=== PATIENT | female | born 1945 | race Caucasian/White ===

== ENCOUNTER 2016-09-29 14:28 | Inpatient (IN) | payer BC, OTHER ==
[~2016-09-29] VITALS: Ht 167.6 cm; Wt 82.9 kg
[~2016-09-29 14:28] MED LIST: ADVIN25/60 INH; ALBUAER19 INH; ASPCH81X PO; FLUT0.15 NAE; FURO-85 PO; GABA-112 PO; LACT10SO17 PO; LEVO75TA PO; MECL1TAB40 PO; METO25TA3 PO; NITR0.4S UT; ONDA4TAB9 PO; OXYC-57 PO; PRLSR20 PO; SENN-65 PO; SIMV10TA2 PO; TRAM-10 PO; TRAZ1TAB52 PO; TURM1CAP4 PO
[2016-09-29] MEDS ORDERED: ALBUT/IPRATROP 3MG/0.5MG NEB 3 ML VIAL INH STA ×3 (14:36→17:38)
--- NOTE | 2016-09-29 15:00 | DIAGNOSTIC IMAGING REPORT ---
CHEST ONE VIEW PORTABLE HISTORY: Short of breath. COMPARISON: Chest 10/16/2015. FINDINGS: No pleural effusions. No pneumothorax. Linear density within the left mid to lower lung zone. The heart is top normal in size. There are poststernotomy changes. The right lung is clear. The patient slightly rotated on this study. Stable blunting left lateral costophrenic sulcus. IMPRESSION: 1. Linear densities within the left mid to lower lung zone favor subsegmental atelectasis or scarring. 2. Stable blunting of the left lateral costophrenic sulcus. Electronically signed by: Abdoul Desir M.D. 09/29/2016 2:58 PM Dictated Date/Time: 09/29/2016 2:57 PM
[2016-09-29] MEDS ORDERED: METHYLPREDNISOLONE 125 MG VIAL IV STA (15:16)
[2016-09-29] MEDS ORDERED: FENTANYL CITRATE INJ 50 MCG/1 ML 2 ML VIAL IV STA (15:18)
[2016-09-29] MEDS ORDERED: ONDANSETRON INJ 2 MG/ML 2 ML VIAL IV STA (15:18)
[2016-09-29 15:29] LABS: CALCIUM 8.8 mg/dl (8.5-10.1); CREATININE 0.94 mg/dl (0.60-1.20); POTASSIUM 4.5 mmol/L (3.5-5.1)
[2016-09-29] MEDS ORDERED: OPTIRAY 320 IV PRN (15:30)
[2016-09-29 15:32] LABS: ALB/GLOB RATIO 1.2 (0.9-2)
[2016-09-29 15:40] LABS: INR 1.1 (0.9-1.1); PARTIAL THROMBOPLASTIN RATIO 0.9; PROTHROMBIN TIME (PATIENT) 12.1 SECONDS (9.0-12.0)
[2016-09-29] MEDS ORDERED: LOSA1TAB PO (16:11)
[2016-09-29] MEDS ORDERED: VNTHFA/IN INH (16:11)
[2016-09-29 16:37] LABS: BASO % 0.2 %; BASO ABS # 0.01 K/uL (0-0.2); COMPLETE YES; EOS % 1.3 %; HEMATOCRIT 28.1 % (37-47); IG% 0.2 %; LYMPH % 36.9 %; LYMPH ABS # 1.76 K/uL (1.2-3.4); MEAN CELL VOLUME 82.2 fL (80-100); MEAN CORPUSCULAR HEMOGLOBIN 26.6 pg (25-34); MEAN CORPUSCULAR HGB CONC 32.4 g/dl (32-36); MEAN PLATELET VOLUME 11.2 fL (7.4-10.4); MONO % 5.5 %; NEUT % 55.9 %; PLATELET COUNT 95 K/uL (130-400); PLT ESTIMATE DECREASED; RED BLOOD COUNT 3.42 M/uL (4.2-5.4); WHITE BLOOD COUNT 4.77 K/uL (4.8-10.8)
--- NOTE | 2016-09-29 17:09 | DIAGNOSTIC IMAGING REPORT ---
CHEST CTA for PULMONARY ARTERIES CT DOSE: 618.10 mGy.cm HISTORY: Chest pain dyspnea TECHNIQUE: Multiaxial CT images of the chest were performed following the intravenous administration of contrast to evaluate the pulmonary arteries. Maximal intensity projection images were also obtained. COMPARISON STUDY: 12/12/2014 FINDINGS: Chronic pleural thickening and atelectasis left base. Negative thoracic aorta. Pulmonary vasculature enhances appropriately. There are no significant filling defects. IMPRESSION: 1. Study is negative for pulmonary embolus. 2. Negative thoracic aorta. 3. Chronic pleural reactive change and atelectasis left base unchanged from the prior study. Electronically signed by: Vikas Escalante M.D. 09/29/2016 5:08 PM Dictated Date/Time: 09/29/2016 5:05 PM
[2016-09-29] MEDS ORDERED: ALBUT/IPRATROP 3MG/0.5MG NEB 3 ML VIAL INH ONE (17:45)
[2016-09-29 17:54] VITALS: PULSE 76; O2SAT 100
[2016-09-29] MEDS ORDERED: LORAZEPAM 2 MG/ML 1 ML VIAL IV STA (17:57)
[2016-09-29] MEDS ORDERED: LORAZEPAM 1 MG TAB PO PRN (19:00)
[2016-09-29] MEDS ORDERED: OXYC1TAB3 PO (19:10)
[2016-09-29] MEDS ORDERED: FOLI1TAB7 PO (19:10)
[2016-09-29] MEDS ORDERED: HydrALAZINE HCL 20 MG/ML VIAL IV. PRN (19:30)
--- NOTE | 2016-09-29 19:42 | History and Physical ---
History & Physical Date & Time of Service: Sep 29, 2016 at 19:22 Chief Complaint: Shortness Of Breath Primary Care Physician: Destiny Walls D.O. History of Present Illness 71 year old female who presents to the ER with shortness of breath. Patient reports her symptoms began about one week ago. She also has had an intermittent cough productive for a small amount of garcia sputum. She reports intermittent low grade fevers and chills which she has been taking Motrin for. She reports constant chest tightness over the past few days. She also reports left upper/ axillary chest pain. She denies specific causative factors. She feels the chest pain is from recent plastic surgery she had done to her mastectomy sites. She reports the tightness and pain resolve when she takes a pain pill. She denies lightheadedness, dizziness, diaphoresis, or syncope. She reports increasing abdominal distention and generalized abdominal pain. She denies nausea and vomiting and reports she has been moving her bowel normally. She denies urinary symptoms. Patient does report she drinks a significant amount of alcohol; last drink was last evening. In the ER, patient work up is unrevealing. CT chest is negative for PE and other acute findings. EKG does not show any acute ST changes. Past Medical/Surgical History Medical Problems: (1) Alcoholic cirrhosis Status: Chronic (2) COPD (chronic obstructive pulmonary disease) Status: Chronic (3) Coronary artery disease Status: Chronic (4) Depression Status: Chronic (5) Diastolic CHF Permanent Comment: echo 04/2016 - EF 63%, grade I diastolic dysfunction Status: Chronic (6) Dyslipidemia Status: Chronic (7) Essential hypertension Status: Chronic (8) History of alcohol abuse Status: Chronic (9) History of breast cancer Status: Chronic (10) Hypothyroidism Status: Chronic Surgical Problems: (1) H/O bilateral mastectomy Status: Chronic (2) H/O shoulder surgery Status: Chronic (3) H/O ventral hernia repair Status: Chronic (4) History of bowel resection Status: Chronic (5) Status post coronary artery bypass grafting [place] Comment[place] [facility] [place]: Chronic (6) Status post hysterectomy Status: Chronic (7) Status post laparotomy Permanent Comment: 2004 bowel obstruction Status: Chronic (8) Status post repair incisional hernia Status: Chronic Social History Problems: (1) Tobacco use Status: Resolved Family History Cancer MOTHER (Stomach, Colon ) Social History Smoking Status: Former Smoker Alcohol Use: 6-8 shots vodka/night Immunizations History of Influenza Vaccine: Yes Influenza Vaccine Date: May 12, 2016 History of Pneumococcal: Yes Pneumococcal Date: Mar 08, 2016 History of Hepatitis B Vaccine: Yes Hepatitis Immunization Date: Oct 29, 2015 Multi-Drug Resistant Organisms History of MDRO: Yes Type of MDRO: MRSA Allergies Coded Allergies: No Known Allergies (Verified , 09/29/16) Home Medications Scheduled Aspirin (Aspirin Chewable), 81 MG PO QAM Fluticasone Prop/Salmeterol (Advair Diskus 250/50 60 Dose), 1 PUFF INH BID Folic Acid (Folvite), 1 MG PO DAILY Furosemide (Lasix), 20 MG PO QAM Lactulose (Chronulac), 30 ML PO BID Levothyroxine Sodium (Synthroid), 75 MCG PO QAM Losartan Potassium (Cozaar), 25 MG PO DAILY Metoprolol Succ (Toprol Xl) (Toprol-Xl), 50 MG PO QAM Omeprazole (Prilosec), 20 MG PO QAM Senna/Docusate Sod (Senokot S), 2 TAB PO QAM Simvastatin (Zocor), 10 MG PO QPM Trazodone Hcl (Desyrel), 150 MG PO HS Scheduled PRN Albuterol Hfa (Ventolin Hfa), 2 PUFFS INH Q6H PRN for SOB/Wheezing Fluticasone Propionate (Nasal) (Flonase Allergy Relief), 2 SPRAY TATE QAM PRN for CONGESTION Nitroglycerin (Nitrostat), 0.4 MG UT UD PRN for Chest Pain Ondansetron (Ondansetron HCl), 4 MG PO Q6 PRN for NAUSEA Oxycodone Immediate Rel Tab (Roxicodone Ir), 5 MG PO Q4H PRN for Severe Pain Tramadol (Ultram), 50 MG PO Q6H PRN for Pain Review of Systems 10 point review of systems was completed with the pertinent positives and negatives noted per the HPI Physical Exam Vital Signs Date Time Temp Pulse Resp B/P Pulse Ox O2 Delivery O2 Flow Rate FiO2 09/29/16 19:04 120 09/29/16 17:54 76 22 100 Nasal Cannula 2.0 09/29/16 16:42 78 28 156/101 100 Nasal Cannula 2.0 2/15/17 15:12 72 09/29/16 14:43 100 Room Air 09/29/16 14:43 100 Room Air 09/29/16 14:43 36.8 74 24 169/100 96 Room Air 09/29/16 14:37 95 Room Air General Appearance: no apparent distress Head: normocephalic Eyes: normal inspection ENT: hearing grossly normal Neck: supple, thyroid normal Respiratory/Chest: lungs clear, normal breath sounds, no respiratory distress Cardiovascular: regular rate, rhythm, no edema, normal peripheral pulses Abdomen/GI: normal bowel sounds, + tenderness (generalized), + distended Extremities/Musculoskelatal: normal inspection, no calf tenderness Neurologic/Psych: no motor/sensory deficits, alert, normal mood/affect, oriented x 3 Skin: normal color, warm/dry Diagnostics Laboratory Results Results Past 24 Hours Test 09/29/16 00:00 09/29/16 14:50 09/29/16 15:51 09/29/16 18:49 Range/Units Influenza Type A Antigen Neg for Influ A NEG Influenza Type B Antigen Neg for Influ B NEG Prothrombin Time 12.1 9.0-12.0 SECONDS Prothromb Time International Ratio 1.1 0.9-1.1 Activated Partial Thromboplast Time 23.4 21.0-31.0 SECONDS Partial Thromboplastin Ratio 0.9 Sodium Level 138 136-145 mmol/L Potassium Level 4.5 3.5-5.1 mmol/L Chloride Level 106 98-107 mmol/L Carbon Dioxide Level 20 21-32 mmol/L Anion Gap 12.0 3-11 mmol/L Blood Urea Nitrogen 8 7-18 mg/dl Creatinine 0.94 0.60-1.20 mg/dl Est Creatinine Clear Calc Drug Dose 32.1 ml/min Estimated GFR () 71.2 Estimated GFR (Non- 61.5 BUN/Creatinine Ratio 8.0 10-20 Random Glucose 93 70-99 mg/dl Calcium Level 8.8 8.5-10.1 mg/dl Total Bilirubin 0.7 0.2-1 mg/dl Aspartate Amino Transf (AST/SGOT) 31 15-37 U/L Alanine Aminotransferase (ALT/SGPT) 24 12-78 U/L Alkaline Phosphatase 72 45-117 U/L Pro-B-Type Natriuretic Peptide 601 0-900 pg/ml Total Protein 6.7 6.4-8.2 gm/dl Albumin 3.7 3.4-5.0 gm/dl Globulin 3.0 2.5-4.0 gm/dl Albumin/Globulin Ratio 1.2 0.9-2 White Blood Count 4.77 4.8-10.8 K/uL Red Blood Count 3.42 4.2-5.4 M/uL Hemoglobin 9.1 12.0-16.0 g/dL Hematocrit 28.1 37-47 % Mean Corpuscular Volume 82.2 80-100 fL Mean Corpuscular Hemoglobin 26.6 25-34 pg Mean Corpuscular Hemoglobin Concent 32.4 32-36 g/dl Platelet Count 95 130-400 K/uL Mean Platelet Volume 11.2 7.4-10.4 fL Neutrophils (%) (Auto) 55.9 % Lymphocytes (%) (Auto) 36.9 % Monocytes (%) (Auto) 5.5 % Eosinophils (%) (Auto) 1.3 % Basophils (%) (Auto) 0.2 % Neutrophils # (Auto) 2.67 1.4-6.5 K/uL Lymphocytes # (Auto) 1.76 1.2-3.4 K/uL Monocytes # (Auto) 0.26 0.11-0.59 K/uL Eosinophils # (Auto) 0.06 0-0.5 K/uL Basophils # (Auto) 0.01 0-0.2 K/uL RDW Standard Deviation 50.5 36.4-46.3 fL RDW Coefficient of Variation 16.5 11.5-14.5 % Immature Granulocyte % (Auto) 0.2 % Immature Granulocyte # (Auto) 0.01 0.00-0.02 K/uL Platelet Estimate DECREASED Test 09/29/16 19:00 Range/Units Diagnostic Radiology CXR IMPRESSION: 1. Linear densities within the left mid to lower lung zone favor subsegmental atelectasis or scarring. 2. Stable blunting of the left lateral costophrenic sulcus. CTA CHEST IMPRESSION: 1. Study is negative for pulmonary embolus. 2. Negative thoracic aorta. 3. Chronic pleural reactive change and atelectasis left base unchanged from the prior study. Impression Assessment and Plan SHORTNESS OF BREATH, MILD COPD EXACERBATION - admit to tele - presenting with increasing shortness of breath and cough x 1 week - saturating well on room air - CXR negative for pneumonia, CTA chest negative for PE - rapid flu negative, will check PCR - s/p solumedrol 125mg IV in ED; will continue with short prednisone taper tomorrow - PRN nebs - empiric doxy - sputum culture - suspect some component of anxiety is contributing to her shortness of breath CHEST TIGHTNESS/PAIN, HX CAD - atypical chest pain - likely due to COPD exacerbation/recent plastic surgery on mastectomy sites - EKG does not show any acute ST changes - serial enzymes - resting echo - continue ASA, beta vanna, and statin ABDOMINAL PAIN/DISTENTION CT abd/pelvis-non obstructive ileus clears for now f/u kub in am ETOH ABUSE - patient reports she drinks 6-8 shots of vodka/night - last drink last evening - would like to quit - mental health consult placed - EOTH withdrawal protocol with gabapentin and PRN Ativan ordered - PO multivitamin, folic acid, and thiamine CHRONIC DIASTOLIC CHF - echo 04/2016 - EF 63%, grade I diastolic function on lasix HTN - BP elevated, ? situational due to anxiety - continue metoprolol and losartan, make adjustments as needed - PRN hydralazine ANEMIA/THROMBOCYTOPENIA - hgb and platelets at baseline - due to underlying liver disease HYPOTHYROIDISM - continue levothyroxine DVT PROPHYLAXIS - SCDs due to anemia, thrombocytopenia DISPO - In my clinical judgment this beneficiary meets acute admission criteria, established by [facility], that includes being hospitalized through two midnights. Agree with above H and P. 71F presents ongoing cough and sob for one week. Says had some fevers at home. Also complains of abdomen pain. No nausea or vomiting. No diarrhea. Also complains of chest tightness.Currently resting comfortably and hemodynamically stable. p/e Ge not in distress Cvs s1 and s2 heard no murmurs Rs cta b/l no wheezing Abd soft bs present mild tender mild distension [employer] non focal Ext no erythema a/p copd ex neb, oxygen, doxycycline and steroids monitor in tele mild non obstructive ileus on ct scan clears f/u kub diastolic chf home meds VTE Prophylaxis VTE Risk Assessment Done? Y/N: Yes Risk Level: Moderate
[2016-09-29 19:45] VITALS: Ht 167.6 cm; Wt 82.9 kg
[2016-09-29 20:00] VITALS: O2SAT 99
[2016-09-29] MEDS ORDERED: FLUTICASONE PROPIONATE NA SPR 16 GM BTL NAE PRN (20:30)
[2016-09-29 20:42] VITALS: BP 140/67; PULSE 104; TEMP 37.1; O2SAT 99
[2016-09-29] MEDS ORDERED: TRAZODONE HCL 50 MG TAB PO SCH (21:00)
--- NOTE | 2016-09-29 21:19 | DIAGNOSTIC IMAGING REPORT ---
ABDOMEN AND PELVIS CT WITHOUT CONTRAST CT DOSE: 544.00 mGy.cm HISTORY: Pain abdominal distention, abdominal pain TECHNIQUE: Multiaxial CT images of the abdomen and pelvis were performed without contrast. COMPARISON STUDY: 10/15/2015 FINDINGS: Chronic pleural reactive change left base. Right base is clear. Postoperative changes are noted in the right anterior chest wall. Prior median sternotomy. Liver spleen and pancreas are unremarkable in configuration. There are several small gallstones within the gallbladder lumen. This is unchanged. Kidneys negative for hydronephrosis. Bowel pattern overall is nonobstructive. No evidence for an anterior ventral hernia repair bladder is midline. There is no significant free fluid within the cul-de-sac.. Components of the appendix are unremarkable. IMPRESSION: 1. Minimal nonobstructive ileus. 2. Otherwise unremarkable bowel pattern with no true obstructive characteristics. 3. Interval anterior wall ventral hernia repair. 4. Postoperative changes lower aspect right breast and/or lower right chest wall. 5. Chronic changes left base. 6. Several small gallstones unchanged from the prior study. Electronically signed by: Vikas Escalante M.D. 09/29/2016 9:18 PM Dictated Date/Time: 09/29/2016 9:13 PM
[2016-09-29] MEDS: MULTIVITAMIN TAB PO SCH (21:43)
[2016-09-29] MEDS: FLUTICASONE/SALMETEROL 250/50 (ADVAIR) 14 PUFF/1 INHALER INH SCH (21:43)
[2016-09-29] MEDS ORDERED: SODIUM CHLORIDE 0.9% 1000ML 1,000 ML IV SCH (21:45)
[2016-09-29] MEDS: DOXYCYCLINE HYCLATE 100 MG CAP PO SCH (21:46)
[2016-09-29] MEDS: THIAMINE HCL 100 MG TAB PO SCH (21:46)
[2016-09-29] MEDS: SIMVASTATIN 10 MG TAB PO SCH (21:47)
[2016-09-29] MEDS: LACTULOSE SYRUP 20 GM/30 ML UDC PO SCH (21:50)
[2016-09-29] MEDS ORDERED: GABAPENTIN 600 MG TAB PO SCH (22:00)
[2016-09-29] MEDS: OXYCODONE HCL IR 5 MG TAB (IMMEDIATE RELEASE) PO PRN (22:39)
[2016-09-29] MEDS ORDERED: LORAZEPAM 2 MG/ML 1 ML VIAL IV PRN (23:00)
[2016-09-29 23:10] VITALS: BP 135/74; PULSE 90; TEMP 36.8; O2SAT 95
[2016-09-30] VITALS (11 sets, daily range): BP systolic 102–161; BP diastolic 50–88; PULSE 56–88; TEMP 36.4–36.9; O2SAT 94–98
--- NOTE | 2016-09-30 00:14 | EMERGENCY ROOM VISIT NOTE ---
History Report prepared by Aleksey: Rosario Le Under the Supervision of: Dr. Cesar Montoya M.D. First contact with patient: 15:10 Chief Complaint: SHORTNESS OF BREATH Stated Complaint: SHORTNESS OF BREATH Nursing Triage Summary: arrived als from dr office s/p right breat drain removal. hx darrel mastectomies in past, recent resection redundant breast tissue and flap advancement, last visit had a fluid wave, drain placed, removed today. left drain out last week. today s/o, "constricted breathing",abd feels rigid to pt, states usually soft, getting tighter over the last week.. orthopnic, pérez. History of Present Illness The patient is a 71 year old female who presents to the Emergency Room with complaints of worsening shortness of breath that started earlier today. The patient came to the ED via ambulance from her PCP's office. The shortness of breath was not relieved with a breathing treatment. She states that she is also experiencing chest tightness, but she denies any chest pain. The tightness started one week ago and has been gradually getting worse. Additionally, she is experiencing fevers, chills, nausea, and worsening abdominal bloating. Her highest recorded fever was 100.8. She states that her abdomen feels more rigid than usual also. The patient is also experiencing worsening lower left leg edema. Pt denies LOC, headache, visual changes, neck pain, tearing pain radiating to the back, personal history of blood clots, vomiting, melena, hematochezia, urinary symptoms, rash, or other complaints. She experienced similar symptoms last July when she was diagnosed with a COPD exacerbation. She was admitted to the hospital in [place]. However, at that time she was experiencing chest pain. The patient had bilateral mastectomies done two years ago. She then had a resection of redundant breast tissue, and flap advancement on August. The patient takes one baby aspirin daily, but otherwise denies being on any blood thinners. The patient reports that she has cirrhosis of her liver and that she is an alcoholic. She states that she drinks pretty heavily. The patient adds that she has history of three hernia surgeries, bowel resection, and heart bypass. Source of History: patient Onset: earlier today Position: chest Quality: other (shortness of breath) Timing: worsening Associated Symptoms: + chills, + fevers, + nausea Note: worsening chest tightness, worsening abdominal bloating, increasing abdominal rigidity, worsening lower left leg edema Review of Systems See HPI for pertinent positives and negatives. A total of ten systems were reviewed and were otherwise negative. Past Medical & Surgical Medical Problems: (1) Alcoholic cirrhosis (2) COPD (chronic obstructive pulmonary disease) (3) Coronary artery disease (4) Depression (5) Diastolic CHF (6) Dyslipidemia (7) Essential hypertension (8) History of alcohol abuse (9) History of breast cancer (10) Hypothyroidism Surgical Problems: (1) H/O bilateral mastectomy (2) H/O shoulder surgery (3) H/O ventral hernia repair (4) History of bowel resection (5) Status post coronary artery bypass grafting (6) Status post hysterectomy (7) Status post laparotomy (8) Status post repair incisional hernia Social History Problems: (1) Tobacco use Family History Cancer MOTHER (Stomach, Colon ) Hypertension Social History Smoking Status: Former Smoker Alcohol Use: none Drug Use: none Marital Status: single Housing Status: lives alone Occupation Status: unemployed Current/Historical Medications Scheduled Aspirin (Aspirin Chewable), 81 MG PO QAM Fluticasone Prop/Salmeterol (Advair Diskus 250/50 60 Dose), 1 PUFF INH BID Folic Acid (Folvite), 1 MG PO DAILY Furosemide (Lasix), 20 MG PO QAM Lactulose (Chronulac), 30 ML PO BID Levothyroxine Sodium (Synthroid), 75 MCG PO QAM Losartan Potassium (Cozaar), 25 MG PO DAILY Metoprolol Succ (Toprol Xl) (Toprol-Xl), 50 MG PO QAM Omeprazole (Prilosec), 20 MG PO QAM Senna/Docusate Sod (Senokot S), 2 TAB PO QAM Simvastatin (Zocor), 10 MG PO QPM Trazodone Hcl (Desyrel), 150 MG PO HS Scheduled PRN Albuterol Hfa (Ventolin Hfa), 2 PUFFS INH Q6H PRN for SOB/Wheezing Fluticasone Propionate (Nasal) (Flonase Allergy Relief), 2 SPRAY TATE QAM PRN for CONGESTION Nitroglycerin (Nitrostat), 0.4 MG UT UD PRN for Chest Pain Ondansetron (Ondansetron HCl), 4 MG PO Q6 PRN for NAUSEA Oxycodone Immediate Rel Tab (Roxicodone Ir), 5 MG PO Q4H PRN for Severe Pain Tramadol (Ultram), 50 MG PO Q6H PRN for Pain Allergies Coded Allergies: No Known Allergies (Verified , 09/29/16) Physical Exam Vital Signs Date Time Temp Pulse Resp B/P Pulse Ox O2 Delivery O2 Flow Rate FiO2 09/29/16 18:30 91 19 100 09/29/16 18:00 76 21 100 09/29/16 17:54 76 22 100 Nasal Cannula 2.0 09/29/16 17:39 176/78 09/29/16 17:38 187/137 09/29/16 16:42 78 28 156/101 100 Nasal Cannula 2.0 09/29/16 16:30 78 17 100 09/29/16 16:01 156/101 09/29/16 16:00 79 26 100 09/29/16 15:30 73 22 09/29/16 15:12 72 09/29/16 14:43 100 Room Air 09/29/16 14:43 100 Room Air 09/29/16 14:43 36.8 74 24 169/100 96 Room Air 09/29/16 14:37 95 Room Air Physical Exam GENERAL: Awake, alert, uncomfortable-appearing, in no distress HENT: Normocephalic, atraumatic. Oropharynx unremarkable. EYES: Normal conjunctiva. Sclera non-icteric. NECK: Supple. No nuchal rigidity. FROM. No JVD. RESPIRATORY: Clear to auscultation. CARDIAC: Regular rate, normal rhythm. Extremities warm and well perfused. Pulses equal. ABDOMEN: Soft, mildly distended. Minimal tenderness to palpation in midabdomen. No rebound or guarding. No masses. RECTAL: Deferred. MUSCULOSKELETAL: Chest examination reveals no tenderness. The back is symmetrical on inspection without obvious abnormality. There is no CVA tenderness to palpation. No joint edema. LOWER EXTREMITIES: Calves are equal size bilaterally and non-tender. Left leg 2 + edema with some calf tenderness. Right leg 1+ edema. No discoloration. NEURO: Normal sensorium. No sensory or motor deficits noted. SKIN: No rash or jaundice noted. Medical Decision & Procedures ER Provider Diagnostic Interpretation: X ray results as stated below per my interpretation and radiologist interpretation. Other radiology results as stated below per my review and radiologist interpretation CHEST ONE VIEW PORTABLE IMPRESSION: 1. Linear densities within the left mid to lower lung zone favor subsegmental atelectasis or scarring. 2. Stable blunting of the left lateral costophrenic sulcus. Electronically signed by: Abdoul Desir M.D. 09/29/2016 2:58 PM Dictated Date/Time: 09/29/2016 2:57 PM CHEST CTA for PULMONARY ARTERIES IMPRESSION: 1. Study is negative for pulmonary embolus. 2. Negative thoracic aorta. 3. Chronic pleural reactive change and atelectasis left base unchanged from the prior study. Electronically signed by: Vikas Escalante M.D. 09/29/2016 5:08 PM Dictated Date/Time: 09/29/2016 5:05 PM Laboratory Results 09/29/16 15:51 Red Blood Count 3.42, Mean Corpuscular Volume 82.2, Mean Corpuscular Hemoglobin 26.6, Mean Corpuscular Hemoglobin Concent 32.4, Mean Platelet Volume 11.2, Neutrophils (%) (Auto) 55.9, Lymphocytes (%) (Auto) 36.9, Monocytes (%) (Auto) 5.5, Eosinophils (%) (Auto) 1.3, Basophils (%) (Auto) 0.2, Neutrophils # (Auto) 2.67, Lymphocytes # (Auto) 1.76, Monocytes # (Auto) 0.26, Eosinophils # (Auto) 0.06, Basophils # (Auto) 0.01 09/29/16 14:50 Test 09/29/16 00:00 09/29/16 14:50 09/29/16 15:51 Influenza Type A Antigen Neg for Influ A (NEG) Influenza Type B Antigen Neg for Influ B (NEG) Prothrombin Time 12.1 SECONDS (9.0-12.0) Prothromb Time International Ratio 1.1 (0.9-1.1) Activated Partial Thromboplast Time 23.4 SECONDS (21.0-31.0) Partial Thromboplastin Ratio 0.9 Anion Gap 12.0 mmol/L (3-11) Est Creatinine Clear Calc Drug Dose 32.1 ml/min Estimated GFR () 71.2 Estimated GFR (Non- 61.5 BUN/Creatinine Ratio 8.0 (10-20) Calcium Level 8.8 mg/dl (8.5-10.1) Total Bilirubin 0.7 mg/dl (0.2-1) Aspartate Amino Transf (AST/SGOT) 31 U/L (15-37) Alanine Aminotransferase (ALT/SGPT) 24 U/L (12-78) Alkaline Phosphatase 72 U/L (45-117) Troponin I < 0.015 ng/ml (0-0.045) Pro-B-Type Natriuretic Peptide 601 pg/ml (0-900) Total Protein 6.7 gm/dl (6.4-8.2) Albumin 3.7 gm/dl (3.4-5.0) Globulin 3.0 gm/dl (2.5-4.0) Albumin/Globulin Ratio 1.2 (0.9-2) White Blood Count 4.77 K/uL (4.8-10.8) Red Blood Count 3.42 M/uL (4.2-5.4) Hemoglobin 9.1 g/dL (12.0-16.0) Hematocrit 28.1 % (37-47) Mean Corpuscular Volume 82.2 fL (80-100) Mean Corpuscular Hemoglobin 26.6 pg (25-34) Mean Corpuscular Hemoglobin Concent 32.4 g/dl (32-36) Platelet Count 95 K/uL (130-400) Mean Platelet Volume 11.2 fL (7.4-10.4) Neutrophils (%) (Auto) 55.9 % Lymphocytes (%) (Auto) 36.9 % Monocytes (%) (Auto) 5.5 % Eosinophils (%) (Auto) 1.3 % Basophils (%) (Auto) 0.2 % Neutrophils # (Auto) 2.67 K/uL (1.4-6.5) Lymphocytes # (Auto) 1.76 K/uL (1.2-3.4) Monocytes # (Auto) 0.26 K/uL (0.11-0.59) Eosinophils # (Auto) 0.06 K/uL (0-0.5) Basophils # (Auto) 0.01 K/uL (0-0.2) RDW Standard Deviation 50.5 fL (36.4-46.3) RDW Coefficient of Variation 16.5 % (11.5-14.5) Immature Granulocyte % (Auto) 0.2 % Immature Granulocyte # (Auto) 0.01 K/uL (0.00-0.02) Platelet Estimate DECREASED Laboratory results reviewed by me Medications Administered Medications (Trade) Dose Ordered Sig/Leisa Route Start Time Stop Time Status Last Admin Dose Admin Albuterol/ Ipratropium (Duoneb) 3 ml NOW STAT INH 09/29/16 14:36 09/29/16 14:38 DC 09/29/16 14:52 3 ML Albuterol/ Ipratropium (Duoneb) 3 ml NOW STAT INH 09/29/16 15:16 09/29/16 15:18 DC 09/29/16 15:36 3 ML Methylprednisolone Sodium Succinate (Solu-Medrol IV) 125 mg NOW STAT IV 09/29/16 15:16 09/29/16 15:18 DC 09/29/16 15:36 125 MG Fentanyl Citrate (Fentanyl Inj) 50 mcg NOW STAT IV 09/29/16 15:18 09/29/16 15:20 DC 09/29/16 15:37 50 MCG Ondansetron HCl (Zofran Inj) 4 mg NOW STAT IV 09/29/16 15:18 09/29/16 15:20 DC 09/29/16 15:36 4 MG Albuterol/ Ipratropium (Duoneb) 12 ml ONE ONCE INH 09/29/16 17:45 09/29/16 17:46 DC 09/29/16 17:54 12 ML Lorazepam (Ativan Inj) 1 mg NOW STAT IV 09/29/16 17:57 09/29/16 17:58 DC 09/29/16 18:06 1 MG ECG Indication: SOB/dyspnea Rate (beats per minute): 74 Rhythm: normal sinus Findings: no acute ischemic change, no ectopy, other (poor R-wave progression) ED Course 1516: The patient was evaluated in room B4. A complete history and physical exam was performed. Ordered Solu-Medrol 125 mg IV, DuoNeb 3 ml INH 1518: Ordered Zofran Inj 4 mg IV, Fentanyl Citrate 50 mcg IV 1745: Ordered DuoNeb 3 ml INH 1752: Upon reexamination, the patient was resting comfortably but anxious. I discussed the test results and treatment plan with her. The patient will be evaluated for further management. 1757: Ordered Ativan Inj 1 mg IV 1809: Discussed the patient's case with Aide Michaels. The patient will be evaluated for further treatment and disposition. Medical Decision Triage Nursing notes reviewed. The patient's presentation and history were concerning for shortness of breath. Etiologies such as pneumonia, COPD, reactive airway disease, CHF, cardiac ischemia, pulmonary embolism, pneumothorax, musculoskeletal, infections, gastrointestinal, as well as others were entertained. The patient was evaluated. She was short of breath. She was given 2 DuoNeb treatments. She is also given Solu-Medrol. Chest x-ray did not reveal any acute findings. The patient had pancytopenia noted on CBC. Moderate anemia but not significant to cause her shortness of breath. Coags are unremarkable. Chemistry panel and BNP were unremarkable. Cardiac troponin was negative. The patient underwent CT imaging which did not reveal any evidence of PE. On reassessment the patient was doing so better but then had more shortness of breath. She was started on an hour-long breathing treatment. The patient was also noting some anxiety. She does consume a moderate amount of alcohol. She is not significantly tachycardic. The patient was given a dose of 1 milligram of Ativan. Consultation was made with internal medicine. Patient was evaluated in the Emergency Room by the hospitalist for further management. The chart was completed utilizing [employer] Speech voice recognition software. Grammatical errors, random word insertions, pronoun errors, and incomplete sentences are an occasional consequence of this system due to software limitations, ambient noise, and hardware issues. Any formal questions or concerns about the content, text, or information contained within the body of this dictation should be directly addressed to the physician for clarification. Consults Time Called: 180 Consulting Physician: Aide Michaels Returned Call: [phone] Discussed the patient's case with Aide Michaels. The patient will be evaluated for further treatment and disposition. Impression Primary Impression: Shortness of breath Additional Impression: COPD exacerbation Scribe Attestation The scribe's documentation has been prepared under my direction and personally reviewed by me in its entirety. I confirm that the note above accurately reflects all work, treatment, procedures, and medical decision making performed by me. Departure Information Dispostion Being Evaluated By Hospitalist Referrals Destiny Walls D.O. (PCP) Patient Instructions My [facility] Problem Qualifiers
[2016-09-30 00:17] LABS: INFLUENZA A PCR Neg for Influ A (NEG); INFLUENZA B PCR Neg for Influ B (NEG)
[2016-09-30] MEDS: ALBUT/IPRATROP 3MG/0.5MG NEB 3 ML VIAL INH PRN ×2 (00:18→20:54)
[2016-09-30] MEDS: ONDANSETRON INJ 2 MG/ML 2 ML VIAL IV PRN ×2 (00:26→06:59)
[2016-09-30] MEDS: SODIUM CHLORIDE 0.9% 1000ML 1,000 ML IV SCH ×2 (00:28→09:45)
[2016-09-30] MEDS: TRAMADOL HCL 50 MG TAB PO PRN ×2 (00:33→10:35)
[2016-09-30] MEDS ORDERED: SODIUM CHLORIDE 0.9% 1000ML 1,000 ML IV ONE (02:00)
[2016-09-30] MEDS: OXYCODONE HCL IR 5 MG TAB (IMMEDIATE RELEASE) PO PRN ×2 (03:43→17:10)
[2016-09-30] MEDS: GABAPENTIN 600MG Q6H DOSE PO SCH ×2 (03:43→10:32)
[2016-09-30 04:33] LABS: HEMATOCRIT 24.9 % (37-47); MEAN CELL VOLUME 81.4 fL (80-100); MEAN CORPUSCULAR HEMOGLOBIN 26.5 pg (25-34); MEAN CORPUSCULAR HGB CONC 32.5 g/dl (32-36); RED BLOOD COUNT 3.06 M/uL (4.2-5.4); WHITE BLOOD COUNT 2.66 K/uL (4.8-10.8)
[2016-09-30 04:35] LABS: MEAN PLATELET VOLUME 10.8 fL (7.4-10.4); PLATELET COUNT 85 K/uL (130-400)
[2016-09-30 04:52] LABS: BUN/CREATININE RATIO 9.8 (10-20); CALCIUM 8.2 mg/dl (8.5-10.1); CREATININE 0.9 mg/dl (0.60-1.20); MAGNESIUM 1.9 mg/dl (1.8-2.4); POTASSIUM 4.4 mmol/L (3.5-5.1)
[2016-09-30 04:54] LABS: COMPLETE YES; IG% 0.4 %; LYMPH % 7.9 %; LYMPH ABS # 0.21 K/uL (1.2-3.4); MONO % 0.4 %; NEUT % 91.3 %
[2016-09-30 04:55] LABS: ALB/GLOB RATIO 1.2 (0.9-2)
[2016-09-30] MEDS: LEVOTHYROXINE 75 MCG TAB PO SCH (05:46)
[2016-09-30] MEDS: FLUTICASONE/SALMETEROL 250/50 (ADVAIR) 14 PUFF/1 INHALER INH SCH ×2 (07:57→22:17)
[2016-09-30] MEDS: LACTULOSE SYRUP 20 GM/30 ML UDC PO SCH ×3 (07:58→22:03)
[2016-09-30] MEDS: METOPROLOL SUCC 50MG EXT REL TAB PO SCH (08:09)
[2016-09-30] MEDS: ASPIRIN 81 MG ECTAB PO SCH (08:09)
[2016-09-30] MEDS: MULTIVITAMIN TAB PO SCH (08:09)
[2016-09-30] MEDS: THIAMINE HCL 100 MG TAB PO SCH (08:09)
[2016-09-30] MEDS: LOSARTAN POTASSIUM 25 MG TAB PO SCH (08:09)
[2016-09-30] MEDS: DOXYCYCLINE HYCLATE 100 MG CAP PO SCH ×2 (08:09→22:03)
[2016-09-30] MEDS: DOCUSATE SODIUM/SENNA 50/8.6MG TAB PO SCH (08:10)
[2016-09-30] MEDS: PANTOprazole SOD 40 MG TAB PO SCH (08:10)
[2016-09-30] MEDS ORDERED: MAGNESIUM SULFATE 1GM / D5W 1 GM in PREMIXED IN D5W 100 ML IV ONE (08:30)
[2016-09-30] MEDS ORDERED: FUROSEMIDE 20 MG TAB PO SCH (09:00)
--- NOTE | 2016-09-30 10:17 | DIAGNOSTIC IMAGING REPORT ---
KUB CLINICAL HISTORY: Ileus. FINDINGS: 2 AP supine abdominal radiographs are compared to study dated 10/16/2015 and correlated with abdominal CT dated 09/29/2016. There is a nonobstructed abdominal bowel gas pattern noting moderate colonic fecal retention. No evidence of intraperitoneal free air is seen. The bladder is filled with excreted contrast. No abnormal abdominal calcifications are identified. Midline sternotomy wires are noted and the heart appears enlarged. The skeletal structures are osteopenic. There is moderate lumbosacral spondylosis and scoliosis. IMPRESSION: Nonobstructed abdominal bowel gas pattern. Electronically signed by: Ishmael Burt M.D. 09/30/2016 10:15 AM Dictated Date/Time: 09/30/2016 10:14 AM
[2016-09-30 11:52] LABS: HEMATOCRIT 25.3 % (37-47); MEAN CELL VOLUME 81.9 fL (80-100); MEAN CORPUSCULAR HEMOGLOBIN 26.9 pg (25-34); MEAN CORPUSCULAR HGB CONC 32.8 g/dl (32-36); RED BLOOD COUNT 3.09 M/uL (4.2-5.4); WHITE BLOOD COUNT 6.19 K/uL (4.8-10.8)
[2016-09-30] MEDS: LORAZEPAM 0.5 MG TAB PO PRN (11:58)
--- NOTE | 2016-09-30 12:01 | Progress Note ---
Subjective Date of Service: Sep 30, 2016. Subjective Pt evaluation today including: conversation w/ patient, physical exam, lab review, review of studies, review of inpatient medication list Saw/examined the patient in room 231 She is doing better today States she has been drinking a lot of alcohol for the past year - admits to 3-4 drinks per night No significant withdrawal symptoms currently +weakness, +ambulatory dysfunction had some shortness of breath as well Problem List Medical Problems: (1) COPD exacerbation Status: Acute (2) Shortness of breath Status: Acute Review of Systems Constitutional: + weakness, No chills, No fever Respiratory: + shortness of breath, No cough, No dyspnea at rest, No dyspnea on exertion, No hemoptysis, No sputum, No wheezing Cardiac: + chest pain (improving), No edema, No palpitations Abdomen: No diarrhea, No nausea, No pain, No vomiting Neurologic: + balance problems, + vertigo, + weakness, No memory loss, No numbness/tingling, No paralysis Psychiatric: + see HPI, + substance abuse, No anxiety, No depression symptoms Heme: No abnormal bleeding/bruising Medications Current Inpatient Medications Medications (Trade) Dose Ordered Sig/Leisa Route Start Time Stop Time Status Last Admin Dose Admin Ioversol (Optiray 320) 125 ml UD PRN IV 09/29/16 15:30 10/03/16 15:29 Acetaminophen (Tylenol Tab) 650 mg Q4H PRN PO 09/29/16 19:00 10/29/16 18:59 Ondansetron HCl (Zofran Inj) 4 mg Q6H PRN IV 09/29/16 19:00 10/29/16 18:59 09/30/16 06:59 4 MG Multivitamins (Multivitamin Tab) 1 tab QAM PO 09/29/16 19:00 10/29/16 18:59 09/30/16 08:09 1 TAB Thiamine HCl (Vitamin B-1 Tab) 100 mg QAM PO 09/29/16 21:00 10/29/16 20:59 09/30/16 08:09 100 MG Folic Acid (Folvite Tab) 1 mg QAM PO 09/29/16 21:00 10/29/16 20:59 09/30/16 08:30 1 MG Albuterol/ Ipratropium (Duoneb) 3 ml Q4R PRN INH 09/29/16 19:15 10/29/16 19:14 09/30/16 00:18 3 ML Aspirin (Ecotrin Tab) 81 mg QAM PO 09/30/16 09:00 10/30/16 08:59 09/30/16 08:09 81 MG Salmeterol Xinafoate/ Fluticasone (Advair Diskus 250/50 Inh) 1 puff BID INH 09/29/16 21:00 10/29/16 20:59 09/30/16 07:57 1 PUFF Lactulose (Chronulac Syrup) 20 gm BID PO 09/29/16 21:00 10/29/16 20:59 09/30/16 07:58 20 GM Levothyroxine Sodium (Synthroid Tab) 75 mcg DAILYBB PO 09/30/16 06:00 10/30/16 06:59 09/30/16 05:46 75 MCG Losartan Potassium (coZAAR TAB) 25 mg DAILY PO 09/30/16 09:00 10/30/16 08:59 09/30/16 08:09 25 MG Metoprolol Succinate (Toprol Xl Tab) 50 mg QAM PO 09/30/16 09:00 10/30/16 08:59 09/30/16 08:09 50 MG Senna/Docusate Sodium (Senokot S Tab) 2 tab QAM PO 09/30/16 09:00 10/30/16 08:59 09/30/16 08:10 2 TAB Simvastatin (Zocor Tab) 10 mg QPM PO 09/29/16 21:00 10/29/16 20:59 09/29/16 21:47 10 MG Tramadol HCl (Ultram Tab) 50 mg Q6H PRN PO 09/29/16 19:15 10/29/16 19:14 09/30/16 10:35 50 MG Pantoprazole Sodium (Protonix Tab) 40 mg QAM PO 09/30/16 09:00 10/30/16 08:59 09/30/16 08:10 40 MG Prednisone (PredniSONE TAB) 40 mg Taper DAILY PO 09/30/16 09:00 10/07/16 08:59 09/30/16 08:30 40 MG Hydralazine HCl (HydrALAZINE INJ) 10 mg Q6H PRN IV. 09/29/16 19:30 10/29/16 19:29 Doxycycline Hyclate (Vibramycin Cap) 100 mg BID PO 09/29/16 21:00 10/06/16 20:59 09/30/16 08:09 100 MG Fluticasone Propionate (Flonase Nasal Maypearl) 1 sprays QAM PRN TATE 09/29/16 20:30 10/29/16 20:29 Oxycodone HCl (Roxicodone Immediate Rel Tab) 5 mg Q4H PRN PO 09/29/16 20:30 10/13/16 20:29 09/30/16 03:43 5 MG Gabapentin (Neurontin Tab) 600 mg Q8H PO 09/30/16 18:00 10/01/16 10:01 Gabapentin (Neurontin Tab) 600 mg Q12H PO 10/01/16 22:00 10/02/16 10:01 Gabapentin 600 mg 600 mg Q24H PO 10/02/16 10:00 10/02/16 10:01 Sodium Chloride (Nss 1000ml) 1,000 ml @ 100 mls/hr Q10H IV 09/29/16 23:45 09/30/16 11:44 09/30/16 00:28 100 MLS/HR Lorazepam (Ativan Tab) 0.5 mg Q4 PRN PO 09/30/16 11:30 10/30/16 11:29 UNV Objective Vital Signs Date Time Temp Pulse Resp B/P Pulse Ox O2 Delivery O2 Flow Rate FiO2 09/30/16 08:00 Room Air 09/30/16 08:00 36.8 83 18 158/84 96 Room Air 09/30/16 04:00 Room Air 09/30/16 03:35 36.9 88 18 131/68 95 Room Air 09/30/16 00:18 87 20 98 Room Air 09/30/16 00:00 Room Air 09/29/16 23:10 36.8 90 18 135/74 95 Room Air 09/29/16 20:42 37.1 104 24 140/67 99 Room Air 09/29/16 20:11 36.8 110 18 160/102 96 09/29/16 20:09 110 18 160/102 96 Room Air 09/29/16 20:00 99 Room Air 09/29/16 19:45 Nasal Cannula 2.0 09/29/16 19:30 124 24 98 09/29/16 19:04 120 09/29/16 19:00 117 24 100 09/29/16 18:30 91 19 100 09/29/16 18:00 76 21 100 09/29/16 17:54 76 22 100 Nasal Cannula 2.0 09/29/16 17:39 176/78 09/29/16 17:38 187/137 09/29/16 16:42 78 28 156/101 100 Nasal Cannula 2.0 09/29/16 16:30 78 17 100 09/29/16 16:01 156/101 09/29/16 16:00 79 26 100 09/29/16 15:30 73 22 09/29/16 15:12 72 09/29/16 14:43 100 Room Air 09/29/16 14:43 100 Room Air 09/29/16 14:43 36.8 74 24 169/100 96 Room Air 09/29/16 14:37 95 Room Air Physical Exam General Appearance: no apparent distress Respiratory/Chest: lungs clear, normal breath sounds, no respiratory distress, no accessory muscle use Cardiovascular: regular rate, rhythm, no edema, no murmur Abdomen: normal bowel sounds, non tender, soft Extremities: normal inspection, no pedal edema Neurologic/Psychiatric: no motor/sensory deficits, alert, + depressed affect Laboratory Results Last 24 Hours Test 09/29/16 14:50 09/29/16 15:51 09/29/16 19:38 09/29/16 22:20 Prothrombin Time 12.1 SECONDS Prothromb Time International Ratio 1.1 Activated Partial Thromboplast Time 23.4 SECONDS Partial Thromboplastin Ratio 0.9 Sodium Level 138 mmol/L Potassium Level 4.5 mmol/L Chloride Level 106 mmol/L Carbon Dioxide Level 20 mmol/L Anion Gap 12.0 mmol/L Blood Urea Nitrogen 8 mg/dl Creatinine 0.94 mg/dl Est Creatinine Clear Calc Drug Dose 32.1 ml/min Estimated GFR () 71.2 Estimated GFR (Non- 61.5 BUN/Creatinine Ratio 8.0 Random Glucose 93 mg/dl Calcium Level 8.8 mg/dl Total Bilirubin 0.7 mg/dl Aspartate Amino Transf (AST/SGOT) 31 U/L Alanine Aminotransferase (ALT/SGPT) 24 U/L Alkaline Phosphatase 72 U/L Troponin I < 0.015 ng/ml Pro-B-Type Natriuretic Peptide 601 pg/ml Total Protein 6.7 gm/dl Albumin 3.7 gm/dl Globulin 3.0 gm/dl Albumin/Globulin Ratio 1.2 White Blood Count 4.77 K/uL Red Blood Count 3.42 M/uL Hemoglobin 9.1 g/dL Hematocrit 28.1 % Mean Corpuscular Volume 82.2 fL Mean Corpuscular Hemoglobin 26.6 pg Mean Corpuscular Hemoglobin Concent 32.4 g/dl Platelet Count 95 K/uL Mean Platelet Volume 11.2 fL Neutrophils (%) (Auto) 55.9 % Lymphocytes (%) (Auto) 36.9 % Monocytes (%) (Auto) 5.5 % Eosinophils (%) (Auto) 1.3 % Basophils (%) (Auto) 0.2 % Neutrophils # (Auto) 2.67 K/uL Lymphocytes # (Auto) 1.76 K/uL Monocytes # (Auto) 0.26 K/uL Eosinophils # (Auto) 0.06 K/uL Basophils # (Auto) 0.01 K/uL RDW Standard Deviation 50.5 fL RDW Coefficient of Variation 16.5 % Immature Granulocyte % (Auto) 0.2 % Immature Granulocyte # (Auto) 0.01 K/uL Platelet Estimate DECREASED Lactic Acid Level 5.0 mmol/L Ethyl Alcohol mg/dL < 3.0 mg/dl Influenza Type A (RT-PCR) Neg for Influ A Influenza Type B (RT-PCR) Neg for Influ B Test 09/30/16 00:44 09/30/16 04:20 Lactic Acid Level 5.2 mmol/L 3.3 mmol/L White Blood Count 2.66 K/uL Red Blood Count 3.06 M/uL Hemoglobin 8.1 g/dL Hematocrit 24.9 % Mean Corpuscular Volume 81.4 fL Mean Corpuscular Hemoglobin 26.5 pg Mean Corpuscular Hemoglobin Concent 32.5 g/dl Platelet Count 85 K/uL Mean Platelet Volume 10.8 fL Neutrophils (%) (Auto) 91.3 % Lymphocytes (%) (Auto) 7.9 % Monocytes (%) (Auto) 0.4 % Eosinophils (%) (Auto) 0.0 % Basophils (%) (Auto) 0.0 % Neutrophils # (Auto) 2.43 K/uL Lymphocytes # (Auto) 0.21 K/uL Monocytes # (Auto) 0.01 K/uL Eosinophils # (Auto) 0.00 K/uL Basophils # (Auto) 0.00 K/uL RDW Standard Deviation 49.6 fL RDW Coefficient of Variation 16.7 % Immature Granulocyte % (Auto) 0.4 % Immature Granulocyte # (Auto) 0.01 K/uL Red Blood Cell Morphology Unremarkable Sodium Level 141 mmol/L Potassium Level 4.4 mmol/L Chloride Level 112 mmol/L Carbon Dioxide Level 18 mmol/L Anion Gap 11.0 mmol/L Blood Urea Nitrogen 9 mg/dl Creatinine 0.90 mg/dl Est Creatinine Clear Calc Drug Dose 63.9 ml/min Estimated GFR () 75.1 Estimated GFR (Non- 64.8 BUN/Creatinine Ratio 9.8 Random Glucose 156 mg/dl Calcium Level 8.2 mg/dl Magnesium Level 1.9 mg/dl Total Bilirubin 0.7 mg/dl Aspartate Amino Transf (AST/SGOT) 24 U/L Alanine Aminotransferase (ALT/SGPT) 21 U/L Alkaline Phosphatase 64 U/L Total Protein 6.2 gm/dl Albumin 3.4 gm/dl Globulin 2.8 gm/dl Albumin/Globulin Ratio 1.2 Assessment and Plan This is a 71 year old female with PMH of alcoholic liver cirrhosis and ongoing alcohol abuse, CAD s/p CABG, hx. of tobacco use and COPD, hx. of breast CA s/p bilateral mastectomy and recent plastic revision, HTN, HLD, hypothyroidism, diastolic CHF presents with shortness of breath, chest tightness Shortness of Breath Likely COPD exacerbation mild COPD exacerbation not requiring oxygen, but patient continues to have some shortness of breath was given IV solu-medrol in the ER; switch to prednisone taper continue nebs as needed Oxygen as needed doxycycline started Chest Tightness, r/o ACS in the setting of CAD with previous CABG x4 chest tightness is more likely related to the COPD exacerbation/breathing problems cardiac enzymes negative x 3 no significant EKG changes continue current cardiac medications Ongoing EtOH abuse alcohol abuse, last drink; night prior to arrival added folic acid, thiamine, multivitamin to prevent withdrawal symptoms Gabapentin protocol PO Ativan PRN for anxiety/agitation replaced Mg to keep > 2 psych liaison and social work consults placed for resources on alcohol cessation Lactic Acidemia Lactic acid elevated on admission and remains >3 continue fluid resuscitation repeat Lactic acid around 12PM on 09/30 likely due to ethanol intoxication and dehydration No source of infection found on KUB, abdomen/pelvis CT, CXR Anemia likely related to alcoholic liver disease Hgb on admission 9.1; now down to 8.1 combination of dilution and decreased production will recheck H/H around 12PM on 09/30 Thrombocytopenia again, likely related to alcoholic liver disease monitor platelets, transfuse PRN Abdominal Pain/Distention, improving mild, nonobstructive ileus on abdominal CT was on clears, repeat imaging done; KUB - no acute findings will advance diet Chronic Diastolic CHF Grade I diastolic dysfunction uses Lasix at home monitor for fluid overload with IVFs HTN BP elevated on admission related to anxiety/agitation, possible withdrawal BP improved this AM, continue home BP meds Hypothyroidism continue synthroid DVT ppx SCDs FULL CODE PT/OT evaluations ordered
[2016-09-30 12:10] LABS: CALCIUM 8.6 mg/dl (8.5-10.1); CREATININE 0.79 mg/dl (0.60-1.20); MAGNESIUM 2.4 mg/dl (1.8-2.4); POTASSIUM 4.6 mmol/L (3.5-5.1)
[2016-09-30 12:20] LABS: MEAN PLATELET VOLUME 10.2 fL (7.4-10.4); PLATELET COUNT 91 K/uL (130-400)
[2016-09-30] MEDS ORDERED: NURSING VERBAL MED ORDER ONE (13:45)
[2016-09-30] MEDS ORDERED: SODIUM CHLORIDE 0.9% 1000ML 1,000 ML IV SCH (14:00)
[2016-09-30] MEDS ORDERED: PERFLUTREN LIPID MICROSPHERE (DEFINITY) IV ONE (14:16)
[2016-09-30] MEDS: GABAPENTIN 600MG Q8H DOSE PO SCH (18:59)
[2016-09-30] MEDS: SIMVASTATIN 10 MG TAB PO SCH (22:02)
[2016-10-01] MEDS: GABAPENTIN 600MG Q8H DOSE PO SCH ×2 (01:46→10:57)
[2016-10-01] MEDS: LEVOTHYROXINE 75 MCG TAB PO SCH (05:54)
[2016-10-01] MEDS: TRAMADOL HCL 50 MG TAB PO PRN ×2 (07:42→15:05)
[2016-10-01] MEDS: ASPIRIN 81 MG ECTAB PO SCH (07:46)
[2016-10-01] MEDS: DOCUSATE SODIUM/SENNA 50/8.6MG TAB PO SCH (07:46)
[2016-10-01] MEDS: PANTOprazole SOD 40 MG TAB PO SCH (07:46)
[2016-10-01] MEDS: MULTIVITAMIN TAB PO SCH (07:47)
[2016-10-01] MEDS: METOPROLOL SUCC 50MG EXT REL TAB PO SCH (07:47)
[2016-10-01] MEDS: THIAMINE HCL 100 MG TAB PO SCH (07:47)
[2016-10-01] MEDS: DOXYCYCLINE HYCLATE 100 MG CAP PO SCH ×2 (07:47→21:20)
[2016-10-01] MEDS: FLUTICASONE/SALMETEROL 250/50 (ADVAIR) 14 PUFF/1 INHALER INH SCH ×2 (07:48→21:18)
[2016-10-01] MEDS: LOSARTAN POTASSIUM 25 MG TAB PO SCH (07:48)
[2016-10-01] MEDS: LACTULOSE SYRUP 20 GM/30 ML UDC PO SCH ×2 (07:49→21:00)
[2016-10-01] MEDS: ALBUT/IPRATROP 3MG/0.5MG NEB 3 ML VIAL INH PRN (08:06)
[2016-10-01 08:07] VITALS: PULSE 85; O2SAT 95
[2016-10-01 08:15] VITALS: BP 151/85; PULSE 75; TEMP 36.8; O2SAT 90
--- NOTE | 2016-10-01 12:45 | ECHOCARDIOGRAM REPORT ---
*NOTICE TO RECEIVING [employer] This information is strictly Confidential and protected under [place] law. [place] law prohibits you from making any further disclosure of this information unless further disclosure is expressly permitted by the written consent of the person to whom it pertains or is authorized by law. A general authorization for the release of medical or other information is not sufficient for this purpose. Hospital accepts no responsibility if the information is made available to any other person, INCLUDING THE PATIENT. Interpretation Summary * Name: SHWETA REBOLLEDO Study Date: 09/30/2016 01:36 PM BP: 161/81 mmHg * Patient Location: C.2T\S\S231\S\1 HR: 76 * : 1945 (M/d/yyyy) Gender: Female Height: 66 in * Age: 71 yrs Ethnicity: CA Weight: 187 lb * Ordering Physician: Aide Ugalde * Performed By: Zaira Martinez * * Reason For Study: CHEST PAIN, SOB * BSA: 1.9 m2 * The study was technically limited. * Grossly normal valvular structure and function. * -- Conclusions -- * The study was technically limited. * The left ventricle is grossly normal size. * Left ventricular systolic function is normal. * Grossly normal valvular structure and function. * Right heart not well visualized. Procedure Details * A complete two-dimensional transthoracic echocardiogram was performed (2D, M-mode, Doppler and color flow Doppler). * The study was technically difficult. * There were technical limitations due to patient'spoor positioning * A contrast injection of Definity was performed to improve assessment of LV function. * Contrast was injected into an intravenous site in the right arm. * One vial of Definity ultrasound contrast was diluted in normal saline to a total volume of 10 ml. A total of '3' ml of solution was administered during imaging. * Lot # [id number] of Definity utilized for procedure. * Expiration date 10/02. * The attending nurse who injected the contrast agent was ROSA MARIA EISENBERG RN. Left Ventricle * The left ventricle is grossly normal size. * Ejection Fraction = >70 %. * Left ventricular systolic function is normal. Right Ventricle * The right ventricle is not well visualized. Atria * The left atrium is not well visualized. * Right atrium not well visualized. * There is no evidence of atrial septal defect, but resolution does not allow assessment for a patent foramen ovale. Mitral Valve * There is severe mitral annular calcification. * The mitral valve is not well visualized. * Significant mitral regurgitation is absent. Tricuspid Valve * The tricuspid valve is not well visualized. * Significant tricuspid regurgitation is absent. Aortic Valve * The aortic valve is not well visualized. * Moderate valvular aortic stenosis. * Aortic valve area was calculated at 1.1 cm\S\2 using the continuity equation. Pulmonic Valve * The pulmonic valve is not well visualized. * There is no significant pulmonary regurgitation. MMode 2D Measurements and Calculations IVSd 1.2 cm IVSs 1.6 cm LVIDd 4.6 cm LVIDs 2.6 cm LVPWd 1.2 cm LVPWs 1.8 cm IVS/LVPW 1.0 FS 43.2 % EDV(Teich) 97.9 ml ESV(Teich) 25.0 ml EF(Teich) 74.5 % EDV(cubed) 98.1 ml ESV(cubed) 17.9 ml EF(cubed) 81.7 % % IVS thick 35.5 % % LVPW thick 49.5 % LV mass(C)d 205.0 grams LV mass(C)dI 105.5 grams/m\S\2 LV mass(C)s 167.8 grams LV mass(C)sI 86.3 grams/m\S\2 CO(Teich) 6.5 l/min CI(Teich) 3.3 l/min/m\S\2 SV(Teich) 72.9 ml SI(Teich) 37.5 ml/m\S\2 CO(cubed) 7.1 l/min CI(cubed) 3.7 l/min/m\S\2 SV(cubed) 80.1 ml SI(cubed) 41.2 ml/m\S\2 ACS 0.53 cm asc Aorta Diam 3.6 cm LVOT diam 1.5 cm LVOT area 1.9 cm\S\2 LVAd ap4 31.0 cm\S\2 LVLd ap4 8.1 cm EDV(MOD-sp4) 99.0 ml LVAs ap4 13.1 cm\S\2 LVLs ap4 6.0 cm ESV(MOD-sp4) 25.0 ml EF(MOD-sp4) 74.7 % LVAd ap2 23.7 cm\S\2 LVLd ap2 7.2 cm EDV(MOD-sp2) 64.0 ml LVAs ap2 10.2 cm\S\2 LVLs ap2 6.1 cm ESV(MOD-sp2) 15.0 ml EF(MOD-sp2) 76.6 % CO(MOD-sp4) 6.6 l/min CI(MOD-sp4) 3.4 l/min/m\S\2 SV(MOD-sp4) 74.0 ml SI(MOD-sp4) 38.1 ml/m\S\2 CO(MOD-sp2) 4.4 l/min CI(MOD-sp2) 2.2 l/min/m\S\2 SV(MOD-sp2) 49.0 ml SI(MOD-sp2) 25.2 ml/m\S\2 Doppler Measurements and Calculations MV E max meaghan 139.2 cm/sec MV A max meaghan 109.6 cm/sec MV E/A 1.3 MV dec time 0.24 sec Ao V2 max 219.4 cm/sec Ao max PG 19.2 mmHg Ao max PG (full) 12.7 mmHg Ao V2 mean 147.1 cm/sec Ao mean PG 9.9 mmHg Ao mean PG (full) 6.3 mmHg Ao V2 VTI 46.1 cm JODY(I,A) 1.2 cm\S\2 JODY(I,D) 1.2 cm\S\2 JODY(V,A) 1.1 cm\S\2 JODY(V,D) 1.1 cm\S\2 LV V1 max PG 6.6 mmHg LV V1 mean PG 3.5 mmHg LV V1 max 128.3 cm/sec LV V1 mean 87.9 cm/sec LV V1 VTI 30.0 cm MR max meaghan 472.4 cm/sec MR max PG 90.1 mmHg SV(LVOT) 56.1 ml SI(LVOT) 28.8 ml/m\S\2 PA V2 max 73.1 cm/sec PA max PG 2.1 mmHg TR max meaghan 313.6 cm/sec
[2016-10-01] MEDS: LORAZEPAM 0.5 MG TAB PO PRN ×2 (13:18→21:51)
[2016-10-01 15:16] VITALS: BP 129/80; PULSE 77; TEMP 37; O2SAT 96
--- NOTE | 2016-10-01 18:19 | Progress Note ---
Internal Med Progress Note Date of Service: Oct 01, 2016. Provider Documentation: SUBJECTIVE: complains of worsening of SOB since last night no productive cough feels like can not take breath deeply , having chest tightness OBJECTIVE: Vital Signs-as noted below Exam: General-chronically ill appearing Neck-non thyromegaly Lungs-diminished breath sound , poor air entry , no rales or wheeze Heart-regular Abdomen-prior surgical scar present in mid abdomen , mild distention , no tender , bowel sound diminished Extremities-no deformity or rash Neuro-no focal deficit Lab data as noted below. ASSESSMENT & PLAN: COPD exacerbation continues to complain of SOB requiring 2 L oxygen not on home 02 started on PO prednisone taper -symptom of SOB worsened since will switch to IV Solu -Medrol Duo neb q 4 hrs scheduled , q 2hrs PRN on empiric abx with Doxycycline Chest Tightness, r/o ACS in the setting of CAD with previous CABG x4 due to COPD exacerbation/breathing problems cardiac enzymes negative x 3 no significant EKG changes ECHO -no wall motion abnormality stable to monitor in medical floor ETOH abuse /intoxication alcohol abuse, last drink; night prior to arrival on Gabapentin protocol/ETOH withdrawal protocol on Folic /thiamine PO Ativan PRN for anxiety/agitation Prolong QTc : Hold trazodone replaced Mg to keep > 2 daily EKG Lactic Acidemia due to ETOH abuse no evidence of sepsis lactic acid level normalized with Iv hydration Anemia likely related to alcoholic liver disease follow H&H cont Folic acid supplement Thrombocytopenia again, likely related to alcoholic liver disease monitor platelets no evidence of bleeding avoid antiplatelets Abdominal Pain/Distention, mild, nonobstructive ileus on abdominal CT KUB - no acute findings cont bowel regimen -having multiple bowel movements tolerating diet Hypothyroidism continue synthroid DVT ppx SCDs avoid pharmacological anticoagulation due to thrombocytopenia FULL CODE PT/OT evaluations ordered DISPOSITION Discharge home when medically stable Medicine follow up with Dr Destiny Schrader Vital Signs: Date Time Temp Pulse Resp B/P Pulse Ox O2 Delivery O2 Flow Rate FiO2 10/01/16 15:38 Room Air 10/01/16 15:16 37.0 77 16 129/80 96 Room Air 10/01/16 08:15 36.8 75 20 151/85 90 10/01/16 08:07 85 18 95 Room Air 10/01/16 08:00 Room Air 09/30/16 23:37 97 Room Air 09/30/16 23:01 36.8 79 20 137/80 95 Room Air 09/30/16 18:45 82 18 97 Room Air
[2016-10-01 21:10] VITALS: PULSE 80; O2SAT 98
[2016-10-01] MEDS: ALBUT/IPRATROP 3MG/0.5MG NEB 3 ML VIAL INH SCH (21:10)
[2016-10-01] MEDS: METHYLPREDNISOLONE IV 30 MG in SYRINGE 0 ML IV SCH (21:18)
[2016-10-01] MEDS: GABAPENTIN 600MG Q12H DOSE PO SCH (21:19)
[2016-10-01] MEDS: SIMVASTATIN 10 MG TAB PO SCH (21:23)
[2016-10-01] MEDS: OXYCODONE HCL IR 5 MG TAB (IMMEDIATE RELEASE) PO PRN (21:51)
[2016-10-01 23:28] VITALS: BP 141/82; PULSE 66; TEMP 36.7; O2SAT 93
[2016-10-02] VITALS (9 sets, daily range): BP systolic 123–165; BP diastolic 74–98; PULSE 68–88; TEMP 36.5–37.3; O2SAT 96–98
[2016-10-02] MEDS: ALBUT/IPRATROP 3MG/0.5MG NEB 3 ML VIAL INH SCH ×4 (00:38→11:42)
[2016-10-02] MEDS: TRAMADOL HCL 50 MG TAB PO PRN (00:47)
[2016-10-02] MEDS: LEVOTHYROXINE 75 MCG TAB PO SCH (06:30)
[2016-10-02 08:00] LABS: BUN/CREATININE RATIO 17.7 (10-20); CALCIUM 8.5 mg/dl (8.5-10.1); CREATININE 0.86 mg/dl (0.60-1.20); MAGNESIUM 2.2 mg/dl (1.8-2.4); POTASSIUM 4.2 mmol/L (3.5-5.1)
[2016-10-02] MEDS: FLUTICASONE/SALMETEROL 250/50 (ADVAIR) 14 PUFF/1 INHALER INH SCH ×2 (09:14→21:00)
[2016-10-02] MEDS: METHYLPREDNISOLONE IV 30 MG in SYRINGE 0 ML IV SCH ×2 (09:15→21:12)
[2016-10-02] MEDS: LACTULOSE SYRUP 20 GM/30 ML UDC PO SCH ×2 (09:15→21:01)
[2016-10-02] MEDS: ASPIRIN 81 MG ECTAB PO SCH (09:16)
[2016-10-02] MEDS: DOCUSATE SODIUM/SENNA 50/8.6MG TAB PO SCH (09:16)
[2016-10-02] MEDS: THIAMINE HCL 100 MG TAB PO SCH (09:16)
[2016-10-02] MEDS: GABAPENTIN 600MG Q12H DOSE PO SCH (09:16)
[2016-10-02] MEDS: METOPROLOL SUCC 50MG EXT REL TAB PO SCH (09:16)
[2016-10-02] MEDS: DOXYCYCLINE HYCLATE 100 MG CAP PO SCH ×2 (09:17→21:01)
[2016-10-02] MEDS: MULTIVITAMIN TAB PO SCH (09:17)
[2016-10-02] MEDS: LOSARTAN POTASSIUM 25 MG TAB PO SCH (09:17)
[2016-10-02] MEDS: PANTOprazole SOD 40 MG TAB PO SCH (09:17)
[2016-10-02] MEDS: OXYCODONE HCL IR 5 MG TAB (IMMEDIATE RELEASE) PO PRN ×3 (09:49→20:58)
[2016-10-02] MEDS: LORAZEPAM 0.5 MG TAB PO PRN ×3 (09:51→20:57)
[2016-10-02] MEDS ORDERED: GABAPENTIN 600MG X1 DOSE PO SCH (10:00)
[2016-10-02] MEDS: IPRATROPIUM BROMIDE/ALBUTEROL respimat INH INH SCH ×2 (17:25→21:00)
[2016-10-02] MEDS: ACETAMINOPHEN 325 MG TAB PO PRN (20:58)
[2016-10-02] MEDS: SIMVASTATIN 10 MG TAB PO SCH (21:01)
--- NOTE | 2016-10-02 22:29 | Progress Note ---
Internal Med Progress Note Date of Service: Oct 02, 2016. Provider Documentation: SUBJECTIVE: complains of abdominal distension having bowel movement no complain of SOB cough has improved OBJECTIVE: Vital Signs-as noted below Exam: General-chronically ill appearing Neck-non thyromegaly Lungs-diminished breath sound , poor air entry , no rales or wheeze Heart-regular Abdomen-prior surgical scar present in mid abdomen , mild distention , no tender , bowel sound diminished Extremities-no deformity or rash Neuro-no focal deficit Lab data as noted below. ASSESSMENT & PLAN: COPD exacerbation improved minimum cough will start to taper down steroid Duo neb q 4 hrs scheduled , q 2hrs PRN on empiric abx with Doxycycline Chest Tightness, r/o ACS in the setting of CAD with previous CABG x4 no further complain due to COPD exacerbation/breathing problems cardiac enzymes negative x 3 no significant EKG changes ECHO -no wall motion abnormality stable to monitor in medical floor ETOH abuse /intoxication alcohol abuse, last drink; night prior to arrival on Gabapentin protocol/ETOH withdrawal protocol on Folic /thiamine PO Ativan PRN for anxiety/agitation Prolong QTc : Hold trazodone replaced Mg to keep > 2 daily EKG Lactic Acidemia resolved due to ETOH abuse no evidence of sepsis lactic acid level normalized with Iv hydration Abdominal pain /bloating : no complain of nausea tolerating diet having bowel movement , ordered for KUB Anemia likely related to alcoholic liver disease follow H&H cont Folic acid supplement Thrombocytopenia again, likely related to alcoholic liver disease monitor platelets no evidence of bleeding avoid antiplatelets Abdominal Pain/Distention, mild, nonobstructive ileus on abdominal CT KUB - no acute findings cont bowel regimen -having multiple bowel movements tolerating diet Hypothyroidism continue synthroid DVT ppx SCDs avoid pharmacological anticoagulation due to thrombocytopenia FULL CODE PT/OT evaluations ordered DISPOSITION Discharge home when medically stable Medicine follow up with Dr Destiny Schrader Vital Signs: Date Time Temp Pulse Resp B/P Pulse Ox O2 Delivery O2 Flow Rate FiO2 10/03/16 17:01 78 16 98 Room Air 10/03/16 16:18 37.2 75 20 126/73 98 Nasal Cannula 3.0 10/03/16 16:00 95 Nasal Cannula 3.0 10/03/16 08:00 97 Nasal Cannula 3.0 10/03/16 07:23 37.1 66 18 159/82 97 3.0 10/03/16 04:30 37.0 76 18 142/84 96 Nasal Cannula 3.0 10/03/16 01:25 Nasal Cannula 3.0 10/03/16 00:10 37.1 101 20 159/81 96 3.0 10/02/16 22:00 Nasal Cannula 3.0 10/02/16 21:30 80 165/79 97 Nasal Cannula Lab Results:
[2016-10-03] VITALS (7 sets, daily range): BP systolic 126–159; BP diastolic 73–84; PULSE 66–101; TEMP 37–37.2; O2SAT 95–98
[2016-10-03] MEDS: IPRATROPIUM BROMIDE/ALBUTEROL respimat INH INH SCH ×6 (00:11→21:16)
[2016-10-03] MEDS: LORAZEPAM 0.5 MG TAB PO PRN ×4 (01:49→18:13)
[2016-10-03] MEDS: OXYCODONE HCL IR 5 MG TAB (IMMEDIATE RELEASE) PO PRN ×3 (01:50→20:55)
[2016-10-03] MEDS: TRAMADOL HCL 50 MG TAB PO PRN (04:13)
[2016-10-03] MEDS: ACETAMINOPHEN 325 MG TAB PO PRN ×2 (04:18→18:17)
[2016-10-03] MEDS: LEVOTHYROXINE 75 MCG TAB PO SCH (06:26)
[2016-10-03] MEDS: LACTULOSE SYRUP 20 GM/30 ML UDC PO SCH ×2 (09:22→21:16)
[2016-10-03] MEDS: THIAMINE HCL 100 MG TAB PO SCH (09:23)
[2016-10-03] MEDS: DOXYCYCLINE HYCLATE 100 MG CAP PO SCH ×2 (09:23→21:16)
[2016-10-03] MEDS: FLUTICASONE/SALMETEROL 250/50 (ADVAIR) 14 PUFF/1 INHALER INH SCH ×2 (09:23→21:16)
[2016-10-03] MEDS: MULTIVITAMIN TAB PO SCH (09:24)
[2016-10-03] MEDS: ASPIRIN 81 MG ECTAB PO SCH (09:24)
[2016-10-03] MEDS: METOPROLOL SUCC 50MG EXT REL TAB PO SCH (09:24)
[2016-10-03] MEDS: LOSARTAN POTASSIUM 25 MG TAB PO SCH (09:25)
[2016-10-03] MEDS: DOCUSATE SODIUM/SENNA 50/8.6MG TAB PO SCH (09:25)
[2016-10-03] MEDS: PANTOprazole SOD 40 MG TAB PO SCH (09:25)
[2016-10-03] MEDS: METHYLPREDNISOLONE IV 30 MG in SYRINGE 0 ML IV SCH ×2 (09:27→21:16)
--- NOTE | 2016-10-03 09:47 | DIAGNOSTIC IMAGING REPORT ---
KUB CLINICAL HISTORY: abdominal distention pain COMPARISON STUDY: 09/30/2016 FINDINGS: The soft tissues, psoas shadows, renal outlines and intestinal gas pattern appear normal. There is no evidence for bowel obstruction. No abnormal abdominal calcifications are seen. Moderate fecal material within the colon IMPRESSION: No evidence for obstruction. Electronically signed by: Vikas Escalante M.D. 10/03/2016 9:45 AM Dictated Date/Time: 10/03/2016 9:45 AM
[2016-10-03] MEDS ORDERED: GABAPENTIN 600MG X1 DOSE PO SCH (10:00)
[2016-10-03] MEDS: ALBUT/IPRATROP 3MG/0.5MG NEB 3 ML VIAL INH PRN (17:01)
--- NOTE | 2016-10-03 20:27 | Progress Note ---
Internal Med Progress Note Date of Service: Oct 03, 2016. Provider Documentation: SUBJECTIVE: feels much better today off 02 in room air no complain of SOB , no cough abdominal pain has resolved tolerating diet OBJECTIVE: Vital Signs-as noted below Exam: General-chronically ill appearing Neck-non thyromegaly Lungs-diminished breath sound , Heart-regular Abdomen-prior surgical scar present in mid abdomen , mild distention , no tender , bowel sound active Extremities-no deformity or rash Neuro-no focal deficit Lab data as noted below. ASSESSMENT & PLAN: COPD exacerbation improved respiratory status at baseline , off 02 on taper dose of steroid change Duo neb q 4 hrs PRN on empiric abx with Doxycycline complete 5 days course Chest Tightness, r/o ACS in the setting of CAD with previous CABG x4 no further complain due to COPD exacerbation/breathing problems cardiac enzymes negative x 3 no significant EKG changes ECHO -no wall motion abnormality stable to monitor in medical floor ETOH abuse /intoxication alcohol abuse, last drink; night prior to arrival on Gabapentin protocol/ETOH withdrawal protocol on Folic /thiamine PO Ativan PRN for anxiety/agitation Prolong QTc : Hold trazodone replaced Mg to keep > 2 daily EKG Lactic Acidemia resolved due to ETOH abuse no evidence of sepsis lactic acid level normalized with Iv hydration Abdominal pain /bloating : no complain of nausea tolerating diet having bowel movement , KUB -no obstruction Anemia likely related to alcoholic liver disease follow H&H cont Folic acid supplement Thrombocytopenia again, likely related to alcoholic liver disease monitor platelets no evidence of bleeding avoid antiplatelets Abdominal Pain/Distention, mild, nonobstructive ileus on abdominal CT KUB - no acute findings cont bowel regimen -having multiple bowel movements tolerating diet Hypothyroidism continue synthroid DVT ppx SCDs avoid pharmacological anticoagulation due to thrombocytopenia FULL CODE PT/OT evaluations ordered DISPOSITION Discharge home tomorrow Medicine follow up with Dr Destiny Schrader Vital Signs: Date Time Temp Pulse Resp B/P Pulse Ox O2 Delivery O2 Flow Rate FiO2 10/03/16 17:01 78 16 98 Room Air 10/03/16 16:18 37.2 75 20 126/73 98 Nasal Cannula 3.0 10/03/16 16:00 95 Nasal Cannula 3.0 10/03/16 08:00 97 Nasal Cannula 3.0 10/03/16 07:23 37.1 66 18 159/82 97 3.0 10/03/16 04:30 37.0 76 18 142/84 96 Nasal Cannula 3.0 10/03/16 01:25 Nasal Cannula 3.0 10/03/16 00:10 37.1 101 20 159/81 96 3.0 10/02/16 22:00 Nasal Cannula 3.0 10/02/16 21:30 80 165/79 97 Nasal Cannula
[2016-10-03] MEDS: SIMVASTATIN 10 MG TAB PO SCH (21:16)
[2016-10-04] VITALS (9 sets, daily range): BP systolic 121–169; BP diastolic 67–92; PULSE 73–92; TEMP 36.9–37.1; O2SAT 92–98
[2016-10-04] MEDS: IPRATROPIUM BROMIDE/ALBUTEROL respimat INH INH SCH ×6 (00:30→21:25)
[2016-10-04] MEDS: LORAZEPAM 0.5 MG TAB PO PRN ×3 (01:08→11:21)
[2016-10-04] MEDS: OXYCODONE HCL IR 5 MG TAB (IMMEDIATE RELEASE) PO PRN ×4 (01:09→19:35)
[2016-10-04] MEDS: LEVOTHYROXINE 75 MCG TAB PO SCH (06:39)
[2016-10-04] MEDS: FLUTICASONE/SALMETEROL 250/50 (ADVAIR) 14 PUFF/1 INHALER INH SCH ×2 (07:52→21:25)
[2016-10-04] MEDS: LACTULOSE SYRUP 20 GM/30 ML UDC PO SCH ×2 (07:54→21:00)
[2016-10-04] MEDS: METHYLPREDNISOLONE IV 30 MG in SYRINGE 0 ML IV SCH (07:54)
[2016-10-04] MEDS: METOPROLOL SUCC 50MG EXT REL TAB PO SCH (07:55)
[2016-10-04] MEDS: MULTIVITAMIN TAB PO SCH (07:55)
[2016-10-04] MEDS: DOCUSATE SODIUM/SENNA 50/8.6MG TAB PO SCH (07:55)
[2016-10-04] MEDS: LOSARTAN POTASSIUM 25 MG TAB PO SCH (07:55)
[2016-10-04] MEDS: DOXYCYCLINE HYCLATE 100 MG CAP PO SCH ×2 (07:56→23:07)
[2016-10-04] MEDS: PANTOprazole SOD 40 MG TAB PO SCH (07:56)
[2016-10-04] MEDS: ASPIRIN 81 MG ECTAB PO SCH (07:56)
[2016-10-04] MEDS: THIAMINE HCL 100 MG TAB PO SCH (07:56)
[2016-10-04] MEDS: ALBUT/IPRATROP 3MG/0.5MG NEB 3 ML VIAL INH PRN (12:52)
[2016-10-04] MEDS ORDERED: LORAZEPAM 2 MG/ML 1 ML VIAL **EMERGENCY USE ONE (12:59)
[2016-10-04] MEDS: LORAZEPAM INJ 1 MG in SYRINGE 0.5 ML IV PRN ×2 (13:27→16:10)
--- NOTE | 2016-10-04 13:48 | Progress Note ---
Internal Med Progress Note Date of Service: Oct 04, 2016. Provider Documentation: SUBJECTIVE: developed acute Shortness of breath due to severe anxiety , panic attack CODE PURPLE was called pt was not hypoxic sinus tach 100 vitals stable no wheeze or rales on auscultation pt is diaphoretic , hyperventilating -complains of not able to breath crying extremely anxious PO Ativan 0.5 mg received approx 10 mg back given 1 mg Iv Ativan pt is provided re assurance her symptoms gradually subsided , started to feel more calm mentions she has been getting the anxiety spells on and off at home it leads her to drink alcohol excessively had almost similar episode yesterday , able to keep her clam today -her morning was uneventful had nausea , did not eat much at lunch developed anxiety afterwards and started to feel her throat is closing in OBJECTIVE: Vital Signs-as noted below Exam: General-very anxious Neck-non thyromegaly Lungs-normal air entry, no wheeze or rales Heart-regular , tachycardic Abdomen-prior surgical scar present rt upper chest wall , reconstruction of skin flap , lower abdomen prior surgical scar , mild distention , no tender , bowel sound active Extremities-no deformity or rash Neuro-no focal deficit , anxious, hyperventilating Lab data as noted below. ASSESSMENT & PLAN: ANXIETY DISORDER /PANIC ATTACK : mentions of having anxiety at home was started on Celexa by her Family Physician few months back felt it was not working, stopped taking Celexa after few days hx of ETOH abuse for long time admitted to drinking 3-4 shots /vodka everyday admitted with COPD exacerbation /ETOH withdrawal ( last drink was on 09/28/16 - day before admission ) pt also been receiving IV steroids for COPD exacerbation leading to over panic attack for the combination factors above has underlying anxiety disorder /possible depression -not treated -pt does not follow with any psychiatrist increased Ativan 1 mg PO Q 4 hrs PRN dose 1 mg IV Q 6 hrs for panic attack Celexa 20 mg daily started Psych eval requested for further assistance pt will need out pt Psych and Psychotherapy follow up COPD exacerbation respiratory status improved to baseline on taper dose of steroid change Duo neb q 4 hrs PRN on empiric abx with Doxycycline complete 5 days course will D/c IV Solu Medrol -severe anxiety /panic attack Chest Tightness, r/o ACS in the setting of CAD with previous CABG x4 no further complain due to COPD exacerbation/breathing problems cardiac enzymes negative x 3 no significant EKG changes ECHO -no wall motion abnormality stable to monitor in medical floor ETOH abuse /intoxication alcohol abuse, last drink; night prior to arrival on Gabapentin protocol/ETOH withdrawal protocol on Folic /thiamine PO Ativan PRN for anxiety/agitation Prolong QTc : resolved Qtc 439 today resume Trazodone -pt reports of severe insomnia with out her meds Lactic Acidemia presented with lactic acid > 3 resolved due to ETOH abuse no evidence of sepsis lactic acid level normalized with Iv hydration Abdominal pain /bloating : no complain of nausea tolerating diet having bowel movement , KUB -no obstruction HX OF BREAST CA : DX on 09/20/12 -US guided core biopsy of left breast , infiltrative ductal CA Grade 3 s/p bilateral Mastectomy , left sentinel LN biopsy on 10/02/12 refused to have chemo tx following with Plastic surgery with [facility] S/P "resection of redundant tissue bilateral chest and closure with local flap advancement and excision mass right lateral chest. Date of surgery: 09/07/2016 recent follow up with Plastic Surgery at [facility] for wound follow up on incision wounds appear to be healing well pt was having progressive SOB , PEREZ was directed to ED at [facility] for further eval -pt was admitted since for COPD exacerbation Anemia likely related to alcoholic liver disease follow H&H cont Folic acid supplement Thrombocytopenia again, likely related to alcoholic liver disease monitor platelets no evidence of bleeding avoid antiplatelets Abdominal Pain/Distention, mild, nonobstructive ileus on abdominal CT KUB - no acute findings cont bowel regimen -having multiple bowel movements tolerating diet Hypothyroidism continue synthroid DVT ppx SCDs avoid pharmacological anticoagulation due to thrombocytopenia FULL CODE PT/OT evaluations ordered DISPOSITION hold discharge home today -due to panic attack /anxiety disorder Medicine follow up with Dr Destiny Schrader Called Daughter Dee called , left messaged in voice mail Vital Signs: Date Time Temp Pulse Resp B/P Pulse Ox O2 Delivery O2 Flow Rate FiO2 10/04/16 12:53 91 16 98 Room Air 10/04/16 08:00 97 Room Air 10/04/16 07:50 36.9 92 19 169/91 97 Room Air 10/04/16 03:30 36.9 74 18 148/76 10/04/16 01:00 Room Air 10/04/16 00:00 37.0 75 20 165/78 92 Room Air 10/03/16 22:00 Room Air 10/03/16 17:01 78 16 98 Room Air 10/03/16 16:18 37.2 75 20 126/73 98 Nasal Cannula 3.0 10/03/16 16:00 95 Nasal Cannula 3.0
[2016-10-04] MEDS ORDERED: CITALOPRAM 20 MG TAB PO ONE (14:50)
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
[2016-10-04] MEDS ORDERED: LORAZEPAM 1 MG TAB PO PRN (16:00)
[2016-10-04] MEDS ORDERED: LORAZEPAM 2 MG/ML 1 ML VIAL ONE (16:06)
[2016-10-04] MEDS ORDERED: NURSING VERBAL MED ORDER ONE (16:15)
[2016-10-04] MEDS: ACETAMINOPHEN 325 MG TAB PO PRN (21:24)
[2016-10-04] MEDS: GABAPENTIN 100 MG CAP PO SCH (21:27)
[2016-10-04] MEDS: SIMVASTATIN 10 MG TAB PO SCH (22:15)
[2016-10-04] MEDS: TRAZODONE HCL 50 MG TAB PO SCH (22:16)
[2016-10-04] MEDS: LORAZEPAM 1 MG TAB PO PRN (22:16)
[2016-10-05] VITALS (7 sets, daily range): BP systolic 128–161; BP diastolic 68–91; PULSE 68–85; TEMP 36.7–37.1; O2SAT 91–98
[2016-10-05] MEDS: IPRATROPIUM BROMIDE/ALBUTEROL respimat INH INH SCH ×6 (04:13→19:43)
[2016-10-05] MEDS: LEVOTHYROXINE 75 MCG TAB PO SCH (07:20)
[2016-10-05] MEDS: CITALOPRAM 20 MG TAB PO SCH (08:24)
[2016-10-05] MEDS: FLUTICASONE/SALMETEROL 250/50 (ADVAIR) 14 PUFF/1 INHALER INH SCH ×2 (08:24→19:49)
[2016-10-05] MEDS: LACTULOSE SYRUP 20 GM/30 ML UDC PO SCH ×2 (08:24→19:47)
[2016-10-05] MEDS: MULTIVITAMIN TAB PO SCH (08:24)
[2016-10-05] MEDS: DOXYCYCLINE HYCLATE 100 MG CAP PO SCH ×2 (08:25→19:48)
[2016-10-05] MEDS: PANTOprazole SOD 40 MG TAB PO SCH (08:25)
[2016-10-05] MEDS: GABAPENTIN 100 MG CAP PO SCH ×3 (08:25→19:53)
[2016-10-05] MEDS: LOSARTAN POTASSIUM 25 MG TAB PO SCH (08:26)
[2016-10-05] MEDS: DOCUSATE SODIUM/SENNA 50/8.6MG TAB PO SCH (08:27)
[2016-10-05] MEDS: METOPROLOL SUCC 50MG EXT REL TAB PO SCH (08:27)
[2016-10-05] MEDS: ASPIRIN 81 MG ECTAB PO SCH (08:28)
[2016-10-05] MEDS: THIAMINE HCL 100 MG TAB PO SCH (08:28)
[2016-10-05] MEDS: LORAZEPAM 1 MG TAB PO PRN ×2 (08:35→19:47)
[2016-10-05] MEDS: ONDANSETRON INJ 2 MG/ML 2 ML VIAL IV PRN (10:19)
--- NOTE | 2016-10-05 17:10 | Progress Note ---
Subjective Date of Service: Oct 05, 2016. Subjective Pt evaluation today including: conversation w/ patient, physical exam, lab review, review of studies, review of inpatient medication list Saw/examined the patient in room 283 Doing well today, no shortness of breath States she feels better mentally as well She states she will stop drinking and will attend AA meetings Problem List Medical Problems: (1) COPD exacerbation Status: Acute (2) Shortness of breath Status: Acute Review of Systems Constitutional: No chills, No fever Respiratory: No cough, No dyspnea on exertion, No shortness of breath (resolved ), No sputum, No wheezing Cardiac: No chest pain, No edema, No palpitations Abdomen: + pain (improving), No GI bleeding, No constipation, No diarrhea, No nausea, No vomiting Psychiatric: + anxiety, + depression symptoms, + insomnia (improved with medications), + substance abuse (EtOH) Heme: No abnormal bleeding/bruising Medications Current Inpatient Medications Medications (Trade) Dose Ordered Sig/Leisa Route Start Time Stop Time Status Last Admin Dose Admin Acetaminophen (Tylenol Tab) 650 mg Q4H PRN PO 09/29/16 19:00 10/29/16 18:59 10/04/16 21:24 650 MG Ondansetron HCl (Zofran Inj) 4 mg Q6H PRN IV 09/29/16 19:00 10/29/16 18:59 10/05/16 10:19 4 MG Multivitamins (Multivitamin Tab) 1 tab QAM PO 09/29/16 19:00 10/29/16 18:59 10/05/16 08:24 1 TAB Thiamine HCl (Vitamin B-1 Tab) 100 mg QAM PO 09/29/16 21:00 10/29/16 20:59 10/05/16 08:28 100 MG Folic Acid (Folvite Tab) 1 mg QAM PO 09/29/16 21:00 10/29/16 20:59 10/05/16 08:25 1 MG Aspirin (Ecotrin Tab) 81 mg QAM PO 09/30/16 09:00 10/30/16 08:59 10/05/16 08:28 81 MG Salmeterol Xinafoate/ Fluticasone (Advair Diskus 250/50 Inh) 1 puff BID INH 09/29/16 21:00 10/29/16 20:59 10/05/16 08:24 1 PUFF Lactulose (Chronulac Syrup) 20 gm BID PO 09/29/16 21:00 10/29/16 20:59 10/05/16 08:24 20 GM Levothyroxine Sodium (Synthroid Tab) 75 mcg DAILYBB PO 09/30/16 06:00 10/30/16 06:59 10/05/16 07:20 75 MCG Losartan Potassium (coZAAR TAB) 25 mg DAILY PO 09/30/16 09:00 10/30/16 08:59 10/05/16 08:26 25 MG Metoprolol Succinate (Toprol Xl Tab) 50 mg QAM PO 09/30/16 09:00 10/30/16 08:59 10/05/16 08:27 50 MG Senna/Docusate Sodium (Senokot S Tab) 2 tab QAM PO 09/30/16 09:00 10/30/16 08:59 10/05/16 08:27 2 TAB Simvastatin (Zocor Tab) 10 mg QPM PO 09/29/16 21:00 10/29/16 20:59 10/04/16 22:15 10 MG Tramadol HCl (Ultram Tab) 50 mg Q6H PRN PO 09/29/16 19:15 10/29/16 19:14 10/03/16 04:13 50 MG Pantoprazole Sodium (Protonix Tab) 40 mg QAM PO 09/30/16 09:00 10/30/16 08:59 10/05/16 08:25 40 MG Hydralazine HCl (HydrALAZINE INJ) 10 mg Q6H PRN IV. 09/29/16 19:30 10/29/16 19:29 Doxycycline Hyclate (Vibramycin Cap) 100 mg BID PO 09/29/16 21:00 10/06/16 20:59 10/05/16 08:25 100 MG Fluticasone Propionate (Flonase Nasal [place]) 1 sprays QAM PRN TATE 09/29/16 20:30 10/29/16 20:29 Oxycodone HCl (Roxicodone Immediate Rel Tab) 5 mg Q4H PRN PO 09/29/16 20:30 10/13/16 20:29 10/04/16 19:35 5 MG Albuterol/ Ipratropium (Combivent Respimat Inh) 1 puffs Q4 INH 10/02/16 16:00 11/01/16 15:59 10/05/16 16:36 1 PUFFS Albuterol/ Ipratropium 3 ml 3 ml Q4R PRN INH 10/02/16 12:45 10/31/16 19:59 10/04/16 12:52 3 ML Lorazepam/Syringe (Ativan Inj/ Syringe) 1 ml @ 0.5 mls/min Q6 PRN IV 10/04/16 13:15 11/03/16 13:14 10/04/16 16:10 0.5 MLS/MIN Trazodone HCl (Desyrel Tab) 150 mg HS PO 10/04/16 21:00 11/03/16 20:59 10/04/16 22:16 150 MG Lorazepam (Ativan Tab) 1 mg Q8 PRN PO 10/04/16 22:00 11/03/16 21:59 10/05/16 08:35 1 MG Citalopram Hydrobromide (celeXA TAB) 20 mg QAM PO 10/05/16 09:00 11/04/16 08:59 10/05/16 08:24 20 MG Gabapentin (Neurontin Cap) 100 mg TID PO 10/04/16 21:00 11/03/16 20:59 10/05/16 13:44 100 MG Objective Vital Signs Date Time Temp Pulse Resp B/P Pulse Ox O2 Delivery O2 Flow Rate FiO2 10/05/16 16:00 Room Air 10/05/16 15:03 36.7 85 18 128/68 95 Room Air 10/05/16 12:00 Room Air 10/05/16 11:40 37.0 75 18 132/72 98 Room Air 10/05/16 08:00 Room Air 10/05/16 07:21 37.1 78 18 134/73 97 Room Air 10/05/16 04:00 Room Air Nasal Cannula 10/05/16 04:00 37.0 76 16 161/91 94 Room Air 10/05/16 00:00 Room Air Nasal Cannula 10/04/16 23:09 37.0 73 18 121/67 93 Room Air 10/04/16 20:00 Room Air Nasal Cannula 10/04/16 19:11 37.1 80 18 144/88 96 Room Air Physical Exam General Appearance: no apparent distress Respiratory/Chest: lungs clear, normal breath sounds, no respiratory distress, no accessory muscle use Cardiovascular: regular rate, rhythm, no edema, no murmur Abdomen: normal bowel sounds, non tender, soft Extremities: normal inspection, no pedal edema Neurologic/Psychiatric: no motor/sensory deficits, alert, normal mood/affect Skin: normal color Lymphatic: no adenopathy Assessment and Plan This is a 71 year old female with PMH of alcoholic liver cirrhosis and ongoing alcohol abuse, CAD s/p CABG, hx. of tobacco use and COPD, hx. of breast CA s/p bilateral mastectomy and recent plastic revision, HTN, HLD, hypothyroidism, diastolic CHF presents with shortness of breath, chest tightness Shortness of Breath Likely COPD exacerbation 10/05 COPD has resolved agree with keeping her off steroids and antibiotics, no significant shortness of breath noted 09/29 mild COPD exacerbation not requiring oxygen, but patient continues to have some shortness of breath was given IV solu-medrol in the ER; switch to prednisone taper continue nebs as needed Oxygen as needed doxycycline started Depression/Anxiety appreciate psych evaluation restarted Celexa and Gabapentin no benzos on discharge Chest Tightness, r/o ACS in the setting of CAD with previous CABG x4 chest tightness is more likely related to the COPD exacerbation/breathing problems cardiac enzymes negative x 3 no significant EKG changes continue current cardiac medications Ongoing EtOH abuse 10/05 not needing ativan for withdrawal symptoms can d/c in AM likely to home AA meetings as outpatient 09/30 alcohol abuse, last drink; night prior to arrival added folic acid, thiamine, multivitamin to prevent withdrawal symptoms Gabapentin protocol PO Ativan PRN for anxiety/agitation replaced Mg to keep > 2 psych liaison and social work consults placed for resources on alcohol cessation Lactic Acidemia, resolved 10/05 secondary to dehydration resolved 09/30 Lactic acid elevated on admission and remains >3 continue fluid resuscitation repeat Lactic acid around 12PM on 09/30 likely due to ethanol intoxication and dehydration No source of infection found on KUB, abdomen/pelvis CT, CXR Anemia likely related to alcoholic liver disease Hgb on admission 9.1; now down to 8.1 combination of dilution and decreased production will recheck H/H around 12PM on 09/30 Thrombocytopenia again, likely related to alcoholic liver disease monitor platelets, transfuse PRN Abdominal Pain/Distention, improving mild, nonobstructive ileus on abdominal CT was on clears, repeat imaging done; KUB - no acute findings will advance diet Chronic Diastolic CHF Grade I diastolic dysfunction uses Lasix at home monitor for fluid overload with IVFs HTN BP elevated on admission related to anxiety/agitation, possible withdrawal BP improved this AM, continue home BP meds Hypothyroidism continue synthroid DVT ppx SCDs FULL CODE PT/OT evaluations ordered
[2016-10-05] MEDS: TRAZODONE HCL 50 MG TAB PO SCH (19:48)
[2016-10-05] MEDS: SIMVASTATIN 10 MG TAB PO SCH (19:49)
[2016-10-06 03:53] VITALS: BP 133/81; PULSE 70; TEMP 36.8; O2SAT 91
[2016-10-06] MEDS: IPRATROPIUM BROMIDE/ALBUTEROL respimat INH INH SCH ×4 (04:37→11:17)
[2016-10-06] MEDS: LEVOTHYROXINE 75 MCG TAB PO SCH (06:11)
[2016-10-06 07:33] LABS: HEMATOCRIT 29.1 % (37-47); MEAN CELL VOLUME 81.3 fL (80-100); MEAN CORPUSCULAR HEMOGLOBIN 26.3 pg (25-34); MEAN CORPUSCULAR HGB CONC 32.3 g/dl (32-36); MEAN PLATELET VOLUME 10.5 fL (7.4-10.4); PLATELET COUNT 106 K/uL (130-400); RED BLOOD COUNT 3.58 M/uL (4.2-5.4); WHITE BLOOD COUNT 4.01 K/uL (4.8-10.8)
[2016-10-06 07:59] VITALS: BP 119/72; PULSE 74; TEMP 36.8; O2SAT 98
[2016-10-06 08:00] VITALS: O2SAT 98
[2016-10-06 08:06] LABS: BUN/CREATININE RATIO 16.1 (10-20); CALCIUM 8.6 mg/dl (8.5-10.1); CREATININE 0.9 mg/dl (0.60-1.20); POTASSIUM 3.8 mmol/L (3.5-5.1)
[2016-10-06] MEDS: THIAMINE HCL 100 MG TAB PO SCH (08:15)
[2016-10-06] MEDS: FLUTICASONE/SALMETEROL 250/50 (ADVAIR) 14 PUFF/1 INHALER INH SCH (08:17)
[2016-10-06 09:00] VITALS: BP 181/80; PULSE 76
[2016-10-06] MEDS: DOCUSATE SODIUM/SENNA 50/8.6MG TAB PO SCH (09:03)
[2016-10-06] MEDS: METOPROLOL SUCC 50MG EXT REL TAB PO SCH (09:03)
[2016-10-06] MEDS: CITALOPRAM 20 MG TAB PO SCH (09:04)
[2016-10-06] MEDS: LOSARTAN POTASSIUM 25 MG TAB PO SCH (09:04)
[2016-10-06] MEDS: ASPIRIN 81 MG ECTAB PO SCH (09:04)
[2016-10-06] MEDS: LACTULOSE SYRUP 20 GM/30 ML UDC PO SCH (09:04)
[2016-10-06] MEDS: DOXYCYCLINE HYCLATE 100 MG CAP PO SCH (09:05)
[2016-10-06] MEDS: MULTIVITAMIN TAB PO SCH (09:05)
[2016-10-06] MEDS: GABAPENTIN 100 MG CAP PO SCH ×2 (09:05→14:00)
[2016-10-06] MEDS: PANTOprazole SOD 40 MG TAB PO SCH (09:05)
[2016-10-06] MEDS ORDERED: NRN100 PO (10:15)
[2016-10-06] MEDS ORDERED: CLX20 PO (10:15)
--- NOTE | 2016-10-06 10:18 | Discharge Instructions ---
Discharge Instructions Admission Reason for Admission: Shortness Of Breath Discharge Discharge Diagnosis / Problem: Mild COPD exacerbation, EtOH use and withdrawal symptoms Discharge Goals Goal(s): Decrease discomfort, Improve function Activity Recommendations Activity Limitations: resume your previous activity . Instructions / Follow-Up Instructions / Follow-Up Please follow-up with Dr. Destiny Walls on October 11 @ 12:10PM * You will be discharged with Celexa for depression * You will be discharged with Gabapentin which can help with alcohol withdrawal symptoms as well as anxiety * You must follow with AA meetings as an outpatient Current Hospital Diet Patient's current hospital diet: AHA Diet (Heart Healthy) Discharge Diet Recommended Diet: AHA Diet (Heart Healthy) Pending Studies Studies pending at discharge: no Medical Emergencies . Who to Call and When: Medical Emergencies: If at any time you feel your situation is an emergency, please call 911 immediately. . Non-Emergent Contact Non-Emergency issues call your: Primary Care Provider . . "Provider Documentation" section prepared by Bhavana Farah. VTE Core Measure Inpt VTE Proph given/why not?: SCD's
--- NOTE | 2016-10-06 10:26 | Progress Note ---
Subjective Date of Service: Oct 06, 2016. Subjective Pt evaluation today including: conversation w/ patient, physical exam, lab review, review of studies, review of inpatient medication list Saw/examined the patient in room 283 She feels better today, anxiety comes and goes, but feels better this morning Good PO intake No shortness of breath or chest pain Problem List Medical Problems: (1) COPD exacerbation Status: Acute (2) Shortness of breath Status: Acute Review of Systems Constitutional: No chills, No fever Respiratory: No cough, No dyspnea at rest, No dyspnea on exertion, No hemoptysis, No shortness of breath, No sputum, No wheezing Cardiac: No chest pain Psychiatric: + anxiety, + depression symptoms, + insomnia (controlled with medications), + substance abuse (alcohol) Medications Current Inpatient Medications Medications (Trade) Dose Ordered Sig/Leisa Route Start Time Stop Time Status Last Admin Dose Admin Acetaminophen (Tylenol Tab) 650 mg Q4H PRN PO 09/29/16 19:00 10/29/16 18:59 10/04/16 21:24 650 MG Ondansetron HCl (Zofran Inj) 4 mg Q6H PRN IV 09/29/16 19:00 10/29/16 18:59 10/05/16 10:19 4 MG Multivitamins (Multivitamin Tab) 1 tab QAM PO 09/29/16 19:00 10/29/16 18:59 10/06/16 09:05 1 TAB Thiamine HCl (Vitamin B-1 Tab) 100 mg QAM PO 09/29/16 21:00 10/29/16 20:59 10/06/16 08:15 100 MG Folic Acid (Folvite Tab) 1 mg QAM PO 09/29/16 21:00 10/29/16 20:59 10/06/16 08:14 1 MG Aspirin (Ecotrin Tab) 81 mg QAM PO 09/30/16 09:00 10/30/16 08:59 10/06/16 09:04 81 MG Salmeterol Xinafoate/ Fluticasone (Advair Diskus 250/50 Inh) 1 puff BID INH 09/29/16 21:00 10/29/16 20:59 10/06/16 08:17 1 PUFF Lactulose (Chronulac Syrup) 20 gm BID PO 09/29/16 21:00 10/29/16 20:59 10/06/16 09:04 20 GM Levothyroxine Sodium (Synthroid Tab) 75 mcg DAILYBB PO 09/30/16 06:00 10/30/16 06:59 10/06/16 06:11 75 MCG Losartan Potassium (coZAAR TAB) 25 mg DAILY PO 09/30/16 09:00 10/30/16 08:59 10/06/16 09:04 25 MG Metoprolol Succinate (Toprol Xl Tab) 50 mg QAM PO 09/30/16 09:00 10/30/16 08:59 10/06/16 09:03 50 MG Senna/Docusate Sodium (Senokot S Tab) 2 tab QAM PO 09/30/16 09:00 10/30/16 08:59 10/06/16 09:03 2 TAB Simvastatin (Zocor Tab) 10 mg QPM PO 09/29/16 21:00 10/29/16 20:59 10/05/16 19:49 10 MG Tramadol HCl (Ultram Tab) 50 mg Q6H PRN PO 09/29/16 19:15 10/29/16 19:14 10/03/16 04:13 50 MG Pantoprazole Sodium (Protonix Tab) 40 mg QAM PO 09/30/16 09:00 10/30/16 08:59 10/06/16 09:05 40 MG Hydralazine HCl (HydrALAZINE INJ) 10 mg Q6H PRN IV. 09/29/16 19:30 10/29/16 19:29 Doxycycline Hyclate (Vibramycin Cap) 100 mg BID PO 09/29/16 21:00 10/06/16 20:59 10/06/16 09:05 100 MG Fluticasone Propionate (Flonase Nasal [place]) 1 sprays QAM PRN TATE 09/29/16 20:30 10/29/16 20:29 Oxycodone HCl (Roxicodone Immediate Rel Tab) 5 mg Q4H PRN PO 09/29/16 20:30 10/13/16 20:29 10/04/16 19:35 5 MG Albuterol/ Ipratropium (Combivent Respimat Inh) 1 puffs Q4 INH 10/02/16 16:00 11/01/16 15:59 10/06/16 08:14 1 PUFFS Albuterol/ Ipratropium 3 ml 3 ml Q4R PRN INH 10/02/16 12:45 10/31/16 19:59 10/04/16 12:52 3 ML Lorazepam/Syringe (Ativan Inj/ Syringe) 1 ml @ 0.5 mls/min Q6 PRN IV 10/04/16 13:15 11/03/16 13:14 10/04/16 16:10 0.5 MLS/MIN Trazodone HCl (Desyrel Tab) 150 mg HS PO 10/04/16 21:00 11/03/16 20:59 10/05/16 19:48 150 MG Lorazepam (Ativan Tab) 1 mg Q8 PRN PO 10/04/16 22:00 11/03/16 21:59 10/05/16 19:47 1 MG Citalopram Hydrobromide (celeXA TAB) 20 mg QAM PO 10/05/16 09:00 11/04/16 08:59 10/06/16 09:04 20 MG Gabapentin (Neurontin Cap) 100 mg TID PO 10/04/16 21:00 11/03/16 20:59 10/06/16 09:05 100 MG Objective Vital Signs Date Time Temp Pulse Resp B/P Pulse Ox O2 Delivery O2 Flow Rate FiO2 10/06/16 09:00 76 181/80 10/06/16 07:59 36.8 74 20 119/72 98 Room Air 10/06/16 04:00 Room Air 10/06/16 03:53 36.8 70 16 133/81 91 Room Air 10/06/16 00:00 Room Air 10/05/16 23:13 36.8 68 20 149/89 91 Room Air 10/05/16 20:00 96 Room Air 10/05/16 19:40 36.9 78 18 129/75 96 Room Air 10/05/16 16:00 Room Air 10/05/16 15:03 36.7 85 18 128/68 95 Room Air 10/05/16 12:00 Room Air 10/05/16 11:40 37.0 75 18 132/72 98 Room Air Physical Exam General Appearance: no apparent distress Respiratory/Chest: lungs clear, normal breath sounds, no respiratory distress, no accessory muscle use Cardiovascular: regular rate, rhythm, no edema, no murmur Abdomen: normal bowel sounds, non tender, soft Extremities: normal inspection, no pedal edema Neurologic/Psychiatric: no motor/sensory deficits, alert, normal mood/affect Skin: normal color Lymphatic: no adenopathy Laboratory Results Last 24 Hours Test 10/06/16 06:47 White Blood Count 4.01 K/uL Red Blood Count 3.58 M/uL Hemoglobin 9.4 g/dL Hematocrit 29.1 % Mean Corpuscular Volume 81.3 fL Mean Corpuscular Hemoglobin 26.3 pg Mean Corpuscular Hemoglobin Concent 32.3 g/dl RDW Standard Deviation 49.7 fL RDW Coefficient of Variation 16.5 % Platelet Count 106 K/uL Mean Platelet Volume 10.5 fL Sodium Level 144 mmol/L Potassium Level 3.8 mmol/L Chloride Level 109 mmol/L Carbon Dioxide Level 24 mmol/L Anion Gap 11.0 mmol/L Blood Urea Nitrogen 15 mg/dl Creatinine 0.90 mg/dl Est Creatinine Clear Calc Drug Dose 63.1 ml/min Estimated GFR () 75.1 Estimated GFR (Non- 64.8 BUN/Creatinine Ratio 16.1 Random Glucose 85 mg/dl Calcium Level 8.6 mg/dl Magnesium Level 2.0 mg/dl Assessment and Plan This is a 71 year old female with PMH of alcoholic liver cirrhosis and ongoing alcohol abuse, CAD s/p CABG, hx. of tobacco use and COPD, hx. of breast CA s/p bilateral mastectomy and recent plastic revision, HTN, HLD, hypothyroidism, diastolic CHF presents with shortness of breath, chest tightness Shortness of Breath Likely COPD exacerbation 10/06 back to baseline, no other interventions needed on discharge She can continue Advair use on discharge, albuterol as needed, Flonase 10/05 COPD has resolved agree with keeping her off steroids and antibiotics, no significant shortness of breath noted 09/29 mild COPD exacerbation not requiring oxygen, but patient continues to have some shortness of breath was given IV solu-medrol in the ER; switch to prednisone taper continue nebs as needed Oxygen as needed doxycycline started Depression/Anxiety appreciate psych evaluation restarted Celexa and Gabapentin no benzos on discharge Chest Tightness, r/o ACS in the setting of CAD with previous CABG x4 chest tightness is more likely related to the COPD exacerbation/breathing problems cardiac enzymes negative x 3 no significant EKG changes continue current cardiac medications Ongoing EtOH abuse 10/05 not needing ativan for withdrawal symptoms can d/c in AM likely to home AA meetings as outpatient 09/30 alcohol abuse, last drink; night prior to arrival added folic acid, thiamine, multivitamin to prevent withdrawal symptoms Gabapentin protocol PO Ativan PRN for anxiety/agitation replaced Mg to keep > 2 psych liaison and social work consults placed for resources on alcohol cessation Lactic Acidemia, resolved 10/05 secondary to dehydration resolved 09/30 Lactic acid elevated on admission and remains >3 continue fluid resuscitation repeat Lactic acid around 12PM on 09/30 likely due to ethanol intoxication and dehydration No source of infection found on KUB, abdomen/pelvis CT, CXR Anemia likely related to alcoholic liver disease Hgb on admission 9.1; now down to 8.1 combination of dilution and decreased production will recheck H/H around 12PM on 09/30 Thrombocytopenia again, likely related to alcoholic liver disease monitor platelets, transfuse PRN Abdominal Pain/Distention, improving mild, nonobstructive ileus on abdominal CT was on clears, repeat imaging done; KUB - no acute findings will advance diet Chronic Diastolic CHF Grade I diastolic dysfunction uses Lasix at home monitor for fluid overload with IVFs HTN BP elevated on admission related to anxiety/agitation, possible withdrawal BP improved this AM, continue home BP meds Hypothyroidism continue synthroid DVT ppx SCDs FULL CODE PT/OT evaluations ordered
--- NOTE | 2016-10-06 10:31 | Discharge Summary ---
Discharge Summary Date of Service Oct 06, 2016. Discharge Summary Admission Date: Sep 29, 2016 at 18:51 Discharge Date: Oct 06, 2016 Discharge Disposition: Home Principal Diagnosis: COPD exacerbation EtOH use and withdrawal Depression/Anxiety Medication Reconciliation New Medications: Citalopram (Citalopram Hydrobromide) 20 Mg Tab 20 MG PO QAM for 30 Days, #30 TAB Gabapentin (Gabapentin) 100 Mg Cap 100 MG PO TID for 30 Days, #90 CAP Continued Medications: Albuterol Hfa (Ventolin Hfa) 200 Puffs/20858 Mcg Aers 2 PUFFS INH Q6H PRN for SOB/Wheezing, #1 INHALER Aspirin (Aspirin Chewable) 81 Mg Chew 81 MG PO QAM Fluticasone Prop/Salmeterol (Advair Diskus 250/50 60 Dose) 1 Ea Aerp 1 PUFF INH BID Fluticasone Propionate (Nasal) (Flonase Allergy Relief) 50 Mcg/Act Spr 2 SPRAY TATE QAM PRN for CONGESTION Folic Acid (Folvite) 1 Mg Tab 1 MG PO DAILY, TAB Furosemide (Lasix) 20 Mg Tab 20 MG PO QAM Lactulose (Chronulac) 10 Gm/15 Ml Syrp 30 ML PO BID Levothyroxine Sodium (Synthroid) 75 Mcg Tab 75 MCG PO QAM Losartan Potassium (Cozaar) 25 Mg Tab 25 MG PO DAILY, TAB Metoprolol Succ (Toprol Xl) (Toprol-Xl) 25 Mg Tabcr 50 MG PO QAM, TAB Nitroglycerin (Nitrostat) 0.4 Mg Sub 0.4 MG UT UD PRN for Chest Pain Omeprazole (Prilosec) 20 Mg Capcr 20 MG PO QAM, 0 Refills Ondansetron (Ondansetron HCl) 4 Mg Tab 4 MG PO Q6 PRN for NAUSEA Oxycodone Immediate Rel Tab (Roxicodone Ir) 5 Mg Tab 5 MG PO Q4H PRN for Severe Pain, TAB Senna/Docusate Sod (Senokot S) 1 Tab Tab 2 TAB PO QAM Simvastatin (Zocor) 10 Mg Tab 10 MG PO QPM, 0 Refills Tramadol (Ultram) 50 Mg Tab 50 MG PO Q6H PRN for Pain Trazodone Hcl (Desyrel) 150 Mg Tab 150 MG PO HS Admission Information HPI (per Admitting provider): 71 year old female who presents to the ER with shortness of breath. Patient reports her symptoms began about one week ago. She also has had an intermittent cough productive for a small amount of garcia sputum. She reports intermittent low grade fevers and chills which she has been taking Motrin for. She reports constant chest tightness over the past few days. She also reports left upper/ axillary chest pain. She denies specific causative factors. She feels the chest pain is from recent plastic surgery she had done to her mastectomy sites. She reports the tightness and pain resolve when she takes a pain pill. She denies lightheadedness, dizziness, diaphoresis, or syncope. She reports increasing abdominal distention and generalized abdominal pain. She denies nausea and vomiting and reports she has been moving her bowel normally. She denies urinary symptoms. Patient does report she drinks a significant amount of alcohol; last drink was last evening. In the ER, patient work up is unrevealing. CT chest is negative for PE and other acute findings. EKG does not show any acute ST changes. Physical Exam (per Admitting): General Appearance: no apparent distress Head: normocephalic Eyes: normal inspection ENT: hearing grossly normal Neck: supple, thyroid normal Respiratory/Chest: lungs clear, normal breath sounds, no respiratory distress Cardiovascular: regular rate, rhythm, no edema, normal peripheral pulses Abdomen/GI: normal bowel sounds, + tenderness (generalized), + distended Extremities/Musculoskelatal: normal inspection, no calf tenderness Neurologic/Psych: no motor/sensory deficits, alert, normal mood/affect, oriented x 3 Skin: normal color, warm/dry Hospital Course This is a 71 year old female with PMH of alcoholic liver cirrhosis and ongoing alcohol abuse, CAD s/p CABG, hx. of tobacco use and COPD, hx. of breast CA s/p bilateral mastectomy and recent plastic revision, HTN, HLD, hypothyroidism, diastolic CHF presents with shortness of breath, chest tightness Shortness of Breath Likely COPD exacerbation 10/06 back to baseline, no other interventions needed on discharge She can continue Advair use on discharge, albuterol as needed, Flonase 10/05 COPD has resolved agree with keeping her off steroids and antibiotics, no significant shortness of breath noted 09/29 mild COPD exacerbation not requiring oxygen, but patient continues to have some shortness of breath was given IV solu-medrol in the ER; switch to prednisone taper continue nebs as needed Oxygen as needed doxycycline started Depression/Anxiety appreciate psych evaluation restarted Celexa and Gabapentin no benzos on discharge Chest Tightness, r/o ACS in the setting of CAD with previous CABG x4 chest tightness is more likely related to the COPD exacerbation/breathing problems cardiac enzymes negative x 3 no significant EKG changes continue current cardiac medications Ongoing EtOH abuse 10/05 not needing ativan for withdrawal symptoms can d/c in AM likely to home AA meetings as outpatient 09/30 alcohol abuse, last drink; night prior to arrival added folic acid, thiamine, multivitamin to prevent withdrawal symptoms Gabapentin protocol PO Ativan PRN for anxiety/agitation replaced Mg to keep > 2 psych liaison and social work consults placed for resources on alcohol cessation Lactic Acidemia, resolved 10/05 secondary to dehydration resolved 09/30 Lactic acid elevated on admission and remains >3 continue fluid resuscitation repeat Lactic acid around 12PM on 09/30 likely due to ethanol intoxication and dehydration No source of infection found on KUB, abdomen/pelvis CT, CXR Anemia likely related to alcoholic liver disease Hgb on admission 9.1; now down to 8.1 combination of dilution and decreased production will recheck H/H around 12PM on 09/30 Thrombocytopenia again, likely related to alcoholic liver disease monitor platelets, transfuse PRN Abdominal Pain/Distention, improving mild, nonobstructive ileus on abdominal CT was on clears, repeat imaging done; KUB - no acute findings will advance diet Chronic Diastolic CHF Grade I diastolic dysfunction uses Lasix at home monitor for fluid overload with IVFs HTN BP elevated on admission related to anxiety/agitation, possible withdrawal BP improved this AM, continue home BP meds Hypothyroidism continue synthroid DVT ppx SCDs FULL CODE PT/OT evaluations ordered Total time spent on discharge = 40 minutes This includes examination of the patient, discharge planning, medication reconciliation, and communication with other providers. Discharge Instructions Please follow-up with Dr. Destiny Walsl on October 11 @ 12:10PM * You will be discharged with Celexa for depression * You will be discharged with Gabapentin which can help with alcohol withdrawal symptoms as well as anxiety * You must follow with AA meetings as an outpatient Additional Copies To Destiny Walls D.O.
[2016-10-06] MEDS: LORAZEPAM INJ 1 MG in SYRINGE 0.5 ML IV PRN (11:17)
[2016-10-06 12:20] VITALS: BP 138/76; PULSE 85; TEMP 36.8; O2SAT 98
[2016-12-06] MEDS ORDERED: IPRA1AER2 INH (12:55)
[2016-12-06] MEDS ORDERED: METO50TA7 PO (12:55)
[2016-12-06] MEDS ORDERED: CITA40TA4 PO (12:55)
[2016-12-06] MEDS ORDERED: ONDA8TAB12 PO (12:55)
== END 2016-10-06 13:50 | disposition home or self-care (01) | DRG 191 ==
LOC: ENRESERVTM → ENRESERVDT → EDBD 14:28 → C.EDB 14:30 → C.2T 18:51 → C.MS2W 09-30 15:45 → C.MED 10-04 13:55
PROVIDERS: ADMIT Internal Medicine; ATTEND Family Medicine
DX: J44.1 Chronic obstructive pulmonary disease with (acute) exacerbation (principal); F10.239 Alcohol dependence with withdrawal, unspecified; I50.32 Chronic diastolic (congestive) heart failure; K56.7 Ileus, unspecified; E87.2 Acidosis; F32.9 Major depressive disorder, single episode, unspecified; F41.9 Anxiety disorder, unspecified; I25.10 Atherosclerotic heart disease of native coronary artery without angina pectoris; I11.0 Hypertensive heart disease with heart failure; E03.9 Hypothyroidism, unspecified; D64.9 Anemia, unspecified; E86.0 Dehydration; D69.6 Thrombocytopenia, unspecified; E78.5 Hyperlipidemia, unspecified; Z95.1 Presence of aortocoronary bypass graft; Z85.3 Personal history of malignant neoplasm of breast; Z87.891 Personal history of nicotine dependence; Z80.0 Family history of malignant neoplasm of digestive organs; Z79.82 Long term (current) use of aspirin; K70.30 Alcoholic cirrhosis of liver without ascites

== ENCOUNTER → 2016-11-11 | Outpatient (CLI) | payer OTHER ==
[~2016-11-11] MED LIST changes: -ALBUAER19 INH; +CITA40TA4 PO; +CLX20 PO; +FOLI1TAB7 PO; -GABA-112 PO; +IPRA1AER2 INH; +LOSA1TAB PO; -MECL1TAB40 PO; +METO50TA7 PO; +NRN100 PO; +ONDA8TAB12 PO; -OXYC-57 PO; +OXYC1TAB3 PO; -TURM1CAP4 PO; +VNTHFA/IN INH
--- NOTE | 2016-11-11 14:29 | DIAGNOSTIC IMAGING REPORT ---
ULTRASOUND LEFT LOWER EXTREMITY VENOUS CLINICAL HISTORY: Left calf pain. COMPARISON STUDY: No priors. TECHNIQUE: Real-time, grayscale, and color Doppler sonography of the deep veins of the left lower extremity was performed from the inguinal crease to the calf. Compression and augmentation were utilized. FINDINGS: There is no sonographic evidence of deep venous thrombosis identified in the left lower extremity. The common femoral, superficial femoral, and popliteal veins are patent and normally compressible. The greater saphenous vein and the profunda femoris vein at the junction with the common femoral vein are clear. The visualized calf veins are patent. IMPRESSION: There is no sonographic evidence of deep venous thrombosis identified in the left lower extremity. Electronically signed by: Ishmael Burt M.D. 11/11/2016 2:28 PM Dictated Date/Time: 11/11/2016 2:27 PM
== END | disposition home or self-care (01) ==
LOC: C.ULTR 14:01
PROVIDERS: ATTEND Internal Medicine Hematology & Oncology
DX: M79.662 Pain in left lower leg (principal)

== ENCOUNTER → 2016-12-01 | Outpatient (CLI) | payer OTHER ==
--- NOTE | 2016-12-01 09:25 | DIAGNOSTIC IMAGING REPORT ---
SMALL BOWEL STUDY CLINICAL HISTORY: Generalized abdominal pain. COMPARISON STUDY: Abdomen and pelvis CT 09/29/2016. FLUOROSCOPY TIME: 1 minute. 12 images submitted. FINDINGS: The distal ileum is identified and appears be normally distensible. The small bowel is normal in course and caliber. No evidence for small bowel obstruction. Postoperative changes within the distal small bowel consistent with prior anastomosis. Contrast reached the cecum at 20 minutes. IMPRESSION: Contrast reached the cecum at 20 minutes. The small bowel is normal in caliber. No evidence for bowel obstruction. Electronically signed by: Abdoul Desir M.D. 12/01/2016 9:23 AM Dictated Date/Time: 12/01/2016 9:20 AM
== END | disposition home or self-care (01) ==
LOC: C.RAD 08:02
PROVIDERS: ATTEND Nurse Practitioner Family
DX: R10.84 Generalized abdominal pain (principal)

== ENCOUNTER → 2016-12-07 | Day surgery (SDC) | payer OTHER ==
[~2016-12-07] VITALS: Ht 165.1 cm; Wt 81.8 kg
[~2016-12-07] MED LIST changes: -CLX20 PO; +LIDOCAINE HCL 2% 2 ML VIAL (20MG/ML) ONE; -METO25TA3 PO; -ONDA4TAB9 PO; +PROPOFOL IV EMULSION 10 MG/ML 20 ML VIAL IV ONE; +SODIUM CHLORIDE 0.9% 500ML 500 ML IV ONE; -VNTHFA/IN INH
[2016-12-07 12:05] VITALS: Ht 165.1 cm; Wt 81.8 kg
--- NOTE | 2016-12-07 12:42 | Endo History and Physical ---
History & Physical Date of Service: Dec 07, 2016. Chief Complaint: ABDOMINAL PAIN NAUSEA Referring Physician: DR CHOW History of Present Illness abdominal pain and hx of cirrhosis. Past Medical History Angioplasty/Stent, Arthritis, Gastrointestinal Disorder, Anxiety, Reflux, Blood Dyscrasias, Cancer, High Cholesterol, CABG, Heart Disease, Hypertension, COPD, Thyroid Disease, CVA/TIA, Liver Disease, Depression, [place] Past Surgical History Hx Cardiac Surgery: Yes (HEART CATH, CABG-4 VESSELS) Hx Internal Defibrillator: No Hx Pacemaker: No Hx Abdominal Surgery: Yes (3-4 BOWEL RESECTION/BLOCKAGE SURGERIES, , BIMAL BSO, ABD HERNIA) Hx of Implantable Prosthesis: No Hx Post-Op Nausea and Vomiting: No Hx Cancer Surgery: Yes (BILAT. MASTECTOMY) Hx Thoracic Surgery: No Hx Orthopedic: Yes (LEFT SHOULDER SX) Hx Urinary Tract Surgery: No Family History None Social History Smoking Status: Former Smoker Hx Substance Use: No Hx Alcohol Use: Yes (1-2 GLASSES OF WINE DAILY) Allergies Coded Allergies: No Known Allergies (Verified , 12/07/16) Current Medications Reported Home Medications Medications Dose Route/Sig Max Daily Dose Days Date Category Zofran (Ondansetron Hcl) 8 Mg Tab 8 Mg PO PRN PRN 12/06/16 Reported Toprol-Xl (Metoprolol Succinate) 50 Mg Tabcr 50 Mg PO QAM 12/06/16 Reported Citalopram Hydrobromide (Citalopram) 40 Mg Tab 1 Tab PO QAM 90 12/06/16 Reported Combivent Respimat (Ipratropium-Albuterol) 1 Aer Aer 1 Puffs INH QID PRN 12/06/16 Reported Gabapentin 100 Mg Cap 100 Mg PO TID 30 10/06/16 Rx Folvite (Folic Acid) 1 Mg Tab 1 Mg PO QAM 09/29/16 Reported Roxicodone Ir (Oxycodone HCl) 5 Mg Tab 5 Mg PO Q4H PRN 09/29/16 Reported Cozaar (Losartan Potassium) 25 Mg Tab 25 Mg PO QAM 09/29/16 Reported Flonase Allergy Relief (Fluticasone Propionate (Nasal)) 50 Mcg/Act Spr 2 [place] TATE QAM PRN 11/27/15 Reported Chronulac (Lactulose) 10 Gm/15 Ml Syrp 30 Ml PO BID 11/27/15 Reported Lasix (Furosemide) 20 Mg Tab 20 Mg PO QAM 10/02/15 Reported Ultram (Tramadol HCl) 50 Mg Tab 50 Mg PO Q6H PRN 10/02/15 Reported Senokot S (Senna/Docusate Sodium) 1 Tab Tab 2 Tab PO QAM 10/02/15 Reported Nitrostat (Nitroglycerin) 0.4 Mg Sub 0.4 Mg UT UD PRN 04/16/15 Reported Desyrel (Trazodone Hcl) 150 Mg Tab 150 Mg PO HS 04/16/15 Reported Aspirin Chewable (Aspirin) 81 Mg Chew 81 Mg PO QAM 04/19/13 Reported Advair Diskus 250/50 60 Dose (Fluticasone Prop/Salmeterol) 1 Ea Aerp 1 Puff INH BID 04/19/13 Reported Synthroid (Levothyroxine Sodium) 75 Mcg Tab 75 Mcg PO QAM 01/06/13 Reported Zocor (Simvastatin) 10 Mg Tab 10 Mg PO QPM 06/05/11 Reported Prilosec (Omeprazole) 20 Mg Capcr 20 Mg PO QAM 04/15/11 Reported Vital Signs Weight (Kilograms): 81.82 Height (Feet): 5 Height (Inches): 5 Date Time Temp Pulse Resp B/P Pulse Ox O2 Delivery O2 Flow Rate FiO2 12/07/16 12:19 37 69 18 196/89 97 Room Air Physical Exam General Appearance: no apparent distress Respiratory/Chest: Auscultation: breath sounds normal Cardiovascular: Heart Auscultation: RRR Abdomen: Inspection & Palpation: soft Liver: non-tender Assessment and Plan stable for EGD
--- NOTE | 2016-12-07 13:09 | GI REPORT ---
Procedure Date: 12/07/2016 12:15 PM Procedure: Upper GI endoscopy Indications: Epigastric abdominal pain, Cirrhosis with suspected esophageal varices Medicines: See the Anesthesia note for documentation of the administered medications Complications: No immediate complications. Estimated Blood Loss: Estimated blood loss: none. Procedure: Pre-Anesthesia Assessment: - Prior to the procedure, a History and Physical was performed, and patient medications, allergies and sensitivities were reviewed. The patient's tolerance of previous anesthesia was reviewed. - The risks and benefits of the procedure and the sedation options and risks were discussed with the patient. All questions were answered and informed consent was obtained. - Patient identification and proposed procedure were verified prior to the procedure by the physician and the nurse. The procedure was verified in the pre-procedure area. - After reviewing the risks and benefits, the patient was deemed in satisfactory condition to undergo the procedure. After obtaining informed consent, the endoscope was passed under direct vision. Throughout the procedure, the patient's blood pressure, pulse, and oxygen saturations were monitored continuously. The On-site loaner was introduced through the mouth, and advanced to the third part of duodenum. The upper GI endoscopy was accomplished without difficulty. The patient tolerated the procedure well. Findings: Grade I varices were found in the lower third of the esophagus. The stomach was normal. The examined duodenum was normal. The cardia and gastric fundus were normal on retroflexion. Impression: - Grade I esophageal varices. - Normal stomach. - Normal examined duodenum. - No specimens collected. Recommendation: - Discharge patient to home. Bobo Poe M.D. Bobo Poe MD 12/07/2016 1:07:33 PM This report has been signed electronically. Note Initiated On: 12/07/2016 12:15 PM I attest to the content of the Intraoperative Record and orders documented therein, exceptions below
--- NOTE | 2016-12-07 13:10 | Anesthesiology Progress Note ---
Anesthesia Post Op Note Date & Time Dec 07, 2016 at 13:09 Vital Signs Pain Intensity: 4 Vital Signs Past 12 Hours Date Time Temp Pulse Resp B/P Pulse Ox O2 Delivery O2 Flow Rate FiO2 12/07/16 13:02 37 67 18 150/68 98 Room Air 12/07/16 12:19 37 69 18 196/89 97 Room Air Notes Mental Status: alert / awake / arousable, participated in evaluation Pt Amnestic to Procedure: Yes Nausea / Vomiting: adequately controlled Pain: adequately controlled Airway Patency, RR, SpO2: stable & adequate BP & HR: stable & adequate Hydration State: stable & adequate Anesthetic Complications: no major complications apparent Pt doing well.
--- NOTE | 2016-12-07 13:11 | Discharge Instructions ---
Endoscopy Patient Instructions Date / Procedure(s) Performed Dec 07, 2016. EGD Allergy Information Coded Allergies: No Known Allergies (Verified , 12/07/16) Discharge Date / Findings Dec 07, 2016. small grade I varices otherwise normal. Provider Instructions Activity Restrictions - No exercising or heavy lifting for 24 hours. - Do not drink alcohol the day of the procedure. - Do not drive a car or operate machinery until the day after the procedure. - Do not make any important decisions or sign important papers in 24 hours after the procedure. Following Day: - Return to full activity which may include returning to work/school. Diet Start your diet with liquids and light foods (jello, soup, juice, toast). Then eat your usual diet if not nauseated. Treatment For Common After Affects For mild abdominal pain, bloating, or excessive gas: - Rest - Eat lightly - Lie on right side Follow-Up Information Follow-up with DR CHOW as scheduled Anesthesia Information What You Should Know You have had a procedure that required some medicine to reduce anxiety and discomfort. This treatment is called moderate sedation. After receiving the treatment, you may be sleepy, but you will be able to breathe on your own. The effects of the treatment may last for several hours. Follow these instructions along with Activity/Diet recommendations noted above: * Do NOT do anything where dizziness or clumsiness would be dangerous. * Rest quietly at home today, then you can be up and about tomorrow. * Have a responsible person stay with you the rest of today. * You may have had an I.V. today. If so, you may take the dressing off later today. Recommendations Call your doctor if: * Trouble breathing * Continuous vomiting for more than 24 hours * Temperature above 101 degrees * Severe abdominal pain or bloating * Pain not relieved by pain medicine ordered * There is increased drainage or redness from any incision * A large amount of rectal bleeding greater than 2-3 tablespoons. (If you had a polyp/s removed or have hemorrhoids, a small amount of blood - from the rectum is to be expected.) * You have any unanswered questions or concerns. IN THE EVENT OF A SERIOUS EMERGENCY, GO TO THE NEAREST EMERGENCY ROOM Your discharge instructions were prepared by provider Bobo Poe. Patient Instructions Signature Page Alma Grace Patient (or Guardian) Signature/Date: I have read and understand the instructions given to me by my caregivers. Caregiver/RN/Doctor Signature/Date: The above-named patient and/or guardian has received patient instructions on this date. + Original Patient Signature Page (only) stays with chart. Please make copy for patient.
[2016-12-07 13:32] VITALS: BP 179/73; PULSE 70; O2SAT 95
== END | disposition home or self-care (01) ==
LOC: C.GI 11:59
PROVIDERS: ATTEND Internal Medicine Gastroenterology
DX: R10.13 Epigastric pain (principal); R11.0 Nausea; I85.00 Esophageal varices without bleeding; I25.10 Atherosclerotic heart disease of native coronary artery without angina pectoris; I10 Essential (primary) hypertension; F32.9 Major depressive disorder, single episode, unspecified; F41.9 Anxiety disorder, unspecified; E78.00 Pure hypercholesterolemia, unspecified; E66.9 Obesity, unspecified; M19.90 Unspecified osteoarthritis, unspecified site; I25.2 Old myocardial infarction; Z68.30 Body mass index [BMI] 30.0-30.9, adult; Z95.1 Presence of aortocoronary bypass graft; Z86.73 Personal history of transient ischemic attack (TIA), and cerebral infarction without residual deficits; Z87.891 Personal history of nicotine dependence; Z98.890 Other specified postprocedural states; Z90.13 Acquired absence of bilateral breasts and nipples; Z80.9 Family history of malignant neoplasm, unspecified

== ENCOUNTER 2017-08-20 10:17 | Emergency (ER) | payer OTHER ==
[~2017-08-20] VITALS: Ht 162.6 cm; Wt 92.6 kg
[~2017-08-20 10:17] MED LIST changes: -FOLI1TAB7 PO; +FOLI1TAB8 PO; -LIDOCAINE HCL 2% 2 ML VIAL (20MG/ML) ONE; -PROPOFOL IV EMULSION 10 MG/ML 20 ML VIAL IV ONE; -SODIUM CHLORIDE 0.9% 500ML 500 ML IV ONE
[2017-08-20 10:24] VITALS: TEMP 36.9; Ht 162.6 cm; Wt 92.6 kg
[2017-08-20] MEDS ORDERED: FLUO20CA37 PO (11:13)
--- NOTE | 2017-08-20 11:32 | DIAGNOSTIC IMAGING REPORT ---
CT HEAD WITHOUT CONTRAST (CT) CLINICAL HISTORY: Head pain status post trauma COMPARISON STUDY: 10/11/2013 TECHNIQUE: Axial CT of the brain is performed from the vertex to the skull base. IV contrast was not administered for this examination. A dose lowering technique was utilized adhering to the principles of ALARA. CT DOSE: 935.83 mGy.cm FINDINGS: No intra or extra-axial mass lesions are visualized. There is no CT evidence of acute cortical infarction. There is no evidence of midline shift. There is no acute hemorrhage. No calvarial fractures are visualized. There are patchy white matter hypodensities likely on a small vessel basis. There is no evidence of pathologic ventricular dilatation. There is no evidence of acute sinusitis IMPRESSION: No acute intracranial findings Electronically signed by: Xavier Lombardo M.D. 08/20/2017 11:31 AM Dictated Date/Time: 08/20/2017 11:30 AM
--- NOTE | 2017-08-20 11:35 | DIAGNOSTIC IMAGING REPORT ---
CT OF THE CERVICAL SPINE CLINICAL HISTORY: Neck pain status post trauma COMPARISON STUDY: April 19, 2013 CT DOSE: TECHNIQUE: CT scan of the cervical spine was performed from the skull base to the thoracic inlet. Images are reviewed in the axial, sagittal, and coronal planes. IV contrast was not administered for this examination. A dose lowering technique was utilized adhering to the principles of ALARA. FINDINGS: The visualized portions of the lung apices reveal no evidence of pneumothorax. The prevertebral soft tissues are normal. No fractures or subluxations are visualized. There are moderate multilevel degenerative changes. There is slight straightening of the normal cervical lordosis. IMPRESSION: No evidence of acute fracture or traumatic subluxation. Electronically signed by: Xavier Lombardo M.D. 08/20/2017 11:33 AM Dictated Date/Time: 08/20/2017 11:32 AM
--- NOTE | 2017-08-20 11:59 | DIAGNOSTIC IMAGING REPORT ---
L SHOULDER MIN 2 VIEWS ROUTINE CLINICAL HISTORY: Left shoulder pain status post trauma COMPARISON: None DISCUSSION: No acute fractures or dislocations are visualized. There are mild osteoarthritic changes present. There is equivocal narrowing of the humeral acromial distance 1 internally rotated view. Chronic rotator cuff degeneration cannot be excluded. IMPRESSION: No acute fractures or dislocations identified. Electronically signed by: Xavier Lombardo M.D. 08/20/2017 11:58 AM Dictated Date/Time: 08/20/2017 11:57 AM
--- NOTE | 2017-08-20 12:00 | DIAGNOSTIC IMAGING REPORT ---
L HAND MIN 3 VIEWS ROUTINE CLINICAL HISTORY: Left hand pain status post trauma COMPARISON: None. DISCUSSION: No acute fractures or dislocations are visualized. There are erosive osteoarthritic changes present. Moderate arthritic changes are also present within the wrist at the level the first carpal metacarpal joint, as well as the level of the trapezium navicular articulation. IMPRESSION: Moderate arthritic change. No acute fractures or dislocations identified. Electronically signed by: Xavier Lombardo M.D. 08/20/2017 11:59 AM Dictated Date/Time: 08/20/2017 11:58 AM
[2017-08-20 12:04] VITALS: BP 185/102; PULSE 68; O2SAT 94
--- NOTE | 2017-08-20 14:04 | EMERGENCY ROOM VISIT NOTE ---
History Report prepared by Aleksey: Chente Boyd Under the Supervision of: Dr. Den Frazier D.O. First contact with patient: 10:35 Chief Complaint: FALL Stated Complaint: FALL - HIT HEAD, PAIN IN LEFT SHOULDER History of Present Illness The patient is a 72 year old female who presents to the Emergency Room with complaints of constant left shoulder and left hand discomfort beginning last night. The patient states she was walking outside her apartment complex when she slipped on ice. She reports she fell onto her face and left shoulder. The patient notes her face is still sore, and her neck has become sore. She denies a headache. The patient states she has a history of spinal stenosis, and she takes an aspirin 81 daily. Patient has no other complaints at this time. She is able to ambulate without difficulty. Source of History: patient Onset: last night Position: shoulder (right), hand (right) Timing: constant Associated Symptoms: No headache Note: Associated symptoms: face and neck soreness Review of Systems See HPI for pertinent positives & negatives. A total of 10 systems reviewed and were otherwise negative. Past Medical & Surgical Medical Problems: (1) Alcohol withdrawal (2) Alcoholic cirrhosis (3) Anxiety (4) COPD (chronic obstructive pulmonary disease) (5) Coronary artery disease (6) Depression (7) Diastolic CHF (8) Dyslipidemia (9) Essential hypertension (10) History of alcohol abuse (11) History of breast cancer (12) Hypothyroidism Surgical Problems: (1) H/O bilateral mastectomy (2) H/O shoulder surgery (3) H/O ventral hernia repair (4) History of bowel resection (5) Status post coronary artery bypass grafting (6) Status post hysterectomy (7) Status post laparotomy (8) Status post repair incisional hernia Social History Problems: (1) Alcohol abuse (2) Tobacco use Family History Cancer MOTHER (Stomach, Colon ) Social History Smoking Status: Never Smoker Alcohol Use: none Drug Use: none Marital Status: single Housing Status: lives alone Occupation Status: unemployed Current/Historical Medications Scheduled Aspirin (Aspirin Chewable), 81 MG PO QAM Fluoxetine Hcl (Prozac), 20 MG PO DAILY Fluticasone Prop/Salmeterol (Advair Diskus 250/50 60 Dose), 1 PUFF INH BID Folic Acid (Folvite), 1 MG PO QAM Gabapentin (Gabapentin), 100 MG PO TID Lactulose (Chronulac), 30 ML PO DAILY Levothyroxine Sodium (Synthroid), 75 MCG PO QAM Losartan Potassium (Cozaar), 25 MG PO QAM Metoprolol Succ (Toprol Xl) (Toprol-Xl), 50 MG PO QAM Omeprazole (Prilosec), 20 MG PO QAM Senna/Docusate Sod (Senokot S), 2 TAB PO QAM Simvastatin (Zocor), 10 MG PO QPM Trazodone Hcl (Desyrel), 150 MG PO HS Scheduled PRN Fluticasone Propionate (Nasal) (Flonase Allergy Relief), 2 SPRAY TATE QAM PRN for CONGESTION Furosemide (Lasix), 20 MG PO QAM PRN for EDEMA Ipratropium-Albuterol (Combivent Respimat), 1 PUFFS INH QID PRN for Shortness of Breath Nitroglycerin (Nitrostat), 0.4 MG UT UD PRN for Chest Pain Ondansetron Hcl (Zofran), 8 MG PO PRN PRN for Nausea or Vomiting Oxycodone Immediate Rel Tab (Roxicodone Ir), 5 MG PO Q4H PRN for Severe Pain Tramadol (Ultram), 50 MG PO Q6H PRN for Pain Allergies Coded Allergies: No Known Allergies (Verified , 08/20/17) Physical Exam Vital Signs Date Time Temp Pulse Resp B/P (MAP) Pulse Ox O2 Delivery O2 Flow Rate FiO2 08/20/17 12:04 68 20 185/102 94 Room Air 08/20/17 10:24 36.9 72 18 163/74 94 Room Air Physical Exam GENERAL: alert, well appearing, well nourished, no distress, non-toxic HEAD: normal cephalic, Abrasion to the nose. Two abrasions above the right eye. EYE EXAM: normal conjunctiva, PERRL and EOM's grossly intact OROPHARYNX: no exudate, no erythema, lips, buccal mucosa, and tongue normal and mucous membranes are moist EARS: TMs clear b/l NECK: supple, no nuchal rigidity, no adenopathy, non-tender CHEST: stable to compression anteriorly and posteriorly LUNGS: clear to auscultation. Normal chest wall mechanics HEART: no murmurs, S1 normal and S2 normal ABDOMEN: abdomen soft, non-tender, normo-active bowel sounds, no masses, no rebound or guarding. PELVIS: stable to compression anteriorly and posteriorly BACK: Back is symmetrical on inspection and there is no deformity, no midline tenderness, no CVA tenderness. UPPER EXTREMITIES: full active and passive range of motion of all joints. Small abrasion to the right elbow. Bruising over the dorsal aspect of the left hand over the 3-5th digits. Small abrasion over the left elbow. Tenderness to palpation over the left humeral head. LOWER EXTREMITIES: full active and passive range of motion of all joints without tenderness to palpation. no scaphoid tenderness NEURO EXAM: Normal sensorium, cranial nerves II-XII grossly intact, normal speech, no gross weakness of arms, no gross weakness of legs. GCS: 15. Medical Decision & Procedures ER Provider Diagnostic Interpretation: Radiology results as stated below per my review and the radiologist's interpretation: CT HEAD WITHOUT CONTRAST (CT) CLINICAL HISTORY: Head pain status post trauma COMPARISON STUDY: 10/11/2013 TECHNIQUE: Axial CT of the brain is performed from the vertex to the skull base. IV contrast was not administered for this examination. A dose lowering technique was utilized adhering to the principles of ALARA. CT DOSE: 935.83 mGy.cm FINDINGS: No intra or extra-axial mass lesions are visualized. There is no CT evidence of acute cortical infarction. There is no evidence of midline shift. There is no acute hemorrhage. No calvarial fractures are visualized. There are patchy white matter hypodensities likely on a small vessel basis. There is no evidence of pathologic ventricular dilatation. There is no evidence of acute sinusitis IMPRESSION: No acute intracranial findings Electronically signed by: Xavier Lombardo M.D. 08/20/2017 11:31 AM Dictated Date/Time: 08/20/2017 11:[address] OF THE CERVICAL SPINE CLINICAL HISTORY: Neck pain status post trauma COMPARISON STUDY: April 19, 2013 CT DOSE: TECHNIQUE: CT scan of the cervical spine was performed from the skull base to the thoracic inlet. Images are reviewed in the axial, sagittal, and coronal planes. IV contrast was not administered for this examination. A dose lowering technique was utilized adhering to the principles of ALARA. FINDINGS: The visualized portions of the lung apices reveal no evidence of pneumothorax. The prevertebral soft tissues are normal. No fractures or subluxations are visualized. There are moderate multilevel degenerative changes. There is slight straightening of the normal cervical lordosis. IMPRESSION: No evidence of acute fracture or traumatic subluxation. Electronically signed by: Xavier Lombardo M.D. 08/20/2017 11:33 AM Dictated Date/Time: 08/20/2017 11:32 AM L SHOULDER MIN 2 VIEWS ROUTINE CLINICAL HISTORY: Left shoulder pain status post trauma COMPARISON: None DISCUSSION: No acute fractures or dislocations are visualized. There are mild osteoarthritic changes present. There is equivocal narrowing of the humeral acromial distance 1 internally rotated view. Chronic rotator cuff degeneration cannot be excluded. IMPRESSION: No acute fractures or dislocations identified. Electronically signed by: Xavier Lombardo M.D. 08/20/2017 11:58 AM L HAND MIN 3 VIEWS ROUTINE CLINICAL HISTORY: Left hand pain status post trauma COMPARISON: None. DISCUSSION: No acute fractures or dislocations are visualized. There are erosive osteoarthritic changes present. Moderate arthritic changes are also present within the wrist at the level the first carpal metacarpal joint, as well as the level of the trapezium navicular articulation. IMPRESSION: Moderate arthritic change. No acute fractures or dislocations identified. Electronically signed by: Xavier Lombardo M.D. 08/20/2017 11:59 AM Dictated Date/Time: 08/20/2017 11:58 AM ED Course ED COURSE: Vital signs were reviewed and showed situational hypertension. The patients medical record was reviewed The above diagnostic studies were performed and reviewed. ED treatments and interventions as stated above. 1045: The patient was evaluated in room B02. A complete history and physical examination was performed. 1211: Upon reevaluation, the patient is resting comfortably. I discussed my findings with the patient and she understands and agrees with the treatment plan. Based on the patients age, coexisting illnesses, exam and lab findings the decision to treat as an outpatient was made. The patient remained stable while under my care. The patient appeared well at the time of discharge. Medical Decision Differential diagnoses include major intracranial, cervical, spinal, thoracic, abdominal, pelvic and neurologic injury. Fracture, contusion, sprain, strain, laceration, abrasions included as well. Patient is a 72-year-old female who presents to ER following a mechanical fall last night. Sclerae of left shoulder pain and mild neck pain. She also has pain on the dorsal aspect of her left hand. X-rays of her hand and shoulder were negative. CT head and cervical spine were negative. Patient's completely neurologically intact. She had no tenderness over her left scaphoid. Patient was updated bedside. She was discharged follow-up with PCP as an outpatient. Discussed with Pt concerning signs and symptoms to watch out for. Pt was instructed to follow up with their PCP and discussed with the patient their option to return to the ED at anytime for persistent or worsening symptoms. The appropriate anticipatory guidance and out-patient management, including indications for return to the emergency department, were explained at length to the patient and understood. Head Trauma GCS Score: 15 Medication Reconcilliation Current Medication List: was personally reviewed by me Blood Pressure Screening Patient's blood pressure: Elevated blood pressure Blood pressure disposition: Elevated BP felt to be situational Impression Primary Impression: Fall Additional Impression: Contusion of multiple sites Scribe Attestation The scribe's documentation has been prepared under my direction and personally reviewed by me in its entirety. I confirm that the note above accurately reflects all work, treatment, procedures, and medical decision making performed by me. Departure Information Dispostion Home / Self-Care Referrals Destiny Walls D.O. (PCP) Forms HOME CARE DOCUMENTATION FORM, IMPORTANT VISIT INFORMATION Patient Instructions ED Contusion Shoulder, [facility] Additional Instructions Please follow up with your primary care doctor with in the next 24 hours. Any worsening of your symptoms, please return to the ED immediately. This includes any fevers greater than 100.4, worsening pain, chest pain, shortness breath, persistent nausea, vomiting, unable to eat or drink, or any other concerning signs or symptoms from your standpoint. Please take Tylenol or Motrin as needed for pain. Problem Qualifiers Primary Impression: Fall Encounter type: initial encounter Qualified Codes: W19.XXXA - Unspecified fall, initial encounter
== END 2017-08-20 12:12 | disposition home or self-care (01) ==
LOC: C.EDB 10:18
DX: T14.8XXA Other injury of unspecified body region, initial encounter (principal); W00.0XXA Fall on same level due to ice and snow, initial encounter; Y92.89 Other specified places as the place of occurrence of the external cause; J44.9 Chronic obstructive pulmonary disease, unspecified; I25.10 Atherosclerotic heart disease of native coronary artery without angina pectoris; F32.9 Major depressive disorder, single episode, unspecified; F41.9 Anxiety disorder, unspecified; E78.5 Hyperlipidemia, unspecified; I10 Essential (primary) hypertension; K70.30 Alcoholic cirrhosis of liver without ascites; Z85.3 Personal history of malignant neoplasm of breast; E03.9 Hypothyroidism, unspecified; Z79.82 Long term (current) use of aspirin; Z79.899 Other long term (current) drug therapy

== ENCOUNTER → 2017-12-28 | Day surgery (SDC) | payer OTHER ==
[2017-12-21 13:50] VITALS: Ht 165.1 cm; Wt 90.9 kg
[~2017-12-28] VITALS: Ht 165.1 cm; Wt 90.9 kg
[~2017-12-28] MED LIST changes: -CITA40TA4 PO; +CTF50 PO; +FLUO40CA8 PO; +GABA-113 PO; +LEVO5TAB2 PO; +LIDOCAINE HCL 2% 2 ML VIAL (20MG/ML) ONE; -METO50TA7 PO; +METO50TA8 PO; +MONT1TAB3 PO; -NRN100 PO; -OXYC1TAB3 PO; +PROPOFOL IV EMULSION 10 MG/ML 20 ML VIAL ONE; +SALI0.6510 NAE; +SODIUM CHLORIDE 0.9% 500ML 500 ML IV ONE; +TRMCR130WC
--- NOTE | 2017-12-28 12:37 | Endo History and Physical ---
History & Physical Date of Service: December 28, 2017. Chief Complaint: Swallowing problems Referring Physician: Dr Walls History of Present Illness Dysphagia Past Medical History Angioplasty/Stent, Arthritis, Gastrointestinal Disorder, Anxiety, Reflux, Blood Dyscrasias, Cancer, High Cholesterol, CABG, Heart Disease, Hypertension, COPD, Thyroid Disease, CVA/TIA, Liver Disease, Depression, [place] Past Surgical History Hx Cardiac Surgery: Yes (HEART CATH, CABG-4 VESSELS) Hx Internal Defibrillator: No Hx Pacemaker: No Hx Abdominal Surgery: Yes (3-4 BOWEL RESECTION/BLOCKAGE SURGERIES, , BIMAL BSO, ABD HERNIA) Hx of Implantable Prosthesis: No Hx Post-Op Nausea and Vomiting: No Hx Cancer Surgery: Yes (BILAT. MASTECTOMY) Hx Thoracic Surgery: No Hx Orthopedic: Yes (LEFT SHOULDER SX) Hx Urinary Tract Surgery: No Family History Colon CA Social History Smoking Status: Former Smoker Hx Substance Use: No Hx Alcohol Use: Yes (1-2 GLASSES OF WINE DAILY) Allergies Coded Allergies: No Known Allergies (Verified , 12/28/17) Current Medications Reported Home Medications Medications Dose Route/Sig Max Daily Dose Days Date Category Singulair (Montelukast Sodium) 10 Mg Tab 1 Tab PO HS 90 12/21/17 Reported Xyzal (Levocetirizine Dihydrochloride) 5 Mg Tab 1 Tab PO HS 30 12/21/17 Reported Aristocort 0.1% (Triamcinolone Acet) 90 Appln/30 Gm Cr DIRECTED 12/21/17 Reported [place] Nasal [place] (Saline) 0.65 % Spr 2 Sprays TATE DAILY PRN 12/21/17 Reported Neurontin (Gabapentin) 300 Mg Cap 300 Mg PO TID 12/21/17 Reported Prozac (Fluoxetine Hcl) 40 Mg Cap 1 Cap PO DAILY 30 12/21/17 Reported Zofran (Ondansetron Hcl) 8 Mg Tab 8 Mg PO PRN PRN 12/06/16 Reported Toprol-Xl (Metoprolol Succinate) 50 Mg Tabcr 50 Mg PO QAM 12/06/16 Reported Combivent Respimat (Ipratropium-Albuterol) 1 Aer Aer 1 Puffs INH QID PRN 12/06/16 Reported Folvite (Folic Acid) 1 Mg Tab 1 Mg PO QAM 09/29/16 Reported Cozaar (Losartan Potassium) 25 Mg Tab 25 Mg PO QAM 2/15/17 Reported Flonase Allergy Relief (Fluticasone Propionate (Nasal)) 50 Mcg/Act Spr 2 [place] TATE QAM PRN 11/27/15 Reported Chronulac (Lactulose) 10 Gm/15 Ml Syrp 30 Ml PO DAILY 11/27/15 Reported Lasix (Furosemide) 20 Mg Tab 20 Mg PO QAM PRN 10/02/15 Reported Ultram (Tramadol HCl) 50 Mg Tab 50 Mg PO Q6H PRN 10/02/15 Reported Senokot S (Senna/Docusate Sodium) 1 Tab Tab 2 Tab PO QAM 10/02/15 Reported Nitrostat (Nitroglycerin) 0.4 Mg Sub 0.4 Mg UT UD PRN 04/16/15 Reported Desyrel (Trazodone Hcl) 150 Mg Tab 150 Mg PO HS 04/16/15 Reported Aspirin Chewable (Aspirin) 81 Mg Chew 81 Mg PO QAM 04/19/13 Reported Advair Diskus 250/50 60 Dose (Fluticasone Prop/Salmeterol) 1 Ea Aerp 1 Puff INH BID 04/19/13 Reported Synthroid (Levothyroxine Sodium) 75 Mcg Tab 75 Mcg PO QAM 01/06/13 Reported Zocor (Simvastatin) 10 Mg Tab 10 Mg PO QPM 06/05/11 Reported Prilosec (Omeprazole) 20 Mg Capcr 20 Mg PO QAM 04/15/11 Reported Vital Signs Weight (Kilograms): 90.91 Height (Feet): 5 Height (Inches): 5 Date Time Temp Pulse Resp B/P (MAP) Pulse Ox O2 Delivery O2 Flow Rate FiO2 12/28/17 11:37 37.6 71 20 174/99 (124) 96 Room Air Physical Exam General Appearance: no apparent distress Respiratory/Chest: Auscultation: breath sounds normal Cardiovascular: Heart Auscultation: RRR Abdomen: Inspection & Palpation: soft Assessment and Plan Stable for EGD
--- NOTE | 2017-12-28 13:03 | GI REPORT ---
Patient Name: Alma Grace Procedure Date: 12/28/2017 12:15 PM Date of : 1945 Admit Type: Outpatient Age: 72 Gender: Female Attending MD: Simon Iniguez MD Procedure: Upper GI endoscopy Providers: Simon Iniguez MD Referring MD: Destiny Walls Indications: Dysphagia Medicines: Monitored Anesthesia Care Complications: No immediate complications. Estimated Blood Loss: Estimated blood loss: none. Procedure: Pre-Anesthesia Assessment: - Prior to the procedure, a History and Physical was performed, and patient medications and allergies were reviewed. The patient is competent. The risks and benefits of the procedure and the sedation options and risks were discussed with the patient. All questions were answered and informed consent was obtained. Patient identification and proposed procedure were verified by the physician and the nurse in the procedure room. Mental Status Examination: alert and oriented. Airway Examination: normal oropharyngeal airway and neck mobility. Respiratory Examination: clear to auscultation. CV Examination: normal. ASA Grade Assessment: III - A patient with severe systemic disease. After reviewing the risks and benefits, the patient was deemed in satisfactory condition to undergo the procedure. The anesthesia plan was to use monitored anesthesia care (MAC). Immediately prior to administration of medications, the patient was re-assessed for adequacy to receive sedatives. The heart rate, respiratory rate, oxygen saturations, blood pressure, adequacy of pulmonary ventilation, and response to care were monitored throughout the procedure. The physical status of the patient was re-assessed after the procedure. After obtaining informed consent, the endoscope was passed under direct vision. Throughout the procedure, the patient's blood pressure, pulse, and oxygen saturations were monitored continuously. The On-site loaner was introduced through the mouth, and advanced to the second part of duodenum. The upper GI endoscopy was accomplished without difficulty. The patient tolerated the procedure well. Findings: Grade I, small varices were found in the lower third of the esophagus. No endoscopic abnormality was evident in the esophagus to explain the patient's complaint of dysphagia. Type 1 isolated gastric varices (IGV1, varices located in the fundus) with no bleeding were found in the gastric fundus. These were not in continuity with the esophageal varices. They were large in largest diameter. Localized moderately erythematous mucosa was found in the gastric antrum. The duodenal bulb and second portion of the duodenum were normal. Impression: - Grade I esophageal varices. - No endoscopic esophageal abnormality to explain patient's dysphagia. Dilation not attempted due to varices. - Type 1 isolated gastric varices (IGV1, varices located in the fundus), without bleeding. - Erythematous mucosa in the antrum. - Normal duodenal bulb and second portion of the duodenum. - No specimens collected. Recommendation: - Discharge patient to home. - Return to referring physician. Simon Iniguez MD 12/28/2017 1:03:19 PM This report has been signed electronically. Note Initiated On: 12/28/2017 12:15 PM Number of Addenda: 0 I attest to the content of the Intraoperative Record and orders documented therein, exceptions below {[id number]}
--- NOTE | 2017-12-28 13:04 | Discharge Instructions ---
Endoscopy Patient Instructions Date / Procedure(s) Performed December 28, 2017. EGD Allergy Information Coded Allergies: No Known Allergies (Verified , 12/28/17) Discharge Date / Findings December 28, 2017. Esophageal varices, Gastric varices. Medication Instructions Stopped Medication(s): ASA 81 mg LD 12/27/17 0900 Provider Instructions Activity Restrictions - No exercising or heavy lifting for 24 hours. - Do not drink alcohol the day of the procedure. - Do not drive a car or operate machinery until the day after the procedure. - Do not make any important decisions or sign important papers in 24 hours after the procedure. Following Day: - Return to full activity which may include returning to work/school. Diet Start your diet with liquids and light foods (jello, soup, juice, toast). Then eat your usual diet if not nauseated. Treatment For Common After Affects For mild abdominal pain, bloating, or excessive gas: - Rest - Eat lightly - Lie on right side Follow-Up Information Follow-up with Dr Walls as scheduled Anesthesia Information What You Should Know You have had a procedure that required some medicine to reduce anxiety and discomfort. This treatment is called moderate sedation. After receiving the treatment, you may be sleepy, but you will be able to breathe on your own. The effects of the treatment may last for several hours. Follow these instructions along with Activity/Diet recommendations noted above: * Do NOT do anything where dizziness or clumsiness would be dangerous. * Rest quietly at home today, then you can be up and about tomorrow. * Have a responsible person stay with you the rest of today. * You may have had an I.V. today. If so, you may take the dressing off later today. Recommendations Call your doctor if: * Trouble breathing * Continuous vomiting for more than 24 hours * Temperature above 101 degrees * Severe abdominal pain or bloating * Pain not relieved by pain medicine ordered * There is increased drainage or redness from any incision * A large amount of rectal bleeding greater than 2-3 tablespoons. (If you had a polyp/s removed or have hemorrhoids, a small amount of blood - from the rectum is to be expected.) * You have any unanswered questions or concerns. IN THE EVENT OF A SERIOUS EMERGENCY, GO TO THE NEAREST EMERGENCY ROOM Your discharge instructions were prepared by provider Simon Iniguez. Patient Instructions Signature Page Alma Grace Patient (or Guardian) Signature/Date: I have read and understand the instructions given to me by my caregivers. Caregiver/RN/Doctor Signature/Date: The above-named patient and/or guardian has received patient instructions on this date. + Original Patient Signature Page (only) stays with chart. Please make copy for patient.
[2017-12-28 13:32] VITALS: BP 144/92; PULSE 70; O2SAT 95
--- NOTE | 2017-12-28 13:32 | Anesthesiology Progress Note ---
Anesthesia Post Op Note Date & Time December 28, 2017 at 13:32 Vital Signs Pain Intensity: 0 Vital Signs Past 12 Hours Date Time Temp Pulse Resp B/P (MAP) Pulse Ox O2 Delivery O2 Flow Rate FiO2 12/28/17 13:17 69 18 116/65 (82) 95 Room Air 12/28/17 13:02 76 18 113/37 (62) 93 Room Air 12/28/17 11:37 37.6 71 20 174/99 (124) 96 Room Air Notes Mental Status: alert / awake / arousable, participated in evaluation Pt Amnestic to Procedure: Yes Nausea / Vomiting: adequately controlled Pain: adequately controlled Airway Patency, RR, SpO2: stable & adequate BP & HR: stable & adequate Hydration State: stable & adequate Anesthetic Complications: no major complications apparent
== END | disposition home or self-care (01) ==
LOC: C.GI 10:30
PROVIDERS: ATTEND Student in an Organized Health Care Education/Training Program
DX: R13.10 Dysphagia, unspecified (principal); I85.00 Esophageal varices without bleeding; I86.4 Gastric varices; M19.90 Unspecified osteoarthritis, unspecified site; F41.9 Anxiety disorder, unspecified; K21.9 Gastro-esophageal reflux disease without esophagitis; E78.00 Pure hypercholesterolemia, unspecified; E78.5 Hyperlipidemia, unspecified; I25.10 Atherosclerotic heart disease of native coronary artery without angina pectoris; I10 Essential (primary) hypertension; J44.9 Chronic obstructive pulmonary disease, unspecified; K74.60 Unspecified cirrhosis of liver; I25.2 Old myocardial infarction; F32.9 Major depressive disorder, single episode, unspecified; Z86.73 Personal history of transient ischemic attack (TIA), and cerebral infarction without residual deficits; Z95.5 Presence of coronary angioplasty implant and graft; Z90.13 Acquired absence of bilateral breasts and nipples; Z80.0 Family history of malignant neoplasm of digestive organs; Z87.891 Personal history of nicotine dependence; Z79.82 Long term (current) use of aspirin; Z86.14 Personal history of Methicillin resistant Staphylococcus aureus infection; Z85.3 Personal history of malignant neoplasm of breast

== ENCOUNTER 2018-03-15 15:28 | Inpatient (IN) | payer OTHER ==
[~2018-03-15] VITALS: Ht 165.1 cm; Wt 85.3 kg
[~2018-03-15 15:28] MED LIST changes: -CTF50 PO; -LACT10SO17 PO; +LACT10SO3 PO; +LEVO-14 PO; -LEVO5TAB2 PO; -LIDOCAINE HCL 2% 2 ML VIAL (20MG/ML) ONE; -PROPOFOL IV EMULSION 10 MG/ML 20 ML VIAL ONE; -SIMV10TA2 PO; -SODIUM CHLORIDE 0.9% 500ML 500 ML IV ONE
[2018-03-15] MEDS ORDERED: ONDANSETRON INJ 2 MG/ML 2 ML VIAL IV STA (15:52)
[2018-03-15] MEDS ORDERED: SODIUM CHLORIDE 0.9% 1000ML 1,000 ML IV STA (15:52)
[2018-03-15 16:08] LABS: BASO % 0.2 %; BASO ABS # 0.01 K/uL (0-0.2); EOS % 1.4 %; EOS ABS # 0.08 K/uL (0-0.5); HEMATOCRIT 37.7 % (37-47); HEMOGLOBIN 13.3 g/dL (12.0-16.0); IG# 0.01 K/uL (0.00-0.02); LYMPH % 26.4 %; LYMPH ABS # 1.46 K/uL (1.2-3.4); MEAN CELL VOLUME 91.1 fL (80-100); MEAN CORPUSCULAR HEMOGLOBIN 32.1 pg (25-34); MEAN CORPUSCULAR HGB CONC 35.3 g/dl (32-36); MEAN PLATELET VOLUME 11.6 fL (7.4-10.4); MONO % 8.3 %; MONO ABS # 0.46 K/uL (0.11-0.59); NEUT % 63.5 %; PLATELET COUNT 111 K/uL (130-400); RED CELL DISTRIBUTION WIDTH CV 15.4 % (11.5-14.5); WHITE BLOOD COUNT 5.52 K/uL (4.8-10.8)
--- NOTE | 2018-03-15 16:13 | EMERGENCY ROOM VISIT NOTE ---
History Report prepared by Aleksey: Mariah Luna Under the Supervision of: Dr. Ishmael Rodriguez M.D. First contact with patient: 15:44 Chief Complaint: FALL Stated Complaint: FALL, CUT HEAD, DIZZYT, WEAK AND SHAKY History of Present Illness The patient is a 73 year old female who presents to the Emergency Room with complaints of a fall happening 4 mornings ago. The patient states that her left leg and hip intermittently give out and states that this caused her to fall. She states that she hit her head on the toilet seat during the fall and states that she passed out afterwards. She also reports hitting her back, buttocks, and ribs. The patient reports that no one was there during her fall as she lives alone. The patient reports that she does not know how long she was passed out for but reports that she was eventually able to get herself into bed to sleep. The patient reports that since the fall she has been dizzy, has had altered mental status, and has "not been herself." She also reports having shortness of breath, a productive cough, and nausea since her fall. The patient states that she has been unable to eat or drink secondary to her nausea. She denies having any new urinary symptoms. The patient reports that she has severe spinal stenosis, cirrhosis secondary to alcohol, and low platelets. The patient states that her last tetanus shot was 6 years ago. Source of History: patient Onset: 4 mornings ago Position: other (generalized) Quality: other Associated Symptoms: + LOC, + cough (productive ), + SOB, + nausea, + weakness (dizziness, altered mental status), No urinary symptoms Review of Systems See HPI for pertinent positives & negatives. A total of 10 systems reviewed and were otherwise negative. Past Medical & Surgical Medical Problems: (1) Alcohol withdrawal (2) Alcoholic cirrhosis (3) Anxiety (4) COPD (chronic obstructive pulmonary disease) (5) Coronary artery disease (6) Depression (7) Diastolic CHF (8) Dyslipidemia (9) Essential hypertension (10) History of alcohol abuse (11) History of breast cancer (12) Hypothyroidism (13) Spinal stenosis Surgical Problems: (1) H/O bilateral mastectomy (2) H/O shoulder surgery (3) H/O ventral hernia repair (4) History of bowel resection (5) Status post coronary artery bypass grafting (6) Status post hysterectomy (7) Status post laparotomy (8) Status post repair incisional hernia Social History Problems: (1) Alcohol abuse (2) Tobacco use Family History Cancer MOTHER (Stomach, Colon ) Social History Smoking Status: Never Smoker Drug Use: none Marital Status: single Housing Status: lives alone Occupation Status: unemployed Current/Historical Medications Scheduled Aspirin (Aspirin Chewable), 81 MG PO ON HOLD Fluoxetine Hcl (Prozac), 1 CAP PO DAILY Fluticasone Prop/Salmeterol (Advair Diskus 250/50 60 Dose), 1 PUFF INH BID Folic Acid (Folvite), 1 MG PO QAM Gabapentin (Neurontin), 300 MG PO TID Ipratropium-Albuterol (Combivent Respimat), 1 PUFFS INH QID Lactulose (Chronulac), 30 ML PO DAILY Levocetirizine Dihydrochloride (Levocetirizine Dihydrochl), 1 TAB PO DAILY Levothyroxine Sodium (Synthroid), 75 MCG PO QAM Losartan Potassium (Cozaar), 25 MG PO QAM Metoprolol Succ (Toprol Xl) (Toprol-Xl), 50 MG PO QAM Omeprazole (Prilosec), 20 MG PO QAM Trazodone Hcl (Desyrel), 150 MG PO HS Triamcinolone Acet (Aristocort 0.1%), DIRECTED Scheduled PRN Fluticasone Propionate (Nasal) (Flonase Allergy Relief), 2 SPRAY TATE QAM PRN for CONGESTION Furosemide (Lasix), 20 MG PO QAM PRN for EDEMA Montelukast Sodium (Singulair), 1 TAB PO HS PRN for Seasonal Allergies Nitroglycerin (Nitrostat), 0.4 MG UT UD PRN for Chest Pain Ondansetron Hcl (Zofran), 8 MG PO PRN PRN for Nausea or Vomiting Saline (Cass Nasal Colon), 2 SPRAYS TATE DAILY PRN for Nasal Congestion Senna/Docusate Sod (Senokot S), 2 TAB PO QAM PRN for Constipation Tramadol (Ultram), 50 MG PO Q6H PRN for Pain Allergies Coded Allergies: No Known Allergies (Verified , 03/03/18) Physical Exam Vital Signs Date Time Temp Pulse Resp B/P (MAP) Pulse Ox O2 Delivery O2 Flow Rate FiO2 03/15/18 17:44 74 16 198/91 98 Room Air 03/15/18 17:15 67 20 195/118 97 Room Air 03/15/18 17:06 75 03/15/18 16:50 97 Room Air 03/15/18 15:33 36.8 74 19 177/67 96 Room Air Physical Exam GENERAL: Patient is in no acute distress. HEENT: Healing small laceration to the right posterior scalp. No signs of erythema or drainage. Dry mucous membranes. No facial contusion seen. NECK: No stridor, no adenopathy, no meningismus, trachea is midline. No posterior C spine tenderness. LUNGS: Clear to auscultation bilaterally, no wheeze, no rhonchi, breath sounds equal. HEART: Without murmurs gallops or rubs, regular rate and rhythm. ABDOMEN: Soft, nontender, bowel sounds positive, no hernias, no peritonitis. BACK: Nontender thoracic or lumbar spine. No contusions seen. EXTREMITIES: No cyanosis or edema, full range of motion of all the joints without pain or difficulty, no signs for acute trauma. NEUROLOGIC: Oriented x 3, no acute motor or sensory deficits, no focal weakness. SKIN: No rash, no jaundice, no diaphoresis. Medical Decision & Procedures ER Provider Diagnostic Interpretation: Radiology results as stated below per my review and radiologist interpretation: THORACIC SPINE WITHOUT HISTORY: 73 years-old Female fall, pain acute mid back pain status post fall COMPARISON: CTA of the chest 01/05/2018 TECHNIQUE: Multiple axial CT images of the thoracic spine were obtained without the use of IV contrast. Coronal and sagittal reformatted images were obtained from the axial data set and were submitted for review. A dose lowering technique was used consistent with the principals of ALARA. FINDINGS: Bones appear mildly demineralized. Moderate intervertebral disc space narrowing at C6-C7. There is a least moderate multilevel facet arthrosis with multilevel intervertebral disc space narrowing and spondylitic spurring. No acute thoracic spine fracture or subluxation identified. Convex right curvature of the thoracic spine with convex left curvature of the lumbar spine, partially imaged. The imaged ribs appear to be intact. No definite high-grade central canal stenosis. There is severe left-sided foraminal narrowing at T10-T11. No prevertebral soft tissue swelling. Cardiomegaly with dense mitral annular and coronary arterial calcifications noted. Chronic pleural thickening at the level left lung base with linear consolidative subsegmental left basilar opacities suggesting atelectasis/scarring. No acute process of the imaged abdomen or paraspinal tissues. IMPRESSION: No acute fracture or subluxation of the thoracic spine. The above report was generated using voice recognition software. It may contain grammatical, syntax or spelling errors. Electronically signed by: Gerardo Woods M.D. 03/15/2018 4:59 PM Dictated Date/Time: 03/15/2018 4:[address] LUMBAR SPINE WITHOUT CT DOSE: CLINICAL HISTORY: Lower back pain status post trauma TECHNIQUE: Helical images were acquired in transverse plane. Reformatted sagittal and coronal images were reviewed. A dose lowering technique was utilized adhering to the principles of ALARA. CONTRAST: No contrast was administered COMPARISON STUDY: None. FINDINGS: There is stable left basilar hyperdense pleural thickening. There are left lower lobe atelectatic changes. There is suspected splenomegaly. There is left adrenal enlargement. L1-2 level: There is a mild circumferential disc bulge. There is no significant spinal or foraminal stenosis. L2-3 level: There is a circumferential disc bulge with mild to moderate spinal stenosis. There is no significant foraminal narrowing L3-4 level: There is a circumferential disc bulge with moderate spinal stenosis. There is mild bilateral foraminal narrowing L4-5 level: There is a disc osteophyte complex with moderate spinal stenosis. There is mild bilateral foraminal narrowing. L5-S1 level: There is a disc osteophyte complex. There is facet joint arthropathy. There is no significant spinal stenosis. There is moderate bilateral foraminal narrowing. No acute fractures or traumatic subluxations are visualized. There is a levoscoliosis. IMPRESSION: 1. No acute fractures or traumatic subluxations identified 2. Moderately advanced multilevel degenerative changes with multilevel spinal stenosis Electronically signed by: Xavier Lombardo M.D. 03/15/2018 4:57 PM Dictated Date/Time: 03/15/2018 4:52 PM HEAD WITHOUT CONTRAST (CT) CLINICAL HISTORY: 73 years-old Female with EVALUATE ALTERED MENTAL STATUS/WEAKNESS. Acute weakness with altered mental status TECHNIQUE: Multiple axial CT images of the head were obtained without contrast. A dose lowering technique was utilized adhering to the principles of ALARA. COMPARISON: CT cervical spine of same day, CT head 08/20/2017. FINDINGS: No acute intracranial hemorrhage, midline shift, intracranial mass, hydrocephalus, territorial ischemia or abnormal extra-axial collection. Age-related involutional changes. Ill-defined low-attenuation about the periventricular white matter suggests chronic microvascular ischemic changes. The calvarium is intact. The paranasal sinuses, mastoid air cells, and middle ear cavities are clear. IMPRESSION: No acute intracranial abnormality. The above report was generated using voice recognition software. It may contain grammatical, syntax or spelling errors. Electronically signed by: Gerardo Woods M.D. 03/15/2018 4:53 PM Dictated Date/Time: 03/15/2018 4:47 PM CHEST ONE VIEW PORTABLE HISTORY: 73 years-old Female EVALUATE ALTERED MENTAL STATUS/WEAKNESS acute altered mental status with weakness COMPARISON: CTA of the chest 01/05/2018, chest radiograph 01/03/2018 TECHNIQUE: Portable AP view of the chest FINDINGS: Cardiac silhouette is mildly enlarged. Prior median sternotomy. Surgical clips project over the left heart border compatible with prior CABG. No pneumothorax, pleural effusion or overt pulmonary edema. Linear subsegmental left midlung and left basilar opacities suggest atelectasis/scarring. Surgical clips project over the right and left chest wall. Degenerative changes of the shoulders and spine. IMPRESSION: 1. No acute process. 2. Subsegmental atelectasis/scarring of the left midlung and left lung base. 3. Cardiomegaly with prior median sternotomy and CABG. The above report was generated using voice recognition software. It may contain grammatical, syntax or spelling errors. Electronically signed by: Gerardo Woods M.D. 03/15/2018 4:25 PM Dictated Date/Time: 03/15/2018 4:[address] OF THE CERVICAL SPINE CLINICAL HISTORY: Neck pain status post trauma COMPARISON STUDY: August 2017 CT DOSE: 2640.16 mGy.cm TECHNIQUE: CT scan of the cervical spine was performed from the skull base to the thoracic inlet. Images are reviewed in the axial, sagittal, and coronal planes. IV contrast was not administered for this examination. A dose lowering technique was utilized adhering to the principles of ALARA. FINDINGS: The visualized portions of the lung apices reveal no evidence of pneumothorax. The prevertebral soft tissues are normal. No fractures or subluxations are visualized. There are multilevel degenerative changes IMPRESSION: No evidence of acute fracture or traumatic subluxation. Electronically signed by: Xavier Lombardo M.D. 03/15/2018 4:51 PM Dictated Date/Time: 03/15/2018 4:48 PM Laboratory Results 03/15/18 15:45 Red Blood Count 4.14, Mean Corpuscular Volume 91.1, Mean Corpuscular Hemoglobin 32.1, Mean Corpuscular Hemoglobin Concent 35.3, Mean Platelet Volume 11.6, Neutrophils (%) (Auto) 63.5, Lymphocytes (%) (Auto) 26.4, Monocytes (%) (Auto) 8.3, Eosinophils (%) (Auto) 1.4, Basophils (%) (Auto) 0.2, Neutrophils # (Auto) 3.50, Lymphocytes # (Auto) 1.46, Monocytes # (Auto) 0.46, Eosinophils # (Auto) 0.08, Basophils # (Auto) 0.01 03/15/18 15:45 Test 03/15/18 15:45 03/15/18 16:11 03/15/18 16:15 White Blood Count 5.52 K/uL (4.8-10.8) Red Blood Count 4.14 M/uL (4.2-5.4) Hemoglobin 13.3 g/dL (12.0-16.0) Hematocrit 37.7 % (37-47) Mean Corpuscular Volume 91.1 fL (80-100) Mean Corpuscular Hemoglobin 32.1 pg (25-34) Mean Corpuscular Hemoglobin Concent 35.3 g/dl (32-36) Platelet Count 111 K/uL (130-400) Mean Platelet Volume 11.6 fL (7.4-10.4) Neutrophils (%) (Auto) 63.5 % Lymphocytes (%) (Auto) 26.4 % Monocytes (%) (Auto) 8.3 % Eosinophils (%) (Auto) 1.4 % Basophils (%) (Auto) 0.2 % Neutrophils # (Auto) 3.50 K/uL (1.4-6.5) Lymphocytes # (Auto) 1.46 K/uL (1.2-3.4) Monocytes # (Auto) 0.46 K/uL (0.11-0.59) Eosinophils # (Auto) 0.08 K/uL (0-0.5) Basophils # (Auto) 0.01 K/uL (0-0.2) RDW Standard Deviation 51.0 fL (36.4-46.3) RDW Coefficient of Variation 15.4 % (11.5-14.5) Immature Granulocyte % (Auto) 0.2 % Immature Granulocyte # (Auto) 0.01 K/uL (0.00-0.02) Prothrombin Time 12.0 SECONDS (9.0-12.0) Prothromb Time International Ratio 1.1 (0.9-1.1) Activated Partial Thromboplast Time 24.0 SECONDS (21.0-31.0) Partial Thromboplastin Ratio 0.9 Anion Gap 12.0 mmol/L (3-11) Est Creatinine Clear Calc Drug Dose 55.9 ml/min Estimated GFR () 66.8 Estimated GFR (Non- 57.6 BUN/Creatinine Ratio 10.7 (10-20) Calcium Level 9.3 mg/dl (8.5-10.1) Magnesium Level 2.0 mg/dl (1.8-2.4) Total Bilirubin 1.5 mg/dl (0.2-1) Aspartate Amino Transf (AST/SGOT) 63 U/L (15-37) Alanine Aminotransferase (ALT/SGPT) 53 U/L (12-78) Alkaline Phosphatase 79 U/L (45-117) Total Creatine Kinase 56 U/L (26-192) Troponin I < 0.015 ng/ml (0-0.045) Total Protein 7.3 gm/dl (6.4-8.2) Albumin 4.0 gm/dl (3.4-5.0) Globulin 3.3 gm/dl (2.5-4.0) Albumin/Globulin Ratio 1.2 (0.9-2) Lipase 247 U/L (73-393) Thyroid Stimulating Hormone (TSH) 1.090 uIu/ml (0.300-4.500) Free Thyroxine 1.49 ng/dl (0.80-1.60) Ammonia 22.8 umol/L (11-32) Ethyl Alcohol mg/dL < 3.0 mg/dl (0-3) Urine Color DK YELLOW Urine Appearance CLEAR (CLEAR) Urine pH 8.5 (4.5-7.5) Urine Specific [place] 1.015 (1.000-1.030) Urine Protein NEG (NEG) Urine Glucose (UA) NEG (NEG) Urine Ketones 1+ (NEG) Urine Occult Blood NEG (NEG) Urine Nitrite NEG (NEG) Urine Bilirubin NEG (NEG) Urine Urobilinogen POS (NEG) Urine Leukocyte Esterase TRACE (NEG) Urine WBC (Auto) 1-5 /hpf (0-5) Urine RBC (Auto) 0-4 /hpf (0-4) Urine Hyaline Casts (Auto) 1-5 /lpf (0-5) Urine Epithelial Cells (Auto) 5-10 /lpf (0-5) Urine Bacteria (Auto) NEG (NEG) Urine Opiates Screen NEG (NEG) Urine Methadone, Qualitative NEG (NEG) Urine Barbiturates NEG (NEG) Urine Phencyclidine (PCP) Level NEG (NEG) Ur Amphetamine/Methamphetamine NEG (NEG) MDMA (Ecstasy) Screen NEG (NEG) Urine Benzodiazepines Screen NEG (NEG) Urine Cocaine Metabolite NEG (NEG) Urine Marijuana (THC) NEG (NEG) Laboratory results reviewed by me. Medications Administered Medications (Trade) Dose Ordered Sig/Leisa Route Start Time Stop Time Status Last Admin Dose Admin Ondansetron HCl (Zofran Inj) 4 mg NOW STAT IV 03/15/18 15:52 03/15/18 15:56 DC 03/15/18 16:19 4 MG Sodium Chloride 1,000 ml @ 999 mls/hr Q1H1M STAT IV 03/15/18 15:52 03/15/18 16:52 DC 03/15/18 16:19 999 MLS/HR Hydralazine HCl (HydrALAZINE INJ) 10 mg NOW STAT IV 03/15/18 17:27 03/15/18 17:29 DC 03/15/18 17:43 10 MG Morphine Sulfate (MoRPHine SULFATE INJ) 4 mg NOW PRN IV 03/15/18 17:30 03/29/18 17:29 03/15/18 17:44 4 MG ECG Per My Interpretation Indication: syncope Rate (beats per minute): 66 Rhythm: normal sinus Findings: nonspecific-ST abn, other (no ST elevation, no PVCs) ED Course 1546: The patient was evaluated in room B4B. A complete history and physical exam was performed. 1552: Ordered Sodium Chloride 1000 ml @ 999 mls/hr IV, Zofran Inj 4 mg IV. 1725: Upon reexamination the patient is resting. I discussed results and treatment plan with the patient. She verbalizes agreement and understanding. I spoke with Haydee Muñoz PA-C of the [facility]. We discussed the patient's results and findings. The patient will be evaluated by Haydee Muñoz PA-C for further management. 1727: Ordered Hydralazine HCl 10 mg IV. 1730: Ordered Morphine Sulfate 4 mg IV. Medical Decision The patient is a 73 year old female who presents to the ED with complaints of a fall. Differential diagnoses considered include intracranial bleeding, skull fracture, spine fracture, rib fracture, pneumonia, electrolyte imbalance, dehydration, anemia, UTI, stroke, and worsening liver failure. There is no leukocytosis or worrisome anemia. Renal panel testing suggests some dehydration and a mildly low sodium. There were a few subtle liver enzyme elevations, likely consistent with her liver disease. Ammonia level was not elevated. The patient appeared to be in a euthyroid state. EKG showed a normal sinus rhythm with some nonspecific change, no acute ischemia. Cardiac enzyme testing 1 is not consistent with acute cardiac injury. Urinalysis does not show evidence for infection. Urine tox was negative, alcohol level was undetectable. There was no coagulopathy. Cervical, thoracic and lumbar spine CTs do not show evidence for fracture. Brain CT shows no acute bleed or mass- effect. Chest film did not show pneumonia or obvious rib fracture. On exam, there was a healing laceration to the right posterior scalp. Patient seemed awake and alert, no focal neurologic deficits. She was hypertensive. Patient received IV saline, she did receive IV hydralazine for blood pressure control, she was given IV morphine and IV Zofran. The patient is in no condition to be discharged. She is weak, she has had confusion. She lives alone. She no longer is able to stand. I did speak with case management, I talked with the patient. The on-call hospitalist was consulted. I spoke with the patient's daughter, Dee, the patient asked that I discuss my findings with her daughter who is a nurse. The daughter was updated and is aware of the need for her mother's hospitalization. In short, the cause for her weakness and confusion is unclear, possibly she has an infection from her fall. Further workup is required. Head Trauma GCS Score: 15 Medication Reconcilliation Current Medication List: was personally reviewed by me Blood Pressure Screening Patient's blood pressure: Elevated blood pressure Blood pressure disposition: Referred to PCP monitored by hospitalist Consults Time Called: 1718 Consulting Physician: Haydee Michaels Returned Call: [phone] Discussed the patient's case. The patient will be evaluated for further management. Impression Primary Impression: Change in mental status Additional Impressions: Head trauma Weakness Dehydration HTN (hypertension) Scribe Attestation The scribe's documentation has been prepared under my direction and personally reviewed by me in its entirety. I confirm that the note above accurately reflects all work, treatment, procedures, and medical decision making performed by me. Departure Information Dispostion Being Evaluated By Hospitalist Referrals Destiny Walls D.O. (PCP) Forms HOME CARE DOCUMENTATION FORM, IMPORTANT VISIT INFORMATION Patient Instructions [facility] Health Problem Qualifiers
[2018-03-15 16:17] LABS: INR 1.1 (0.9-1.1)
--- NOTE | 2018-03-15 16:26 | DIAGNOSTIC IMAGING REPORT ---
CHEST ONE VIEW PORTABLE HISTORY: 73 years-old Female EVALUATE ALTERED MENTAL STATUS/WEAKNESS acute altered mental status with weakness COMPARISON: CTA of the chest 01/05/2018, chest radiograph 01/03/2018 TECHNIQUE: Portable AP view of the chest FINDINGS: Cardiac silhouette is mildly enlarged. Prior median sternotomy. Surgical clips project over the left heart border compatible with prior CABG. No pneumothorax, pleural effusion or overt pulmonary edema. Linear subsegmental left midlung and left basilar opacities suggest atelectasis/scarring. Surgical clips project over the right and left chest wall. Degenerative changes of the shoulders and spine. IMPRESSION: 1. No acute process. 2. Subsegmental atelectasis/scarring of the left midlung and left lung base. 3. Cardiomegaly with prior median sternotomy and CABG. The above report was generated using voice recognition software. It may contain grammatical, syntax or spelling errors. Electronically signed by: Gerardo Woods M.D. 03/15/2018 4:25 PM Dictated Date/Time: 03/15/2018 4:23 PM
[2018-03-15 16:39] LABS: ALKALINE PHOSPHATASE 79 U/L (45-117); ALT/SGPT 53 U/L (12-78); BLOOD UREA NITROGEN 11 mg/dl (7-18); CALCIUM 9.3 mg/dl (8.5-10.1); CARBON DIOXIDE 19 mmol/L (21-32); CREATININE 0.98 mg/dl (0.60-1.20); GLUCOSE 95 mg/dl (70-99); LIPASE 247 U/L (73-393); TOTAL PROTEIN 7.3 gm/dl (6.4-8.2)
[2018-03-15 16:52] LABS: AST/SGOT 63 U/L (15-37); POTASSIUM 3.7 mmol/L (3.5-5.1); SODIUM 130 mmol/L (136-145)
--- NOTE | 2018-03-15 16:53 | DIAGNOSTIC IMAGING REPORT ---
CT OF THE CERVICAL SPINE CLINICAL HISTORY: Neck pain status post trauma COMPARISON STUDY: August 2017 CT DOSE: 2640.16 mGy.cm TECHNIQUE: CT scan of the cervical spine was performed from the skull base to the thoracic inlet. Images are reviewed in the axial, sagittal, and coronal planes. IV contrast was not administered for this examination. A dose lowering technique was utilized adhering to the principles of ALARA. FINDINGS: The visualized portions of the lung apices reveal no evidence of pneumothorax. The prevertebral soft tissues are normal. No fractures or subluxations are visualized. There are multilevel degenerative changes IMPRESSION: No evidence of acute fracture or traumatic subluxation. Electronically signed by: Xavier Lombardo M.D. 03/15/2018 4:51 PM Dictated Date/Time: 03/15/2018 4:48 PM
--- NOTE | 2018-03-15 16:54 | DIAGNOSTIC IMAGING REPORT ---
HEAD WITHOUT CONTRAST (CT) CLINICAL HISTORY: 73 years-old Female with EVALUATE ALTERED MENTAL STATUS/WEAKNESS. Acute weakness with altered mental status TECHNIQUE: Multiple axial CT images of the head were obtained without contrast. A dose lowering technique was utilized adhering to the principles of ALARA. COMPARISON: CT cervical spine of same day, CT head 08/20/2017. FINDINGS: No acute intracranial hemorrhage, midline shift, intracranial mass, hydrocephalus, territorial ischemia or abnormal extra-axial collection. Age-related involutional changes. Ill-defined low-attenuation about the periventricular white matter suggests chronic microvascular ischemic changes. The calvarium is intact. The paranasal sinuses, mastoid air cells, and middle ear cavities are clear. IMPRESSION: No acute intracranial abnormality. The above report was generated using voice recognition software. It may contain grammatical, syntax or spelling errors. Electronically signed by: Gerardo Woods M.D. 03/15/2018 4:53 PM Dictated Date/Time: 03/15/2018 4:47 PM
--- NOTE | 2018-03-15 16:59 | DIAGNOSTIC IMAGING REPORT ---
CT LUMBAR SPINE WITHOUT CT DOSE: CLINICAL HISTORY: Lower back pain status post trauma TECHNIQUE: Helical images were acquired in transverse plane. Reformatted sagittal and coronal images were reviewed. A dose lowering technique was utilized adhering to the principles of ALARA. CONTRAST: No contrast was administered COMPARISON STUDY: None. FINDINGS: There is stable left basilar hyperdense pleural thickening. There are left lower lobe atelectatic changes. There is suspected splenomegaly. There is left adrenal enlargement. L1-2 level: There is a mild circumferential disc bulge. There is no significant spinal or foraminal stenosis. L2-3 level: There is a circumferential disc bulge with mild to moderate spinal stenosis. There is no significant foraminal narrowing L3-4 level: There is a circumferential disc bulge with moderate spinal stenosis. There is mild bilateral foraminal narrowing L4-5 level: There is a disc osteophyte complex with moderate spinal stenosis. There is mild bilateral foraminal narrowing. L5-S1 level: There is a disc osteophyte complex. There is facet joint arthropathy. There is no significant spinal stenosis. There is moderate bilateral foraminal narrowing. No acute fractures or traumatic subluxations are visualized. There is a levoscoliosis. IMPRESSION: 1. No acute fractures or traumatic subluxations identified 2. Moderately advanced multilevel degenerative changes with multilevel spinal stenosis Electronically signed by: Xavier Lombardo M.D. 03/15/2018 4:57 PM Dictated Date/Time: 03/15/2018 4:52 PM
--- NOTE | 2018-03-15 17:01 | DIAGNOSTIC IMAGING REPORT ---
THORACIC SPINE WITHOUT HISTORY: 73 years-old Female fall, pain acute mid back pain status post fall COMPARISON: CTA of the chest 01/05/2018 TECHNIQUE: Multiple axial CT images of the thoracic spine were obtained without the use of IV contrast. Coronal and sagittal reformatted images were obtained from the axial data set and were submitted for review. A dose lowering technique was used consistent with the principals of ALARA. FINDINGS: Bones appear mildly demineralized. Moderate intervertebral disc space narrowing at C6-C7. There is a least moderate multilevel facet arthrosis with multilevel intervertebral disc space narrowing and spondylitic spurring. No acute thoracic spine fracture or subluxation identified. Convex right curvature of the thoracic spine with convex left curvature of the lumbar spine, partially imaged. The imaged ribs appear to be intact. No definite high-grade central canal stenosis. There is severe left-sided foraminal narrowing at T10-T11. No prevertebral soft tissue swelling. Cardiomegaly with dense mitral annular and coronary arterial calcifications noted. Chronic pleural thickening at the level left lung base with linear consolidative subsegmental left basilar opacities suggesting atelectasis/scarring. No acute process of the imaged abdomen or paraspinal tissues. IMPRESSION: No acute fracture or subluxation of the thoracic spine. The above report was generated using voice recognition software. It may contain grammatical, syntax or spelling errors. Electronically signed by: Gerardo Woods M.D. 03/15/2018 4:59 PM Dictated Date/Time: 03/15/2018 4:53 PM
[2018-03-15] MEDS ORDERED: HydrALAZINE HCL 20 MG/ML VIAL IV STA (17:27)
[2018-03-15] MEDS ORDERED: MoRPHine SULFATE 4 MG/ML 1 ML CARP\\VIAL IV PRN (17:30)
[2018-03-15] MEDS ORDERED: NSS + 20MEQ KCL 1000ML 1,000 ML IV SCH (18:05)
[2018-03-15] MEDS ORDERED: NITROGLYCERIN 0.4 MG SL PER TAB CHARGE UT PRN (18:15)
[2018-03-15] MEDS ORDERED: FLUTICASONE PROPIONATE NA SPR 16 GM BTL NAE PRN (18:15)
[2018-03-15] MEDS ORDERED: MONTELUKAST SOD 10 MG TAB PO PRN (18:15)
[2018-03-15] MEDS ORDERED: ALBUTEROL HFA 8 GM INHALER INH PRN (18:15)
[2018-03-15] MEDS ORDERED: SODIUM CHLORIDE 0.65% NA SOLN 45 ML (OCEAN) NAE PRN (18:15)
[2018-03-15] MEDS ORDERED: CLONIDINE HCL 0.1 MG TAB PO PRN (18:45)
--- NOTE | 2018-03-15 18:45 | History and Physical ---
History & Physical Date & Time of Service: Mar 15, 2018 at 18:14 Chief Complaint: Fall, Cut Head, Dizzyt, Weak And Shaky Primary Care Physician: Destiny Walls D.O. History of Present Illness Source: patient She is a 73-year-old white female with the significant past medical history of major depressive disorder, mild COPD, cirrhosis of liver due to alcohol abuse with continued alcohol use, CAD status post CABG and hypothyroidism apparently has had a fall Tuesday morning at home. She went to the bathroom and while coming up from the bathroom her legs gave way and she fell in the bathroom hitting the head at the right posterior parietal area. She noticed bleeding from that side and according to her she lost consciousness for about few minutes but laid down on the floor for 2 hours. She managed to get off from the floor and since then she has been having some problem with ambulation. She was noticed to have some confusion at times and she mentioned that the she is not sure what she had been doing for the last few days since the fall. Condition got worse today that she was brought into the emergency room. She denies to have any fever or any chills, any chest pain, palpitation, any dizziness, any numbness or tingling in the extremities more than usual before the fall. Following the fall she has been feeling dizzy, problem with ambulation as mentioned earlier and also confusion. She was hemodynamically stable in the emergency room and apparent investigation including CT scan of the head neck lumbar and thoracic spine were unremarkable. Her EKG and lab works are unremarkable to. Her daughter mentioned that she has been drinking more than usual and it could be associated with her recent drinking habit. Her alcohol level was normal at 0 and she did not have any signs of withdrawal. She was admitted to telemetry unit for observation and also for possible concussion following the head injury. Past Medical/Surgical History Medical Problems: (1) Alcohol withdrawal (2) Alcoholic cirrhosis (3) Alcoholic cirrhosis of liver without ascites (4) Anxiety (5) Contusion of multiple sites (6) Contusion of multiple sites (7) COPD (chronic obstructive pulmonary disease) (8) COPD exacerbation (9) Coronary artery disease (10) Depression (11) Diastolic CHF (12) Dyslipidemia (13) Essential hypertension (14) Fall (15) Fall (16) History of alcohol abuse (17) History of breast cancer (18) Hypothyroidism (19) Rash (20) Shortness of breath (21) Spinal stenosis (22) Syncope and collapse Surgical Problems: (1) H/O bilateral mastectomy (2) H/O shoulder surgery (3) H/O ventral hernia repair (4) History of bowel resection (5) Status post coronary artery bypass grafting (6) Status post hysterectomy (7) Status post laparotomy (8) Status post repair incisional hernia Family History Cancer MOTHER (Stomach, Colon ) Social History Smoking Status: Former Smoker (qUIT 15 YEARS AGO) Smokeless Tobacco Use: No Alcohol Use: occasionally ( PER DAUGHTER MORE THAN THAT) Drug Use: none Marital Status: single Housing status: lives alone Occupational Status: unemployed Immunizations History of Influenza Vaccine: Yes Influenza Vaccine Date: May 12, 2016 History of Pneumococcal: Yes Pneumococcal Date: Mar 08, 2016 History of Hepatitis B Vaccine: Yes Hepatitis Immunization Date: Oct 29, 2015 Allergies Coded Allergies: No Known Allergies (Verified , 03/03/18) Home Medications Scheduled Aspirin (Aspirin Chewable), 81 MG PO ON HOLD Fluoxetine Hcl (Prozac), 1 CAP PO DAILY Fluticasone Prop/Salmeterol (Advair Diskus 250/50 60 Dose), 1 PUFF INH BID Folic Acid (Folvite), 1 MG PO QAM Gabapentin (Neurontin), 300 MG PO TID Ipratropium-Albuterol (Combivent Respimat), 1 PUFFS INH QID Lactulose (Chronulac), 30 ML PO DAILY Levocetirizine Dihydrochloride (Levocetirizine Dihydrochl), 1 TAB PO DAILY Levothyroxine Sodium (Synthroid), 75 MCG PO QAM Losartan Potassium (Cozaar), 25 MG PO QAM Metoprolol Succ (Toprol Xl) (Toprol-Xl), 50 MG PO QAM Omeprazole (Prilosec), 20 MG PO QAM Trazodone Hcl (Desyrel), 150 MG PO HS Triamcinolone Acet (Aristocort 0.1%), DIRECTED Scheduled PRN Fluticasone Propionate (Nasal) (Flonase Allergy Relief), 2 SPRAY TATE QAM PRN for CONGESTION Furosemide (Lasix), 20 MG PO QAM PRN for EDEMA Montelukast Sodium (Singulair), 1 TAB PO HS PRN for Seasonal Allergies Nitroglycerin (Nitrostat), 0.4 MG UT UD PRN for Chest Pain Ondansetron Hcl (Zofran), 8 MG PO PRN PRN for Nausea or Vomiting Saline (Wright Nasal [place]), 2 SPRAYS TATE DAILY PRN for Nasal Congestion Senna/Docusate Sod (Senokot S), 2 TAB PO QAM PRN for Constipation Tramadol (Ultram), 50 MG PO Q6H PRN for Pain Review of Systems Constitutional: + chills, + weakness Respiratory: + cough, + shortness of breath Abdomen: + problem reported (dISCOMFORT ruq) Musculoskeletal: + muscle pain Neurologic: + memory loss (cONFUSION), + weakness, + balance problems Physical Exam Vital Signs Date Time Temp Pulse Resp B/P (MAP) Pulse Ox O2 Delivery O2 Flow Rate FiO2 03/15/18 17:44 74 16 198/91 98 Room Air 03/15/18 17:15 67 20 195/118 97 Room Air 03/15/18 17:06 75 03/15/18 16:50 97 Room Air 03/15/18 15:33 36.8 74 19 177/67 96 Room Air General Appearance: + mild distress (Anxious with mild SOB) Head: + evidence of trama (Upper mid parietal area.Tendeerness,no bleeding) Eyes: normal inspection ENT: normal ENT inspection Neck: supple Respiratory/Chest: chest non-tender, normal breath sounds, + respiratory distress (Occasional Ronchi left base) Cardiovascular: regular rate, rhythm, + systolic murmur (Aortic area , radiation to neck) Abdomen/GI: normal bowel sounds, no organomegaly, + tenderness (Mildly RUQ) Back: normal inspection Extremities/Musculoskelatal: + pedal edema (Trace,chronic skin changes) Neurologic/Psych: no motor/sensory deficits, alert, normal mood/affect Skin: normal color Lymphatic: no adenopathy Diagnostics Laboratory Results Results Past 24 Hours Test 03/15/18 15:45 03/15/18 16:11 03/15/18 16:15 Range/Units White Blood Count 5.52 4.8-10.8 K/uL Red Blood Count 4.14 4.2-5.4 M/uL Hemoglobin 13.3 12.0-16.0 g/dL Hematocrit 37.7 37-47 % Mean Corpuscular Volume 91.1 80-100 fL Mean Corpuscular Hemoglobin 32.1 25-34 pg Mean Corpuscular Hemoglobin Concent 35.3 32-36 g/dl Platelet Count 111 130-400 K/uL Mean Platelet Volume 11.6 7.4-10.4 fL Neutrophils (%) (Auto) 63.5 % Lymphocytes (%) (Auto) 26.4 % Monocytes (%) (Auto) 8.3 % Eosinophils (%) (Auto) 1.4 % Basophils (%) (Auto) 0.2 % Neutrophils # (Auto) 3.50 1.4-6.5 K/uL Lymphocytes # (Auto) 1.46 1.2-3.4 K/uL Monocytes # (Auto) 0.46 0.11-0.59 K/uL Eosinophils # (Auto) 0.08 0-0.5 K/uL Basophils # (Auto) 0.01 0-0.2 K/uL RDW Standard Deviation 51.0 36.4-46.3 fL RDW Coefficient of Variation 15.4 11.5-14.5 % Immature Granulocyte % (Auto) 0.2 % Immature Granulocyte # (Auto) 0.01 0.00-0.02 K/uL Prothrombin Time 12.0 9.0-12.0 SECONDS Prothromb Time International Ratio 1.1 0.9-1.1 Activated Partial Thromboplast Time 24.0 21.0-31.0 SECONDS Partial Thromboplastin Ratio 0.9 Sodium Level 130 136-145 mmol/L Potassium Level 3.7 3.5-5.1 mmol/L Chloride Level 98 98-107 mmol/L Carbon Dioxide Level 19 21-32 mmol/L Anion Gap 12.0 3-11 mmol/L Blood Urea Nitrogen 11 7-18 mg/dl Creatinine 0.98 0.60-1.20 mg/dl Est Creatinine Clear Calc Drug Dose 55.9 ml/min Estimated GFR () 66.8 Estimated GFR (Non- 57.6 BUN/Creatinine Ratio 10.7 10-20 Random Glucose 95 70-99 mg/dl Calcium Level 9.3 8.5-10.1 mg/dl Magnesium Level 2.0 1.8-2.4 mg/dl Total Bilirubin 1.5 0.2-1 mg/dl Aspartate Amino Transf (AST/SGOT) 63 15-37 U/L Alanine Aminotransferase (ALT/SGPT) 53 12-78 U/L Alkaline Phosphatase 79 45-117 U/L Total Creatine Kinase 56 26-192 U/L Troponin I < 0.015 0-0.045 ng/ml Total Protein 7.3 6.4-8.2 gm/dl Albumin 4.0 3.4-5.0 gm/dl Globulin 3.3 2.5-4.0 gm/dl Albumin/Globulin Ratio 1.2 0.9-2 Lipase 247 73-393 U/L Thyroid Stimulating Hormone (TSH) 1.090 0.300-4.500 uIu/ml Free Thyroxine 1.49 0.80-1.60 ng/dl Ammonia 22.8 11-32 umol/L Ethyl Alcohol mg/dL < 3.0 0-3 mg/dl Urine Color DK YELLOW Urine Appearance CLEAR CLEAR Urine pH 8.5 4.5-7.5 Urine Specific [place] 1.015 1.000-1.030 Urine Protein NEG NEG Urine Glucose (UA) NEG NEG Urine Ketones 1+ NEG Urine Occult Blood NEG NEG Urine Nitrite NEG NEG Urine Bilirubin NEG NEG Urine Urobilinogen POS NEG Urine Leukocyte Esterase TRACE NEG Urine WBC (Auto) 1-5 0-5 /hpf Urine RBC (Auto) 0-4 0-4 /hpf Urine Hyaline Casts (Auto) 1-5 0-5 /lpf Urine Epithelial Cells (Auto) 5-10 0-5 /lpf Urine Bacteria (Auto) NEG NEG Urine Opiates Screen NEG NEG Urine Methadone, Qualitative NEG NEG Urine Barbiturates NEG NEG Urine Phencyclidine (PCP) Level NEG NEG Ur Amphetamine/Methamphetamine NEG NEG MDMA (Ecstasy) Screen NEG NEG Urine Benzodiazepines Screen NEG NEG Urine Cocaine Metabolite NEG NEG Urine Marijuana (THC) NEG NEG Diagnostic Radiology CXR-Subsegmental Atelectasis left mid and lower lung. CT of the Head-no acute finding CT of the neck ,Thoracic and Lumbar spine-Degenerative changes,no fracture Normal EKG Impression Assessment and Plan Syncope with the Head injury::May have Concussion The causes could be ongoing ambulatory dysfunction/use of alcohol/mechanical She will be admitted to telemetry unit for observation especially for withdrawal symptoms from alcohol She will be given Ativan small doses as needed Continue with her gabapentin She may have concussion We will ask for neurology evaluation her in the hospital PT/OT evaluation Alcoholic cirrhosis without ascites She does not have any hepatic encephalopathy at this time She has been using her lactulose and other stool softener but missed for 2 or 3 doses Was seen by GI in the clinic recently and ultrasound of the abdomen did show gallstone but no other abnormality Continue her lactulose and that is still soft for now Mild COPD She has had a bronchoscopy done by Dr. Vyas about 10 days ago She did not get any results of that bronchoscopy but she was told that she has soft trachea She has minimal shortness of breath and atelectasis the right mid and lower lung Continue with the bronchodilators and incentive spirometry She will have a follow-up appointment with Dr. Vyas following discharge CAD status post CABG Has Aortic Sclerosis No acute symptoms Negative DSE in September of this year Hypertension Blood pressure noted very high in the emergency room systolic more than 190 Received hydralazine 10 mg in the ER We will continue her usual blood pressure medications We will give clonidine for as needed blood pressure control Chronic Diastolic heart failure No acute heart failure identified We will hold her Lasix for now Major depressive disorder Continue current antidepressant No acute issue Hypothyroidism Continue replacement DVT prophylaxis Subcu heparin CODE STATUS: Discussed with the patient she wishes to be full code In my clinical assessment the beneficially meets criteria as per CMS for 2 minutes in the hospital Resuscitation Status VTE Prophylaxis Will order VTE Prophylaxis: Yes
[2018-03-15] MEDS ORDERED: LORAZEPAM INJ 0.25 MG in SYRINGE 0.125 ML IV PRN (19:15)
[2018-03-15 19:44] VITALS: BP 180/81; PULSE 65; TEMP 37; O2SAT 98; Ht 165.1 cm; Wt 85.3 kg
[2018-03-15 20:00] VITALS: O2SAT 98
[2018-03-15] MEDS ORDERED: IPRATROPIUM BROMIDE/ALBUTEROL respimat INH INH SCH (21:00)
[2018-03-15] MEDS: FLUTICASONE/SALMETEROL 250/50 (ADVAIR) 14 PUFF/1 INHALER INH SCH (21:11)
[2018-03-15] MEDS: TRAZODONE HCL 50 MG TAB PO SCH (21:12)
[2018-03-15] MEDS: GABAPENTIN 300 MG CAP PO SCH (21:12)
[2018-03-15] MEDS: HEPARIN SOD 5000 UNIT/0.5 ML CARP SQ SCH (21:14)
[2018-03-15 23:55] VITALS: BP 141/86; PULSE 75; TEMP 36.9; O2SAT 95
[2018-03-16] VITALS (9 sets, daily range): BP systolic 119–151; BP diastolic 68–83; PULSE 61–73; TEMP 36.4–37; O2SAT 94–97
--- NOTE | 2018-03-16 06:30 | DIAGNOSTIC IMAGING REPORT ---
CAROTID DOPPLER NECK ART HISTORY: Mental status change syncope,R/O stenosis COMPARISON: 12/12/2014 TECHNIQUE: Real-time, grayscale, and color Doppler sonography of the carotid arteries was performed. Imaging reviewed in the transverse and longitudinal planes. All measurements were calculated based on NASCET criteria. FINDINGS: Antegrade flow is seen in the bilateral vertebral arteries. The brachial pressures are hemodynamically similar. Significant plaque formation bilaterally The peak systolic velocity within the right ICA is 75. The right systolic ratio is 1.0. The peak systolic velocity within the left ICA is 147. The left systolic ratio is 2.1. IMPRESSION: 50% narrowing left internal carotid artery. Plaque formation bilaterally. No high-grade stenosis. The above report was generated using voice recognition software. It may contain grammatical, syntax or spelling errors. Electronically signed by: Vikas Escalante M.D. 03/16/2018 6:29 AM Dictated Date/Time: 03/16/2018 6:28 AM
[2018-03-16 07:27] LABS: CALCIUM 8.5 mg/dl (8.5-10.1); CREATININE 0.85 mg/dl (0.60-1.20); POTASSIUM 3.8 mmol/L (3.5-5.1)
[2018-03-16 07:47] LABS: MEAN PLATELET VOLUME 12.2 fL (7.4-10.4); PLATELET COUNT 88 K/uL (130-400)
[2018-03-16 07:48] LABS: BASO % 0.8 %; BASO ABS # 0.03 K/uL (0-0.2); EOS % 3.3 %; EOS ABS # 0.12 K/uL (0-0.5); HEMATOCRIT 33.9 % (37-47); HEMOGLOBIN 11.6 g/dL (12.0-16.0); IG# 0.01 K/uL (0.00-0.02); LYMPH % 38.4 %; LYMPH ABS # 1.39 K/uL (1.2-3.4); MEAN CELL VOLUME 93.1 fL (80-100); MEAN CORPUSCULAR HEMOGLOBIN 31.9 pg (25-34); MEAN CORPUSCULAR HGB CONC 34.2 g/dl (32-36); MONO % 9.1 %; MONO ABS # 0.33 K/uL (0.11-0.59); NEUT % 48.1 %; NEUT ABS # 1.74 K/uL (1.4-6.5); RED CELL DISTRIBUTION WIDTH SD 54.5 fL (36.4-46.3); WHITE BLOOD COUNT 3.62 K/uL (4.8-10.8)
[2018-03-16] MEDS: ASPIRIN 81 MG ECTAB PO SCH (08:58)
[2018-03-16] MEDS: LACTULOSE SYRUP 20 GM/30 ML UDC PO SCH (08:59)
[2018-03-16] MEDS: GABAPENTIN 300 MG CAP PO SCH ×3 (09:00→21:46)
[2018-03-16] MEDS: TRIAMCINOLONE ACET 0.1% CR 15 GM TUBE EXT SCH (09:00)
[2018-03-16] MEDS: FLUTICASONE/SALMETEROL 250/50 (ADVAIR) 14 PUFF/1 INHALER INH SCH ×2 (09:00→21:46)
[2018-03-16] MEDS: FLUOXETINE HCL 20 MG CAP PO SCH (09:00)
[2018-03-16] MEDS: PANTOprazole SOD 40 MG TAB PO SCH (09:01)
[2018-03-16] MEDS: LOSARTAN POTASSIUM 25 MG TAB PO SCH (09:02)
[2018-03-16] MEDS: METOPROLOL SUCC 50MG EXT REL TAB PO SCH (09:02)
[2018-03-16] MEDS: LEVOTHYROXINE 75 MCG TAB PO SCH (09:02)
[2018-03-16] MEDS: HEPARIN SOD 5000 UNIT/0.5 ML CARP SQ SCH ×2 (09:07→21:47)
[2018-03-16] MEDS: TRAMADOL HCL 50 MG TAB PO PRN (13:42)
--- NOTE | 2018-03-16 14:34 | Neurology Consultation ---
Neurology Consultation Date of Consultation: Mar 16, 2018. Attending Physician: Cesar Rodriguez M.D. Primary Care Physician: Destiny Walls D.O. Reason for Consultation: concussion History of Present Illness Source: patient Alma is a 73 year old white female PMH of major depressive disorder, mild COPD, DL, cirrhosis of liver due to alcohol abuse with continued alcohol use, CAD status post CABG x4 and hypothyroidism.,spinal stenosis, splenomegaly with thrombocytopenia, her 2 positive bilateral mastectomies. She went to the bathroom on Tuesday and hit the back of her head right posterior. She states there was a lot of blood when she woke and thinks she was out for about 2 hours. She had some confusion but didn't seek medical help. 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 Everything got worse and she called EMS and was brought into the ED. She states she falls alot and has had back issues for a long time which have gotten worse. She sees Dr Uribe in [place] who saw her for spinal stenosis but stated because of her platlet count she was high risk for surgery. She admits to a drinking problem and states she is trying to quit but it is hard. Her EtOH level on admission was 0. denies CP, SOB, abdominal pain, bowel or bladder issues, vision changes, N, V, current confusion, +headache relieved with tylenol. Past Medical/Surgical History Medical Problems: (1) Change in mental status Status: Acute (2) Contusion of multiple sites Status: Acute (3) COPD exacerbation Status: Acute (4) Dehydration Status: Acute (5) Fall Status: Acute (6) Head trauma Status: Acute (7) HTN (hypertension) Status: Acute (8) Rash Status: Acute (9) Shortness of breath Status: Acute (10) Weakness Status: Acute Social History Smoking Status: Former smoker Smokeless Tobacco Use: No Alcohol Use: occasionally ( PER DAUGHTER MORE THAN THAT) Drug Use: none Marital Status: single Housing Status: lives alone Occupation Status: unemployed Allergies Coded Allergies: No Known Allergies (Verified , 03/03/18) Current Inpatient Medications Current Inpatient Medications Medications (Trade) Dose Ordered Sig/Leisa Route Start Time Stop Time Status Last Admin Dose Admin Morphine Sulfate (MoRPHine SULFATE INJ) 4 mg NOW PRN IV 03/15/18 17:30 03/29/18 17:29 03/15/18 17:44 4 MG Heparin Sodium (Porcine) (Heparin Sq 5000 Unit/0.5ml) 5,000 unit Q12 SQ 03/15/18 21:00 04/14/18 20:59 03/16/18 09:07 5,000 UNIT Aspirin (Ecotrin Tab) 81 mg QAM PO 03/16/18 09:00 04/15/18 08:59 03/16/18 08:58 81 MG Fluoxetine HCl (Prozac Cap) 40 mg DAILY PO 03/16/18 09:00 04/15/18 08:59 03/16/18 09:00 40 MG Salmeterol Xinafoate/ Fluticasone (Advair Diskus 250/50 Inh) 1 puff BID INH 03/15/18 21:00 04/14/18 20:59 03/16/18 09:00 1 PUFF Fluticasone Propionate (Flonase Nasal [place]) 2 sprays QAM PRN TATE 03/15/18 18:15 04/14/18 18:14 Folic Acid (Folvite Tab) 1 mg QAM PO 03/16/18 09:00 04/15/18 08:59 03/16/18 09:01 1 MG Gabapentin (Neurontin Cap) 300 mg TID PO 03/15/18 21:00 04/14/18 20:59 03/16/18 13:37 300 MG Lactulose (Chronulac Syrup) 20 gm DAILY PO 03/16/18 09:00 04/15/18 08:59 03/16/18 08:59 20 GM Levothyroxine Sodium (Synthroid Tab) 75 mcg DAILYBB PO 03/16/18 06:00 04/15/18 06:59 03/16/18 09:02 75 MCG Losartan Potassium (coZAAR TAB) 25 mg QAM PO 03/16/18 09:00 04/15/18 08:59 03/16/18 09:02 25 MG Metoprolol Succinate (Toprol Xl Tab) 50 mg QAM PO 03/16/18 09:00 04/15/18 08:59 03/16/18 09:02 50 MG Montelukast Sodium (Singulair Tab) 10 mg HS PRN PO 03/15/18 18:15 04/14/18 18:14 Nitroglycerin (Nitrostat Tab) 0.4 mg UD PRN [place] 03/15/18 18:15 04/14/18 18:14 Sodium Chloride ([place] Nasal [place]) 2 sprays DAILY PRN TATE 03/15/18 18:15 04/14/18 18:14 Tramadol HCl (Ultram Tab) 50 mg Q6H PRN PO 03/15/18 18:15 04/14/18 18:14 03/16/18 13:42 50 MG Trazodone HCl (Desyrel Tab) 150 mg HS PO 03/15/18 21:00 04/14/18 20:59 03/15/18 21:12 150 MG Triamcinolone Acetonide (Kenalog 0.1% Cream) 1 appln DAILY EXT 03/16/18 09:00 04/15/18 08:59 Pantoprazole Sodium (Protonix Tab) 40 mg QAM PO 03/16/18 09:00 04/15/18 08:59 03/16/18 09:01 40 MG Albuterol (Ventolin Hfa Inhaler) 4 puffs Q6H PRN INH 03/15/18 18:15 04/14/18 18:14 03/16/18 13:38 4 PUFFS Clonidine HCl (Catapres Tab) 0.1 mg Q6H PRN PO 03/15/18 18:45 04/14/18 18:44 Lorazepam (Ativan Inj) 0.25 mg Q4H PRN IV 03/15/18 19:00 04/14/18 18:59 Lorazepam 0.25 mg/ Syringe 0.25 ml @ 1 mls/min Q4H PRN IV 03/15/18 19:15 04/14/18 19:14 Physical Exam Vital Signs (Past 24 Hrs): Date Time Temp Pulse Resp B/P (MAP) Pulse Ox O2 Delivery O2 Flow Rate FiO2 03/16/18 12:14 Room Air 03/16/18 11:56 Room Air 03/16/18 11:46 71 97 03/16/18 11:11 36.8 69 20 128/82 (97) 97 Room Air 03/16/18 08:08 37.0 71 20 119/70 (86) 94 Room Air 03/16/18 03:35 36.8 61 18 121/70 (87) 94 Room Air 03/15/18 23:55 36.9 75 19 141/86 (104) 95 03/15/18 20:00 98 Room Air 03/15/18 19:44 37.0 65 18 180/81 98 Room Air 03/15/18 19:10 63 13 151/87 96 03/15/18 17:44 74 16 198/91 98 Room Air 03/15/18 17:15 67 20 195/118 97 Room Air 03/15/18 17:06 75 03/15/18 16:50 97 Room Air 03/15/18 15:33 36.8 74 19 177/67 96 Room Air Physical Exam: Constitutional: appearance nourished, healthy and normal Ears, Nose, Mouth and Throat: mucous membranes moist, no injection and skin normal, eyes normal Cardiovascular: normal S-1 and S-2 and regular rate and rhythm Respiratory: course BS Musculoskeletal: no peripheral edema and good distal pulses Skin: no stigmata of neurocutaneous disease noted and normal and intact Eyes: extraocular muscles intact (EOMI) and pupils equal, round and reactive to light (PERRL) NEUROLOGIC EXAMINATION: Mental status: Alert and interactive Oriented summer, Pres. [facility] Oriented to person Speech fluent with no evidence of aphasia Cranial Nerves smile eye brow raise symmetric Reflexes: Deep tendon reflexes were symmetrical and graded 2/5. Plantar responses were flexor. Sensory: vibration intact, cool decreased to mid calf, GT proprioception absent Coordination: Romberg absent, finger to nose without bipass, mild reaching tremor Gait/Stance: Posture sitting bed side stands without assistance Motor: Negative for pronator drift of out stretched arms with eyes closed. 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 hip flex 5/5 bilaterally Laboratory Results Past 24 Hours: 03/16/18 06:29 Red Blood Count 3.64, Mean Corpuscular Volume 93.1, Mean Corpuscular Hemoglobin 31.9, Mean Corpuscular Hemoglobin Concent 34.2, Mean Platelet Volume 12.2, Neutrophils (%) (Auto) 48.1, Lymphocytes (%) (Auto) 38.4, Monocytes (%) (Auto) 9.1, Eosinophils (%) (Auto) 3.3, Basophils (%) (Auto) 0.8, Neutrophils # (Auto) 1.74, Lymphocytes # (Auto) 1.39, Monocytes # (Auto) 0.33, Eosinophils # (Auto) 0.12, Basophils # (Auto) 0.03 03/16/18 06:29 Test 03/15/18 15:45 03/15/18 16:11 03/15/18 16:15 03/16/18 06:29 Prothrombin Time 12.0 SECONDS (9.0-12.0) Prothromb Time International Ratio 1.1 (0.9-1.1) Activated Partial Thromboplast Time 24.0 SECONDS (21.0-31.0) Partial Thromboplastin Ratio 0.9 Total Bilirubin 1.5 mg/dl (0.2-1) Aspartate Amino Transf (AST/SGOT) 63 U/L (15-37) Alanine Aminotransferase (ALT/SGPT) 53 U/L (12-78) Alkaline Phosphatase 79 U/L (45-117) Total Creatine Kinase 56 U/L (26-192) Troponin I < 0.015 ng/ml (0-0.045) Total Protein 7.3 gm/dl (6.4-8.2) Albumin 4.0 gm/dl (3.4-5.0) Globulin 3.3 gm/dl (2.5-4.0) Albumin/Globulin Ratio 1.2 (0.9-2) Lipase 247 U/L (73-393) Thyroid Stimulating Hormone (TSH) 1.090 uIu/ml (0.300-4.500) Free Thyroxine 1.49 ng/dl (0.80-1.60) Ammonia 22.8 umol/L (11-32) Ethyl Alcohol mg/dL < 3.0 mg/dl (0-3) Urine Color DK YELLOW Urine Appearance CLEAR (CLEAR) Urine pH 8.5 (4.5-7.5) Urine Specific [place] 1.015 (1.000-1.030) Urine Protein NEG (NEG) Urine Glucose (UA) NEG (NEG) Urine Ketones 1+ (NEG) Urine Occult Blood NEG (NEG) Urine Nitrite NEG (NEG) Urine Bilirubin NEG (NEG) Urine Urobilinogen POS (NEG) Urine Leukocyte Esterase TRACE (NEG) Urine WBC (Auto) 1-5 /hpf (0-5) Urine RBC (Auto) 0-4 /hpf (0-4) Urine Hyaline Casts (Auto) 1-5 /lpf (0-5) Urine Epithelial Cells (Auto) 5-10 /lpf (0-5) Urine Bacteria (Auto) NEG (NEG) Urine Opiates Screen NEG (NEG) Urine Methadone, Qualitative NEG (NEG) Urine Barbiturates NEG (NEG) Urine Phencyclidine (PCP) Level NEG (NEG) Ur Amphetamine/Methamphetamine NEG (NEG) MDMA (Ecstasy) Screen NEG (NEG) Urine Benzodiazepines Screen NEG (NEG) Urine Cocaine Metabolite NEG (NEG) Urine Marijuana (THC) NEG (NEG) White Blood Count 3.62 K/uL (4.8-10.8) Red Blood Count 3.64 M/uL (4.2-5.4) Hemoglobin 11.6 g/dL (12.0-16.0) Hematocrit 33.9 % (37-47) Mean Corpuscular Volume 93.1 fL (80-100) Mean Corpuscular Hemoglobin 31.9 pg (25-34) Mean Corpuscular Hemoglobin Concent 34.2 g/dl (32-36) Platelet Count 88 K/uL (130-400) Mean Platelet Volume 12.2 fL (7.4-10.4) Neutrophils (%) (Auto) 48.1 % Lymphocytes (%) (Auto) 38.4 % Monocytes (%) (Auto) 9.1 % Eosinophils (%) (Auto) 3.3 % Basophils (%) (Auto) 0.8 % Neutrophils # (Auto) 1.74 K/uL (1.4-6.5) Lymphocytes # (Auto) 1.39 K/uL (1.2-3.4) Monocytes # (Auto) 0.33 K/uL (0.11-0.59) Eosinophils # (Auto) 0.12 K/uL (0-0.5) Basophils # (Auto) 0.03 K/uL (0-0.2) RDW Standard Deviation 54.5 fL (36.4-46.3) RDW Coefficient of Variation 16.0 % (11.5-14.5) Immature Granulocyte % (Auto) 0.3 % Immature Granulocyte # (Auto) 0.01 K/uL (0.00-0.02) Platelet Estimate DECREASED Anion Gap 7.0 mmol/L (3-11) Est Creatinine Clear Calc Drug Dose 64.7 ml/min Estimated GFR () 79.3 Estimated GFR (Non- 68.5 BUN/Creatinine Ratio 10.7 (10-20) Calcium Level 8.5 mg/dl (8.5-10.1) Phosphorus Level 4.0 mg/dl (2.5-4.9) Magnesium Level 2.1 mg/dl (1.8-2.4) Imaging CT T spine- Bones appear mildly demineralized. Moderate intervertebral disc space narrowing at C6-C7. There is a least moderate multilevel facet arthrosis with multilevel intervertebral disc space narrowing and spondylitic spurring. No acute thoracic spine fracture or subluxation identified. Convex right curvature of the thoracic spine with convex left curvature of the lumbar spine, partially imaged. The imaged ribs appear to be intact. No definite high-grade central canal stenosis. There is severe left-sided foraminal narrowing at T10-T11. No prevertebral soft tissue swelling. Cardiomegaly with dense mitral annular and coronary arterial calcifications noted. Chronic pleural thickening at the level left lung base with linear consolidative subsegmental left basilar opacities suggesting atelectasis/scarring. No acute process of the imaged abdomen or paraspinal tissues. CT L spine- There is stable left basilar hyperdense pleural thickening. There are left lower lobe atelectatic changes. There is suspected splenomegaly. There is left adrenal enlargement. L1-2 level: There is a mild circumferential disc bulge. There is no significant spinal or foraminal stenosis. L2-3 level: There is a circumferential disc bulge with mild to moderate spinal stenosis. There is no significant foraminal narrowing L3-4 level : There is a circumferential disc bulge with moderate spinal stenosis. There is mild bilateral foraminal narrowing L4-5 level: There is a disc osteophyte complex with moderate spinal stenosis. There is mild bilateral foraminal narrowing. L5-S1 level: There is a disc osteophyte complex. There is facet joint arthropathy. There is no significant spinal stenosis. There is moderate bilateral foraminal narrowing. No acute fractures or traumatic subluxations are visualized. There is a levoscoliosis. CT head- No acute intracranial abnormality. CXR-No acute process. Subsegmental atelectasis/scarring of the left midlung and left lung base. Cardiomegaly with prior median sternotomy and CABG. C spine- The visualized portions of the lung apices reveal no evidence of pneumothorax. The prevertebral soft tissues are normal. No fractures or subluxations are visualized. There are multilevel degenerative changes Carotid doppler- 50% narrowing left internal carotid artery. Plaque formation bilaterally. No high-grade stenosis. Impression 73 year old female extensive PMH including EtOH abuse-acute fall with LOC Plan 1. EEG order pending read 2. CT C/T/L spine -known spinal stenosis 3. carotid doppler- no significant stenosis 4. DT protocol in place 5. PT/OT for discharge needs 6. EtOH counseling needed 7. MRI with and without brain- focus on posterior fossa 8. balance issues complaint of dizziness with standing- orthostatic BPs 9. thiamine, RPR, b12, folate -ordered 10. EMG as outpatient for evaluation of neuropathy I have seen and discussed above patient with Dr Ladan Rubin, neurology Pt with gait dysfunction, falls. Pt dx with neuropathy in 2012. Major risk is ETOH use. Exam notable for decreased LE reflexes, no clonus, toes down with vib at ankles and lower 1/2 level of calf to temp. No overt dystaxia on FNF or HS. Gait wide-based, pos Romberg.Imps gait dysfunction related to neuropathy, likely related to ETOH use but will check for other etiologies. MRI brain to see if evidence of cerebellar degeneration which could contribute to gait dysfunction. No evidence of myelopathy. RADHA Rubin MD
--- NOTE | 2018-03-16 16:44 | Progress Note ---
Medicine Progress Note Date & Time of Visit: Mar 16, 2018 at 16:44 . Subjective CC: Follow-up visit for multiple problems. HPI: Admitted yesterday. Had fallen a few days prior and struck her head with apparent loss of consciousness. Ongoing weakness and dizziness since the fall. She drinks alcohol on a regular basis. Last drink was about 7 days ago. She feels a little shaky, but does not feel that she is having active withdrawal symptoms at this time. No nausea, vomiting, diaphoresis, hallucinations. Worsening headache today. ROS: General- no fever, no chills Resp- no cough; no shortness of breath Cardiac- no chest pain, no edema GI- as noted above in HPI - no dysuria, no difficulty voiding . Objective Last 8 Hrs Date Time Temp Pulse Resp B/P (MAP) Pulse Ox O2 Delivery O2 Flow Rate FiO2 03/16/18 16:19 Room Air 03/16/18 16:06 36.8 69 18 135/76 (95) 94 Room Air 03/16/18 12:14 Room Air 03/16/18 11:56 Room Air 03/16/18 11:46 71 97 03/16/18 11:11 36.8 69 20 128/82 (97) 97 Room Air Physical Exam: General- no distress Head- contusion right parietal scalp; abrasion occipital scalp Eyes- anicteric Lungs- clear to auscultation; no respiratory distress Cardiovascular- RRR; no murmur or gallop appreciated; no JVD; no pretibial edema Abdomen- + bowel sounds, soft, nontender Extremities- no cyanosis; no calf tenderness Neuro- alert, oriented, mild resting tremor Skin- warm & dry . Laboratory Results: Last 24 Hours Test 03/16/18 06:29 White Blood Count 3.62 K/uL Red Blood Count 3.64 M/uL Hemoglobin 11.6 g/dL Hematocrit 33.9 % Mean Corpuscular Volume 93.1 fL Mean Corpuscular Hemoglobin 31.9 pg Mean Corpuscular Hemoglobin Concent 34.2 g/dl Platelet Count 88 K/uL Mean Platelet Volume 12.2 fL Neutrophils (%) (Auto) 48.1 % Lymphocytes (%) (Auto) 38.4 % Monocytes (%) (Auto) 9.1 % Eosinophils (%) (Auto) 3.3 % Basophils (%) (Auto) 0.8 % Neutrophils # (Auto) 1.74 K/uL Lymphocytes # (Auto) 1.39 K/uL Monocytes # (Auto) 0.33 K/uL Eosinophils # (Auto) 0.12 K/uL Basophils # (Auto) 0.03 K/uL RDW Standard Deviation 54.5 fL RDW Coefficient of Variation 16.0 % Immature Granulocyte % (Auto) 0.3 % Immature Granulocyte # (Auto) 0.01 K/uL Platelet Estimate DECREASED Sodium Level 136 mmol/L Potassium Level 3.8 mmol/L Chloride Level 105 mmol/L Carbon Dioxide Level 25 mmol/L Anion Gap 7.0 mmol/L Blood Urea Nitrogen 9 mg/dl Creatinine 0.85 mg/dl Est Creatinine Clear Calc Drug Dose 64.7 ml/min Estimated GFR () 79.3 Estimated GFR (Non- 68.5 BUN/Creatinine Ratio 10.7 Random Glucose 87 mg/dl Calcium Level 8.5 mg/dl Phosphorus Level 4.0 mg/dl Magnesium Level 2.1 mg/dl Assessment & Plan FALL / CLOSED HEAD INJURY Exact mechanism not clear. Worsening headache today. Check follow-up CT to rule out delayed subdural hematoma. PT / OT. ALCOHOL ABUSE Last drink about 7 days ago. Received gabapentin, thiamine, multivitamin. Will need counseling. CORONARY ARTERY DISEASE No anginal symptoms. Continue aspirin, metoprolol. CHF History of chronic left ventricular diastolic heart failure. Compensated. COPD Stable. Continue Combivent. HYPOTHYROIDISM Continue levothyroxine. VTE PROPHYLAXIS SQ heparin. Ambulate. DISPOSITION To be determined. Family Medicine follow-up with Dr. Dsetiny Walls. . Current Inpatient Medications: Current Inpatient Medications Medications (Trade) Dose Ordered Sig/Leisa Route Start Time Stop Time Status Last Admin Dose Admin Morphine Sulfate (MoRPHine SULFATE INJ) 4 mg NOW PRN IV 03/15/18 17:30 03/29/18 17:29 03/15/18 17:44 4 MG Heparin Sodium (Porcine) (Heparin Sq 5000 Unit/0.5ml) 5,000 unit Q12 SQ 03/15/18 21:00 04/14/18 20:59 03/16/18 09:07 5,000 UNIT Aspirin (Ecotrin Tab) 81 mg QAM PO 03/16/18 09:00 04/15/18 08:59 03/16/18 08:58 81 MG Fluoxetine HCl (Prozac Cap) 40 mg DAILY PO 03/16/18 09:00 04/15/18 08:59 03/16/18 09:00 40 MG Salmeterol Xinafoate/ Fluticasone (Advair Diskus 250/50 Inh) 1 puff BID INH 03/15/18 21:00 04/14/18 20:59 03/16/18 09:00 1 PUFF Fluticasone Propionate (Flonase Nasal [place]) 2 sprays QAM PRN TATE 03/15/18 18:15 04/14/18 18:14 Folic Acid (Folvite Tab) 1 mg QAM PO 03/16/18 09:00 04/15/18 08:59 03/16/18 09:01 1 MG Gabapentin (Neurontin Cap) 300 mg TID PO 03/15/18 21:00 04/14/18 20:59 03/16/18 13:37 300 MG Lactulose (Chronulac Syrup) 20 gm DAILY PO 03/16/18 09:00 04/15/18 08:59 03/16/18 08:59 20 GM Levothyroxine Sodium (Synthroid Tab) 75 mcg DAILYBB PO 03/16/18 06:00 04/15/18 06:59 03/16/18 09:02 75 MCG Losartan Potassium (coZAAR TAB) 25 mg QAM PO 03/16/18 09:00 04/15/18 08:59 03/16/18 09:02 25 MG Metoprolol Succinate (Toprol Xl Tab) 50 mg QAM PO 03/16/18 09:00 04/15/18 08:59 03/16/18 09:02 50 MG Montelukast Sodium (Singulair Tab) 10 mg HS PRN PO 03/15/18 18:15 04/14/18 18:14 Nitroglycerin (Nitrostat Tab) 0.4 mg UD PRN [place] 03/15/18 18:15 04/14/18 18:14 Sodium Chloride ([place] Nasal [place]) 2 sprays DAILY PRN TATE 03/15/18 18:15 04/14/18 18:14 Tramadol HCl (Ultram Tab) 50 mg Q6H PRN PO 03/15/18 18:15 04/14/18 18:14 03/16/18 13:42 50 MG Trazodone HCl (Desyrel Tab) 150 mg HS PO 03/15/18 21:00 04/14/18 20:59 03/15/18 21:12 150 MG Triamcinolone Acetonide (Kenalog 0.1% Cream) 1 appln DAILY EXT 03/16/18 09:00 04/15/18 08:59 Pantoprazole Sodium (Protonix Tab) 40 mg QAM PO 03/16/18 09:00 04/15/18 08:59 03/16/18 09:01 40 MG Albuterol (Ventolin Hfa Inhaler) 4 puffs Q6H PRN INH 03/15/18 18:15 04/14/18 18:14 03/16/18 13:38 4 PUFFS Clonidine HCl (Catapres Tab) 0.1 mg Q6H PRN PO 03/15/18 18:45 04/14/18 18:44 Lorazepam (Ativan Inj) 0.25 mg Q4H PRN IV 03/15/18 19:00 04/14/18 18:59 Lorazepam 0.25 mg/ Syringe 0.25 ml @ 1 mls/min Q4H PRN IV 03/15/18 19:15 04/14/18 19:14
[2018-03-16] MEDS: LORAZEPAM 2 MG/ML 1 ML VIAL IV PRN (17:04)
--- NOTE | 2018-03-16 17:44 | DIAGNOSTIC IMAGING REPORT ---
CT HEAD WITHOUT CONTRAST (CT) CLINICAL HISTORY: Head trauma. Worsening headache. COMPARISON STUDY: 03/15/2018 TECHNIQUE: Axial CT of the brain is performed from the vertex to the skull base. IV contrast was not administered for this examination. A dose lowering technique was utilized adhering to the principles of ALARA. CT DOSE: 614.27 mGy.cm FINDINGS: No intra or extra-axial mass lesions are visualized. There is no CT evidence of acute cortical infarction. There is no evidence of midline shift. There is no acute hemorrhage. No calvarial fractures are visualized. There are patchy white matter hypodensities likely on a small vessel basis. There is no evidence of pathologic ventricular dilatation. There is no evidence of acute sinusitis IMPRESSION: No acute intracranial findings Electronically signed by: Xavier Lombardo M.D. 03/16/2018 5:43 PM Dictated Date/Time: 03/16/2018 5:42 PM
[2018-03-16] MEDS ORDERED: ACETAMINOPHEN 500 MG TAB PO PRN (18:45)
[2018-03-16] MEDS: TRAZODONE HCL 50 MG TAB PO SCH (21:46)
[2018-03-17 03:46] VITALS: BP 136/85; PULSE 72; TEMP 36.6; O2SAT 94
[2018-03-17] MEDS: LEVOTHYROXINE 75 MCG TAB PO SCH (05:20)
[2018-03-17 07:09] LABS: HEMATOCRIT 33.3 % (37-47); HEMOGLOBIN 11.5 g/dL (12.0-16.0); MEAN CELL VOLUME 93.5 fL (80-100); MEAN CORPUSCULAR HEMOGLOBIN 32.3 pg (25-34); MEAN CORPUSCULAR HGB CONC 34.5 g/dl (32-36); WHITE BLOOD COUNT 2.59 K/uL (4.8-10.8)
[2018-03-17 07:10] VITALS: BP 136/78; PULSE 68; TEMP 36.8; O2SAT 93
[2018-03-17 07:11] LABS: MEAN PLATELET VOLUME 11.5 fL (7.4-10.4); PLATELET COUNT 72 K/uL (130-400)
[2018-03-17] MEDS: METOPROLOL SUCC 50MG EXT REL TAB PO SCH (07:37)
[2018-03-17] MEDS: LOSARTAN POTASSIUM 25 MG TAB PO SCH (07:37)
[2018-03-17] MEDS: ASPIRIN 81 MG ECTAB PO SCH (07:37)
[2018-03-17] MEDS: PANTOprazole SOD 40 MG TAB PO SCH (07:37)
[2018-03-17] MEDS: GABAPENTIN 300 MG CAP PO SCH ×3 (07:37→20:44)
[2018-03-17] MEDS: FLUTICASONE/SALMETEROL 250/50 (ADVAIR) 14 PUFF/1 INHALER INH SCH ×2 (07:38→20:44)
[2018-03-17] MEDS: LACTULOSE SYRUP 20 GM/30 ML UDC PO SCH (07:39)
[2018-03-17] MEDS: TRIAMCINOLONE ACET 0.1% CR 15 GM TUBE EXT SCH (07:39)
[2018-03-17] MEDS: FLUOXETINE HCL 20 MG CAP PO SCH (07:40)
[2018-03-17] MEDS: HEPARIN SOD 5000 UNIT/0.5 ML CARP SQ SCH ×2 (07:41→20:49)
[2018-03-17 07:45] LABS: ALBUMIN 3.2 gm/dl (3.4-5.0); CALCIUM 8.4 mg/dl (8.5-10.1); CREATININE 0.85 mg/dl (0.60-1.20); POTASSIUM 3.9 mmol/L (3.5-5.1); TOTAL PROTEIN 6.2 gm/dl (6.4-8.2)
[2018-03-17] MEDS: LORAZEPAM 2 MG/ML 1 ML VIAL IV PRN ×2 (10:53→21:39)
[2018-03-17] MEDS: TRAMADOL HCL 50 MG TAB PO PRN ×2 (10:55→20:52)
--- NOTE | 2018-03-17 11:41 | EEG Procedure Note ---
EEG Procedure Note Date of Service Mar 17, 2018. Start / End Times Start Time: 10:50 a.m. End Time: 11:[address] Rubin History History of alcohol abuse, fall, concussion, loss of consciousness. Evaluate for seizure activity. Home Medication List Scheduled Aspirin (Aspirin Chewable), 81 MG PO ON HOLD Fluoxetine Hcl (Prozac), 1 CAP PO DAILY Fluticasone Prop/Salmeterol (Advair Diskus 250/50 60 Dose), 1 PUFF INH BID Folic Acid (Folvite), 1 MG PO QAM Gabapentin (Neurontin), 300 MG PO TID Ipratropium-Albuterol (Combivent Respimat), 1 PUFFS INH QID Lactulose (Chronulac), 30 ML PO DAILY Levocetirizine Dihydrochloride (Levocetirizine Dihydrochl), 1 TAB PO DAILY Levothyroxine Sodium (Synthroid), 75 MCG PO QAM Losartan Potassium (Cozaar), 25 MG PO QAM Metoprolol Succ (Toprol Xl) (Toprol-Xl), 50 MG PO QAM Omeprazole (Prilosec), 20 MG PO QAM Trazodone Hcl (Desyrel), 150 MG PO HS Triamcinolone Acet (Aristocort 0.1%), DIRECTED Scheduled PRN Fluticasone Propionate (Nasal) (Flonase Allergy Relief), 2 SPRAY TATE QAM PRN for CONGESTION Furosemide (Lasix), 20 MG PO QAM PRN for EDEMA Montelukast Sodium (Singulair), 1 TAB PO HS PRN for Seasonal Allergies Nitroglycerin (Nitrostat), 0.4 MG UT UD PRN for Chest Pain Ondansetron Hcl (Zofran), 8 MG PO PRN PRN for Nausea or Vomiting Saline ([place] Nasal [place]), 2 SPRAYS TATE DAILY PRN for Nasal Congestion Senna/Docusate Sod (Senokot S), 2 TAB PO QAM PRN for Constipation Tramadol (Ultram), 50 MG PO Q6H PRN for Pain Inpatient Medication List Current Inpatient Medications Medications (Trade) Dose Ordered Sig/Leisa Route Start Time Stop Time Status Last Admin Dose Admin Heparin Sodium (Porcine) (Heparin Sq 5000 Unit/0.5ml) 5,000 unit Q12 SQ 03/15/18 21:00 04/14/18 20:59 03/17/18 07:41 5,000 UNIT Aspirin (Ecotrin Tab) 81 mg QAM PO 03/16/18 09:00 04/15/18 08:59 03/17/18 07:37 81 MG Fluoxetine HCl (Prozac Cap) 40 mg DAILY PO 03/16/18 09:00 04/15/18 08:59 03/17/18 07:40 40 MG Salmeterol Xinafoate/ Fluticasone (Advair Diskus 250/50 Inh) 1 puff BID INH 03/15/18 21:00 04/14/18 20:59 03/17/18 07:38 1 PUFF Fluticasone Propionate (Flonase Nasal [place]) 2 sprays QAM PRN TATE 03/15/18 18:15 04/14/18 18:14 Folic Acid (Folvite Tab) 1 mg QAM PO 03/16/18 09:00 04/15/18 08:59 03/17/18 07:38 1 MG Gabapentin (Neurontin Cap) 300 mg TID PO 03/15/18 21:00 04/14/18 20:59 03/17/18 07:37 300 MG Lactulose (Chronulac Syrup) 20 gm DAILY PO 03/16/18 09:00 04/15/18 08:59 03/17/18 07:39 20 GM Levothyroxine Sodium (Synthroid Tab) 75 mcg DAILYBB PO 03/16/18 06:00 04/15/18 06:59 03/17/18 05:20 75 MCG Losartan Potassium (coZAAR TAB) 25 mg QAM PO 03/16/18 09:00 04/15/18 08:59 03/17/18 07:37 25 MG Metoprolol Succinate (Toprol Xl Tab) 50 mg QAM PO 03/16/18 09:00 04/15/18 08:59 03/17/18 07:37 50 MG Montelukast Sodium (Singulair Tab) 10 mg HS PRN PO 03/15/18 18:15 04/14/18 18:14 Nitroglycerin (Nitrostat Tab) 0.4 mg UD PRN UT 03/15/18 18:15 04/14/18 18:14 Sodium Chloride ([place] Nasal [place]) 2 sprays DAILY PRN TATE 03/15/18 18:15 04/14/18 18:14 Tramadol HCl (Ultram Tab) 50 mg Q6H PRN PO 03/15/18 18:15 04/14/18 18:14 03/17/18 10:55 50 MG Trazodone HCl (Desyrel Tab) 150 mg HS PO 03/15/18 21:00 04/14/18 20:59 03/16/18 21:46 150 MG Triamcinolone Acetonide (Kenalog 0.1% Cream) 1 appln DAILY EXT 03/16/18 09:00 04/15/18 08:59 Pantoprazole Sodium (Protonix Tab) 40 mg QAM PO 03/16/18 09:00 04/15/18 08:59 03/17/18 07:37 40 MG Albuterol (Ventolin Hfa Inhaler) 4 puffs Q6H PRN INH 03/15/18 18:15 04/14/18 18:14 03/16/18 13:38 4 PUFFS Clonidine HCl (Catapres Tab) 0.1 mg Q6H PRN PO 03/15/18 18:45 04/14/18 18:44 Lorazepam (Ativan Inj) 0.25 mg Q4H PRN IV 03/15/18 19:00 04/14/18 18:59 03/17/18 10:53 0.25 MG Lorazepam 0.25 mg/ Syringe 0.25 ml @ 1 mls/min Q4H PRN IV 03/15/18 19:15 04/14/18 19:14 Acetaminophen (Tylenol Tab) 1,000 mg Q12H PRN PO 03/16/18 18:45 04/15/18 18:44 Description This is a 21 electrode EEG with a single channel dedicated to limited EKG. The electrodes were placed in accordance with the International 10-20 system. There is a posterior dominant rhythm of 10 hertz which is symmetrically distributed and attenuates with eye opening. There is a normal anterior to posterior organization. Photic stimulation is unremarkable. There is a fairly continuous prominent, frontal beta rhythm throughout the study. EKG artifact is appreciated throughout the study. There is no focal slowing. No epileptiform abnormalities appreciated. Interpretation Normal background alpha rhythm with superimposed prominent frontal beta activity potentially consistent with a benzodiazepine effect. Clinical Correlation This is a normal appearing EEG. No evidence for obvious focal or epileptiform abnormalities. Further clinical correlation may be needed.
[2018-03-17 11:43] VITALS: BP 119/82; PULSE 69; TEMP 36.7; O2SAT 94
--- NOTE | 2018-03-17 14:13 | Neurology Progress Notes ---
Neurology Progress Note Date of Service Mar 17, 2018. Adonay Marquez is a 73 year old white female PMH of major depressive disorder, mild COPD, DL, cirrhosis of liver due to alcohol abuse with continued alcohol use, CAD status post CABG x4 and hypothyroidism.,spinal stenosis, splenomegaly with thrombocytopenia, her 2 positive bilateral mastectomies. She went to the bathroom on Tuesday and hit the back of her head right posterior. She states there was a lot of blood when she woke and thinks she was out for about 2 hours. She had some confusion but didn't seek medical help. 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 Everything got worse and she called EMS and was brought into the ED. She states she falls alot and has had back issues for a long time which have gotten worse. She sees Dr Uribe in [place] who saw her for spinal stenosis but stated because of her platlet count she was high risk for surgery. She admits to a drinking problem and states she is trying to quit but it is hard. Her EtOH level on admission was 0. denies She states no new issues. MRI is still pending and she was given ativan to go down to scanner. CP, SOB, abdominal pain, bowel or bladder issues, vision changes, N, V, current confusion, +headache relieved with tylenol. Objective Date Time Temp Pulse Resp B/P (MAP) Pulse Ox O2 Delivery O2 Flow Rate FiO2 03/17/18 11:43 36.7 69 20 119/82 (94) 94 Room Air 03/17/18 08:00 Room Air 03/17/18 07:10 36.8 68 18 136/78 (97) 93 Room Air 03/17/18 03:46 36.6 72 18 136/85 (102) 94 Room Air 03/16/18 23:55 36.4 70 18 151/70 (97) 96 Room Air 03/16/18 20:03 69 18 138/82 (100) 96 Room Air 69 145/76 (99) 71 126/83 (97) 03/16/18 20:00 97 Room Air 03/16/18 19:16 36.8 73 18 145/74 (97) 97 Room Air 03/16/18 16:19 Room Air 03/16/18 16:06 36.8 69 18 135/76 (95) 94 Room Air Last 24 Hours Test 03/17/18 06:43 White Blood Count 2.59 K/uL Red Blood Count 3.56 M/uL Hemoglobin 11.5 g/dL Hematocrit 33.3 % Mean Corpuscular Volume 93.5 fL Mean Corpuscular Hemoglobin 32.3 pg Mean Corpuscular Hemoglobin Concent 34.5 g/dl RDW Standard Deviation 55.0 fL RDW Coefficient of Variation 16.0 % Platelet Count 72 K/uL Mean Platelet Volume 11.5 fL Sodium Level 138 mmol/L Potassium Level 3.9 mmol/L Chloride Level 107 mmol/L Carbon Dioxide Level 25 mmol/L Anion Gap 6.0 mmol/L Blood Urea Nitrogen 8 mg/dl Creatinine 0.85 mg/dl Est Creatinine Clear Calc Drug Dose 64.8 ml/min Estimated GFR () 79.3 Estimated GFR (Non- 68.5 BUN/Creatinine Ratio 9.2 Random Glucose 88 mg/dl Calcium Level 8.4 mg/dl Total Bilirubin 0.8 mg/dl Aspartate Amino Transf (AST/SGOT) 44 U/L Alanine Aminotransferase (ALT/SGPT) 44 U/L Alkaline Phosphatase 66 U/L Total Protein 6.2 gm/dl Albumin 3.2 gm/dl Globulin 3.0 gm/dl Albumin/Globulin Ratio 1.1 Vitamin B12 Level 1111 pg/mL Folate > 24.00 ng/mL Imaging: CT head- No acute intracranial findings 03/16/2018 EEG Normal background alpha rhythm with superimposed prominent frontal beta activity potentially consistent with a benzodiazepine effect. Exam: Gen: alert NAD lungs CTA CV RRR strength biceps triceps hand bi specialist 5/5 bilaterally, hip flex plantar flex ext 5/ 5 bilaterally slight essential tremor bilaterally UE Current Inpatient Medications Medications (Trade) Dose Ordered Sig/Leisa Route Start Time Stop Time Status Last Admin Dose Admin Heparin Sodium (Porcine) (Heparin Sq 5000 Unit/0.5ml) 5,000 unit Q12 SQ 03/15/18 21:00 04/14/18 20:59 03/17/18 07:41 5,000 UNIT Aspirin (Ecotrin Tab) 81 mg QAM PO 03/16/18 09:00 04/15/18 08:59 03/17/18 07:37 81 MG Fluoxetine HCl (Prozac Cap) 40 mg DAILY PO 03/16/18 09:00 04/15/18 08:59 03/17/18 07:40 40 MG Salmeterol Xinafoate/ Fluticasone (Advair Diskus 250/50 Inh) 1 puff BID INH 03/15/18 21:00 04/14/18 20:59 03/17/18 07:38 1 PUFF Fluticasone Propionate (Flonase Nasal [place]) 2 sprays QAM PRN TATE 03/15/18 18:15 04/14/18 18:14 Folic Acid (Folvite Tab) 1 mg QAM PO 03/16/18 09:00 04/15/18 08:59 03/17/18 07:38 1 MG Gabapentin (Neurontin Cap) 300 mg TID PO 03/15/18 21:00 04/14/18 20:59 03/17/18 07:37 300 MG Lactulose (Chronulac Syrup) 20 gm DAILY PO 03/16/18 09:00 04/15/18 08:59 03/17/18 07:39 20 GM Levothyroxine Sodium (Synthroid Tab) 75 mcg DAILYBB PO 03/16/18 06:00 04/15/18 06:59 03/17/18 05:20 75 MCG Losartan Potassium (coZAAR TAB) 25 mg QAM PO 03/16/18 09:00 04/15/18 08:59 03/17/18 07:37 25 MG Metoprolol Succinate (Toprol Xl Tab) 50 mg QAM PO 03/16/18 09:00 04/15/18 08:59 03/17/18 07:37 50 MG Montelukast Sodium (Singulair Tab) 10 mg HS PRN PO 03/15/18 18:15 04/14/18 18:14 Nitroglycerin (Nitrostat Tab) 0.4 mg UD PRN UT 03/15/18 18:15 04/14/18 18:14 Sodium Chloride ([place] Nasal [place]) 2 sprays DAILY PRN TATE 03/15/18 18:15 04/14/18 18:14 Tramadol HCl (Ultram Tab) 50 mg Q6H PRN PO 03/15/18 18:15 04/14/18 18:14 03/17/18 10:55 50 MG Trazodone HCl (Desyrel Tab) 150 mg HS PO 03/15/18 21:00 04/14/18 20:59 03/16/18 21:46 150 MG Triamcinolone Acetonide (Kenalog 0.1% Cream) 1 appln DAILY EXT 03/16/18 09:00 04/15/18 08:59 Pantoprazole Sodium (Protonix Tab) 40 mg QAM PO 03/16/18 09:00 04/15/18 08:59 03/17/18 07:37 40 MG Albuterol (Ventolin Hfa Inhaler) 4 puffs Q6H PRN INH 03/15/18 18:15 04/14/18 18:14 03/16/18 13:38 4 PUFFS Clonidine HCl (Catapres Tab) 0.1 mg Q6H PRN PO 03/15/18 18:45 04/14/18 18:44 Lorazepam (Ativan Inj) 0.25 mg Q4H PRN IV 03/15/18 19:00 04/14/18 18:59 03/17/18 10:53 0.25 MG Lorazepam 0.25 mg/ Syringe 0.25 ml @ 1 mls/min Q4H PRN IV 03/15/18 19:15 04/14/18 19:14 Acetaminophen (Tylenol Tab) 1,000 mg Q12H PRN PO 03/16/18 18:45 04/15/18 18:44 Impression 73 year old female extensive PMH including EtOH abuse-acute fall with LOC Plan 1. EEG no seizure focus 2. CT C/T/L spine -known spinal stenosis 3. carotid doppler- no significant stenosis 4. DT protocol in place 5. PT/OT for discharge needs 6. EtOH counseling needed 7. MRI with and without brain- focus on posterior fossa pending 8. balance issues complaint of dizziness with standing- orthostatic BPs 9. thiamine, RPR, b12, folate -RPR/thiamine still pending others normal 10. EMG as outpatient for evaluation of neuropathy I discussed above patient with Dr Ladan Rubin, neurology. Await MRI brain , will see pt in am RADHA Rubin MD
[2018-03-17 15:37] VITALS: BP_SYST 143; BP_SYST 163; BP_DIAS 75; BP_DIAS 89; PULSE 70; PULSE 93; TEMP 36.7; O2SAT 92; O2SAT 97
--- NOTE | 2018-03-17 15:46 | DIAGNOSTIC IMAGING REPORT ---
MRI OF THE BRAIN COMBO CLINICAL HISTORY: Falls. Cirrhosis. COMPARISON STUDY: CT of the brain dated 03/16/2018. MRI of the brain dated 12/12/2014. TECHNIQUE: MRI of the brain was performed utilizing various T1 and T2-weighted sequences in the axial, sagittal, and coronal planes. Contrast-enhanced sequences were acquired following the administration of 8.5 cc of Gadavist. FINDINGS: Brain parenchyma: There are age-related involutional changes noting moderate to advanced confluent subcortical and periventricular microangiopathic disease. There is no hemorrhage or mass effect. There is no restricted diffusion to suggest acute ischemia. No enhancing mass lesion is identified on the postcontrast images. Villalba-white matter differentiation is preserved. No extra-axial fluid collection is seen. The cerebellar tonsils are normal in configuration. Ventricles, sulci, and cisterns: Prominent secondary to involutional change. Pituitary and sella: Unremarkable. Intracranial vasculature: Normal flow voids are maintained at the skull base. Orbits: The bony orbits are grossly intact. Orbital contents are normal in appearance. Sinuses and mastoids: There is a trace left mastoid effusion. The right mastoid air cells and the paranasal sinuses are clear . Calvarium: Unremarkable. Cervical cord: Partially visualized cervical spinal cord is normal in morphology and signal intensity. IMPRESSION: 1. No acute intracranial abnormality. 2. Senescent changes as above. Electronically signed by: Ishmael Burt M.D. 03/17/2018 3:45 PM Dictated Date/Time: 03/17/2018 3:41 PM
[2018-03-17] MEDS ORDERED: IPRA1AER2 INH (16:19)
[2018-03-17] MEDS: IPRATROPIUM BROMIDE/ALBUTEROL respimat INH INH SCH ×2 (18:32→20:44)
[2018-03-17 19:19] VITALS: BP 113/72; PULSE 64; TEMP 36.8; O2SAT 95
[2018-03-17] MEDS: TRAZODONE HCL 50 MG TAB PO SCH (20:45)
--- NOTE | 2018-03-17 21:41 | Progress Note ---
Medicine Progress Note Date & Time of Visit: Mar 17, 2018 at 16:10 . Subjective CC: Follow-up visit for multiple problems. HPI: Feels better. Last drink was about 8 days ago. Mild tremor. No nausea, vomiting, diaphoresis, hallucinations. Headache improved. ROS: General- no fever, no chills Resp- no cough; no shortness of breath Cardiac- no chest pain, no edema GI- as noted above in HPI - no dysuria, no difficulty voiding . Objective Last 8 Hrs Date Time Temp Pulse Resp B/P (MAP) Pulse Ox O2 Delivery O2 Flow Rate FiO2 03/17/18 19:19 36.8 64 18 113/72 (86) 95 Room Air 03/17/18 15:37 36.7 70 19 163/89 (113) 97 Room Air Physical Exam: General- no distress Eyes- anicteric Lungs- clear to auscultation; no respiratory distress Cardiovascular- RRR; no murmur or gallop appreciated; no JVD; no pretibial edema Abdomen- + bowel sounds, soft, nontender Extremities- no cyanosis; no calf tenderness Neuro- alert, oriented, mild resting tremor Skin- warm & dry . Laboratory Results: Last 24 Hours Test 03/17/18 06:43 White Blood Count 2.59 K/uL Red Blood Count 3.56 M/uL Hemoglobin 11.5 g/dL Hematocrit 33.3 % Mean Corpuscular Volume 93.5 fL Mean Corpuscular Hemoglobin 32.3 pg Mean Corpuscular Hemoglobin Concent 34.5 g/dl RDW Standard Deviation 55.0 fL RDW Coefficient of Variation 16.0 % Platelet Count 72 K/uL Mean Platelet Volume 11.5 fL Sodium Level 138 mmol/L Potassium Level 3.9 mmol/L Chloride Level 107 mmol/L Carbon Dioxide Level 25 mmol/L Anion Gap 6.0 mmol/L Blood Urea Nitrogen 8 mg/dl Creatinine 0.85 mg/dl Est Creatinine Clear Calc Drug Dose 64.8 ml/min Estimated GFR () 79.3 Estimated GFR (Non- 68.5 BUN/Creatinine Ratio 9.2 Random Glucose 88 mg/dl Calcium Level 8.4 mg/dl Total Bilirubin 0.8 mg/dl Aspartate Amino Transf (AST/SGOT) 44 U/L Alanine Aminotransferase (ALT/SGPT) 44 U/L Alkaline Phosphatase 66 U/L Total Protein 6.2 gm/dl Albumin 3.2 gm/dl Globulin 3.0 gm/dl Albumin/Globulin Ratio 1.1 Vitamin B12 Level 1111 pg/mL Folate > 24.00 ng/mL Assessment & Plan FALL / CLOSED HEAD INJURY Exact mechanism not clear. Worsening headache today. CT 03/16 negative for delayed subdural hematoma. PT / OT. ALCOHOL ABUSE Last drink about 8 days ago. Received gabapentin, thiamine, multivitamin. Will need counseling. CORONARY ARTERY DISEASE No anginal symptoms. Continue aspirin, metoprolol. CHF History of chronic left ventricular diastolic heart failure. Compensated. COPD Stable. Continue Combivent. HYPOTHYROIDISM Continue levothyroxine. VTE PROPHYLAXIS SQ heparin. Ambulate. DISPOSITION To be determined. Family Medicine follow-up with Dr. Destiny Walls. . Current Inpatient Medications: Current Inpatient Medications Medications (Trade) Dose Ordered Sig/Leisa Route Start Time Stop Time Status Last Admin Dose Admin Heparin Sodium (Porcine) (Heparin Sq 5000 Unit/0.5ml) 5,000 unit Q12 SQ 03/15/18 21:00 04/14/18 20:59 03/17/18 20:49 5,000 UNIT Aspirin (Ecotrin Tab) 81 mg QAM PO 03/16/18 09:00 04/15/18 08:59 03/17/18 07:37 81 MG Fluoxetine HCl (Prozac Cap) 40 mg DAILY PO 03/16/18 09:00 04/15/18 08:59 03/17/18 07:40 40 MG Salmeterol Xinafoate/ Fluticasone (Advair Diskus 250/50 Inh) 1 puff BID INH 03/15/18 21:00 04/14/18 20:59 03/17/18 20:44 1 PUFF Fluticasone Propionate (Flonase Nasal [place]) 2 sprays QAM PRN TATE 03/15/18 18:15 04/14/18 18:14 Folic Acid (Folvite Tab) 1 mg QAM PO 03/16/18 09:00 04/15/18 08:59 03/17/18 07:38 1 MG Gabapentin (Neurontin Cap) 300 mg TID PO 03/15/18 21:00 04/14/18 20:59 03/17/18 20:44 300 MG Lactulose (Chronulac Syrup) 20 gm DAILY PO 03/16/18 09:00 04/15/18 08:59 03/17/18 07:39 20 GM Levothyroxine Sodium (Synthroid Tab) 75 mcg DAILYBB PO 03/16/18 06:00 04/15/18 06:59 03/17/18 05:20 75 MCG Losartan Potassium (coZAAR TAB) 25 mg QAM PO 03/16/18 09:00 04/15/18 08:59 03/17/18 07:37 25 MG Metoprolol Succinate (Toprol Xl Tab) 50 mg QAM PO 03/16/18 09:00 04/15/18 08:59 03/17/18 07:37 50 MG Montelukast Sodium (Singulair Tab) 10 mg HS PRN PO 03/15/18 18:15 04/14/18 18:14 Nitroglycerin (Nitrostat Tab) 0.4 mg UD PRN UT 03/15/18 18:15 04/14/18 18:14 Sodium Chloride ([place] Nasal [place]) 2 sprays DAILY PRN TATE 03/15/18 18:15 04/14/18 18:14 Tramadol HCl (Ultram Tab) 50 mg Q6H PRN PO 03/15/18 18:15 04/14/18 18:14 03/17/18 20:52 50 MG Trazodone HCl (Desyrel Tab) 150 mg HS PO 03/15/18 21:00 04/14/18 20:59 03/17/18 20:45 150 MG Triamcinolone Acetonide (Kenalog 0.1% Cream) 1 appln DAILY EXT 03/16/18 09:00 04/15/18 08:59 Pantoprazole Sodium (Protonix Tab) 40 mg QAM PO 03/16/18 09:00 04/15/18 08:59 03/17/18 07:37 40 MG Albuterol (Ventolin Hfa Inhaler) 4 puffs Q6H PRN INH 03/15/18 18:15 04/14/18 18:14 03/16/18 13:38 4 PUFFS Clonidine HCl (Catapres Tab) 0.1 mg Q6H PRN PO 03/15/18 18:45 04/14/18 18:44 Lorazepam (Ativan Inj) 0.25 mg Q4H PRN IV 03/15/18 19:00 04/14/18 18:59 03/17/18 21:39 0.25 MG Lorazepam 0.25 mg/ Syringe 0.25 ml @ 1 mls/min Q4H PRN IV 03/15/18 19:15 04/14/18 19:14 Acetaminophen (Tylenol Tab) 1,000 mg Q12H PRN PO 03/16/18 18:45 04/15/18 18:44 Albuterol/ Ipratropium (Combivent Respimat Inh) 1 puffs QID INH 03/17/18 17:00 04/16/18 16:59 03/17/18 20:44 1 PUFFS
[2018-03-17 23:38] VITALS: BP 129/75; PULSE 67; TEMP 36.7; O2SAT 97
[2018-03-18 04:00] VITALS: BP 129/80; PULSE 69; TEMP 36.7; O2SAT 94
[2018-03-18] MEDS: LEVOTHYROXINE 75 MCG TAB PO SCH (05:48)
[2018-03-18] MEDS: PANTOprazole SOD 40 MG TAB PO SCH (07:19)
[2018-03-18] MEDS: FLUTICASONE/SALMETEROL 250/50 (ADVAIR) 14 PUFF/1 INHALER INH SCH ×2 (07:19→20:23)
[2018-03-18] MEDS: METOPROLOL SUCC 50MG EXT REL TAB PO SCH (07:19)
[2018-03-18] MEDS: GABAPENTIN 300 MG CAP PO SCH ×3 (07:20→20:21)
[2018-03-18] MEDS: LOSARTAN POTASSIUM 25 MG TAB PO SCH (07:20)
[2018-03-18] MEDS: FLUOXETINE HCL 20 MG CAP PO SCH (07:20)
[2018-03-18 07:21] LABS: HEMOGLOBIN 11.5 g/dL (12.0-16.0); MEAN CELL VOLUME 93.8 fL (80-100); MEAN CORPUSCULAR HEMOGLOBIN 32.7 pg (25-34); MEAN CORPUSCULAR HGB CONC 34.8 g/dl (32-36); RED CELL DISTRIBUTION WIDTH CV 16.2 % (11.5-14.5); WHITE BLOOD COUNT 2.41 K/uL (4.8-10.8)
[2018-03-18] MEDS: ASPIRIN 81 MG ECTAB PO SCH (07:21)
[2018-03-18] MEDS: IPRATROPIUM BROMIDE/ALBUTEROL respimat INH INH SCH ×4 (07:21→20:20)
[2018-03-18] MEDS: TRIAMCINOLONE ACET 0.1% CR 15 GM TUBE EXT SCH (07:21)
[2018-03-18] MEDS: LACTULOSE SYRUP 20 GM/30 ML UDC PO SCH ×3 (07:22→20:21)
[2018-03-18] MEDS: HEPARIN SOD 5000 UNIT/0.5 ML CARP SQ SCH (07:23)
[2018-03-18 07:30] VITALS: O2SAT 94
[2018-03-18] MEDS: TRAMADOL HCL 50 MG TAB PO PRN ×2 (07:35→18:37)
[2018-03-18 07:37] VITALS: BP 155/80; PULSE 71; TEMP 36.5; O2SAT 94
[2018-03-18 07:48] LABS: PLATELET COUNT 64 K/uL (130-400)
[2018-03-18 07:56] LABS: CALCIUM 8.7 mg/dl (8.5-10.1); CREATININE 0.81 mg/dl (0.60-1.20)
[2018-03-18] MEDS: LORAZEPAM 2 MG/ML 1 ML VIAL IV PRN (11:47)
[2018-03-18 11:48] VITALS: BP 143/83; PULSE 69; TEMP 36.6; O2SAT 97
--- NOTE | 2018-03-18 11:54 | PROGRESS NOTE ---
DATE: 03/18/2018 SUBJECTIVE: I am seeing Mrs. Whittaker in followup of gait dysfunction. Her MRI of the brain shows mild atrophy, no selected cerebellar atrophy, modest chronic ischemic changes. Her labs to date including normal B12, folate, thiamine level are pending. TSH is 1.09. RPR is nonreactive. Patient has not had any new complaints. Continued to discuss about a longstanding wide based gait. OBJECTIVE: VITAL SIGNS: 36.5, 71, 18, 155/80, 94%. GENERAL: Awake, alert, normal speech and language. No facial asymmetry. There is symmetric and full strength. 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 PLAN: 1. Await thiamine level. 2. Recommend repeat nerve conduction EMG. 3. Alcohol cessation remains appropriate. 4. There is probably a contribution to gait dysfunction related to small vessel cerebrovascular disease. Risk factor modification remains appropriate. Continued antiplatelet therapy with aspirin as appropriate as well. If the patient is discharged, she should be referred to our office for a nerve conduction EMG. TREY
[2018-03-18 15:00] VITALS: BP 139/75; PULSE 77; TEMP 37.3; O2SAT 95
[2018-03-18] MEDS: TRAZODONE HCL 50 MG TAB PO SCH (20:51)
--- NOTE | 2018-03-18 21:29 | Progress Note ---
Medicine Progress Note Date & Time of Visit: Mar 18, 2018 at 11:30 . Subjective CC: Follow-up visit for multiple problems. HPI: Feels better. Last drink was about 9 days ago. Mild tremor. No nausea, vomiting, diaphoresis, hallucinations. Headache improved. Anxious. ROS: General- no fever, no chills Resp- no cough; no shortness of breath Cardiac- no chest pain, no edema GI- as noted above in HPI - no dysuria, no difficulty voiding . Objective Last 8 Hrs Date Time Temp Pulse Resp B/P (MAP) Pulse Ox O2 Delivery O2 Flow Rate FiO2 03/18/18 16:00 Room Air 03/18/18 15:00 37.3 77 20 139/75 (96) 95 Room Air Physical Exam: General- sitting in chair; no acute distress Eyes- anicteric Lungs- clear to auscultation; no respiratory distress Cardiovascular- RRR; no murmur or gallop appreciated; no JVD; no pretibial edema Abdomen- + bowel sounds, soft, nontender Extremities- no cyanosis; no calf tenderness Neuro- alert, oriented, mild resting tremor Skin- warm & dry . Laboratory Results: Last 24 Hours Test 03/18/18 07:09 White Blood Count 2.41 K/uL Red Blood Count 3.52 M/uL Hemoglobin 11.5 g/dL Hematocrit 33.0 % Mean Corpuscular Volume 93.8 fL Mean Corpuscular Hemoglobin 32.7 pg Mean Corpuscular Hemoglobin Concent 34.8 g/dl RDW Standard Deviation 55.0 fL RDW Coefficient of Variation 16.2 % Platelet Count 64 K/uL Mean Platelet Volume 11.0 fL Platelet Estimate DECREASED Sodium Level 139 mmol/L Potassium Level 4.0 mmol/L Chloride Level 106 mmol/L Carbon Dioxide Level 25 mmol/L Anion Gap 8.0 mmol/L Blood Urea Nitrogen 8 mg/dl Creatinine 0.81 mg/dl Est Creatinine Clear Calc Drug Dose 67.7 ml/min Estimated GFR () 84.1 Estimated GFR (Non- 72.6 BUN/Creatinine Ratio 10.2 Random Glucose 101 mg/dl Calcium Level 8.7 mg/dl Assessment & Plan FALL / GAIT DYSFUNCTION / CLOSED HEAD INJURY Exact mechanism not clear. Worsening headache today. CT 03/16 negative for delayed subdural hematoma. MRI 03/17 demonstrated small vessel ischemic changes. Gait still unsteady. 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 Continue PT / OT. ALCOHOL ABUSE Last drink about 9 days ago. Receiving gabapentin, thiamine, multivitamin. Will need counseling - ? inpatient vs outpatient. CORONARY ARTERY DISEASE No anginal symptoms. Continue aspirin, metoprolol. CHF History of chronic left ventricular diastolic heart failure. Compensated. COPD Stable. Continue Combivent. HYPOTHYROIDISM Continue levothyroxine. THROMBOCYTOPENIA Plts 111,000 --> 64,000. Thrombocytopenia probably may be related to alcohol. Consider HIT. Check HIT screen. DC heparin. Follow. VTE PROPHYLAXIS Initially received SQ heparin. Heparin stopped due to thrombocytopenia. SCD's. Ambulate. DISPOSITION To be determined. Inpatient rehab for alcohol abuse vs rehab or skilled care for gait dysfunction. Family Medicine follow-up with Dr. Destiny Walls. . Current Inpatient Medications: Current Inpatient Medications Medications (Trade) Dose Ordered Sig/Leisa Route Start Time Stop Time Status Last Admin Dose Admin Aspirin (Ecotrin Tab) 81 mg QAM PO 03/16/18 09:00 04/15/18 08:59 03/18/18 07:21 81 MG Fluoxetine HCl (Prozac Cap) 40 mg DAILY PO 03/16/18 09:00 04/15/18 08:59 03/18/18 07:20 40 MG Salmeterol Xinafoate/ Fluticasone (Advair Diskus 250/50 Inh) 1 puff BID INH 03/15/18 21:00 04/14/18 20:59 03/18/18 20:23 1 PUFF Fluticasone Propionate (Flonase Nasal [place]) 2 sprays QAM PRN TATE 03/15/18 18:15 04/14/18 18:14 Folic Acid (Folvite Tab) 1 mg QAM PO 03/16/18 09:00 04/15/18 08:59 03/18/18 07:20 1 MG Gabapentin (Neurontin Cap) 300 mg TID PO 03/15/18 21:00 04/14/18 20:59 03/18/18 20:21 300 MG Levothyroxine Sodium (Synthroid Tab) 75 mcg DAILYBB PO 03/16/18 06:00 04/15/18 06:59 03/18/18 05:48 75 MCG Losartan Potassium (coZAAR TAB) 25 mg QAM PO 03/16/18 09:00 04/15/18 08:59 03/18/18 07:20 25 MG Metoprolol Succinate (Toprol Xl Tab) 50 mg QAM PO 03/16/18 09:00 04/15/18 08:59 03/18/18 07:19 50 MG Montelukast Sodium (Singulair Tab) 10 mg HS PRN PO 03/15/18 18:15 04/14/18 18:14 Nitroglycerin (Nitrostat Tab) 0.4 mg UD PRN UT 03/15/18 18:15 04/14/18 18:14 Sodium Chloride ([place] Nasal [place]) 2 sprays DAILY PRN TATE 03/15/18 18:15 04/14/18 18:14 Tramadol HCl (Ultram Tab) 50 mg Q6H PRN PO 03/15/18 18:15 04/14/18 18:14 03/18/18 18:37 50 MG Trazodone HCl (Desyrel Tab) 150 mg HS PO 03/15/18 21:00 04/14/18 20:59 03/18/18 20:51 150 MG Triamcinolone Acetonide (Kenalog 0.1% Cream) 1 appln DAILY EXT 03/16/18 09:00 04/15/18 08:59 03/18/18 07:21 1 APPLN Pantoprazole Sodium (Protonix Tab) 40 mg QAM PO 03/16/18 09:00 04/15/18 08:59 03/18/18 07:19 40 MG Albuterol (Ventolin Hfa Inhaler) 4 puffs Q6H PRN INH 03/15/18 18:15 04/14/18 18:14 03/16/18 13:38 4 PUFFS Clonidine HCl (Catapres Tab) 0.1 mg Q6H PRN PO 03/15/18 18:45 04/14/18 18:44 Acetaminophen (Tylenol Tab) 1,000 mg Q12H PRN PO 03/16/18 18:45 04/15/18 18:44 Albuterol/ Ipratropium (Combivent Respimat Inh) 1 puffs QID INH 03/17/18 17:00 04/16/18 16:59 03/18/18 20:20 1 PUFFS Lactulose ([place]ac Syrup) 20 gm TID PO 03/18/18 14:00 04/15/18 08:59 03/18/18 20:21 20 GM
[2018-03-18 23:03] VITALS: BP 180/70; PULSE 68; TEMP 37.2; O2SAT 94
[2018-03-19] VITALS: O2SAT 94
[2018-03-19 04:05] VITALS: BP 155/81
[2018-03-19] MEDS: LEVOTHYROXINE 75 MCG TAB PO SCH (06:08)
[2018-03-19] MEDS: TRAMADOL HCL 50 MG TAB PO PRN ×2 (06:10→13:32)
[2018-03-19 06:14] LABS: HEMATOCRIT 34.7 % (37-47); HEMOGLOBIN 11.5 g/dL (12.0-16.0); MEAN CELL VOLUME 94.8 fL (80-100); MEAN CORPUSCULAR HEMOGLOBIN 31.4 pg (25-34); MEAN CORPUSCULAR HGB CONC 33.1 g/dl (32-36); RED CELL DISTRIBUTION WIDTH CV 16.3 % (11.5-14.5); RED CELL DISTRIBUTION WIDTH SD 56.3 fL (36.4-46.3); WHITE BLOOD COUNT 2.95 K/uL (4.8-10.8)
[2018-03-19 06:56] LABS: ALBUMIN 3.4 gm/dl (3.4-5.0); CALCIUM 8.8 mg/dl (8.5-10.1); CREATININE 0.84 mg/dl (0.60-1.20); POTASSIUM 4.2 mmol/L (3.5-5.1); TOTAL PROTEIN 6.5 gm/dl (6.4-8.2)
[2018-03-19 07:06] VITALS: BP 147/82; PULSE 68; TEMP 37; O2SAT 95
[2018-03-19 07:12] LABS: MEAN PLATELET VOLUME 11.8 fL (7.4-10.4); PLATELET COUNT 72 K/uL (130-400)
[2018-03-19] MEDS: GABAPENTIN 300 MG CAP PO SCH ×3 (08:51→20:41)
[2018-03-19] MEDS: FLUTICASONE/SALMETEROL 250/50 (ADVAIR) 14 PUFF/1 INHALER INH SCH ×2 (08:55→20:40)
[2018-03-19] MEDS: LOSARTAN POTASSIUM 25 MG TAB PO SCH (08:55)
[2018-03-19] MEDS: LACTULOSE SYRUP 20 GM/30 ML UDC PO SCH ×3 (08:55→20:40)
[2018-03-19] MEDS: ASPIRIN 81 MG ECTAB PO SCH (08:55)
[2018-03-19] MEDS: PANTOprazole SOD 40 MG TAB PO SCH (08:55)
[2018-03-19] MEDS: IPRATROPIUM BROMIDE/ALBUTEROL respimat INH INH SCH ×4 (08:55→20:40)
[2018-03-19] MEDS: MULTIVITAMIN TAB PO SCH (08:55)
[2018-03-19] MEDS: METOPROLOL SUCC 50MG EXT REL TAB PO SCH (08:55)
[2018-03-19] MEDS: FLUOXETINE HCL 20 MG CAP PO SCH (08:55)
[2018-03-19] MEDS: THIAMINE HCL 100 MG TAB PO SCH (08:55)
[2018-03-19] MEDS: LORAZEPAM 0.5 MG TAB PO PRN (08:55)
[2018-03-19] MEDS: TRIAMCINOLONE ACET 0.1% CR 15 GM TUBE EXT SCH (08:56)
[2018-03-19 15:43] VITALS: BP 144/77; PULSE 63; TEMP 37.4; O2SAT 96
--- NOTE | 2018-03-19 18:31 | DIAGNOSTIC IMAGING REPORT ---
R SHOULDER MIN 2 VIEWS ROUTINE CLINICAL HISTORY: shoulder pain after fall trauma. Pain. COMPARISON: None. DISCUSSION: Mild degenerative change. No evidence for fracture or dislocation. Inferior osteophyte projecting from the distal clavicle. No evidence for a lytic or blastic process. There is no evidence for soft tissue swelling. IMPRESSION: Mild degenerative change. No acute process. The above report was generated using voice recognition software. It may contain grammatical, syntax or spelling errors. Electronically signed by: Vikas Escalante M.D. 03/19/2018 6:30 PM Dictated Date/Time: 03/19/2018 6:29 PM
[2018-03-19] MEDS ORDERED: PROCHLORPERAZINE MALEATE 5 MG TAB PO PRN (19:45)
[2018-03-19] MEDS: TRAZODONE HCL 50 MG TAB PO SCH (20:41)
--- NOTE | 2018-03-19 21:11 | Progress Note ---
Medicine Progress Note Date & Time of Visit: Mar 19, 2018 at 11:40 . Subjective CC: Follow-up visit for multiple problems. HPI: Feels better. Last drink was about 10 days ago. Persistent tremor. No nausea, vomiting, diaphoresis, hallucinations. Headache improved. ROS: General- no fever, no chills Resp- no cough; no shortness of breath Cardiac- no chest pain, no edema GI- as noted above in HPI - no dysuria . Objective Last 8 Hrs Date Time Temp Pulse Resp B/P (MAP) Pulse Ox O2 Delivery O2 Flow Rate FiO2 03/19/18 16:00 Room Air 03/19/18 15:43 37.4 63 18 144/77 (99) 96 Room Air Physical Exam: General- lying in bed; no acute distress Eyes- anicteric Lungs- clear to auscultation; no respiratory distress Cardiovascular- RRR; no murmur or gallop appreciated; no JVD; no pretibial edema Abdomen- + bowel sounds, soft, nontender Extremities- no cyanosis; no calf tenderness Neuro- alert, oriented, mild resting tremor Skin- warm & dry . Laboratory Results: Last 24 Hours Test 03/19/18 05:59 White Blood Count 2.95 K/uL Red Blood Count 3.66 M/uL Hemoglobin 11.5 g/dL Hematocrit 34.7 % Mean Corpuscular Volume 94.8 fL Mean Corpuscular Hemoglobin 31.4 pg Mean Corpuscular Hemoglobin Concent 33.1 g/dl RDW Standard Deviation 56.3 fL RDW Coefficient of Variation 16.3 % Platelet Count 72 K/uL Mean Platelet Volume 11.8 fL Sodium Level 137 mmol/L Potassium Level 4.2 mmol/L Chloride Level 105 mmol/L Carbon Dioxide Level 26 mmol/L Anion Gap 6.0 mmol/L Blood Urea Nitrogen 5 mg/dl Creatinine 0.84 mg/dl Est Creatinine Clear Calc Drug Dose 65.3 ml/min Estimated GFR () 80.5 Estimated GFR (Non- 69.4 BUN/Creatinine Ratio 6.4 Random Glucose 94 mg/dl Calcium Level 8.8 mg/dl Total Bilirubin 1.1 mg/dl Aspartate Amino Transf (AST/SGOT) 45 U/L Alanine Aminotransferase (ALT/SGPT) 50 U/L Alkaline Phosphatase 71 U/L Total Protein 6.5 gm/dl Albumin 3.4 gm/dl Globulin 3.1 gm/dl Albumin/Globulin Ratio 1.1 Heparin-PF4 Antibody Screen POS Assessment & Plan FALL / GAIT DYSFUNCTION / CLOSED HEAD INJURY Exact mechanism not clear. Worsening headache today. CT 03/16 negative for delayed subdural hematoma. MRI 03/17 demonstrated small vessel ischemic changes. Gait still unsteady. 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 Continue PT / OT. ALCOHOL ABUSE Last drink about 9 days ago. Receiving gabapentin, thiamine, multivitamin. Will need counseling - ? inpatient vs outpatient. CORONARY ARTERY DISEASE No anginal symptoms. Continue aspirin, metoprolol. CHF History of chronic left ventricular diastolic heart failure. Compensated. COPD Stable. Continue Combivent. HYPOTHYROIDISM Continue levothyroxine. THROMBOCYTOPENIA Plts 111,000 --> 64,000 --> 72,000. Thrombocytopenia probably may be related to alcohol. Consider HIT. HIT screen positive; confirmatory studies pending. Stopped heparin. Follow. VTE PROPHYLAXIS Initially received SQ heparin. Heparin stopped due to thrombocytopenia. SCD's. Ambulate. DISPOSITION To be determined. Inpatient rehab for alcohol abuse vs rehab or skilled care for gait dysfunction. Family Medicine follow-up with Dr. Destiny Walls. . Current Inpatient Medications: Current Inpatient Medications Medications (Trade) Dose Ordered Sig/Leisa Route Start Time Stop Time Status Last Admin Dose Admin Aspirin (Ecotrin Tab) 81 mg QAM PO 03/16/18 09:00 04/15/18 08:59 03/19/18 08:55 81 MG Fluoxetine HCl (Prozac Cap) 40 mg DAILY PO 03/16/18 09:00 04/15/18 08:59 03/19/18 08:55 40 MG Salmeterol Xinafoate/ Fluticasone (Advair Diskus 250/50 Inh) 1 puff BID INH 03/15/18 21:00 04/14/18 20:59 03/19/18 20:40 1 PUFF Fluticasone Propionate (Flonase Nasal [place]) 2 sprays QAM PRN TATE 03/15/18 18:15 04/14/18 18:14 Folic Acid (Folvite Tab) 1 mg QAM PO 03/16/18 09:00 04/15/18 08:59 03/19/18 08:55 1 MG Gabapentin (Neurontin Cap) 300 mg TID PO 03/15/18 21:00 8/31/18 20:59 03/19/18 20:41 300 MG Levothyroxine Sodium (Synthroid Tab) 75 mcg DAILYBB PO 03/16/18 06:00 04/15/18 06:59 03/19/18 06:08 75 MCG Losartan Potassium (coZAAR TAB) 25 mg QAM PO 03/16/18 09:00 04/15/18 08:59 03/19/18 08:55 25 MG Metoprolol Succinate (Toprol Xl Tab) 50 mg QAM PO 03/16/18 09:00 04/15/18 08:59 03/19/18 08:55 50 MG Montelukast Sodium (Singulair Tab) 10 mg HS PRN PO 03/15/18 18:15 04/14/18 18:14 Nitroglycerin (Nitrostat Tab) 0.4 mg UD PRN UT 03/15/18 18:15 04/14/18 18:14 Sodium Chloride ([place] Nasal [place]) 2 sprays DAILY PRN TATE 03/15/18 18:15 04/14/18 18:14 Tramadol HCl (Ultram Tab) 50 mg Q6H PRN PO 03/15/18 18:15 04/14/18 18:14 03/19/18 13:32 50 MG Trazodone HCl (Desyrel Tab) 150 mg HS PO 03/15/18 21:00 04/14/18 20:59 03/19/18 20:41 150 MG Triamcinolone Acetonide (Kenalog 0.1% Cream) 1 appln DAILY EXT 03/16/18 09:00 04/15/18 08:59 03/19/18 08:56 1 APPLN Pantoprazole Sodium (Protonix Tab) 40 mg QAM PO 03/16/18 09:00 04/15/18 08:59 03/19/18 08:55 40 MG Albuterol (Ventolin Hfa Inhaler) 4 puffs Q6H PRN INH 03/15/18 18:15 04/14/18 18:14 03/16/18 13:38 4 PUFFS Clonidine HCl (Catapres Tab) 0.1 mg Q6H PRN PO 03/15/18 18:45 04/14/18 18:44 03/18/18 23:39 0.1 MG Acetaminophen (Tylenol Tab) 1,000 mg Q12H PRN PO 03/16/18 18:45 04/15/18 18:44 03/19/18 16:18 1,000 MG Albuterol/ Ipratropium (Combivent Respimat Inh) 1 puffs QID INH 03/17/18 17:00 04/16/18 16:59 03/19/18 20:40 1 PUFFS Lactulose (Chronulac Syrup) 20 gm TID PO 03/18/18 14:00 04/15/18 08:59 03/19/18 20:40 20 GM Lorazepam (Ativan Tab) 0.5 mg Q8H PRN PO 03/18/18 21:30 04/17/18 21:29 03/19/18 08:55 0.5 MG Thiamine HCl (Vitamin B-1 Tab) 100 mg QAM PO 03/19/18 09:00 04/18/18 08:59 03/19/18 08:55 100 MG Multivitamins (Multivitamin Tab) 1 tab QAM PO 03/19/18 09:00 04/18/18 08:59 03/19/18 08:55 1 TAB Prochlorperazine Maleate (Compazine Tab) 5 mg Q6H PRN PO 03/19/18 19:45 04/18/18 19:44 03/19/18 20:30 5 MG
[2018-03-19 23:07] VITALS: BP 147/84; PULSE 64; TEMP 37.1; O2SAT 93
[2018-03-20 01:05] VITALS: O2SAT 94
[2018-03-20] MEDS: LEVOTHYROXINE 75 MCG TAB PO SCH (06:10)
[2018-03-20 07:15] LABS: HEMATOCRIT 34.3 % (37-47); HEMOGLOBIN 11.8 g/dL (12.0-16.0); MEAN CELL VOLUME 93.7 fL (80-100); MEAN CORPUSCULAR HEMOGLOBIN 32.2 pg (25-34); MEAN CORPUSCULAR HGB CONC 34.4 g/dl (32-36); RED CELL DISTRIBUTION WIDTH CV 16.1 % (11.5-14.5); RED CELL DISTRIBUTION WIDTH SD 55.5 fL (36.4-46.3); WHITE BLOOD COUNT 2.91 K/uL (4.8-10.8)
[2018-03-20 07:17] LABS: MEAN PLATELET VOLUME 11.9 fL (7.4-10.4); PLATELET COUNT 68 K/uL (130-400)
[2018-03-20 07:19] VITALS: BP_SYST 100; BP_SYST 109; BP_SYST 143; BP_DIAS 67; BP_DIAS 70; BP_DIAS 80; PULSE 65; PULSE 69; PULSE 83; TEMP 37.2; O2SAT 96
[2018-03-20] MEDS: IPRATROPIUM BROMIDE/ALBUTEROL respimat INH INH SCH ×4 (08:02→20:32)
[2018-03-20] MEDS: FLUTICASONE/SALMETEROL 250/50 (ADVAIR) 14 PUFF/1 INHALER INH SCH ×2 (08:02→20:32)
[2018-03-20] MEDS: TRAMADOL HCL 50 MG TAB PO PRN ×2 (08:03→14:26)
[2018-03-20] MEDS: GABAPENTIN 300 MG CAP PO SCH ×4 (08:03→20:33)
[2018-03-20] MEDS: METOPROLOL SUCC 50MG EXT REL TAB PO SCH (08:04)
[2018-03-20] MEDS: PANTOprazole SOD 40 MG TAB PO SCH (08:04)
[2018-03-20] MEDS: MULTIVITAMIN TAB PO SCH (08:04)
[2018-03-20] MEDS: THIAMINE HCL 100 MG TAB PO SCH (08:04)
[2018-03-20] MEDS: FLUOXETINE HCL 20 MG CAP PO SCH (08:05)
[2018-03-20] MEDS: LOSARTAN POTASSIUM 25 MG TAB PO SCH (08:05)
[2018-03-20] MEDS: ASPIRIN 81 MG ECTAB PO SCH (08:06)
[2018-03-20] MEDS: TRIAMCINOLONE ACET 0.1% CR 15 GM TUBE EXT SCH (08:07)
[2018-03-20] MEDS: LACTULOSE SYRUP 20 GM/30 ML UDC PO SCH ×3 (08:08→20:32)
--- NOTE | 2018-03-20 14:25 | Progress Note ---
Medicine Progress Note Date & Time of Visit: Mar 20, 2018 at 14:17. Subjective seen resting in bedside chair just had PT, ambulated in the hallways states she was somewhat unsteady reports chronic back pain radiating to left leg- increased today no numbness/weakness feels somewhat nervous today but no hallucinations, headache, sweats, abdominal pain no other symptoms Objective Last 8 Hrs Date Time Temp Pulse Resp B/P (MAP) Pulse Ox O2 Delivery O2 Flow Rate FiO2 03/20/18 08:00 Room Air 03/20/18 07:19 37.2 65 18 143/80 (101) 96 Room Air 69 109/70 (83) 83 100/67 (78) Physical Exam: General- oriented x 3, not in distress, speaks in sentences with no effort Head- atraumatic Eyes- anicteric ENT- oropharynx clear Neck- supple, no JVD Lungs- clear breath sounds bilaterally Heart- regular rhythm; no murmur, normal rate Abdomen- normal bowel sounds, soft, nontender Extremities- no pretibial edema, no calf tenderness; peripheral pulses intact mild tremors- b/l hand Neuro- alert, oriented x 3; no gross focal deficits Skin- warm & dry Laboratory Results: Last 24 Hours Test 03/20/18 06:54 03/20/18 14:02 03/20/18 14:15 White Blood Count 2.91 K/uL Red Blood Count 3.66 M/uL Hemoglobin 11.8 g/dL Hematocrit 34.3 % Mean Corpuscular Volume 93.7 fL Mean Corpuscular Hemoglobin 32.2 pg Mean Corpuscular Hemoglobin Concent 34.4 g/dl RDW Standard Deviation 55.5 fL RDW Coefficient of Variation 16.1 % Platelet Count 68 K/uL Mean Platelet Volume 11.9 fL Peripheral Blood Smear Path Consult Assessment & Plan FALL / GAIT DYSFUNCTION / CLOSED HEAD INJURY Exact mechanism not clear. CT 03/16 negative for delayed subdural hematoma. MRI 03/17 demonstrated small vessel ischemic changes. Gait still unsteady. 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 Continue PT / OT. - patient agreeable to transition to rehab ALCOHOL ABUSE Last drink about 9 days ago. Receiving gabapentin, thiamine, multivitamin. - patient requesting referral to Alcohol Rehab THROMBOCYTOPENIA HIT ab positive, JEANNA pending discussed with Dr. Villalba, splenic US and serologies ordered Plt in the 60-70s past 4 days CHRONIC BACK PAIN WITH SCIATICA add Prednisone taper, Lidoderm patch, warm compress continue Tramadol PRN CORONARY ARTERY DISEASE No anginal symptoms. Continue aspirin, metoprolol. CHF History of chronic left ventricular diastolic heart failure. Compensated. COPD Stable. Continue Combivent. HYPOTHYROIDISM Continue levothyroxine. VTE PROPHYLAXIS Initially received SQ heparin. Heparin stopped due to thrombocytopenia. SCD's. Ambulate. DISPOSITION Inpatient rehab for alcohol abuse vs rehab or skilled care for gait dysfunction. Family Medicine follow-up with Dr. Destiny Walls. Current Inpatient Medications: Current Inpatient Medications Medications (Trade) Dose Ordered Sig/Leisa Route Start Time Stop Time Status Last Admin Dose Admin Aspirin (Ecotrin Tab) 81 mg QAM PO 03/16/18 09:00 04/15/18 08:59 03/20/18 08:06 81 MG Fluoxetine HCl (Prozac Cap) 40 mg DAILY PO 03/16/18 09:00 04/15/18 08:59 03/20/18 08:05 40 MG Salmeterol Xinafoate/ Fluticasone (Advair Diskus 250/50 Inh) 1 puff BID INH 03/15/18 21:00 04/14/18 20:59 03/20/18 08:02 1 PUFF Fluticasone Propionate (Flonase Nasal [place]) 2 sprays QAM PRN TATE 03/15/18 18:15 04/14/18 18:14 Folic Acid (Folvite Tab) 1 mg QAM PO 03/16/18 09:00 04/15/18 08:59 03/20/18 08:06 1 MG Gabapentin (Neurontin Cap) 300 mg TID PO 03/15/18 21:00 04/14/18 20:59 03/20/18 08:03 300 MG Levothyroxine Sodium (Synthroid Tab) 75 mcg DAILYBB PO 03/16/18 06:00 04/15/18 06:59 03/20/18 06:10 75 MCG Losartan Potassium (coZAAR TAB) 25 mg QAM PO 03/16/18 09:00 04/15/18 08:59 03/20/18 08:05 25 MG Metoprolol Succinate (Toprol Xl Tab) 50 mg QAM PO 03/16/18 09:00 04/15/18 08:59 03/20/18 08:04 50 MG Montelukast Sodium (Singulair Tab) 10 mg HS PRN PO 03/15/18 18:15 04/14/18 18:14 Nitroglycerin (Nitrostat Tab) 0.4 mg UD PRN UT 03/15/18 18:15 04/14/18 18:14 Sodium Chloride ([place] Nasal [place]) 2 sprays DAILY PRN TATE 03/15/18 18:15 04/14/18 18:14 Tramadol HCl (Ultram Tab) 50 mg Q6H PRN PO 03/15/18 18:15 04/14/18 18:14 03/20/18 08:03 50 MG Trazodone HCl (Desyrel Tab) 150 mg HS PO 03/15/18 21:00 04/14/18 20:59 03/19/18 20:41 150 MG Triamcinolone Acetonide (Kenalog 0.1% Cream) 1 appln DAILY EXT 03/16/18 09:00 04/15/18 08:59 03/20/18 08:07 1 APPLN Pantoprazole Sodium (Protonix Tab) 40 mg QAM PO 03/16/18 09:00 04/15/18 08:59 03/20/18 08:04 40 MG Albuterol (Ventolin Hfa Inhaler) 4 puffs Q6H PRN INH 03/15/18 18:15 04/14/18 18:14 03/16/18 13:38 4 PUFFS Clonidine HCl (Catapres Tab) 0.1 mg Q6H PRN PO 03/15/18 18:45 04/14/18 18:44 03/18/18 23:39 0.1 MG Acetaminophen (Tylenol Tab) 1,000 mg Q12H PRN PO 03/16/18 18:45 04/15/18 18:44 03/19/18 16:18 1,000 MG Albuterol/ Ipratropium (Combivent Respimat Inh) 1 puffs QID INH 03/17/18 17:00 04/16/18 16:59 03/20/18 13:36 1 PUFFS Lactulose (Chronulac Syrup) 20 gm TID PO 03/18/18 14:00 04/15/18 08:59 03/20/18 13:37 20 GM Lorazepam (Ativan Tab) 0.5 mg Q8H PRN PO 03/18/18 21:30 04/17/18 21:29 03/19/18 08:55 0.5 MG Thiamine HCl (Vitamin B-1 Tab) 100 mg QAM PO 03/19/18 09:00 04/18/18 08:59 03/20/18 08:04 100 MG Multivitamins (Multivitamin Tab) 1 tab QAM PO 03/19/18 09:00 04/18/18 08:59 03/20/18 08:04 1 TAB Prochlorperazine Maleate (Compazine Tab) 5 mg Q6H PRN PO 03/19/18 19:45 04/18/18 19:44 03/19/18 20:30 5 MG
[2018-03-20] MEDS: LORAZEPAM 0.5 MG TAB PO PRN (14:26)
[2018-03-20] MEDS ORDERED: LIDODERM (LIDOCAINE) PATCH 5% TD ONE (14:45)
[2018-03-20 15:34] VITALS: BP_SYST 125; BP_SYST 136; BP_SYST 145; BP_DIAS 75; BP_DIAS 77; BP_DIAS 83; PULSE 68; PULSE 70; TEMP 37.1; O2SAT 95
[2018-03-20] MEDS: TRAZODONE HCL 50 MG TAB PO SCH (20:33)
[2018-03-20 23:22] VITALS: BP_SYST 129; BP_SYST 144; BP_SYST 164; BP_DIAS 77; BP_DIAS 79; BP_DIAS 92; PULSE 71; PULSE 72; TEMP 37.2; O2SAT 93
[2018-03-20 23:50] VITALS: O2SAT 93
[2018-03-21] MEDS: LEVOTHYROXINE 75 MCG TAB PO SCH (06:06)
--- NOTE | 2018-03-21 06:43 | DIAGNOSTIC IMAGING REPORT ---
(SPLEEN) ABD LTD CLINICAL HISTORY: thrombocytopenia pain TECHNIQUE: Ultrasound COMPARISON STUDY: 12/15/2014 FINDINGS: Splenomegaly Maximum linear dimension 16 cm. Internal echogenicity is uniform. IMPRESSION: Splenic enlargement at 16 cm. The above report was generated using voice recognition software. It may contain grammatical, syntax or spelling errors. Electronically signed by: Vikas Escalante M.D. 03/21/2018 6:41 AM Dictated Date/Time: 03/21/2018 6:40 AM
[2018-03-21 07:58] VITALS: BP 128/82; PULSE 80; TEMP 37.6; O2SAT 95
[2018-03-21] MEDS: PANTOprazole SOD 40 MG TAB PO SCH (07:59)
[2018-03-21] MEDS: THIAMINE HCL 100 MG TAB PO SCH (07:59)
[2018-03-21] MEDS: LACTULOSE SYRUP 20 GM/30 ML UDC PO SCH ×3 (08:00→21:06)
[2018-03-21] MEDS: METOPROLOL SUCC 50MG EXT REL TAB PO SCH (08:00)
[2018-03-21] MEDS: LOSARTAN POTASSIUM 25 MG TAB PO SCH (08:00)
[2018-03-21] MEDS: GABAPENTIN 300 MG CAP PO SCH ×3 (08:00→21:06)
[2018-03-21] MEDS: TRIAMCINOLONE ACET 0.1% CR 15 GM TUBE EXT SCH (08:01)
[2018-03-21] MEDS: ASPIRIN 81 MG ECTAB PO SCH (08:01)
[2018-03-21] MEDS: FLUTICASONE/SALMETEROL 250/50 (ADVAIR) 14 PUFF/1 INHALER INH SCH ×2 (08:01→21:06)
[2018-03-21] MEDS: IPRATROPIUM BROMIDE/ALBUTEROL respimat INH INH SCH ×4 (08:01→21:06)
[2018-03-21] MEDS: MULTIVITAMIN TAB PO SCH (08:02)
[2018-03-21] MEDS: FLUOXETINE HCL 20 MG CAP PO SCH (08:02)
[2018-03-21] MEDS: LIDODERM (LIDOCAINE) PATCH 5% TD SCH (08:03)
[2018-03-21 08:37] LABS: HEMATOCRIT 36.9 % (37-47); HEMOGLOBIN 12.5 g/dL (12.0-16.0); MEAN CELL VOLUME 93.7 fL (80-100); MEAN CORPUSCULAR HEMOGLOBIN 31.7 pg (25-34); MEAN CORPUSCULAR HGB CONC 33.9 g/dl (32-36); MEAN PLATELET VOLUME 12.4 fL (7.4-10.4); PLATELET COUNT 99 K/uL (130-400); RED CELL DISTRIBUTION WIDTH CV 16.1 % (11.5-14.5); RED CELL DISTRIBUTION WIDTH SD 55.5 fL (36.4-46.3); WHITE BLOOD COUNT 5.55 K/uL (4.8-10.8)
[2018-03-21 09:00] LABS: BASO % 0.2 %; BASO ABS # 0.01 K/uL (0-0.2); EOS % 0.4 %; EOS ABS # 0.02 K/uL (0-0.5); LYMPH % 17.8 %; LYMPH ABS # 0.99 K/uL (1.2-3.4); MONO % 8.8 %; MONO ABS # 0.49 K/uL (0.11-0.59); NEUT % 72.8 %; NEUT ABS # 4.04 K/uL (1.4-6.5)
[2018-03-21 15:25] VITALS: BP_SYST 110; BP_SYST 119; BP_SYST 131; BP_DIAS 69; BP_DIAS 73; BP_DIAS 84; PULSE 66; PULSE 69; PULSE 72; TEMP 37; O2SAT 93
[2018-03-21 17:00] VITALS: O2SAT 93
[2018-03-21] MEDS: TRAMADOL HCL 50 MG TAB PO PRN (17:56)
[2018-03-21] MEDS: LORAZEPAM 0.5 MG TAB PO PRN (17:56)
--- NOTE | 2018-03-21 21:07 | Progress Note ---
Medicine Progress Note Date & Time of Visit: Mar 21, 2018 at 21:03. Subjective Seen sitting up in bed, comfortable Denies tremors, hallucinations, nausea, abdominal pain No headache, dizziness, chest pain, shortness of breath No bleeding Denies other symptoms States she feels fine overall Objective Last 8 Hrs Date Time Temp Pulse Resp B/P (MAP) Pulse Ox O2 Delivery O2 Flow Rate FiO2 03/21/18 17:00 93 Room Air 03/21/18 15:25 37.0 66 18 131/84 (100) 93 Room Air 69 119/69 (86) 72 110/73 (85) Physical Exam: General- oriented x 3, not in distress, speaks in sentences with no effort Eyes- anicteric Neck- supple, no JVD Lungs- clear breath sounds bilaterally, no rales or wheezes Heart- regular rhythm; no murmur, normal rate Abdomen- normal bowel sounds, soft, nontender Extremities- no pretibial edema, no calf tenderness; peripheral pulses intact Very mild tremors- b/l hand Neuro- alert, oriented x 3; no gross focal deficits Skin- warm & dry Laboratory Results: Last 24 Hours Test 03/21/18 08:13 White Blood Count 5.55 K/uL Red Blood Count 3.94 M/uL Hemoglobin 12.5 g/dL Hematocrit 36.9 % Mean Corpuscular Volume 93.7 fL Mean Corpuscular Hemoglobin 31.7 pg Mean Corpuscular Hemoglobin Concent 33.9 g/dl Platelet Count 99 K/uL Mean Platelet Volume 12.4 fL Neutrophils (%) (Auto) 72.8 % Lymphocytes (%) (Auto) 17.8 % Monocytes (%) (Auto) 8.8 % Eosinophils (%) (Auto) 0.4 % Basophils (%) (Auto) 0.2 % Neutrophils # (Auto) 4.04 K/uL Lymphocytes # (Auto) 0.99 K/uL Monocytes # (Auto) 0.49 K/uL Eosinophils # (Auto) 0.02 K/uL Basophils # (Auto) 0.01 K/uL RDW Standard Deviation 55.5 fL RDW Coefficient of Variation 16.1 % Immature Granulocyte % (Auto) 0.0 % Immature Granulocyte # (Auto) 0.00 K/uL Platelet Estimate DECREASED Assessment & Plan FALL / GAIT DYSFUNCTION / CLOSED HEAD INJURY Exact mechanism not clear. CT 03/16 negative for delayed subdural hematoma. MRI 03/17 demonstrated small vessel ischemic changes. Gait still unsteady. 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 Continue PT / OT. ALCOHOL ABUSE Last drink about 9 days ago. Receiving gabapentin, thiamine, multivitamin. - patient requesting referral to Alcohol Rehab manager linux working on referral to alcohol rehab facilities THROMBOCYTOPENIA HIT ab positive, JEANNA pending discussed with Dr. Villalba, splenic US and serologies ordered Plt in the 60-70s past 4 days, now improving to the 90s Ultrasound of the spleen :revealing splenomegaly, monitor CHRONIC BACK PAIN WITH SCIATICA ordered Prednisone, Lidoderm patch, warm compress continue Tramadol PRN Improving CORONARY ARTERY DISEASE No anginal symptoms. Continue aspirin, metoprolol. CHF History of chronic left ventricular diastolic heart failure. Compensated. COPD Stable. Continue Combivent. HYPOTHYROIDISM Continue levothyroxine. VTE PROPHYLAXIS Initially received SQ heparin. Heparin stopped due to thrombocytopenia. SCD's. Encouraged to ambulate DISPOSITION Awaiting acceptance to alcohol rehab Family Medicine follow-up with Dr. Destiny Walls. Current Inpatient Medications: Current Inpatient Medications Medications (Trade) Dose Ordered Sig/Leisa Route Start Time Stop Time Status Last Admin Dose Admin Aspirin (Ecotrin Tab) 81 mg QAM PO 03/16/18 09:00 04/15/18 08:59 03/21/18 08:01 81 MG Fluoxetine HCl (Prozac Cap) 40 mg DAILY PO 03/16/18 09:00 04/15/18 08:59 03/21/18 08:02 40 MG Salmeterol Xinafoate/ Fluticasone (Advair Diskus 250/50 Inh) 1 puff BID INH 03/15/18 21:00 04/14/18 20:59 03/21/18 08:01 1 PUFF Fluticasone Propionate (Flonase Nasal [place]) 2 sprays QAM PRN TATE 03/15/18 18:15 04/14/18 18:14 Folic Acid (Folvite Tab) 1 mg QAM PO 03/16/18 09:00 04/15/18 08:59 03/21/18 08:02 1 MG Gabapentin (Neurontin Cap) 300 mg TID PO 03/15/18 21:00 04/14/18 20:59 03/21/18 13:08 300 MG Levothyroxine Sodium (Synthroid Tab) 75 mcg DAILYBB PO 03/16/18 06:00 04/15/18 06:59 03/21/18 06:06 75 MCG Losartan Potassium (coZAAR TAB) 25 mg QAM PO 03/16/18 09:00 04/15/18 08:59 03/21/18 08:00 25 MG Metoprolol Succinate (Toprol Xl Tab) 50 mg QAM PO 03/16/18 09:00 04/15/18 08:59 03/21/18 08:00 50 MG Montelukast Sodium (Singulair Tab) 10 mg HS PRN PO 03/15/18 18:15 04/14/18 18:14 Nitroglycerin (Nitrostat Tab) 0.4 mg UD PRN UT 03/15/18 18:15 04/14/18 18:14 Sodium Chloride ([place] Nasal [place]) 2 sprays DAILY PRN TATE 03/15/18 18:15 04/14/18 18:14 Tramadol HCl (Ultram Tab) 50 mg Q6H PRN PO 03/15/18 18:15 04/14/18 18:14 03/21/18 17:56 50 MG Trazodone HCl (Desyrel Tab) 150 mg HS PO 03/15/18 21:00 04/14/18 20:59 03/20/18 20:33 150 MG Triamcinolone Acetonide (Kenalog 0.1% Cream) 1 appln DAILY EXT 03/16/18 09:00 04/15/18 08:59 03/21/18 08:01 1 APPLN Pantoprazole Sodium (Protonix Tab) 40 mg QAM PO 03/16/18 09:00 04/15/18 08:59 03/21/18 07:59 40 MG Albuterol (Ventolin Hfa Inhaler) 4 puffs Q6H PRN INH 03/15/18 18:15 04/14/18 18:14 03/16/18 13:38 4 PUFFS Clonidine HCl (Catapres Tab) 0.1 mg Q6H PRN PO 03/15/18 18:45 04/14/18 18:44 03/18/18 23:39 0.1 MG Acetaminophen (Tylenol Tab) 1,000 mg Q12H PRN PO 03/16/18 18:45 04/15/18 18:44 03/19/18 16:18 1,000 MG Albuterol/ Ipratropium (Combivent Respimat Inh) 1 puffs QID INH 03/17/18 17:00 04/16/18 16:59 03/21/18 17:31 1 PUFFS Lactulose (Chronulac Syrup) 20 gm TID PO 03/18/18 14:00 04/15/18 08:59 03/21/18 13:07 20 GM Lorazepam (Ativan Tab) 0.5 mg Q8H PRN PO 03/18/18 21:30 04/17/18 21:29 03/21/18 17:56 0.5 MG Thiamine HCl (Vitamin B-1 Tab) 100 mg QAM PO 03/19/18 09:00 04/18/18 08:59 03/21/18 07:59 100 MG Multivitamins (Multivitamin Tab) 1 tab QAM PO 03/19/18 09:00 04/18/18 08:59 03/21/18 08:02 1 TAB Prochlorperazine Maleate (Compazine Tab) 5 mg Q6H PRN PO 03/19/18 19:45 04/18/18 19:44 03/19/18 20:30 5 MG Lidocaine (Lidoderm Patch 5%) 1 patch QAM TD 03/21/18 09:00 04/20/18 08:59 03/21/18 08:03 1 PATCH Miscellaneous (Remove Lidoderm Patch) 1 ea DAILY@21 N/A 03/20/18 21:00 04/19/18 20:59 03/20/18 20:34 1 EA
[2018-03-21] MEDS: TRAZODONE HCL 50 MG TAB PO SCH (21:59)
[2018-03-21 23:28] VITALS: BP 111/70; PULSE 71; TEMP 37.1; O2SAT 93
[2018-03-21 23:29] VITALS: BP_SYST 105; BP_SYST 88; BP_DIAS 50; BP_DIAS 63; PULSE 71; PULSE 77
[2018-03-22] MEDS: TRAMADOL HCL 50 MG TAB PO PRN ×3 (00:52→20:20)
[2018-03-22] MEDS: LEVOTHYROXINE 75 MCG TAB PO SCH (06:13)
[2018-03-22 06:53] VITALS: BP_SYST 133; BP_SYST 136; BP_DIAS 78; BP_DIAS 80; PULSE 70; TEMP 36.8; O2SAT 91; O2SAT 92
[2018-03-22 06:54] VITALS: BP 125/79; PULSE 73; O2SAT 90
[2018-03-22 07:13] LABS: HEMATOCRIT 34.2 % (37-47); HEMOGLOBIN 11.5 g/dL (12.0-16.0); MEAN CELL VOLUME 93.7 fL (80-100); MEAN CORPUSCULAR HEMOGLOBIN 31.5 pg (25-34); MEAN CORPUSCULAR HGB CONC 33.6 g/dl (32-36); RED CELL DISTRIBUTION WIDTH CV 16.1 % (11.5-14.5); RED CELL DISTRIBUTION WIDTH SD 55.6 fL (36.4-46.3); WHITE BLOOD COUNT 4.24 K/uL (4.8-10.8)
[2018-03-22 07:47] LABS: MEAN PLATELET VOLUME 11.7 fL (7.4-10.4); PLATELET COUNT 81 K/uL (130-400)
[2018-03-22 08:08] LABS: BASO % 0.7 %; BASO ABS # 0.03 K/uL (0-0.2); EOS % 3.5 %; EOS ABS # 0.15 K/uL (0-0.5); IG# 0.01 K/uL (0.00-0.02); LYMPH ABS # 1.27 K/uL (1.2-3.4); MONO % 10.6 %; MONO ABS # 0.45 K/uL (0.11-0.59); NEUT ABS # 2.33 K/uL (1.4-6.5)
[2018-03-22] MEDS: LACTULOSE SYRUP 20 GM/30 ML UDC PO SCH ×3 (08:37→20:21)
[2018-03-22] MEDS: LORAZEPAM 0.5 MG TAB PO PRN ×2 (08:37→20:20)
[2018-03-22] MEDS: GABAPENTIN 300 MG CAP PO SCH ×3 (08:38→20:22)
[2018-03-22] MEDS: THIAMINE HCL 100 MG TAB PO SCH (08:39)
[2018-03-22] MEDS: METOPROLOL SUCC 50MG EXT REL TAB PO SCH (08:39)
[2018-03-22] MEDS: MULTIVITAMIN TAB PO SCH (08:39)
[2018-03-22] MEDS: PANTOprazole SOD 40 MG TAB PO SCH (08:39)
[2018-03-22] MEDS: LOSARTAN POTASSIUM 25 MG TAB PO SCH (08:39)
[2018-03-22] MEDS: LIDODERM (LIDOCAINE) PATCH 5% TD SCH (08:39)
[2018-03-22] MEDS: FLUOXETINE HCL 20 MG CAP PO SCH (08:40)
[2018-03-22] MEDS: IPRATROPIUM BROMIDE/ALBUTEROL respimat INH INH SCH ×4 (08:40→20:21)
[2018-03-22] MEDS: ASPIRIN 81 MG ECTAB PO SCH (08:40)
[2018-03-22] MEDS: FLUTICASONE/SALMETEROL 250/50 (ADVAIR) 14 PUFF/1 INHALER INH SCH ×2 (08:40→20:21)
[2018-03-22] MEDS: TRIAMCINOLONE ACET 0.1% CR 15 GM TUBE EXT SCH (08:40)
--- NOTE | 2018-03-22 14:42 | Progress Note ---
Medicine Progress Note Date & Time of Visit: Mar 22, 2018 at 14:42. Subjective Seen resting in bed, comfortable Denies tremors, hallucinations, anxiety States her ambulation continues to improve, no dizziness Denies other symptoms Objective Last 8 Hrs Date Time Temp Pulse Resp B/P (MAP) Pulse Ox O2 Delivery O2 Flow Rate FiO2 03/22/18 08:00 Room Air 03/22/18 06:54 73 20 125/79 (94) 90 Room Air 03/22/18 06:53 36.8 70 18 133/78 (96) 92 Room Air 03/22/18 06:53 20 136/80 (98) 91 Room Air Physical Exam: General- oriented x 3, not in distress, speaks in sentences with no effort Eyes- anicteric Neck- no JVD Lungs- clear breath sounds bilaterally, no rales or wheezes Heart-normal rate, regular rhythm; no murmurs Abdomen- normal bowel sounds, soft, nontender Extremities- no pretibial edema, no calf tenderness No tremors Neuro- alert, oriented x 3; no gross focal deficits Skin- warm & dry Laboratory Results: Last 24 Hours Test 03/22/18 06:29 White Blood Count 4.24 K/uL Red Blood Count 3.65 M/uL Hemoglobin 11.5 g/dL Hematocrit 34.2 % Mean Corpuscular Volume 93.7 fL Mean Corpuscular Hemoglobin 31.5 pg Mean Corpuscular Hemoglobin Concent 33.6 g/dl Platelet Count 81 K/uL Mean Platelet Volume 11.7 fL Neutrophils (%) (Auto) 55.0 % Lymphocytes (%) (Auto) 30.0 % Monocytes (%) (Auto) 10.6 % Eosinophils (%) (Auto) 3.5 % Basophils (%) (Auto) 0.7 % Neutrophils # (Auto) 2.33 K/uL Lymphocytes # (Auto) 1.27 K/uL Monocytes # (Auto) 0.45 K/uL Eosinophils # (Auto) 0.15 K/uL Basophils # (Auto) 0.03 K/uL RDW Standard Deviation 55.6 fL RDW Coefficient of Variation 16.1 % Immature Granulocyte % (Auto) 0.2 % Immature Granulocyte # (Auto) 0.01 K/uL Assessment & Plan FALL / GAIT DYSFUNCTION / CLOSED HEAD INJURY Exact mechanism not clear. CT 03/16 negative for delayed subdural hematoma. MRI 03/17 demonstrated small vessel ischemic changes. Gait still unsteady. 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 Continue PT / OT. --Ambulation improving ALCOHOL ABUSE Last drink about 9 days ago. Receiving gabapentin, thiamine, multivitamin. - patient requesting referral to Alcohol Rehab policy and planning manager working on referral to alcohol rehab facilities THROMBOCYTOPENIA HIT ab positive, JEANNA pending discussed with Dr. Villalba, splenic US and serologies ordered Plt in the 60-70s past 4 days, now improving to the 80 to 90s Ultrasound of the spleen :revealing splenomegaly, same as before CHRONIC BACK PAIN WITH SCIATICA ordered Prednisone, Lidoderm patch, warm compress continue Tramadol PRN Improved CORONARY ARTERY DISEASE No anginal symptoms. Continue aspirin, metoprolol. CHF History of chronic left ventricular diastolic heart failure. Compensated. COPD Stable. Continue Combivent. HYPOTHYROIDISM Continue levothyroxine. VTE PROPHYLAXIS Initially received SQ heparin. Heparin stopped due to thrombocytopenia. SCD's. Encouraged to ambulate DISPOSITION Awaiting acceptance to alcohol rehab Family Medicine follow-up with Dr. Destiny Walls. Current Inpatient Medications: Current Inpatient Medications Medications (Trade) Dose Ordered Sig/Leisa Route Start Time Stop Time Status Last Admin Dose Admin Aspirin (Ecotrin Tab) 81 mg QAM PO 03/16/18 09:00 04/15/18 08:59 03/22/18 08:40 81 MG Fluoxetine HCl (Prozac Cap) 40 mg DAILY PO 03/16/18 09:00 04/15/18 08:59 03/22/18 08:40 40 MG Salmeterol Xinafoate/ Fluticasone (Advair Diskus 250/50 Inh) 1 puff BID INH 03/15/18 21:00 04/14/18 20:59 03/22/18 08:40 1 PUFF Fluticasone Propionate (Flonase Nasal [place]) 2 sprays QAM PRN TATE 03/15/18 18:15 04/14/18 18:14 Folic Acid (Folvite Tab) 1 mg QAM PO 03/16/18 09:00 04/15/18 08:59 03/22/18 08:40 1 MG Gabapentin (Neurontin Cap) 300 mg TID PO 03/15/18 21:00 04/14/18 20:59 03/22/18 13:43 300 MG Levothyroxine Sodium (Synthroid Tab) 75 mcg DAILYBB PO 03/16/18 06:00 04/15/18 06:59 03/22/18 06:13 75 MCG Losartan Potassium (coZAAR TAB) 25 mg QAM PO 03/16/18 09:00 04/15/18 08:59 03/22/18 08:39 25 MG Metoprolol Succinate (Toprol Xl Tab) 50 mg QAM PO 03/16/18 09:00 04/15/18 08:59 03/22/18 08:39 50 MG Montelukast Sodium (Singulair Tab) 10 mg HS PRN PO 03/15/18 18:15 04/14/18 18:14 Nitroglycerin (Nitrostat Tab) 0.4 mg UD PRN UT 03/15/18 18:15 04/14/18 18:14 Sodium Chloride ([place] Nasal [place]) 2 sprays DAILY PRN TATE 03/15/18 18:15 04/14/18 18:14 Tramadol HCl (Ultram Tab) 50 mg Q6H PRN PO 03/15/18 18:15 04/14/18 18:14 03/22/18 13:44 50 MG Trazodone HCl (Desyrel Tab) 150 mg HS PO 03/15/18 21:00 04/14/18 20:59 03/21/18 21:59 150 MG Triamcinolone Acetonide (Kenalog 0.1% Cream) 1 appln DAILY EXT 03/16/18 09:00 04/15/18 08:59 03/22/18 08:40 1 APPLN Pantoprazole Sodium (Protonix Tab) 40 mg QAM PO 03/16/18 09:00 04/15/18 08:59 03/22/18 08:39 40 MG Albuterol (Ventolin Hfa Inhaler) 4 puffs Q6H PRN INH 03/15/18 18:15 04/14/18 18:14 03/16/18 13:38 4 PUFFS Clonidine HCl (Catapres Tab) 0.1 mg Q6H PRN PO 03/15/18 18:45 04/14/18 18:44 03/18/18 23:39 0.1 MG Acetaminophen (Tylenol Tab) 1,000 mg Q12H PRN PO 03/16/18 18:45 9/1/18 18:44 03/19/18 16:18 1,000 MG Albuterol/ Ipratropium (Combivent Respimat Inh) 1 puffs QID INH 03/17/18 17:00 04/16/18 16:59 03/22/18 13:43 1 PUFFS Lactulose (Chronulac Syrup) 20 gm TID PO 03/18/18 14:00 04/15/18 08:59 03/22/18 13:43 20 GM Lorazepam (Ativan Tab) 0.5 mg Q8H PRN PO 03/18/18 21:30 04/17/18 21:29 03/22/18 08:37 0.5 MG Thiamine HCl (Vitamin B-1 Tab) 100 mg QAM PO 03/19/18 09:00 04/18/18 08:59 03/22/18 08:39 100 MG Multivitamins (Multivitamin Tab) 1 tab QAM PO 03/19/18 09:00 04/18/18 08:59 03/22/18 08:39 1 TAB Prochlorperazine Maleate (Compazine Tab) 5 mg Q6H PRN PO 03/19/18 19:45 04/18/18 19:44 03/19/18 20:30 5 MG Lidocaine (Lidoderm Patch 5%) 1 patch QAM TD 03/21/18 09:00 04/20/18 08:59 03/22/18 08:39 1 PATCH Miscellaneous (Remove Lidoderm Patch) 1 ea DAILY@21 N/A 03/20/18 21:00 04/19/18 20:59 03/21/18 21:07 1 EA
[2018-03-22 15:20] VITALS: BP_SYST 114; BP_SYST 129; BP_SYST 144; BP_DIAS 74; BP_DIAS 83; BP_DIAS 87; PULSE 67; PULSE 70; PULSE 71; TEMP 36.5; O2SAT 94
[2018-03-22 16:00] VITALS: O2SAT 94
[2018-03-22] MEDS: TRAZODONE HCL 50 MG TAB PO SCH (20:23)
[2018-03-22 23:32] VITALS: BP 161/83; PULSE 62; TEMP 36.6; O2SAT 95
[2018-03-23] MEDS: LEVOTHYROXINE 75 MCG TAB PO SCH (06:17)
[2018-03-23 07:40] VITALS: BP 157/74; PULSE 65; TEMP 37.2; O2SAT 92
[2018-03-23] MEDS: ASPIRIN 81 MG ECTAB PO SCH (07:46)
[2018-03-23] MEDS: LOSARTAN POTASSIUM 25 MG TAB PO SCH (07:47)
[2018-03-23] MEDS: IPRATROPIUM BROMIDE/ALBUTEROL respimat INH INH SCH ×2 (07:47→12:49)
[2018-03-23] MEDS: FLUTICASONE/SALMETEROL 250/50 (ADVAIR) 14 PUFF/1 INHALER INH SCH (07:47)
[2018-03-23] MEDS: THIAMINE HCL 100 MG TAB PO SCH (07:47)
[2018-03-23] MEDS: PANTOprazole SOD 40 MG TAB PO SCH (07:47)
[2018-03-23] MEDS: TRIAMCINOLONE ACET 0.1% CR 15 GM TUBE EXT SCH (07:47)
[2018-03-23] MEDS: METOPROLOL SUCC 50MG EXT REL TAB PO SCH (07:47)
[2018-03-23] MEDS: GABAPENTIN 300 MG CAP PO SCH ×2 (07:47→12:49)
[2018-03-23] MEDS: MULTIVITAMIN TAB PO SCH (07:47)
[2018-03-23] MEDS: LACTULOSE SYRUP 20 GM/30 ML UDC PO SCH ×2 (07:47→12:50)
[2018-03-23] MEDS: LIDODERM (LIDOCAINE) PATCH 5% TD SCH (07:48)
[2018-03-23] MEDS: FLUOXETINE HCL 20 MG CAP PO SCH (07:49)
[2018-03-23] MEDS: LORAZEPAM 0.5 MG TAB PO PRN (07:52)
[2018-03-23 07:54] LABS: HEMATOCRIT 34.2 % (37-47); HEMOGLOBIN 11.6 g/dL (12.0-16.0); MEAN CELL VOLUME 94.5 fL (80-100); MEAN CORPUSCULAR HGB CONC 33.9 g/dl (32-36); MEAN PLATELET VOLUME 12.4 fL (7.4-10.4); PLATELET COUNT 85 K/uL (130-400); RED CELL DISTRIBUTION WIDTH SD 55.5 fL (36.4-46.3); WHITE BLOOD COUNT 3.26 K/uL (4.8-10.8)
[2018-03-23 08:17] LABS: BASO % 0.6 %; BASO ABS # 0.02 K/uL (0-0.2); EOS % 2.5 %; EOS ABS # 0.08 K/uL (0-0.5); LYMPH % 29.4 %; LYMPH ABS # 0.96 K/uL (1.2-3.4); MONO ABS # 0.36 K/uL (0.11-0.59); NEUT % 56.5 %; NEUT ABS # 1.84 K/uL (1.4-6.5)
[2018-03-23] MEDS: TRAMADOL HCL 50 MG TAB PO PRN (12:49)
--- NOTE | 2018-03-23 14:19 | Progress Note ---
Medicine Progress Note Date & Time of Visit: Mar 23, 2018 at 14:11. Subjective Seen ambulating in the room, comfortable States she feels good overall Denies weakness, unsteadiness, dizziness when ambulating No other symptoms States she is ready and would like to be discharged today Objective Last 8 Hrs Date Time Temp Pulse Resp B/P (MAP) Pulse Ox O2 Delivery O2 Flow Rate FiO2 03/23/18 08:00 Room Air 03/23/18 07:40 37.2 65 18 157/74 (101) 92 Room Air Physical Exam: General- oriented x 3, not in distress, speaks in sentences with no effort Eyes- anicteric Neck- no JVD Lungs- clear breath sounds bilaterall Heart-normal rate, regular rhythm; no murmurs Abdomen- normal bowel sounds, soft, nontender Extremities- no pretibial edema, no calf tenderness No tremors Neuro- alert, oriented x 3; no gross focal deficits Gait observed, patient is stable with ambulation Skin- warm & dry Laboratory Results: Last 24 Hours Test 03/23/18 07:10 White Blood Count 3.26 K/uL Red Blood Count 3.62 M/uL Hemoglobin 11.6 g/dL Hematocrit 34.2 % Mean Corpuscular Volume 94.5 fL Mean Corpuscular Hemoglobin 32.0 pg Mean Corpuscular Hemoglobin Concent 33.9 g/dl Platelet Count 85 K/uL Mean Platelet Volume 12.4 fL Neutrophils (%) (Auto) 56.5 % Lymphocytes (%) (Auto) 29.4 % Monocytes (%) (Auto) 11.0 % Eosinophils (%) (Auto) 2.5 % Basophils (%) (Auto) 0.6 % Neutrophils # (Auto) 1.84 K/uL Lymphocytes # (Auto) 0.96 K/uL Monocytes # (Auto) 0.36 K/uL Eosinophils # (Auto) 0.08 K/uL Basophils # (Auto) 0.02 K/uL RDW Standard Deviation 55.5 fL RDW Coefficient of Variation 16.0 % Immature Granulocyte % (Auto) 0.0 % Immature Granulocyte # (Auto) 0.00 K/uL Assessment & Plan FALL / GAIT DYSFUNCTION / CLOSED HEAD INJURY Exact mechanism not clear. CT 03/16 negative for delayed subdural hematoma. MRI 03/17 demonstrated small vessel ischemic changes. 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 --Patient evaluated by physical therapy and occupational therapist --Gait and ambulation improved PT/OT recommends discharge to home ALCOHOL ABUSE Last drink about 9 days ago. Received alcohol withdrawal protocol including gabapentin taper, thiamine, multivitamin. - patient requested referral to Alcohol Rehab concierge manager coordinated with [facility] No bed available at alcohol rehab facility at this time and may take a few days Patient allowed to return home and transition to rehab facility when bed is available, she will be contacted by the [facility] daily - Per correctional case manager: "Spoke with Bc at [facility] who has not heard back from the two facilities, [facility] and [place]. Updated that pt. may d/c to home prior to him finding facility and he was in agreement with this. Spoke with pt. today and updated her as well. She understands that she may return home prior to finding an available bed at an inpatient rehab facility. 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 Continue aspirin, metoprolol. CHF History of chronic left ventricular diastolic heart failure. Compensated. COPD Stable. Continue Combivent. HYPOTHYROIDISM Continue levothyroxine. DISPOSITION Family Medicine follow-up with Dr. Destiny Walls in 3-5 days, appointment details in the discharge instructions Current Inpatient Medications: Current Inpatient Medications Medications (Trade) Dose Ordered Sig/Leisa Route Start Time Stop Time Status Last Admin Dose Admin Aspirin (Ecotrin Tab) 81 mg QAM PO 03/16/18 09:00 04/15/18 08:59 03/23/18 07:46 81 MG Fluoxetine HCl (Prozac Cap) 40 mg DAILY PO 03/16/18 09:00 04/15/18 08:59 03/23/18 07:49 40 MG Salmeterol Xinafoate/ Fluticasone (Advair Diskus 250/50 Inh) 1 puff BID INH 03/15/18 21:00 04/14/18 20:59 03/23/18 07:47 1 PUFF Fluticasone Propionate (Flonase Nasal [place]) 2 sprays QAM PRN TATE 03/15/18 18:15 04/14/18 18:14 Folic Acid (Folvite Tab) 1 mg QAM PO 03/16/18 09:00 04/15/18 08:59 03/23/18 07:47 1 MG Gabapentin (Neurontin Cap) 300 mg TID PO 03/15/18 21:00 04/14/18 20:59 03/23/18 12:49 300 MG Levothyroxine Sodium (Synthroid Tab) 75 mcg DAILYBB PO 03/16/18 06:00 04/15/18 06:59 03/23/18 06:17 75 MCG Losartan Potassium (coZAAR TAB) 25 mg QAM PO 03/16/18 09:00 04/15/18 08:59 03/23/18 07:47 25 MG Metoprolol Succinate (Toprol Xl Tab) 50 mg QAM PO 03/16/18 09:00 04/15/18 08:59 03/23/18 07:47 50 MG Montelukast Sodium (Singulair Tab) 10 mg HS PRN PO 03/15/18 18:15 04/14/18 18:14 Nitroglycerin (Nitrostat Tab) 0.4 mg UD PRN UT 03/15/18 18:15 04/14/18 18:14 Sodium Chloride ([place] Nasal [place]) 2 sprays DAILY PRN TATE 03/15/18 18:15 04/14/18 18:14 Tramadol HCl (Ultram Tab) 50 mg Q6H PRN PO 03/15/18 18:15 04/14/18 18:14 03/23/18 12:49 50 MG Trazodone HCl (Desyrel Tab) 150 mg HS PO 03/15/18 21:00 04/14/18 20:59 03/22/18 20:23 150 MG Triamcinolone Acetonide (Kenalog 0.1% Cream) 1 appln DAILY EXT 03/16/18 09:00 04/15/18 08:59 03/23/18 07:47 1 APPLN Pantoprazole Sodium (Protonix Tab) 40 mg QAM PO 03/16/18 09:00 04/15/18 08:59 03/23/18 07:47 40 MG Albuterol (Ventolin Hfa Inhaler) 4 puffs Q6H PRN INH 03/15/18 18:15 04/14/18 18:14 03/16/18 13:38 4 PUFFS Clonidine HCl (Catapres Tab) 0.1 mg Q6H PRN PO 03/15/18 18:45 04/14/18 18:44 03/18/18 23:39 0.1 MG Acetaminophen (Tylenol Tab) 1,000 mg Q12H PRN PO 03/16/18 18:45 04/15/18 18:44 03/19/18 16:18 1,000 MG Albuterol/ Ipratropium (Combivent Respimat Inh) 1 puffs QID INH 03/17/18 17:00 04/16/18 16:59 03/23/18 12:49 1 PUFFS Lactulose (Chronulac Syrup) 20 gm TID PO 03/18/18 14:00 04/15/18 08:59 03/23/18 12:50 20 GM Lorazepam (Ativan Tab) 0.5 mg Q8H PRN PO 03/18/18 21:30 04/17/18 21:29 03/23/18 07:52 0.5 MG Thiamine HCl (Vitamin B-1 Tab) 100 mg QAM PO 03/19/18 09:00 04/18/18 08:59 03/23/18 07:47 100 MG Multivitamins (Multivitamin Tab) 1 tab QAM PO 03/19/18 09:00 04/18/18 08:59 03/23/18 07:47 1 TAB Prochlorperazine Maleate (Compazine Tab) 5 mg Q6H PRN PO 03/19/18 19:45 04/18/18 19:44 03/19/18 20:30 5 MG Lidocaine (Lidoderm Patch 5%) 1 patch QAM TD 03/21/18 09:00 04/20/18 08:59 03/23/18 07:48 1 PATCH Miscellaneous (Remove Lidoderm Patch) 1 ea DAILY@21 N/A 03/20/18 21:00 04/19/18 20:59 03/22/18 20:21 1 EA
[2018-03-23] MEDS ORDERED: LCTL30 PO (14:28)
[2018-03-23] MEDS ORDERED: MULT-890 PO (14:28)
[2018-03-23] MEDS ORDERED: THIA100T10 PO (14:28)
--- NOTE | 2018-03-23 14:35 | Discharge Instructions ---
Discharge Instructions Date of Service Mar 23, 2018. Admission Reason for Admission: Alcoholic Cirrhosis Of Liver Without Ascites, Discharge Discharge Diagnosis / Problem: Status post fall, gait dysfunction Discharge Goals Goal(s): Diagnostic testing, Therapeutic intervention Activity Recommendations Activity Limitations: as noted below (No heavy exertion, resume activity gradually as tolerated) Lifting Limitations: until after follow-up appointment Exercise/Sports Limitations: until after follow-up appointment Driving or Machine Use: No driving or machine use until reevaluated by primary care physician . Instructions / Follow-Up Instructions / Follow-Up Please refer to new medications and follow instructions carefully. Please call primary care physician or return to the ER immediately if worsening or recurrence of symptoms. Continue abstinence from alcohol. Always be careful with ambulation. Bc, advertising sales representative from [facility], will be contacting you once a bed is available for rehab. Follow-up with primary care physician Dr. Walls on March 30 at 1055 a.m. Always be careful with ambulation. Current Hospital Diet Patient's current hospital diet: AHA Diet (Heart Healthy), Low Sodium Diet (2gm Na) Discharge Diet Recommended Diet: AHA Diet (Heart Healthy), Low Sodium Diet (2gm Na) Procedures Procedures Performed: Brain MRI, carotid ultrasound, CT scan of the cervical, thoracic and lumbar spine Pending Studies Studies pending at discharge: no Medical Emergencies . Who to Call and When: Medical Emergencies: If at any time you feel your situation is an emergency, please call 911 immediately. . Non-Emergent Contact Non-Emergency issues call your: Primary Care Provider Call Non-Emergent contact if: you have a fever, your pain is not controlled, your pain is worsening, your pain is unusual for you, your pain is concerning you, you have any medication questions . . "Provider Documentation" section prepared by Moose Villalba. .
[2018-03-23 14:41] VITALS: BP 157/74; PULSE 65; TEMP 37.2; O2SAT 92
--- NOTE | 2018-03-23 14:41 | Discharge Summary ---
Discharge Summary Date of Service Mar 23, 2018. Discharge Summary Admission Date: Mar 15, 2018 at 18:09 Discharge Date: Mar 23, 2018 Principal Diagnosis: FALL / GAIT DYSFUNCTION / CLOSED HEAD INJURY likely SECONDARY TO ALCOHOLISM Secondary Diagnoses/Problems: Please refer to hospital course below. Procedures: MRI OF THE BRAIN COMBO CLINICAL HISTORY: Falls. Cirrhosis. COMPARISON STUDY: CT of the brain dated 03/16/2018. MRI of the brain dated 12/12/2014. TECHNIQUE: MRI of the brain was performed utilizing various T1 and T2-weighted sequences in the axial, sagittal, and coronal planes. Contrast-enhanced sequences were acquired following the administration of 8.5 cc of Gadavist. FINDINGS: Brain parenchyma: There are age-related involutional changes noting moderate to advanced confluent subcortical and periventricular microangiopathic disease. There is no hemorrhage or mass effect. There is no restricted diffusion to suggest acute ischemia. No enhancing mass lesion is identified on the postcontrast images. Villalba-white matter differentiation is preserved. No extra-axial fluid collection is seen. The cerebellar tonsils are normal in configuration. Ventricles, sulci, and cisterns: Prominent secondary to involutional change. Pituitary and sella: Unremarkable. Intracranial vasculature: Normal flow voids are maintained at the skull base. Orbits: The bony orbits are grossly intact. Orbital contents are normal in appearance. Sinuses and mastoids: There is a trace left mastoid effusion. The right mastoid air cells and the paranasal sinuses are clear . Calvarium: Unremarkable. Cervical cord: Partially visualized cervical spinal cord is normal in morphology and signal intensity. IMPRESSION: 1. No acute intracranial abnormality. 2. Senescent changes as above. CAROTID DOPPLER NECK ART HISTORY: Mental status change syncope,R/O stenosis COMPARISON: 12/12/2014 TECHNIQUE: Real-time, grayscale, and color Doppler sonography of the carotid arteries was performed. Imaging reviewed in the transverse and longitudinal planes. All measurements were calculated based on NASCET criteria. FINDINGS: Antegrade flow is seen in the bilateral vertebral arteries. The brachial pressures are hemodynamically similar. Significant plaque formation bilaterally The peak systolic velocity within the right ICA is 75. The right systolic ratio is 1.0. The peak systolic velocity within the left ICA is 147. The left systolic ratio is 2.1. IMPRESSION: 50% narrowing left internal carotid artery. Plaque formation bilaterally. No high-grade stenosis. Consultations: Neurologist Dr. Davidson Pending Studies/Follow-Up: Please refer to hospital course below. Medication Reconciliation New Medications: Lactulose (Lactulose) 20 Gm/30 Ml Syrp 20 GM PO TID for 30 Days Multiple Vitamin (Daily-Jaelyn) 1 Tab Tab 1 TAB PO QAM for 30 Days Thiamine Hcl (Vitamin B-1) 100 Mg Tab 100 MG PO QAM for 7 Days, #7 TAB 0 Refills Continued Medications: Aspirin (Aspirin Chewable) 81 Mg Chew 81 MG PO ON HOLD Fluoxetine Hcl (Prozac) 40 Mg Cap 1 CAP PO DAILY for 30 Days, #30 CAP 3 Refills Fluticasone Prop/Salmeterol (Advair Diskus 250/50 60 Dose) 1 Ea Aerp 1 PUFF INH BID Fluticasone Propionate (Nasal) (Flonase Allergy Relief) 50 Mcg/Act Spr 2 SPRAY TATE QAM PRN for CONGESTION Folic Acid (Folvite) 1 Mg Tab 1 MG PO QAM, TAB Furosemide (Lasix) 20 Mg Tab 20 MG PO QAM PRN for EDEMA Gabapentin (Neurontin) 300 Mg Cap 300 MG PO TID, CAP Ipratropium-Albuterol (Combivent Respimat) 1 Aer Aer 1 PUFFS INH QID, INH Levothyroxine Sodium (Synthroid) 75 Mcg Tab 75 MCG PO QAM Losartan Potassium (Cozaar) 25 Mg Tab 25 MG PO QAM, TAB Metoprolol Succ (Toprol Xl) (Toprol-Xl) 50 Mg Tabcr 50 MG PO QAM, #30 TAB Montelukast Sodium (Singulair) 10 Mg Tab 1 TAB PO HS PRN for Seasonal Allergies for 90 Days, TAB 1 Refill Nitroglycerin (Nitrostat) 0.4 Mg Sub 0.4 MG UT UD PRN for Chest Pain Omeprazole (Prilosec) 20 Mg Capcr 20 MG PO QAM, 0 Refills Ondansetron Hcl (Zofran) 8 Mg Tab 8 MG PO PRN PRN for Nausea or Vomiting, TAB Saline ([place] Nasal [place]) 0.65 % Spr 2 SPRAYS TATE DAILY PRN for Nasal Congestion Senna/Docusate Sod (Senokot S) 1 Tab Tab 2 TAB PO QAM PRN for Constipation Tramadol (Ultram) 50 Mg Tab 50 MG PO Q6H PRN for Pain Trazodone Hcl (Desyrel) 150 Mg Tab 150 MG PO HS Triamcinolone Acet (Aristocort 0.1%) 90 Appln/30 Gm Cr DIRECTED Discontinued Medications: Lactulose (Chronulac) 10 Gm/15 Ml Syrp 30 ML PO DAILY Levocetirizine Dihydrochloride (Levocetirizine Dihydrochl) 5 Mg Tab 1 TAB PO DAILY for 90 Days, #90 TAB 3 Refills Admission Information HPI (per Admitting provider): She is a 73-year-old white female with the significant past medical history of major depressive disorder, mild COPD, cirrhosis of liver due to alcohol abuse with continued alcohol use, CAD status post CABG and hypothyroidism apparently has had a fall Tuesday morning at home. She went to the bathroom and while coming up from the bathroom her legs gave way and she fell in the bathroom hitting the head at the right posterior parietal area. She noticed bleeding from that side and according to her she lost consciousness for about few minutes but laid down on the floor for 2 hours. She managed to get off from the floor and since then she has been having some problem with ambulation. She was noticed to have some confusion at times and she mentioned that the she is not sure what she had been doing for the last few days since the fall. Condition got worse today that she was brought into the emergency room. She denies to have any fever or any chills, any chest pain, palpitation, any dizziness, any numbness or tingling in the extremities more than usual before the fall. Following the fall she has been feeling dizzy, problem with ambulation as mentioned earlier and also confusion. She was hemodynamically stable in the emergency room and apparent investigation including CT scan of the head neck lumbar and thoracic spine were unremarkable. Her EKG and lab works are unremarkable to. Her daughter mentioned that she has been drinking more than usual and it could be associated with her recent drinking habit. Her alcohol level was normal at 0 and she did not have any signs of withdrawal. She was admitted to telemetry unit for observation and also for possible concussion following the head injury. Physical Exam (per Admitting): General Appearance: + mild distress (Anxious with mild SOB) Head: + evidence of trama (Upper mid parietal area.Tendeerness,no bleeding) Eyes: normal inspection ENT: normal ENT inspection Neck: supple Respiratory/Chest: chest non-tender, normal breath sounds, + respiratory distress (Occasional Ronchi left base) Cardiovascular: regular rate, rhythm, + systolic murmur (Aortic area , radiation to neck) Abdomen/GI: normal bowel sounds, no organomegaly, + tenderness (Mildly RUQ) Back: normal inspection Extremities/Musculoskelatal: + pedal edema (Trace,chronic skin changes) Neurologic/Psych: no motor/sensory deficits, alert, normal mood/affect Skin: normal color Lymphatic: no adenopathy Hospital Course FALL / GAIT DYSFUNCTION / CLOSED HEAD INJURY Exact mechanism not clear. CT 03/16 negative for delayed subdural hematoma. MRI 03/17 demonstrated small vessel ischemic changes. 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 -- recommend outpatient follow up with Neurology Clinic Dr. Rubin for nerve conduction EMG. -- Patient evaluated by physical therapy and occupational therapy. -- Gait and ambulation improved PT/OT recommends patient may return home ALCOHOL ABUSE Last drink about 9 days prior admission. Received alcohol withdrawal protocol including gabapentin taper, thiamine, multivitamin. - patient requested referral to Alcohol Rehab air traffic control manager coordinated with [facility] and [facility] No bed available at alcohol rehab facility at this time and may take a few days Patient allowed to return home and transition to rehab facility when bed is available, she will be contacted by the [facility] and [facility] daily - Per case resource manager: "Spoke with Bc at [facility] who has not heard back from the two facilities, [facility] and [facility]. Updated that pt. may d/c to home prior to him finding facility and he was in agreement with this. Spoke with pt. today and updated her as well. She understands that she may return home prior to finding an available bed at an inpatient rehab facility. 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 Continue aspirin, metoprolol. CHF History of chronic left ventricular diastolic heart failure. Compensated. COPD Stable. Continue Combivent. HYPOTHYROIDISM Continue levothyroxine. DISPOSITION Family Medicine follow-up with Dr. Destiny Walls in 3-5 days, appointment details in the discharge instructions Total time spent on discharge = 30 minutes This includes examination of the patient, discharge planning, medication reconciliation, and communication with other providers. Discharge Instructions Discharge Instructions Date of Service Mar 23, 2018. Admission Reason for Admission: Alcoholic Cirrhosis Of Liver Without Ascites, Discharge Discharge Diagnosis / Problem: Status post fall, gait dysfunction Discharge Goals Goal(s): Diagnostic testing, Therapeutic intervention Activity Recommendations Activity Limitations: as noted below (No heavy exertion, resume activity gradually as tolerated) Lifting Limitations: until after follow-up appointment Exercise/Sports Limitations: until after follow-up appointment Driving or Machine Use: No driving or machine use until reevaluated by primary care physician . Instructions / Follow-Up Instructions / Follow-Up Please refer to new medications and follow instructions carefully. Please call primary care physician or return to the ER immediately if worsening or recurrence of symptoms. Continue abstinence from alcohol. Always be careful with ambulation. Bc, apprenticeship representative from [facility], will be contacting you once a bed is available for rehab. Follow-up with primary care physician Dr. Walls on March 30 at 1055 a.m. Always be careful with ambulation. Current Hospital Diet Patient's current hospital diet: AHA Diet (Heart Healthy), Low Sodium Diet (2gm Na) Discharge Diet Recommended Diet: AHA Diet (Heart Healthy), Low Sodium Diet (2gm Na) Procedures Procedures Performed: Brain MRI, carotid ultrasound, CT scan of the cervical, thoracic and lumbar spine Pending Studies Studies pending at discharge: no Medical Emergencies . Who to Call and When: Medical Emergencies: If at any time you feel your situation is an emergency, please call 911 immediately. . Non-Emergent Contact Non-Emergency issues call your: Primary Care Provider Call Non-Emergent contact if: you have a fever, your pain is not controlled, your pain is worsening, your pain is unusual for you, your pain is concerning you, you have any medication questions . . "Provider Documentation" section prepared by Moose Villalba. .
== END 2018-03-23 15:06 | disposition home health service (06) | DRG 74 ==
LOC: C.EDB 15:29 → UNDOADMIN 18:09 → C.2T 18:09 → ENRESERV 18:41 → C.MS2W 03-18 13:35
PROVIDERS: ADMIT Internal Medicine; ATTEND Internal Medicine
DX: G62.1 Alcoholic polyneuropathy (principal); F10.288 Alcohol dependence with other alcohol-induced disorder; S06.0X9A Concussion with loss of consciousness of unspecified duration, initial encounter; I50.32 Chronic diastolic (congestive) heart failure; R26.89 Other abnormalities of gait and mobility; D69.6 Thrombocytopenia, unspecified; E86.0 Dehydration; M54.40 Lumbago with sciatica, unspecified side; G89.29 Other chronic pain; I11.0 Hypertensive heart disease with heart failure; I25.10 Atherosclerotic heart disease of native coronary artery without angina pectoris; J44.9 Chronic obstructive pulmonary disease, unspecified; K70.30 Alcoholic cirrhosis of liver without ascites; E03.9 Hypothyroidism, unspecified; F32.9 Major depressive disorder, single episode, unspecified; F41.9 Anxiety disorder, unspecified; Z51.81 Encounter for therapeutic drug level monitoring; Z79.899 Other long term (current) drug therapy; Z79.82 Long term (current) use of aspirin; Z95.1 Presence of aortocoronary bypass graft; Z85.3 Personal history of malignant neoplasm of breast; Z87.891 Personal history of nicotine dependence; Z80.0 Family history of malignant neoplasm of digestive organs; W18.39XA Other fall on same level, initial encounter; Y99.8 Other external cause status; Y92.002 Bathroom of unspecified non-institutional (private) residence as the place of occurrence of the external cause; Y93.E8 Activity, other personal hygiene

== ENCOUNTER 2018-11-23 16:17 | Observation (INO) ==
[2018-11-23] MEDS ORDERED: NITROGLYCERIN 2% OINTMENT 30GM TUBE EXT STA (16:39)
--- NOTE | 2018-11-23 16:56 | XRay Report ---
XR chest 1V portable CLINICAL HISTORY: Atypical chest pain COMPARISON STUDY: March 15, 2018 FINDINGS: The cardiac images so contours remain stable. There are postsurgical changes of a midline s ternotomy. There is no focal pulmonary consolidation. Surgical clips project over the right breast. S light interstitial prominence, likely relates to technical factors.. There is a stable area of linear scarring/atelectatic change within the left midlung zone.[ IMPRESSION: 1. Mild cardiomegaly 2. No evidence of focal pulmonary consolidation 3. Slight interstitial prominence, a finding likely related to technical factors Electronically signed by: Xavier Lombardo M.D. 11/23/2018 4:54 PM
[2018-11-23 17:39] LABS: Albumin Level 3.4 gm/dl (3.4-5.0); BUN Creatinine Ratio 14.3 (10-20); Calcium 9.1 mg/dl (8.5-10.1); Creatinine Clr Calc Pharmacy 57.3 ml/min; Est GFR (African American) 72.1; Est GFR (Non-African American) 62.2; Potassium 3.9 mmol/L (3.5-5.1)
[2018-11-23 17:42] LABS: Albumin Globulin Ratio 0.9 (0.9-2); Bilirubin,Total 0.9 mg/dl (0.2-1); Globulin 3.6 gm/dl (2.5-4.0)
--- NOTE | 2018-11-23 17:53 | CT Scan Report ---
CT SCAN OF THE BRAIN WITHOUT IV CONTRAST CLINICAL HISTORY: Left upper extremity numbness. COMPARISON STUDY: CT of the brain dated 03/16/2018. TECHNIQUE: Unenhanced axial CT scan of the brain is performed from the vertex to the skull base. A do se lowering technique was utilized adhering to the principles of ALARA. CT DOSE: 537.48 mGy.cm FINDINGS: Brain parenchyma: There are age-related involutional changes noting moderate subcortical and periven tricular microangiopathic change. There is no hemorrhage, mass effect, or evidence of acute territori al ischemia by CT criteria. Villalba-white matter differentiation is preserved. No extra-axial fluid gale ection is seen. Ventricles, sulci, cisterns: Prominent secondary to involutional change. Intracranial vasculature: There is atherosclerotic calcification of the cavernous carotid and vertebr al arteries. Calvarium: Unremarkable. Sinuses and mastoids: There is trace fluid within the left maxillary antrum. Mild mucosal thickening seen within the left frontal and anterior ethmoid sinuses. The remaining visualized paranasal sinuses are clear. The mastoid air cells are well pneumatized. Orbits: The bony orbits are grossly intact. IMPRESSION: There is no hemorrhage, mass effect, or evidence of acute territorial ischemia by CT jhonathan melvin. Electronically signed by: Ishmael Burt M.D. 11/23/2018 5:52 PM
[2018-11-23 17:55] LABS: Basophils # (auto) 0.04 K/uL (0-0.2); Basophils % (auto) 0.9 %; Eosinophils # (auto) 0.26 K/uL (0-0.5); Eosinophils % (auto) 6.1 %; Hematocrit (blood only) 33.2 % (37-47); Hemoglobin 11.1 g/dL (12.0-16.0); Immature Granulocytes # (auto) 0.01 K/uL (0.00-0.02); Immature Granulocytes % (auto) 0.2 %; Lymphocytes # (auto) 1.05 K/uL (1.2-3.4); Lymphocytes % (auto) 24.8 %; Mean Corpuscular Hgb Conc 33.4 g/dL (32-36); Mean Corpuscular Volume 97.1 fL (80-100); Mean Platelet Volume 11.6 fL (7.4-10.4); Monocytes # (auto) 0.43 K/uL (0.11-0.59); Monocytes % (auto) 10.2 %; Neutrophils # (auto) 2.44 K/uL (1.4-6.5); Neutrophils % (auto) 57.8 %; Platelet Count 93 K/uL (130-400); Platelet Estimate Decreased (Normal); RDW Coefficient of Variation 14.8 % (11.5-14.5); RDW Standard Deviation 52.4 fL (36.4-46.3); Red Blood Count 3.42 M/uL (4.2-5.4); White Blood Count 4.23 K/uL (4.8-10.8)
--- NOTE | 2018-11-23 20:04 | Emergency Department Note ---
Entered by Collins Dennis acting as a scribe for James Goldstein MD History of Present Illness General Chief complaint: Chest Pain Stated complaint: chest pain, neck/lt arm pain, dizzy, nausea- cardi Source: patient Mode of arrival: ambulatory History of Present Illness Provider complaint: Chest Pain Onset (ago): week(s) 1 Location: chest Pain Consistency: + constant Current Pain Intensity: 3 Quality: + other (Chest Pain ) Associated symptoms: no nausea/vomiting Patient is a 73 year old female who presents himself to the ER with complains of chest pain for the last week. She states in yesterdays episode at 11am her chest pain lasted for 5 minutes and that she was experiencing shortness of breath. Her chest pain is located on the left side and she is feeling a squeezing sensation in her chest. She states her chest pain today started at noon. Also she reports feeling lightheaded for a week and that these symptoms of the light headedness have become frequent in the last couple days. Today she feels heaviness in the chest and also reports her hand is numb. She rates her constant pain at a value of 3 on the pain intensity scale. Patient also states her finger is usually numb due to her carpal tunnel. She states having cirrhosis from alcohol and that she has stopped drinking. She states her platelets are normally low. Patient denies nausea and vomiting. Home Medications Home Medications Medication Instructions Recorded Confirmed Type albuterol sulfate 2.5 mg INHALATION Q4 PRN 11/23/18 11/23/18 History aspirin 81 mg PO DAILY 11/23/18 11/23/18 History bisacodyl 5 mg PO HS PRN 11/23/18 11/23/18 History cyanocobalamin (vitamin B-12) 1,000 mcg IM MONTHLY 11/23/18 11/23/18 History diclofenac potassium 50 mg PO TID 11/23/18 11/23/18 History diclofenac sodium 50 mg PO BID 11/23/18 11/23/18 History fluoxetine 20 mg PO DAILY 11/23/18 11/23/18 History fluoxetine 40 mg PO DAILY 11/23/18 11/23/18 History fluticasone propion-salmeterol 1 inh INHALATION BID 11/23/18 11/23/18 History [Advair Diskus] fluticasone propionate 1 spray INTRANASAL DAILY 11/23/18 11/23/18 History folic acid 1 mg PO DAILY 11/23/18 11/23/18 History furosemide 20 mg PO DAILY PRN 11/23/18 11/23/18 History gabapentin 300 mg PO TID 11/23/18 11/23/18 History ipratropium-albuterol [Combivent 1 puff INHALATION QID 11/23/18 11/23/18 History Respimat] lactulose 30 ml PO BID 11/23/18 11/23/18 History levocetirizine 5 mg PO PM 11/23/18 11/23/18 History levothyroxine 75 mcg PO DAILY 11/23/18 11/23/18 History losartan 50 mg PO DAILY 11/23/18 11/23/18 History metoprolol succinate 50 mg PO DAILY 11/23/18 11/23/18 History montelukast 10 mg PO DAILY 11/23/18 11/23/18 History multivitamin 1 tab PO DAILY 11/23/18 11/23/18 History naltrexone 50 mg PO DAILY PRN 11/23/18 11/23/18 History naltrexone microspheres [Vivitrol] 380 mg IM MONTHLY 11/23/18 11/23/18 History nitroglycerin [Nitrostat] 1 dose SUBLINGUAL UD PRN 11/23/18 11/23/18 History omeprazole 20 mg PO DAILY 11/23/18 11/23/18 History ondansetron HCl [Zofran] 8 mg PO Q12 PRN 11/23/18 11/23/18 History sennosides [senna] 8.6 mg PO BID PRN 11/23/18 11/23/18 History trazodone 150 mg PO HS 11/23/18 11/23/18 History Allergies Allergy/AdvReac Type Severity Reaction Status Date / Time No Known Allergies Allergy Verified 11/23/18 16:46 Past Med/Surg History Medical History Liver disease SBO (small bowel obstruction) Social History Preferred Language: Czech Beliefs That Will Affect Care: None marital status: Single Current Living Situation: Alone Feels Safe at Home: Yes Smoking Status: Former smoker Hx Alcohol Use: Yes (Patient states she has been sober since 03/11/18) Hx Substance Use: No Review of Systems See HPI for pertinent positives & negatives. and A total of 10 systems reviewed and were otherwise negative Physical Exam Vital Signs Vital Signs - 24 hr 11/23/18 16:24 11/23/18 16:50 11/23/18 17:14 Temperature 36.9 C Temperature Source Oral Sepsis Recent Fever Within 48 Hours No Sepsis New/Unexplained Change in Mental Status No Sepsis Action Taken by Nursing No Action Required Pulse Rate 63 Pulse Rate [Apical] 65 58 L Pulse Rate from SpO2 Sensor Respiratory Rate 18 16 17 Respiratory Effort / Characteristics Non-Labored Respiratory Depth Normal Respiratory Pattern Regular Blood Pressure 152/88 H Blood Pressure [Right Arm] 153/79 H 159/80 H Blood Pressure Mean 109 Blood Pressure Mean [Right Arm] 103 106 Pulse Oximetry 95 96 96 Oxygen Delivery Method Room Air Room Air Room Air 11/23/18 17:18 11/23/18 17:31 11/23/18 17:47 Temperature Temperature Source Sepsis Recent Fever Within 48 Hours Sepsis New/Unexplained Change in Mental Status Sepsis Action Taken by Nursing Pulse Rate 55 L Pulse Rate [Apical] Pulse Rate from SpO2 Sensor 56 L 60 Respiratory Rate 23 Respiratory Effort / Characteristics Respiratory Depth Respiratory Pattern Blood Pressure 165/71 H 166/74 H Blood Pressure [Right Arm] Blood Pressure Mean 102 104 Blood Pressure Mean [Right Arm] Pulse Oximetry 96 97 95 Oxygen Delivery Method Room Air Room Air 11/23/18 18:00 11/23/18 18:30 11/23/18 19:15 Temperature Temperature Source Sepsis Recent Fever Within 48 Hours Sepsis New/Unexplained Change in Mental Status Sepsis Action Taken by Nursing Pulse Rate 62 Pulse Rate [Apical] 66 Pulse Rate from SpO2 Sensor 59 L 59 L Respiratory Rate 23 18 Respiratory Effort / Characteristics Respiratory Depth Respiratory Pattern Blood Pressure 176/87 H 170/85 H Blood Pressure [Right Arm] 167/92 H Blood Pressure Mean 116 113 Blood Pressure Mean [Right Arm] 117 Pulse Oximetry 94 93 95 Oxygen Delivery Method Room Air Constitutional: Vital signs reviewed. Eyes: Pupils are equal round reactive to light. Conjunctiva are noninjected. ENT: Pharynx is clear without erythema or exudate. Mucous membranes are moist. Neck supple without meningeal signs. Respiratory: Clear to auscultation bilaterally. Breath sounds are equal bilaterally. Cardiovascular: Regular rate and rhythm. No rubs or gallops. GI: Soft, nondistended and nontender. Bowel sounds are present. Musculoskeletal: No peripheral edema. No lower extremity tenderness. Integumentary: No cyanosis. Neurological: The patient is awake and alert. Cranial nerves II-XII are intact. Motor is 5 out of 5 all extremities. Sensation is intact to light touch all extremities except for mild dysesthesia to the left forearm and hand. Normal speech. No pronator drift. Psychiatric: Normal affect. Course 1632: Past medical records reviewed. The patient was evaluated in room A3, and a complete history and physical examination were performed. 1724: I checked on the patient. Patient says her chest pain is going away. Her troponin is also 0. 1815: I talked to the patient about the test results and patient is agreeable to hospitalization. 1824: I spoke to Radha Jimenez MD who will admit the patient to Dr. Mensah. Consultations Consultation #1: Radha Jimenez MD Time: 18:24 Administered Medications Discontinued Medications Nitroglycerin (Nitro-Bid 2%) 0.5 inch EXT NOW STA Stop: 11/23/18 16:40 Last Admin: 11/23/18 17:14 Dose: 0.5 inch Documented by: [id number] Medical Decision Making Differential Diagnosis Unstable angina, [place], GERD, Pleurisy, CVA Medical Records Attestation: I reviewed the patient's medical records. Was here for abdominal pain in April. He was diagnosed with Small bowel obstruction. Home Medications Current Medication List: was personally reviewed by me Laboratory Data Attestation: I reviewed the patient's lab results. Result diagrams: 11/23/18 17:02 11/23/18 17:02 Lab Results 11/23/18 11/23/18 11/23/18 Range/Units 17:02 17:02 17:02 WBC 4.23 L (4.8-10.8) K/uL RBC 3.42 L (4.2-5.4) M/uL Hgb 11.1 L (12.0-16.0) g/dL Hct 33.2 L (37-47) % MCV 97.1 (80-100) fL MCH 32.5 (25-34) pg MCHC 33.4 (32-36) g/dL RDW Std Deviation 52.4 H (36.4-46.3) fL RDW Coeff of Zelda 14.8 H (11.5-14.5) % Plt Count 93 L (130-400) K/uL MPV 11.6 H (7.4-10.4) fL Immature Gran % (Auto) 0.2 % Neut % (Auto) 57.8 % Lymph % (Auto) 24.8 % Sully % (Auto) 10.2 % Eos % (Auto) 6.1 % Baso % (Auto) 0.9 % Immature Gran # (Auto) 0.01 (0.00-0.02) K/uL Neut # (Auto) 2.44 (1.4-6.5) K/uL Lymph # (Auto) 1.05 L (1.2-3.4) K/uL Sully # (Auto) 0.43 (0.11-0.59) K/uL Eos # (Auto) 0.26 (0-0.5) K/uL Baso # (Auto) 0.04 (0-0.2) K/uL Platelet Estimate Decreased (Normal) Sodium 139 (136-145) mmol/L Potassium 3.9 (3.5-5.1) mmol/L Chloride 107 (98-107) mmol/L Carbon Dioxide 25 (21-32) mmol/L Anion Gap 7.0 (3-11) BUN 13 (7-18) mg/dl Creatinine 0.92 (0.6-1.2) mg/dl Est Cr Clr Drug Dosing 57.3 ml/min Est GFR ( Amer) 72.1 Est GFR (Non-Af Amer) 62.2 BUN/Creatinine Ratio 14.3 (10-20) Glucose 97 (70-99) mg/dl Calcium 9.1 (8.5-10.1) mg/dl Total Bilirubin 0.9 (0.2-1) mg/dl AST 26 (15-37) U/L ALT 26 (12-78) U/L Alkaline Phosphatase 82 (45-117) U/L POC Troponin I (0-0.045) ng/ml Total Protein 7.0 (6.4-8.2) gm/dl Albumin 3.4 (3.4-5.0) gm/dl Globulin 3.6 (2.5-4.0) gm/dl Albumin/Globulin Ratio 0.9 (0.9-2) Lipase 279 (73-393) U/L 11/23/18 Range/Units 17:10 WBC (4.8-10.8) K/uL RBC (4.2-5.4) M/uL Hgb (12.0-16.0) g/dL Hct (37-47) % MCV (80-100) fL MCH (25-34) pg MCHC (32-36) g/dL RDW Std Deviation (36.4-46.3) fL RDW Coeff of Zelda (11.5-14.5) % Plt Count (130-400) K/uL MPV (7.4-10.4) fL Immature Gran % (Auto) % Neut % (Auto) % Lymph % (Auto) % Sully % (Auto) % Eos % (Auto) % Baso % (Auto) % Immature Gran # (Auto) (0.00-0.02) K/uL Neut # (Auto) (1.4-6.5) K/uL Lymph # (Auto) (1.2-3.4) K/uL Sully # (Auto) (0.11-0.59) K/uL Eos # (Auto) (0-0.5) K/uL Baso # (Auto) (0-0.2) K/uL Platelet Estimate (Normal) Sodium (136-145) mmol/L Potassium (3.5-5.1) mmol/L Chloride (98-107) mmol/L Carbon Dioxide (21-32) mmol/L Anion Gap (3-11) BUN (7-18) mg/dl Creatinine (0.6-1.2) mg/dl Est Cr Clr Drug Dosing ml/min Est GFR ( Amer) Est GFR (Non-Af Amer) BUN/Creatinine Ratio (10-20) Glucose (70-99) mg/dl Calcium (8.5-10.1) mg/dl Total Bilirubin (0.2-1) mg/dl AST (15-37) U/L ALT (12-78) U/L Alkaline Phosphatase (45-117) U/L POC Troponin I < 0.03 (0-0.045) ng/ml Total Protein (6.4-8.2) gm/dl Albumin (3.4-5.0) gm/dl Globulin (2.5-4.0) gm/dl Albumin/Globulin Ratio (0.9-2) Lipase (73-393) U/L Imaging Data Attestation: I personally reviewed and interpreted this imaging study as follows: Radiologist's Impression: Radiology results as stated below per my review and the radiologist's interpretation: CT SCAN OF THE BRAIN WITHOUT IV CONTRAST CLINICAL HISTORY: Left upper extremity numbness. COMPARISON STUDY: CT of the brain dated 03/16/2018. TECHNIQUE: Unenhanced axial CT scan of the brain is performed from the vertex to the skull base. A dose lowering technique was utilized adhering to the principles of ALARA. CT DOSE: 537.48 mGy.cm FINDINGS: Brain parenchyma: There are age-related involutional changes noting moderate subcortical and periventricular microangiopathic change. There is no hemorrhage, mass effect, or evidence of acute territorial ischemia by CT criteria. Villalba- white matter differentiation is preserved. No extra-axial fluid collection is seen. Ventricles, sulci, cisterns: Prominent secondary to involutional change. Intracranial vasculature: There is atherosclerotic calcification of the cavernous carotid and vertebral arteries. Calvarium: Unremarkable. Sinuses and mastoids: There is trace fluid within the left maxillary antrum. Mild mucosal thickening seen within the left frontal and anterior ethmoid sinuses. The remaining visualized paranasal sinuses are clear. The mastoid air cells are well pneumatized. Orbits: The bony orbits are grossly intact. IMPRESSION: There is no hemorrhage, mass effect, or evidence of acute territorial ischemia by CT criteria. Electronically signed by: Ishmael Burt M.D. 11/23/2018 5:52 PM Dictated: 11/23/181749 Transcribed: 11/23/181749 XR chest 1V portable CLINICAL HISTORY: Atypical chest pain COMPARISON STUDY: March 15, 2018 FINDINGS: The cardiac images so contours remain stable. There are postsurgical changes of a midline sternotomy. There is no focal pulmonary consolidation. Surgical clips project over the right breast. Slight interstitial prominence, likely relates to technical factors.. There is a stable area of linear scarring/atelectatic change within the left midlung zone.[ IMPRESSION: 1. Mild cardiomegaly 2. No evidence of focal pulmonary consolidation 3. Slight interstitial prominence, a finding likely related to technical factors Electronically signed by: Xavier Lombardo M.D. 11/23/2018 4:54 PM Dictated: 11/23/181652 Transcribed: 11/23/181652 ECG Data Attestation: I personally reviewed and interpreted this ECG as follows: Indication: chest pain Rate (beats per minute): 66 Rhythm: normal sinus Findings: no other (No PVCs, QTC 490ms) and no ST elevation Blood Pressure Blood Pressure Findings: Elevated blood pressure Blood Pressure Disposition: further management by hospitalist MDM Narrative I did evaluate the patient as noted above. The patient is presenting with intermittent chest pain and lightheadedness. She also complains of numbness to the left upper extremity. On exam she is neurologically intact with some mild dysesthesia to the left forearm and hand. She does state that she has a history of carpal tunnels and describes her numbness as a tingling sensation. IV access was established. The patient was placed on a continuous appliquer. I did order and personally review the patient's 12-lead EKG as described above. She has no evidence of acute ischemia on her twelve-lead EKG. I did order and personally reviewed the images of the patient's chest x-ray as described above. Chest x-ray is unremarkable. I did order and review the patient's blood work as noted in the electronic medical record. She has chronic thrombocytopenia. She is anemic. Her troponin is negative. I did order a CT of the head. I did review the images myself as well as the radiology report as described above. There is no evidence of acute infarct. I did treat the patient with nitroglycerin paste. On reassessment the patient's chest pain is completely gone. I did discuss the test results with the patient and recommended hospitalization for further evaluation. I did discuss case with the hospitalist and heel caser. Impression & Plan Left-sided chest pain, Arm paresthesia, left, Thrombocytopenia Discharge Plan Visit Data Chief Complaint: Chest Pain Stated Complaint: chest pain, neck/lt arm pain, dizzy, nausea- cardi ED Provider: James Goldstein Discharge Problem: Left-sided chest pain, Arm paresthesia, left, Thrombocytopenia Patient Disposition: Being Evaluated by Hospitalist Discharge Instructions Interventions: ED Discharge Assessment Last Done: 11/23/18 19:45 The scribe's documentation has been prepared under my direction and personally reviewed by me in its entirety. I confirm that the note above accurately reflects all work, treatment, procedures, and medical decision making performed by me.
[2018-11-23] MEDS ORDERED: ALBUTEROL 0.083% NEBU SOLN 3 ML VIAL INH PRN (20:20)
[2018-11-23] MEDS ORDERED: ONDANSETRON 8 MG TABLET PO PRN (20:20)
[2018-11-23] MEDS ORDERED: NITROGLYCERIN SL 0.4 MG/TAB TAB SL PRN ×2 (20:20)
[2018-11-23] MEDS ORDERED: SENNA 8.6 MG TAB PO PRN (20:20)
[2018-11-23] MEDS ORDERED: FUROSEMIDE 20 MG TAB PO PRN (20:20)
[2018-11-23] MEDS: ACETAMINOPHEN 325 MG TAB PO PRN (21:47)
[2018-11-23] MEDS ORDERED: BISACODYL 5 MG TABEC PO PRN (22:15)
[2018-11-23] MEDS: LACTULOSE SYRUP 20 GM/30 ML UDC PO SCH (22:36)
[2018-11-23] MEDS: GABAPENTIN 300 MG CAP PO SCH (22:36)
[2018-11-23] MEDS: TRAZODONE HCL 50 MG TAB PO SCH (22:36)
[2018-11-23] MEDS: IPRATROPIUM BROMIDE/ALBUTEROL respimat INH INH SCH (22:46)
[2018-11-23] MEDS: FLUTICASONE/SALMETEROL 250/50 (ADVAIR) 14 PUFF/1 INHALER INH SCH (22:46)
--- NOTE | 2018-11-23 23:43 | History and Physical Report ---
DATE OF ADMISSION: 11/23/2018 CHIEF COMPLAINT: Chest pain. 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 The patient says she had a couple of minutes of chest pain yesterday and today. She says she was doing her regular activities at home. It was a pressure like feeling radiating to her left arm and hand. Pain lasted only two minutes The pain is resolved, but still has some numbness in the left hand region. She is always nauseous from her liver cirrhosis. She has some dizziness while ambulating. Lately, the last 2-3 days she is using a cane. She also has some vision issues going on for the last 1 month. Denies any earache, no runny nose, no sore throat, no cough. Has dry mouth. No difficulty swallowing. Currently, no shortness of breath, no fever, no chills, no abdominal pain. Currently, taking lactulose and has 1 or 2 bowel movements every day. No burning micturition, no blood in the urine. Has some edema in the lower extremity. No rash. Currently resting comfortable and hemodynamically stable. She is getting hungry and wants to eat and she is also complaining of right upper quadrant abdominal pain going on for some time. ALLERGIES: No known drug allergies. PAST MEDICAL HISTORY: As mentioned above. PAST SURGICAL HISTORY: Excision of the breast lesion on the right side, CABG, , colonoscopy, EGDs, incisional ventral hernia mesh implantation, laparoscopic incisional hernia repair, injection of lumbar spine, right simple mastectomy, reduction of the bowel obstruction, removal of turbinate bones, left shoulder arthroscopy, total hysterectomy. MEDICATIONS: The patient is on Prozac 50 mg p.o. daily, Cozaar 50 mg p.o. daily, trazodone 150 mg p.o. at bedtime, nitroglycerin 0.4 mg p.r.n., Toprol-XL 50 mg p.o. daily, naltrexone 50 mg as directed, gabapentin 300 mg p.o. t.i.d., Zofran 8 mg p.o. t.i.d. p.r.n., diclofenac sodium 50 mg p.o. t.i.d., naltrexone 380 mg into large muscle every month, multivitamins with minerals daily, Advair Diskus 250/50 inhalation b.i.d., levothyroxine 75 mcg p.o. daily, omeprazole 20 mg p.o. daily, Flonase 2 sprays to each nostril daily, lactulose 30 mL p.o. b.i.d., levocetirizine 5 mg p.o. daily, Singulair 10 mg p.o. daily, Combivent 1 puff q.i.d., Lasix 20 mg p.o. daily p.r.n., bisacodyl 5 mg p.o. daily p.r.n., senna 1 tablet b.i.d., aspirin 81 mg p.o. daily, folic acid 1 mg p.o. daily. FAMILY HISTORY: Significant for sister has alcoholism disorder, father has Alzheimer's, mother has stomach, colon cancer. Cousin has ovarian cancer. SOCIAL HISTORY: Lives alone. Quit smoking in 2001, prior to that smoked 1 pack a day for 40 years. Alcohol 1 glass of wine a night. No drug use. REVIEW OF SYSTEMS: As per HPI. Rest of the review of systems negative. PHYSICAL EXAMINATION: GENERAL: The patient is of moderate build, not in acute distress. VITAL SIGNS: Temperature 36.9, pulse 66, respiratory rate 18, blood pressure 167/92, oxygen 95% on room air. HEENT: No pallor, no icterus. Pupils equal, round, and reactive to light. NECK: No JVD, no neck masses, no carotid bruits. CARDIOVASCULAR: S1, S2 heard, regular rate and rhythm, no murmur, no gallop. RESPIRATORY SYSTEM: Normal AP diameter. No accessory muscle use. No wheezing, no crackles. ABDOMEN: Soft, mild tenderness in the right upper quadrant region, mild distention. No guarding, no rigidity. CENTRAL NERVOUS SYSTEM: Cranial nerves II-XII grossly intact, nonfocal. EXTREMITIES: Mild lower extremity pedal edema present. Mild erythema on the left lower extremity. LABORATORY DATA: WBC 4.2, hemoglobin 11.1, hematocrit 33.2, platelets 93. Sodium 139, potassium 3.9, chloride 107, bicarbonate 25, BUN 13, creatinine 0.9, serum glucose 97, calcium 9.1, total bilirubin 0.9, AST 26, ALT 26, alkaline phosphatase 82. Point of care troponin I less than 0.03. IMAGING DATA: CT of the head, no acute findings seen. Chest x-ray, mild cardiomegaly, no evidence of focal pulmonary consolidation. EKG: Normal sinus rhythm with sinus arrhythmia at a rate of 66, QT at 490. ASSESSMENT AND PLAN: A 73-year-old female who presents with chest pain. 1. Chest pain, a couple of episodes in last two days for about 2 minutes and also she has a feeling of numbness in the left hand. She still has some numbness in the left hand region. Initial workup is negative. We will observe in tele floor. Serial cardiac enzymes. She will have repeat EKG, echocardiogram. N.p.o. after midnight. Consult cardiology for further recommendations. Possible stress test in the a.m. 2. History of alcoholic liver cirrhosis and take lactulose and Lasix as needed. Follows with GI. 3. Right upper quadrant abdominal pain, mild tenderness. LFTs are okay. Follow the ultrasound. 4. History of coronary artery disease status post coronary artery bypass graft. Continue her home medication of aspirin, Toprol-XL, and follow the echocardiogram. 5. History of chronic obstructive pulmonary disease. Continue home inhalers, currently stable. 6. History of hypertension. Continue Cozaar, Toprol-XL. Will monitor the blood pressure. 7. History of diastolic congestive heart failure, on Lasix as needed. 8. Hypothyroidism, on Synthroid. 9. Gastroesophageal reflux disease, on PPI. 10. Depression, on Prozac. 11. Pancytopenia secondary to liver cirrhosis. Follow the labs. 12. Vision impaired. Since one month.on glasses. Advised to followup with ophthalmology.. 13. Deep venous thrombosis prophylaxis, sequential compression devices for now. 14. Disposition: Observation in med/surg tele. Level 1 full code. MTDD
[2018-11-24 04:22] LABS: Hematocrit (blood only) 32.5 % (37-47); Hemoglobin 10.8 g/dL (12.0-16.0); Mean Corpuscular Hgb Conc 33.2 g/dL (32-36); RDW Standard Deviation 53.6 fL (36.4-46.3); Red Blood Count 3.35 M/uL (4.2-5.4); White Blood Count 3.64 K/uL (4.8-10.8)
[2018-11-24 04:25] LABS: Mean Platelet Volume 10.8 fL (7.4-10.4); Platelet Count 82 K/uL (130-400)
[2018-11-24 04:37] LABS: BUN Creatinine Ratio 14.9 (10-20); Calcium 8.4 mg/dl (8.5-10.1); Creatinine Clr Calc Pharmacy 58.5 ml/min; Est GFR (African American) 71.2; Est GFR (Non-African American) 61.4; Magnesium 1.9 mg/dl (1.8-2.4); Potassium 4.2 mmol/L (3.5-5.1)
[2018-11-24 04:57] LABS: Basophils # (auto) 0.02 K/uL (0-0.2); Basophils % (auto) 0.5 %; Eosinophils # (auto) 0.21 K/uL (0-0.5); Eosinophils % (auto) 5.8 %; Immature Granulocytes # (auto) 0.01 K/uL (0.00-0.02); Immature Granulocytes % (auto) 0.3 %; Lymphocytes # (auto) 1.12 K/uL (1.2-3.4); Lymphocytes % (auto) 30.8 %; Monocytes # (auto) 0.33 K/uL (0.11-0.59); Monocytes % (auto) 9.1 %; Neutrophils # (auto) 1.95 K/uL (1.4-6.5); Neutrophils % (auto) 53.5 %
[2018-11-24] MEDS: LEVOTHYROXINE SODIUM 75 MCG TABLET PO SCH (06:09)
[2018-11-24] MEDS: MULTIVITAMIN TAB PO SCH (08:56)
[2018-11-24] MEDS: IPRATROPIUM BROMIDE/ALBUTEROL respimat INH INH SCH ×4 (08:56→20:25)
[2018-11-24] MEDS: GABAPENTIN 300 MG CAP PO SCH ×3 (08:56→20:38)
[2018-11-24] MEDS: MONTELUKAST SODIUM 10 MG TABLET PO SCH (08:56)
[2018-11-24] MEDS: LACTULOSE SYRUP 20 GM/30 ML UDC PO SCH ×2 (08:56→20:25)
[2018-11-24] MEDS: FOLIC ACID 1 MG TAB PO SCH (08:56)
[2018-11-24] MEDS: FLUOXETINE HCL 20 MG CAP PO SCH (08:56)
[2018-11-24] MEDS: ASPIRIN 81 MG ECTAB PO SCH (08:56)
[2018-11-24] MEDS: FLUTICASONE/SALMETEROL 250/50 (ADVAIR) 14 PUFF/1 INHALER INH SCH ×2 (08:56→20:24)
[2018-11-24] MEDS: PANTOprazole 40 MG TAB PO SCH (08:56)
[2018-11-24] MEDS: FLUTICASONE PROPIONATE NA SPR 16 GM BTL SCH (08:56)
[2018-11-24] MEDS: METOPROLOL SUCC 50MG EXT REL TAB PO SCH (08:56)
[2018-11-24] MEDS: LOSARTAN POTASSIUM 50 MG TAB PO SCH (08:56)
[2018-11-24] MEDS: ACETAMINOPHEN 325 MG TAB PO PRN ×2 (08:59→17:42)
[2018-11-24] MEDS ORDERED: FLUOXETINE HCL 20 MG CAP PO SCH (09:00)
--- NOTE | 2018-11-24 09:02 | Ultrasound Report ---
US abdomen limited CLINICAL HISTORY: Abdominal pain. History of cirrhosis. History of ascites. COMPARISON STUDY: CT scan performed April 2018 FINDINGS: Visualization the pancreas was limited. No definite pancreatic abnormalities were delineate d. The liver has a cirrhotic morphology. No focal hepatic masses were visualized. There is no ductal dilatation. There is cholelithiasis. There is no gallbladder wall thickening. Technologist reports a negative sonographic Brennan sign. There is no right-sided hydronephrosis. IMPRESSION: 1. Cirrhotic morphology of the liver with a coarsened hepatic echotexture. No focal masses identified 2. Cholelithiasis. No ductal dilatation. Electronically signed by: Xavier Lombardo M.D. 11/24/2018 9:01 AM
[2018-11-24 12:17] LABS: Influenza A virus by PCR Neg for Influ A (Neg); Influenza B virus by PCR Neg for Influ B (Neg)
--- NOTE | 2018-11-24 12:21 | Cardiology Consultation ---
Date of Consultation November 24, 2018 Assessment & Plan (1) Left-sided chest pain: 73-year-old female history of chronic coronary disease and prior coronary artery bypass grafting presents with intermittent chest discomfort and atypical features. Initial evaluation including troponin, ECG, and resting 2D transthoracic echocardiogram unremarkable. QT prolongation noted on ECG. No significant electrolyte derangement noted. Recommend exercise stress echocardiography for further stratification. Patient is not a strong candidate for cardiac catheterization due to cirrhosis with chronic thrombocytopenia. Addendum: Patient unable to ambulate adequately on treadmill due to gait dysfunction. Stress test aborted. Recommend Lexiscan nuclear stress test for further risk stratification. This can be performed in the outpatient setting, however, can be ordered for Tuesday morning if patient remains hospitalized. (2) Coronary artery disease: Continue aspirin, beta-vanna, and losartan. Documented statin intolerance. (3) PEREZ (dyspnea on exertion): (4) Aortic stenosis: Mild to moderate aortic stenosis per repeat echocardiogram. Continued surveillance with yearly echocardiogram recommended. (5) Prolonged QT interval: Consider discontinuation of trazodone and/or reduction of fluoxetine dosing. Avoid medications with propensity to prolong the QT interval. History of Present Illness Reason for Consultation: Chest pain Requesting Physician: Dr. Ponce Attending Physician: Hernan Ponce MD History of Present Illness 73-year-old female with complex cardiac history noted below presented to the emergency department with intermittent episodes of left-sided chest discomfort. Patient describes a left-sided ache and heaviness which has been intermittent over the past 3 days. Pain typically occurs at rest. There is been some radiation to her left shoulder and arm. No associated shortness of breath, lightheadedness, dizziness, palpitations, syncope, or near syncope. Pain-free overnight. Cardiac enzymes are unremarkable. No ischemic ECG changes. Resting 2D transthoracic echocardiogram demonstrates no regional wall motion abnormalities. Currently patient resting comfortably. Admits to sedentary lifestyle and lack of regular exercise. She has been dealing with medical issues including chronic low back pain and cirrhosis. Recent spinal injection canceled secondary to thrombocytopenia. Most recent stress test performed June 2000 16- for inducible ischemia. Denies orthopnea, PND, lower extremity edema. Reports chronic abdominal discomfort and bloating. CT of the head performed on admission due to transient confusion. Offers no other concerns/complaints at this time. Cardiac history: Coronary artery disease s/p CABGx 4 (2010) with internal mammary to LAD, reverse saphenous vein graft from aorta to diagonal, and reverse saphenous vein sequential graft from aorta to posterior descending artery to right ventricular branch , chronic diastolic heart failure, hypertension, and dyslipidemia. Dobutamine stress echo report June,: The stress echo is negative for inducible ischemia. No arrhythmias. Hypertensive BP response to dobutamine. Allergies Allergy/AdvReac Type Severity Reaction Status Date / Time No Known Allergies Allergy Verified 11/23/18 16:46 Home Medications Home Medications Medication Instructions Recorded Confirmed Type albuterol sulfate 2.5 mg INHALATION Q4 PRN 11/23/18 11/23/18 History aspirin 81 mg PO DAILY 11/23/18 11/23/18 History bisacodyl 5 mg PO HS PRN 11/23/18 11/23/18 History cyanocobalamin (vitamin B-12) 1,000 mcg IM MONTHLY 11/23/18 11/23/18 History diclofenac potassium 50 mg PO TID 11/23/18 11/23/18 History diclofenac sodium 50 mg PO BID 11/23/18 11/23/18 History fluoxetine 20 mg PO DAILY 11/23/18 11/23/18 History fluoxetine 40 mg PO DAILY 11/23/18 11/23/18 History fluticasone propion-salmeterol 1 inh INHALATION BID 11/23/18 11/23/18 History [Advair Diskus] fluticasone propionate 1 spray INTRANASAL DAILY 11/23/18 11/23/18 History folic acid 1 mg PO DAILY 11/23/18 11/23/18 History furosemide 20 mg PO DAILY PRN 11/23/18 11/23/18 History gabapentin 300 mg PO TID 11/23/18 11/23/18 History ipratropium-albuterol [Combivent 1 puff INHALATION QID 11/23/18 11/23/18 History Respimat] lactulose 30 ml PO BID 11/23/18 11/23/18 History levocetirizine 5 mg PO PM 11/23/18 11/23/18 History levothyroxine 75 mcg PO DAILY 11/23/18 11/23/18 History losartan 50 mg PO DAILY 11/23/18 11/23/18 History metoprolol succinate 50 mg PO DAILY 11/23/18 11/23/18 History montelukast 10 mg PO DAILY 11/23/18 11/23/18 History multivitamin 1 tab PO DAILY 11/23/18 11/23/18 History naltrexone 50 mg PO DAILY PRN 11/23/18 11/23/18 History naltrexone microspheres [Vivitrol] 380 mg IM MONTHLY 11/23/18 11/23/18 History nitroglycerin [Nitrostat] 1 dose SUBLINGUAL UD PRN 11/23/18 11/23/18 History omeprazole 20 mg PO DAILY 11/23/18 11/23/18 History ondansetron HCl [Zofran] 8 mg PO Q12 PRN 11/23/18 11/23/18 History sennosides [senna] 8.6 mg PO BID PRN 11/23/18 11/23/18 History trazodone 150 mg PO HS 11/23/18 11/23/18 History Patient History Medical History Liver disease SBO (small bowel obstruction) Social History Communication Ability: Effective [employer]or Required: No Beliefs That Will Affect Care: [employer] marital status: Single Current Living Situation: Alone Other Information That Helps Us Care for You: No Feels Safe at Home: Yes Safety Concerns: Feels Safe At This Time Smoking Status: Former smoker Hx Alcohol Use: No Hx Substance Use: No Review of Systems Pertinent positives noted per HPI, conference of 10 system review otherwise negative. Physical Exam Vital Signs (Past 24 Hours): Last Vital Signs Temp 37 C 11/24/18 11:25 Pulse 61 11/24/18 11:25 Resp 16 11/24/18 11:25 BP 163/76 H 11/24/18 11:25 Pulse Ox 92 11/24/18 11:25 Physical Exam: General: NAD, AAO x3, well nourished. Overweight. HEENT: Normocephalic. Atraumatic. Conjunctiva pink, no scleral icterus. Neck: No carotid bruits, the carotid upstrokes are brisk. No JVD. No HJR Heart: Regular normal S-1 and S-2 no S-3 or S-4 gallop. No murmurs or rub appreciated. PMI is not displaced. No RV heave. Lungs: Clear bilateral without rales , rhonchi, or wheeze. Abdomen: Mildly distended, soft. Normal bowel sounds. Mild diffuse tenderness to palpation. No masses or organomegaly. No abdominal bruits. Extremities: No clubbing, cyanosis, or edema. Pulses: radial=2/4, Dorsalis pedis =2/4, posterior tibial=2/4. Neuro: Cranial nerves grossly intact. No focal motor deficit. Results & Data Laboratory Results Laboratory Results - last 24 hr 11/23/18 11/23/18 11/23/18 17:02 17:02 17:02 WBC 4.23 L RBC 3.42 L Hgb 11.1 L Hct 33.2 L MCV 97.1 MCH 32.5 MCHC 33.4 RDW Std Deviation 52.4 H RDW Coeff of Zelda 14.8 H Plt Count 93 L MPV 11.6 H Immature Gran % (Auto) 0.2 Neut % (Auto) 57.8 Lymph % (Auto) 24.8 [place] % (Auto) 10.2 Eos % (Auto) 6.1 Baso % (Auto) 0.9 Immature Gran # (Auto) 0.01 Neut # (Auto) 2.44 Lymph # (Auto) 1.05 L [place] # (Auto) 0.43 Eos # (Auto) 0.26 Baso # (Auto) 0.04 Platelet Estimate Decreased Sodium 139 Potassium 3.9 Chloride 107 Carbon Dioxide 25 Anion Gap 7.0 BUN 13 Creatinine 0.92 Est Cr Clr Drug Dosing 57.3 Est GFR ( Amer) 72.1 Est GFR (Non-Af Amer) 62.2 BUN/Creatinine Ratio 14.3 Glucose 97 Calcium 9.1 Magnesium Total Bilirubin 0.9 AST 26 ALT 26 Alkaline Phosphatase 82 POC Troponin I Troponin I Total Protein 7.0 Albumin 3.4 Globulin 3.6 Albumin/Globulin Ratio 0.9 Lipase 279 11/23/18 11/23/18 11/24/18 17:10 22:22 04:11 WBC RBC Hgb Hct MCV MCH MCHC RDW Std Deviation RDW Coeff of Zelda Plt Count MPV Immature Gran % (Auto) Neut % (Auto) Lymph % (Auto) [place] % (Auto) Eos % (Auto) Baso % (Auto) Immature Gran # (Auto) Neut # (Auto) Lymph # (Auto) [place] # (Auto) Eos # (Auto) Baso # (Auto) Platelet Estimate Sodium Potassium Chloride Carbon Dioxide Anion Gap BUN Creatinine Est Cr Clr Drug Dosing Est GFR ( Amer) Est GFR (Non-Af Amer) BUN/Creatinine Ratio Glucose Calcium Magnesium Total Bilirubin AST ALT Alkaline Phosphatase POC Troponin I < 0.03 Troponin I < 0.015 < 0.015 Total Protein Albumin Globulin Albumin/Globulin Ratio Lipase 11/24/18 11/24/18 11/24/18 04:11 04:11 10:40 WBC 3.64 L RBC 3.35 L Hgb 10.8 L Hct 32.5 L MCV 97.0 MCH 32.2 MCHC 33.2 RDW Std Deviation 53.6 H RDW Coeff of Zelda 15.0 H Plt Count 82 L MPV 10.8 H Immature Gran % (Auto) 0.3 Neut % (Auto) 53.5 Lymph % (Auto) 30.8 [place] % (Auto) 9.1 Eos % (Auto) 5.8 Baso % (Auto) 0.5 Immature Gran # (Auto) 0.01 Neut # (Auto) 1.95 Lymph # (Auto) 1.12 L [place] # (Auto) 0.33 Eos # (Auto) 0.21 Baso # (Auto) 0.02 Platelet Estimate Sodium 139 Potassium 4.2 Chloride 107 Carbon Dioxide 29 Anion Gap 3.0 BUN 14 Creatinine 0.93 Est Cr Clr Drug Dosing 58.5 Est GFR ( Amer) 71.2 Est GFR (Non-Af Amer) 61.4 BUN/Creatinine Ratio 14.9 Glucose 107 H Calcium 8.4 L Magnesium 1.9 Total Bilirubin AST ALT Alkaline Phosphatase POC Troponin I Troponin I < 0.015 Total Protein Albumin Globulin Albumin/Globulin Ratio Lipase Diagnostic Findings ECG: Normal sinus rhythm, prolonged QTc. Medications Administered albuterol sulfate 2.5 mg INHALATION Q4 PRN 11/23/18 [History Confirmed 11/23/18] aspirin 81 mg PO DAILY 11/23/18 [History Confirmed 11/23/18] bisacodyl 5 mg PO HS PRN 11/23/18 [History Confirmed 11/23/18] cyanocobalamin (vitamin B-12) 1,000 mcg IM MONTHLY 11/23/18 [History Confirmed 11/23/18] diclofenac potassium 50 mg PO TID 11/23/18 [History Confirmed 11/23/18] diclofenac sodium 50 mg PO BID 11/23/18 [History Confirmed 11/23/18] fluoxetine 20 mg PO DAILY 11/23/18 [History Confirmed 11/23/18] fluoxetine 40 mg PO DAILY 11/23/18 [History Confirmed 11/23/18] fluticasone propion-salmeterol [Advair Diskus] 1 inh INHALATION BID 11/23/18 [History Confirmed 11/23/18] fluticasone propionate 1 spray INTRANASAL DAILY 11/23/18 [History Confirmed 11/23/18] folic acid 1 mg PO DAILY 11/23/18 [History Confirmed 11/23/18] furosemide 20 mg PO DAILY PRN 11/23/18 [History Confirmed 11/23/18] gabapentin 300 mg PO TID 11/23/18 [History Confirmed 11/23/18] ipratropium-albuterol [Combivent Respimat] 1 puff INHALATION QID 11/23/18 [History Confirmed 11/23/18] lactulose 30 ml PO BID 11/23/18 [History Confirmed 11/23/18] levocetirizine 5 mg PO PM 11/23/18 [History Confirmed 11/23/18] levothyroxine 75 mcg PO DAILY 11/23/18 [History Confirmed 11/23/18] losartan 50 mg PO DAILY 11/23/18 [History Confirmed 11/23/18] metoprolol succinate 50 mg PO DAILY 11/23/18 [History Confirmed 11/23/18] montelukast 10 mg PO DAILY 11/23/18 [History Confirmed 11/23/18] multivitamin 1 tab PO DAILY 11/23/18 [History Confirmed 11/23/18] naltrexone 50 mg PO DAILY PRN 11/23/18 [History Confirmed 11/23/18] naltrexone microspheres [Vivitrol] 380 mg IM MONTHLY 11/23/18 [History Confirmed 11/23/18] nitroglycerin [Nitrostat] 1 dose SUBLINGUAL UD PRN 11/23/18 [History Confirmed 11/23/18] omeprazole 20 mg PO DAILY 11/23/18 [History Confirmed 11/23/18] ondansetron HCl [Zofran] 8 mg PO Q12 PRN 11/23/18 [History Confirmed 11/23/18] sennosides [senna] 8.6 mg PO BID PRN 11/23/18 [History Confirmed 11/23/18] trazodone 150 mg PO HS 11/23/18 [History Confirmed 11/23/18] Home Medications Acetaminophen (Tylenol) 650 mg PO Q4H PRN PRN Reason: Pain or Fever Stop: 12/23/18 20:19 Last Admin: 11/24/18 08:59 Dose: 650 mg Documented by: Albuterol (Ventolin 0.083% 2.5mg/3ml) 2.5 mg INH Q4 PRN PRN Reason: Shortness Of Breath Stop: 12/23/18 20:19 Albuterol (Combivent Respimat) 1 puffs INH QID PENDING SALE TO [facility] Stop: 12/23/18 20:59 Last Admin: 11/24/18 08:56 Dose: 1 puffs Documented by: Aspirin (Ecotrin Ectab) 81 mg PO DAILY PENDING SALE TO [facility] Stop: 12/24/18 08:59 Last Admin: 11/24/18 08:56 Dose: 81 mg Documented by: Bisacodyl (Dulcolax) 5 mg PO HS PRN PRN Reason: CONSTIPATION Stop: 12/23/18 22:14 Doxycycline Hyclate (Vibramycin) 100 mg PO BID PENDING SALE TO [facility]; Protocol Stop: 12/01/18 11:29 Fluoxetine HCl (Prozac) 60 mg PO DAILY PENDING SALE TO [facility] Stop: 12/24/18 08:59 Last Admin: 11/24/18 08:56 Dose: 60 mg Documented by: Fluticasone Propionate (Flonase) 1 sprays NA DAILY PENDING SALE TO [facility] Stop: 12/24/18 08:59 Last Admin: 11/24/18 08:56 Dose: 1 sprays Documented by: Folic Acid (Folvite) 1 mg PO DAILY PENDING SALE TO [facility] Stop: 12/24/18 08:59 Last Admin: 11/24/18 08:56 Dose: 1 mg Documented by: Furosemide (Lasix) 20 mg PO DAILY PRN PRN Reason: Fluid Retention Stop: 12/23/18 20:19 Gabapentin (Neurontin) 300 mg PO TID PENDING SALE TO [facility] Stop: 12/23/18 20:59 Last Admin: 11/24/18 08:56 Dose: 300 mg Documented by: Lactulose (Chronulac) 20 gm PO BID PENDING SALE TO [facility] Stop: 12/23/18 22:03 Last Admin: 11/24/18 08:56 Dose: 20 gm Documented by: Levothyroxine Sodium (Synthroid) 75 mcg PO DAILYBB PENDING SALE TO [facility] Stop: 12/24/18 06:29 Last Admin: 11/24/18 06:09 Dose: 75 mcg Documented by: Losartan Potassium (Cozaar) 50 mg PO DAILY JUAN Stop: 12/24/18 08:59 Last Admin: 11/24/18 08:56 Dose: 50 mg Documented by: Metoprolol Succinate (Toprol Xl) 50 mg PO DAILY JUAN Stop: 12/24/18 08:59 Last Admin: 11/24/18 08:56 Dose: 50 mg Documented by: Miscellaneous (Order Awaiting Action) 1 ea N/A QS PENDING SALE TO [facility] Stop: 12/24/18 00:00 Last Admin: 11/24/18 07:34 Dose: Not Given Documented by: Montelukast Sodium (Singulair) 10 mg PO DAILY PENDING SALE TO [facility] Stop: 12/24/18 08:59 Last Admin: 11/24/18 08:56 Dose: 10 mg Documented by: Multivitamins (Multivitamin Tab) 1 tab PO DAILY PENDING SALE TO [facility] Stop: 12/24/18 08:59 Last Admin: 11/24/18 08:56 Dose: 1 tab Documented by: Nitroglycerin (Nitrostat) 0.4 mg SL UD PRN PRN Reason: Chest Pain Stop: 12/23/18 20:19 Ondansetron HCl (Zofran) 8 mg PO Q12 PRN PRN Reason: Nausea Stop: 12/23/18 20:19 Ondansetron HCl (Zofran) 4 mg IV Q6H PRN PRN Reason: Nausea Stop: 12/23/18 20:19 Pantoprazole Sodium (Protonix) 40 mg PO DAILY JUAN Stop: 12/24/18 08:59 Last Admin: 11/24/18 08:56 Dose: 40 mg Documented by: Fluticasone/Salmeterol (Advair Diskus 250/50) 1 puffs INH BID PENDING SALE TO [facility] Stop: 12/23/18 20:59 Last Admin: 11/24/18 08:56 Dose: 1 puffs Documented by: Sennosides (Senokot) 8.6 mg PO BID PRN PRN Reason: Constipation Stop: 12/23/18 20:19 Trazodone HCl (Desyrel) 150 mg PO HS PENDING SALE TO [facility] Stop: 12/23/18 20:59 Last Admin: 04/11/19 22:36 Dose: 150 mg Documented by: (1) Coronary artery disease Associated angina: angina presence unspecified Coronary Disease-Associated Artery/Lesion type: [place] artery [place] vs. transplanted heart: [place] heart Qualified Code(s): I25.10 - Atherosclerotic heart disease of [place] coronary artery without angina pectoris (2) Aortic stenosis Cardiac valve disease etiology: etiology unspecified Qualified Code(s): I35.0 - Nonrheumatic aortic (valve) stenosis
[2018-11-24] MEDS: DOXYCYCLINE HYCLATE 100 MG CAP PO SCH ×2 (12:41→20:39)
[2018-11-24] MEDS: ONDANSETRON INJ 2 MG/ML 2 ML VIAL IV PRN ×2 (13:57→20:24)
--- NOTE | 2018-11-24 16:13 | Hospitalist Progress Note ---
Date of Service November 24, 2018 Assessment & Plan (1) Left-sided chest pain: Patient is a 73 yr female with H/O CAD, Cirrhosis and other problems presents with chest pain Left Sided Chest Pain H/O CAD S/P CABG in 2010 Troponin X 4: Negative EKG/ECHO: Not suggestive of acute ischemia Could not complete exercise stress test due to gait dysfunction Poor Candidate for Cardiac Cath due to Cirrhosis/Chronic Thrombocytopenia Plan for Nuclear Stress test as able--Inpatient Vs Outpatient Appreciate Cardiology Input H/O Statin intolerance Continue Aspirin, Metoprolol, Losartan NTG PRN Possible Bronchitis CXR:Mild cardiomegaly. No evidence of focal pulmonary consolidation. Slight interstitial prominence, a finding likely related to technical factors Started on Doxycycline H/O Alcoholic Cirrhosis Chronic thrombocytopenia Ongoing Right sided abdominal pain Last Alcohol drink 6 months ago as per patient Normal LFTs ABD USD: Cirrhotic morphology of the liver with a coarsened hepatic echotexture. No focal masses identified. Cholelithiasis. No ductal dilatation. Continue home diuretics, Lactulose Consider GI eval if needed No bleeding issues COPD No signs of Exacerbation Continue home inhalers Nebs PRN Hypertension: Labile Continue current meds H/O diastolic congestive heart failure No signs of acute exacerbation Continue home diuretics Hypothyroidism Continue Levothyroxine GERD: Continue PPI Depression: On Prozac, Trazodone Pancytopenia secondary to liver cirrhosis Monitor CBC Vision impaired Advised to follow up with ophthalmology as outpatient DVT Px: SCDs Re: Pancytopenia Code Status full code Subjective Patient is seen and examined at bedside Denies chest pain chest today morning but had some pain this afternoon Also has mild left arm pain Chronic nausea, right abd pain --unchanged Reports cough with yellowish expectoration since hospitalization Could not perform exercise stress test today Denies SOB, dizziness No other complaints Physical Exam Vital Signs (Past 24 Hours): Last Vital Signs Temp 37.3 C 11/24/18 15:01 Pulse 62 11/24/18 15:50 Resp 20 11/24/18 15:50 BP 122/75 11/24/18 15:50 Pulse Ox 95 11/24/18 15:50 Physical Exam: Physical Exam: Vitals signs as noted above General Appearance:Moderately built and nourished, no apparent distress Head: normocephalic, Atraumatic Eyes: normal inspection, EOMI Neck: supple, Trachea midline Respiratory/Chest: Decreased breath sounds at bases, CTA Cardiovascular: S1, S2, + murmur Abdomen/GI:Soft, mild RLQ tender, Bowel sounds present Extremities/Musculoskelatal:normal inspection, non pitting edema Neurologic/Psych:AAOX3, grossly no focal neurological deficits Skin: normal color, warm, multiple scratch wilkins on upper extremities Results & Data Laboratory Results Short CBC 11/23/18 11/24/18 Range/Units 17:02 04:11 WBC 4.23 L 3.64 L (4.8-10.8) K/uL Hgb 11.1 L 10.8 L (12.0-16.0) g/dL Hct 33.2 L 32.5 L (37-47) % Plt Count 93 L 82 L (130-400) K/uL BMP 11/23/18 11/24/18 17:02 04:11 Sodium 139 139 Potassium 3.9 4.2 Chloride 107 107 Carbon Dioxide 25 29 BUN 13 14 Creatinine 0.92 0.93 Glucose 97 107 H Calcium 9.1 8.4 L Cardiac Enzymes 11/23/18 11/24/18 11/24/18 Range/Units 22:22 04:11 10:40 Troponin I < 0.015 < 0.015 < 0.015 (0-0.045) ng/ml Liver Function 11/23/18 Range/Units 17:02 Total Bilirubin 0.9 (0.2-1) mg/dl AST 26 (15-37) U/L ALT 26 (12-78) U/L Alkaline Phosphatase 82 (45-117) U/L Albumin 3.4 (3.4-5.0) gm/dl Diagnostic Findings ABD USD: 1. Cirrhotic morphology of the liver with a coarsened hepatic echotexture. No focal masses identified 2. Cholelithiasis. No ductal dilatation.
[2018-11-24] MEDS: TRAZODONE HCL 50 MG TAB PO SCH (20:38)
[2018-11-25] MEDS: LEVOTHYROXINE SODIUM 75 MCG TABLET PO SCH (05:09)
[2018-11-25 06:35] LABS: Hematocrit (blood only) 31.2 % (37-47); Hemoglobin 10.4 g/dL (12.0-16.0); Mean Corpuscular Hgb Conc 33.3 g/dL (32-36); RDW Standard Deviation 52.9 fL (36.4-46.3); Red Blood Count 3.25 M/uL (4.2-5.4); White Blood Count 2.85 K/uL (4.8-10.8)
[2018-11-25 06:37] LABS: Mean Platelet Volume 11.7 fL (7.4-10.4); Platelet Count 72 K/uL (130-400)
[2018-11-25 06:52] LABS: BUN Creatinine Ratio 13.2 (10-20); Calcium 8.9 mg/dl (8.5-10.1); Creatinine Clr Calc Pharmacy 60.2 ml/min; Est GFR (Non-African American) 63.9; Potassium 4.2 mmol/L (3.5-5.1)
[2018-11-25] MEDS: FLUTICASONE/SALMETEROL 250/50 (ADVAIR) 14 PUFF/1 INHALER INH SCH ×2 (08:56→20:28)
[2018-11-25] MEDS: METOPROLOL SUCC 50MG EXT REL TAB PO SCH (08:56)
[2018-11-25] MEDS: LOSARTAN POTASSIUM 50 MG TAB PO SCH (08:56)
[2018-11-25] MEDS: PANTOprazole 40 MG TAB PO SCH (08:56)
[2018-11-25] MEDS: MULTIVITAMIN TAB PO SCH (08:56)
[2018-11-25] MEDS: ASPIRIN 81 MG ECTAB PO SCH (08:57)
[2018-11-25] MEDS: GABAPENTIN 300 MG CAP PO SCH ×3 (08:57→20:31)
[2018-11-25] MEDS: FOLIC ACID 1 MG TAB PO SCH (08:58)
[2018-11-25] MEDS: FLUTICASONE PROPIONATE NA SPR 16 GM BTL SCH (08:58)
[2018-11-25] MEDS: IPRATROPIUM BROMIDE/ALBUTEROL respimat INH INH SCH ×4 (08:58→20:28)
[2018-11-25] MEDS: FLUOXETINE HCL 20 MG CAP PO SCH (08:59)
[2018-11-25] MEDS: MONTELUKAST SODIUM 10 MG TABLET PO SCH (08:59)
[2018-11-25] MEDS: LACTULOSE SYRUP 20 GM/30 ML UDC PO SCH ×2 (09:00→20:28)
[2018-11-25] MEDS: DOXYCYCLINE HYCLATE 100 MG CAP PO SCH ×2 (09:01→20:31)
[2018-11-25] MEDS: ACETAMINOPHEN 325 MG TAB PO PRN ×2 (09:06→21:36)
--- NOTE | 2018-11-25 10:44 | Cardiology Progress Note ---
Date of Service November 25, 2018 Assessment & Plan (1) Left-sided chest pain: Symptoms atypical for angina with normal EKG hypertension observed on admission and since admission Recommend adding amlodipine 2.5 mill grams p.o. daily to current medical regimen Stress nuclear study as an outpatient (2) Essential hypertension: Blood pressure is elevated as above (3) Aortic stenosis: Mild to moderate by echocardiogram (4) Prolonged QT interval: No progression with QT slightly shorter today Subjective Patient stable. Did have sharp chest pain yesterday atypical for angina. EKG this morning normal No fevers chills or productive cough but currently on antibiotic therapies. Blood pressure is elevated once again Physical Exam Vital Signs (Past 24 Hours): Last Vital Signs Temp 37.3 C 11/25/18 07:06 Pulse 61 11/25/18 08:00 Resp 18 11/25/18 07:06 BP 176/64 H 11/25/18 07:06 Pulse Ox 95 11/25/18 07:06 Constitutional: WD/WN, vitals as above ENMT: external ear and nose normal, oropharynx normal Neck: trachea midline, no thyromegaly Respiratory: normal respiratory effort, lungs clear to auscultation Cardiovascular: Rate/Rhythm: regular rate and regular rhythm Heart Sounds: normal S1, normal S2 and + murmur (Grade 1/6 systolic right upper sternal border); no gallop Extremities: no pedal edema Gastrointestinal (Abdomen): Percussion/Palpation: abdomen soft; abdomen nontender Musculoskeletal: no cyanosis or clubbing, extremities motor strength 5/5 Results & Data Laboratory Results Laboratory Results - last 24 hr 11/24/18 11/24/18 11/25/18 10:40 11:39 06:03 WBC 2.85 L RBC 3.25 L Hgb 10.4 L Hct 31.2 L MCV 96.0 MCH 32.0 MCHC 33.3 RDW Std Deviation 52.9 H RDW Coeff of Ezlda 15.0 H Plt Count 72 L MPV 11.7 H Sodium Potassium Chloride Carbon Dioxide Anion Gap BUN Creatinine Est Cr Clr Drug Dosing Est GFR ( Amer) Est GFR (Non-Af Amer) BUN/Creatinine Ratio Glucose Calcium Troponin I < 0.015 Influenza Type A (PCR) Neg for Influ A Influenza Type B (PCR) Neg for Influ B 11/25/18 06:03 WBC RBC Hgb Hct MCV MCH MCHC RDW Std Deviation RDW Coeff of Zelda Plt Count MPV Sodium 141 Potassium 4.2 Chloride 111 H Carbon Dioxide 25 Anion Gap 5.0 BUN 12 Creatinine 0.90 Est Cr Clr Drug Dosing 60.2 Est GFR ( Amer) 74.0 Est GFR (Non-Af Amer) 63.9 BUN/Creatinine Ratio 13.2 Glucose 97 Calcium 8.9 Troponin I Influenza Type A (PCR) Influenza Type B (PCR) ECG Additional Comments: ID:[id number] 25-NOV-2018 07:25:03 [facility] Normal sinus rhythm with sinus arrhythmia Normal ECG When compared with ECG of 24-NOV-2018 15:55, No significant change was found Vent. rate 66 BPM IA interval 198 ms QRS duration 90 ms QT/QTc 462/484 ms (1) Aortic stenosis Cardiac valve disease etiology: etiology unspecified Qualified Code(s): I35.0 - Nonrheumatic aortic (valve) stenosis
[2018-11-25] MEDS ORDERED: POLYETHYLENE (MIRALAX) 17 GM PACK PO PRN (10:56)
[2018-11-25] MEDS: AMLODIPINE BESYLATE 5 MG TAB PO SCH (12:14)
--- NOTE | 2018-11-25 17:54 | Hospitalist Progress Note ---
Date of Service November 25, 2018 Assessment & Plan (1) Left-sided chest pain: Patient is a 73 yr female with H/O CAD, Cirrhosis and other problems presents with chest pain Left Sided Chest Pain H/O CAD S/P CABG in 2010 Troponin X 4: Negative EKG/ECHO: Not suggestive of acute ischemia Could not complete exercise stress test due to gait dysfunction Poor Candidate for Cardiac Cath due to Cirrhosis/Chronic Thrombocytopenia Plan for Nuclear Stress test as Outpatient Appreciate Cardiology Input H/O Statin intolerance Continue Aspirin, Metoprolol, Losartan NTG PRN Amlodipine added for better BP control Possible Bronchitis CXR:Mild cardiomegaly. No evidence of focal pulmonary consolidation. Slight interstitial prominence, a finding likely related to technical factors Continue Doxycycline Day #2 H/O Alcoholic Cirrhosis Chronic thrombocytopenia Ongoing Right sided abdominal pain Last Alcohol drink 6 months ago as per patient Normal LFTs ABD USD: Cirrhotic morphology of the liver with a coarsened hepatic echotexture. No focal masses identified. Cholelithiasis. No ductal dilatation. Continue home diuretics, Lactulose Consider GI eval if needed No bleeding issues COPD No signs of Exacerbation Continue home inhalers Nebs PRN Hypertension: Labile Continue current meds Added Amlodipine H/O diastolic congestive heart failure No signs of acute exacerbation Continue home diuretics Hypothyroidism Continue Levothyroxine GERD: Continue PPI Depression: On Prozac, Trazodone Pancytopenia secondary to liver cirrhosis Monitor CBC Vision impaired Advised to follow up with ophthalmology as outpatient DVT Px: SCDs Re: Pancytopenia Code Status full code Subjective Patient is seen and examined at bedside Denies chest pain today Feels weak/tired Still has cough Chronic nausea, right abd pain --unchanged Also denies SOB, dizziness No other complaints Physical Exam Vital Signs (Past 24 Hours): Last Vital Signs Temp 37.0 C 11/25/18 15:12 Pulse 65 11/25/18 15:12 Resp 18 11/25/18 15:12 BP 158/75 H 11/25/18 15:12 Pulse Ox 95 11/25/18 15:12 Physical Exam: Physical Exam: Vitals signs as noted above General Appearance:Moderately built and nourished, no apparent distress Head: normocephalic, Atraumatic Eyes: normal inspection, EOMI Neck: supple, Trachea midline Respiratory/Chest: Decreased breath sounds at bases, CTA Cardiovascular: S1, S2, + murmur Abdomen/GI:Soft, mild RLQ tender, Bowel sounds present Extremities/Musculoskelatal:normal inspection, non pitting edema Neurologic/Psych:AAOX3, grossly no focal neurological deficits Skin: normal color, warm, multiple scratch wilkins on upper extremities Results & Data Laboratory Results Short CBC 11/25/18 Range/Units 06:03 WBC 2.85 L (4.8-10.8) K/uL Hgb 10.4 L (12.0-16.0) g/dL Hct 31.2 L (37-47) % Plt Count 72 L (130-400) K/uL BMP 11/25/18 06:03 Sodium 141 Potassium 4.2 Chloride 111 H Carbon Dioxide 25 BUN 12 Creatinine 0.90 Glucose 97 Calcium 8.9
[2018-11-25] MEDS: TRAZODONE HCL 50 MG TAB PO SCH (20:30)
[2018-11-26] MEDS: LEVOTHYROXINE SODIUM 75 MCG TABLET PO SCH (06:32)
[2018-11-26 08:29] LABS: Hematocrit (blood only) 33.6 % (37-47); Hemoglobin 11.1 g/dL (12.0-16.0); Mean Corpuscular Volume 96.6 fL (80-100); RDW Coefficient of Variation 15.1 % (11.5-14.5); RDW Standard Deviation 53.5 fL (36.4-46.3); Red Blood Count 3.48 M/uL (4.2-5.4); White Blood Count 4.02 K/uL (4.8-10.8)
[2018-11-26 08:30] LABS: Mean Platelet Volume 11.3 fL (7.4-10.4); Platelet Count 78 K/uL (130-400)
[2018-11-26 08:50] LABS: BUN Creatinine Ratio 15.4 (10-20); Calcium 9.1 mg/dl (8.5-10.1); Creatinine Clr Calc Pharmacy 62.4 ml/min; Est GFR (African American) 77.1; Est GFR (Non-African American) 66.6; Potassium 4.3 mmol/L (3.5-5.1)
[2018-11-26] MEDS: LOSARTAN POTASSIUM 50 MG TAB PO SCH (08:57)
[2018-11-26] MEDS: MULTIVITAMIN TAB PO SCH (08:58)
[2018-11-26] MEDS: METOPROLOL SUCC 50MG EXT REL TAB PO SCH (08:58)
[2018-11-26] MEDS: PANTOprazole 40 MG TAB PO SCH (08:58)
[2018-11-26] MEDS: DOXYCYCLINE HYCLATE 100 MG CAP PO SCH (08:59)
[2018-11-26] MEDS: LACTULOSE SYRUP 20 GM/30 ML UDC PO SCH (09:01)
[2018-11-26] MEDS: FLUTICASONE/SALMETEROL 250/50 (ADVAIR) 14 PUFF/1 INHALER INH SCH (09:01)
[2018-11-26] MEDS: IPRATROPIUM BROMIDE/ALBUTEROL respimat INH INH SCH ×2 (09:01→14:23)
[2018-11-26] MEDS: GABAPENTIN 300 MG CAP PO SCH ×2 (09:02→14:24)
[2018-11-26] MEDS: FOLIC ACID 1 MG TAB PO SCH (09:03)
[2018-11-26] MEDS: FLUTICASONE PROPIONATE NA SPR 16 GM BTL SCH (09:03)
[2018-11-26] MEDS: FLUOXETINE HCL 20 MG CAP PO SCH (09:03)
[2018-11-26] MEDS: ASPIRIN 81 MG ECTAB PO SCH (09:03)
[2018-11-26] MEDS: AMLODIPINE BESYLATE 5 MG TAB PO SCH (09:04)
[2018-11-26] MEDS: MONTELUKAST SODIUM 10 MG TABLET PO SCH (09:05)
--- NOTE | 2018-11-26 13:08 | Hospitalist Progress Note ---
Date of Service November 26, 2018 Assessment & Plan (1) Left-sided chest pain: Patient is a 73 yr female with H/O CAD, Cirrhosis and other problems presents with chest pain Left Sided Atypical Chest Pain H/O CAD S/P CABG in 2010 Troponin X 4: Negative EKG/ECHO: Not suggestive of acute ischemia Could not complete exercise stress test due to gait dysfunction Poor Candidate for Cardiac Cath due to Cirrhosis/Chronic Thrombocytopenia Appreciate Cardiology Input H/O Statin intolerance Continue Aspirin, Metoprolol, Losartan NTG PRN Amlodipine added for better BP control Nuclear Stress test as outpatient Possible Bronchitis CXR:Mild cardiomegaly. No evidence of focal pulmonary consolidation. Slight interstitial prominence, a finding likely related to technical factors Continue Doxycycline Day #3 H/O Alcoholic Cirrhosis Chronic thrombocytopenia Ongoing Right sided abdominal pain Last Alcohol drink 6 months ago as per patient Normal LFTs ABD USD: Cirrhotic morphology of the liver with a coarsened hepatic echotexture. No focal masses identified. Cholelithiasis. No ductal dilatation. Continue home diuretics, Lactulose Consider GI eval if needed No bleeding issues COPD No signs of Exacerbation Continue home inhalers Nebs PRN Hypertension: Continue home meds Added Amlodipine H/O diastolic congestive heart failure No signs of acute exacerbation Continue home diuretics Hypothyroidism Continue Levothyroxine GERD: Continue PPI Depression: On Prozac, Trazodone Pancytopenia secondary to liver cirrhosis Monitor CBC Vision impaired Advised to follow up with ophthalmology as outpatient DVT Px: SCDs Re: Pancytopenia Code Status full code Disposition: Plan to discharge home today Subjective Patient is seen and examined at bedside Doing better today Cough, RLQ abd pain much improved No recurrence of chest pain No other complaints Discussed with Cardiology today--Plan for stress test as outpatient Also denies SOB, dizziness Physical Exam Vital Signs (Past 24 Hours): Last Vital Signs Temp 37.0 C 11/26/18 11:45 Pulse 64 11/26/18 11:45 Resp 18 11/26/18 11:45 BP 135/70 11/26/18 11:45 Pulse Ox 93 11/26/18 11:45 Physical Exam: Physical Exam: Vitals signs as noted above General Appearance:Moderately built and nourished, no apparent distress Head: normocephalic, Atraumatic Eyes: normal inspection, EOMI Neck: supple, Trachea midline Respiratory/Chest: Decreased breath sounds at bases, CTA Cardiovascular: S1, S2, + murmur Abdomen/GI:Soft, non tender, Bowel sounds present Extremities/Musculoskelatal:normal inspection, non pitting edema Neurologic/Psych:AAOX3, grossly no focal neurological deficits Skin: normal color, warm, multiple scratch wilkins on upper extremities Results & Data Laboratory Results Short CBC 11/26/18 Range/Units 08:08 WBC 4.02 L (4.8-10.8) K/uL Hgb 11.1 L (12.0-16.0) g/dL Hct 33.6 L (37-47) % Plt Count 78 L (130-400) K/uL BMP 11/26/18 08:08 Sodium 141 Potassium 4.3 Chloride 109 H Carbon Dioxide 25 BUN 13 Creatinine 0.87 Glucose 97 Calcium 9.1
--- NOTE | 2018-11-26 13:27 | Discharge Summary ---
Date of Service November 26, 2018 Admission HPI Per Admitting Provider CHIEF COMPLAINT: Chest pain. 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 The patient says she had a couple of minutes of chest pain yesterday and today. She says she was doing her regular activities at home. It was a pressure like feeling radiating to her left arm and hand. Pain lasted only two minutes The pain is resolved, but still has some numbness in the left hand region. She is always nauseous from her liver cirrhosis. She has some dizziness while ambulating. Lately, the last 2-3 days she is using a cane. She also has some vision issues going on for the last 1 month. Denies any earache, no runny nose, no sore throat, no cough. Has dry mouth. No difficulty swallowing. Currently, no shortness of breath, no fever, no chills, no abdominal pain. Currently, taking lactulose and has 1 or 2 bowel movements every day. No burning micturition, no blood in the urine. Has some edema in the lower extremity. No rash. Currently resting comfortable and hemodynamically stable. She is getting hungry and wants to eat and she is also complaining of right upper quadrant abdominal pain going on for some time. Admission Exam Per Admitting Provider PHYSICAL EXAMINATION: GENERAL: The patient is of moderate build, not in acute distress. VITAL SIGNS: Temperature 36.9, pulse 66, respiratory rate 18, blood pressure 167/92, oxygen 95% on room air. HEENT: No pallor, no icterus. Pupils equal, round, and reactive to light. NECK: No JVD, no neck masses, no carotid bruits. CARDIOVASCULAR: S1, S2 heard, regular rate and rhythm, no murmur, no gallop. RESPIRATORY SYSTEM: Normal AP diameter. No accessory muscle use. No wheezing, no crackles. ABDOMEN: Soft, mild tenderness in the right upper quadrant region, mild distention. No guarding, no rigidity. CENTRAL NERVOUS SYSTEM: Cranial nerves II-XII grossly intact, nonfocal. EXTREMITIES: Mild lower extremity pedal edema present. Mild erythema on the left lower extremity. Principal Diagnosis Discharge Information Discharge Diagnosis Atypical Chest Pain Bronchitis Pancytopenia Discharge Goals Decrease discomfort,Improve disease control, Improve function Discharge Activity Limitations Resume your previous activity Discharge Data Allergies Allergy/AdvReac Type Severity Reaction Status Date / Time No Known Allergies Allergy Verified 11/23/18 16:46 Consultations 11/23/18 18:16 ED Decision to Admit Stat 11/24/18 08:00 Consult Cardiology Routine Procedures Performed CT head: There is no hemorrhage, mass effect, or evidence of acute territorial ischemia by CT criteria. CXR: 1. Mild cardiomegaly 2. No evidence of focal pulmonary consolidation 3. Slight interstitial prominence, a finding likely related to technical factors ABD USD: 1. Cirrhotic morphology of the liver with a coarsened hepatic echotexture. No focal masses identified 2. Cholelithiasis. No ductal dilatation. Ordered Studies 11/23/18 16:39 CT head/brain wo con Stat 11/24/18 US abdomen limited Routine Hospital Course (1) Left-sided chest pain: Patient is a 73 yr female with H/O CAD, Cirrhosis and other problems presents with chest pain Left Sided Atypical Chest Pain H/O CAD S/P CABG in 2010 Troponin X 4: Negative EKG/ECHO: Not suggestive of acute ischemia Could not complete exercise stress test due to gait dysfunction Poor Candidate for Cardiac Cath due to Cirrhosis/Chronic Thrombocytopenia Appreciate Cardiology Input H/O Statin intolerance Continue Aspirin, Metoprolol, Losartan NTG PRN Amlodipine added for better BP control Nuclear Stress test as outpatient Possible Bronchitis CXR:Mild cardiomegaly. No evidence of focal pulmonary consolidation. Slight interstitial prominence, a finding likely related to technical factors Continue Doxycycline Day #3 H/O Alcoholic Cirrhosis Chronic thrombocytopenia Ongoing Right sided abdominal pain Last Alcohol drink 6 months ago as per patient Normal LFTs ABD USD: Cirrhotic morphology of the liver with a coarsened hepatic echotexture. No focal masses identified. Cholelithiasis. No ductal dilatation. Continue home diuretics, Lactulose Consider GI eval if needed No bleeding issues COPD No signs of Exacerbation Continue home inhalers Nebs PRN Hypertension: Continue home meds Added Amlodipine H/O diastolic congestive heart failure No signs of acute exacerbation Continue home diuretics Hypothyroidism Continue Levothyroxine GERD: Continue PPI Depression: On Prozac, Trazodone Pancytopenia secondary to liver cirrhosis Monitor CBC Vision impaired Advised to follow up with ophthalmology as outpatient DVT Px: SCDs Re: Pancytopenia Code Status full code Disposition: Plan to discharge home today Total Time Total Time Spent Total Time Spent (In Minutes): 33 minutes Total Time Includes: Examination of the Patient, Discharge Planning, Medication Reconciliation, Communication With Other Providers and Other Discharge Plan Discharge Items Patient Disposition: Home - Home Health Services Reason For Visit: CHEST PAIN Discharge Diagnosis: Atypical Chest Pain Bronchitis Pancytopenia Discharge Goals: Decrease discomfort, Improve disease control and Improve function Activity: Resume your previous activity Exercise/Sports: Gradually increase as tolerated Non-emergency contact: Primary Care Provider and Special Events Manager Call non-emergency contact if: you have any medication questions, your symptoms worsen, your pain is not controlled, your pain is worsening, your pain is unusual for you, your pain is concerning for you and you have a fever Follow-up/Referrals: Destiny Walls DO [Primary Care Provider] - Diet: Heart Healthy and Low Sodium (2gm) Addtl Provider Instructions: Follow up with your PCP Dr.Laura Walls in 1 week--Office will call you with appointment Follow up with your Special Events Manager Dr.Dr.Thomas Walls on November 30, 2018 at 8: 45 AM Get Cardiac Nuclear Stress Test as outpatient as advised Complete the antibiotic course as prescribed Seek immediate medical attention if your symptoms reoccur or worsen Prescriptions: New doxycycline hyclate 100 mg Capsule 100 mg PO BID 5 Days Qty: 10 RF: 0 amlodipine [Norvasc] 5 mg Tablet 2.5 mg PO QAM 30 Days Qty: 15 RF: 1 Continued fluticasone propion-salmeterol [Advair Diskus] 250-50 mcg/dose Blister With Device 1 inh INHALATION BID RF: 0 sennosides [senna] 8.6 mg Tablet 8.6 mg PO BID PRN (Reason: Constipation) RF: 0 metoprolol succinate 50 mg tablet extended release 24 hr 50 mg PO DAILY RF: 0 naltrexone 50 mg tablet 50 mg PO DAILY PRN (Reason: Alcohol Withdrawal) RF: 0 aspirin 81 mg Tablet,Delayed Release (Dr/Ec) 81 mg PO DAILY RF: 0 levothyroxine 75 mcg Tablet 75 mcg PO DAILY RF: 0 trazodone 150 mg tablet 150 mg PO HS RF: 0 nitroglycerin [Nitrostat] 0.4 mg Tablet, Sublingual 1 dose sublingual UD PRN (Reason: Chest Pain) RF: 0 omeprazole 20 mg Capsule,Delayed Release(Dr/Ec) 20 mg PO DAILY RF: 0 montelukast 10 mg Tablet 10 mg PO DAILY RF: 0 fluoxetine 20 mg capsule 20 mg PO DAILY RF: 0 bisacodyl 5 mg Tablet 5 mg PO HS PRN (Reason: Constipation) RF: 0 Vivitrol 380 mg suspension,extended rel recon 380 mg IM MONTHLY RF: 0 Combivent Respimat 20-100 mcg/actuation Mist 1 puff INHALATION QID RF: 0 folic acid 1 mg Tablet 1 mg PO DAILY RF: 0 fluticasone propionate 50 mcg/actuation [place],Suspension 1 spray INTRANASAL DAILY RF: 0 multivitamin Tablet 1 tab PO DAILY RF: 0 losartan 50 mg Tablet 50 mg PO DAILY RF: 0 fluoxetine 40 mg Capsule 40 mg PO DAILY RF: 0 albuterol sulfate 2.5 mg /3 mL (0.083 %) Solution For Nebulization 2.5 mg INHALATION Q4 PRN (Reason: Shortness Of Breath) RF: 0 ondansetron HCl [Zofran] 8 mg Tablet 8 mg PO Q12 PRN (Reason: Nausea) RF: 0 cyanocobalamin (vitamin B-12) 1,000 mcg/mL Solution 1,000 mcg IM MONTHLY RF: 0 diclofenac potassium 50 mg Tablet 50 mg PO TID RF: 0 gabapentin 300 mg Capsule 300 mg PO TID RF: 0 diclofenac sodium 50 mg Tablet,Delayed Release (Dr/Ec) 50 mg PO BID RF: 0 furosemide 20 mg Tablet 20 mg PO DAILY PRN (Reason: Fluid Retention) RF: 0 lactulose 10 gram/15 mL Solution 30 ml PO BID RF: 0 levocetirizine 5 mg Tablet 5 mg PO PM RF: 0 Stand-Alone Forms: Call Back Authorization, [facility] Discharge Orders: Discharge Order (Routine); Ordered 11/26/18 Ordered By: Hernan Ponce Admission Data Admit Date/Time: 11/23/18 19:07 Attending Provider: Hernan Ponce Admit Provider: Dean Henderson Primary Care Provider: Destiny Walls Other Providers: Ant Mensah ; James Walls Service: Telemetry Medical Other Interventions: Discharge Summary Assessment (RN) Last Done: 11/26/18 14:10 DC Date/Time DO NOT enter until pt leaves facility: 11/26/18 14:54
== END 2018-11-26 14:54 | disposition home health service (06) ==
LOC: ED 16:17 → 2N 16:17

== ENCOUNTER 2019-06-27 13:14 | Observation (INO) ==
[2019-06-27] MEDS ORDERED: ALBUT/IPRATROP 3MG/0.5MG NEB 3 ML VIAL INH STA (13:37)
[2019-06-27] MEDS ORDERED: methylPREDNISolone 125 MG/2 ML VIAL IV STA (13:37)
--- NOTE | 2019-06-27 14:04 | XRay Report ---
XR chest 1V portable HISTORY: Dyspnea COMPARISON: Chest 11/23/2018. FINDINGS: There are low lung volumes. Poststernotomy changes. The heart remains mildly enlarged. A fe w linear densities at the left lung base favor scarring or subsegmental atelectasis. This is similar to the prior study. Otherwise, the lungs are clear. No new focal lung consolidations to suggest pneum onia. No evidence for pulmonary edema. IMPRESSION: No significant change compared to the prior study. No acute process. Electronically signed by: Abdoul Desir M.D. 06/27/2019 2:02 PM
[2019-06-27 14:34] LABS: INR 1.2 (0.9-1.1); Prothrombin Time 12.3 Seconds (9.0-12.0)
[2019-06-27 14:46] LABS: Hematocrit (blood only) 31.8 % (37-47); Hemoglobin 10.7 g/dL (12.0-16.0); Mean Corpuscular Hemoglobin 32.8 pg (25-34); Mean Corpuscular Hgb Conc 33.6 g/dL (32-36); Mean Corpuscular Volume 97.5 fL (80-100); Mean Platelet Volume 10.5 fL (7.4-10.4); Platelet Count 80 K/uL (130-400); RDW Coefficient of Variation 15.9 % (11.5-14.5); RDW Standard Deviation 56.4 fL (36.4-46.3); Red Blood Count 3.26 M/uL (4.2-5.4)
[2019-06-27 14:47] LABS: Basophils # (auto) 0.02 K/uL (0-0.2); Basophils % (auto) 0.5 %; Eosinophils # (auto) 0.29 K/uL (0-0.5); Eosinophils % (auto) 7.4 %; Lymphocytes # (auto) 1.01 K/uL (1.2-3.4); Lymphocytes % (auto) 25.9 %; Monocytes % (auto) 10.3 %; Neutrophils # (auto) 2.18 K/uL (1.4-6.5); Neutrophils % (auto) 55.9 %; Platelet Estimate Decreased (Normal)
[2019-06-27 14:48] LABS: Albumin Level 3.5 gm/dl (3.4-5.0); BUN Creatinine Ratio 14.3 (10-20); Calcium 9.1 mg/dl (8.5-10.1); Est GFR (African American) 60.3; Potassium 4.3 mmol/L (3.5-5.1)
[2019-06-27 14:54] LABS: Albumin Globulin Ratio 1.1 (0.9-2); Bilirubin,Total 1.3 mg/dl (0.2-1); Globulin 3.1 gm/dl (2.5-4.0); Total Protein 6.6 gm/dl (6.4-8.2)
[2019-06-27] MEDS ORDERED: ACETAMINOPHEN 500 MG TAB PO PRN (16:31)
--- NOTE | 2019-06-27 16:58 | History & Physical Report ---
Date of Service June 27, 2019 Assessment & Plan (1) Acute chest pain: This is a 74-year-old female with a PMH of CAD (s/p CABG in 2010), COPD, chronic diastolic heart failure, alcoholic cirrhosis, chronic thrombocytopenia, history of CVA, prolonged QTC and other medical problems listed below who presents with chest pain since last night. -History of CAD with CABG in 2010. Admitted in November 2018 for atypical chest pain, did not want to pursue dobutamine stress test -Chest pain is left sided, occurs at rest, currently chest pain free -EKG without ischemic change, initial troponin normal, CXR without acute cardiopulmonary abnormality -Trend troponin, monitor on telemetry -Continue baby aspirin. Statin intolerant (2) Near syncope: The setting of poor PO intake for the past few days -Orthostatic vitals ordered -Fall precautions, PT/OT evaluation -Gentle fluids x 1 L (3) Aortic stenosis: Echo from November 2018 with preserved EF of 60-65%. Mild LVH, grade 2 diastolic dysfunction, mild to moderate aortic stenosis -Follows with cardiology (4) Diastolic CHF: Appears clinically dry on exam -Giving 1 L gentle fluids -Monitor volume status closely (5) COPD (chronic obstructive pulmonary disease): Given 60mg IV solumedrol in ER, breathing treatment -Normal lung exam -Continue home inhalers, Duonebs PRN for SOB/wheezing (6) Alcoholic cirrhosis of liver without ascites: Compensated -Continue lactulose twice daily, Lasix PRN (7) Thrombocytopenia: Plt count 80 (lower end of baseline) -Monitor daily, SCDs for VTE ppx (8) Chronic stasis dermatitis of left lower extremity: No evidence of cellulitis at this time -Continue triamcinolone ointment started by PCP (9) Essential hypertension: Continue losartan, Toprol (10) Hypothyroidism: Continue levothyroxine (11) Anxiety: Continue SSRI DVT Ppx: SCDs Code status: FULL PCP: Reinaldo Walls Dispo: Observation PCU. Discharge planning ordered. Patient seen in collaboration with Dr. Sharma. Please see addendum. History of Present Illness Chief Complaint: Chest pain, dizziness, malaise, near-syncope Primary Care Provider: Destiny Walls, This is a 74-year-old female with a PMH of CAD (s/p CABG in 2010), COPD, c hronic diastolic heart failure, alcoholic cirrhosis, chronic thrombocytopenia, history of CVA, prolonged QTC and other medical problems listed below who presents with chest pain since last night. Patient states she was resting when she developed left-sided nonradiating chest pain. Also notes she has been more dyspneic than baseline for the past week. Denies any diaphoresis, nausea or vomiting. Is currently chest pain-free. Also notes feeling dizzy, with malaise and body aches for the past week. This morning, patient was ambulating and lost her balance, falling into a wall. Denies hitting her head or any loss of consciousness. Does have history of atypical chest pain and was last admitted for similar symptoms in November 2018. During that admission, EKG and troponin were without abnormality. Was unable to tolerate exercise stress test so dobutamine stress test was scheduled as an outpatient, however patient states that she decided against having test once discharged. Follows psych assistant Dr. Walls. Currently denies fever, chills, lightheadedness, dizziness, visual changes, chest pain, palpitations, shortness of breath, vomiting, abdominal pain, dysuria, diarrhea constipation. Endorses chronic nausea secondary to alcoholic cirrhosis. Was also seen in clinic last week for left lower extremity cellulitis and prescribed Keflex, of which he took 2 days and then stopped due to increased nausea. Was seen again in [facility] clinic yesterday and prescribed Aristocort ointment for dermatitis, which she is not yet started. Allergies Allergy/AdvReac Type Severity Reaction Status Date / Time No Known Allergies Allergy Verified 06/27/19 14:03 Home Medications Home Medications Medication Instructions Recorded Confirmed Type Combivent Respimat 1 puff INHALATION QID 11/23/18 06/27/19 History albuterol sulfate 2.5 mg INHALATION Q4 PRN 11/23/18 06/27/19 History aspirin 81 mg PO DAILY 11/23/18 06/27/19 History bisacodyl 5 mg PO HS PRN 11/23/18 06/27/19 History cyanocobalamin (vitamin B-12) 1,000 mcg IM MONTHLY 11/23/18 06/27/19 History diclofenac sodium 50 mg PO BID 11/23/18 06/27/19 History fluticasone propion-salmeterol 1 inh INHALATION BID 11/23/18 06/27/19 History [Advair Diskus] fluticasone propionate 1 spray INTRANASAL DAILY 11/23/18 06/27/19 History folic acid 1 mg PO DAILY 11/23/18 06/27/19 History furosemide 20 mg PO DAILY PRN 11/23/18 06/27/19 History gabapentin 300 mg PO TID 11/23/18 06/27/19 History lactulose 30 ml PO BID 11/23/18 06/27/19 History levocetirizine 5 mg PO PM 11/23/18 06/27/19 History levothyroxine 75 mcg PO DAILY 11/23/18 06/27/19 History losartan 50 mg PO DAILY 11/23/18 06/27/19 History metoprolol succinate 50 mg PO DAILY 11/23/18 06/27/19 History montelukast 10 mg PO DAILY 11/23/18 06/27/19 History multivitamin 1 tab PO DAILY 11/23/18 06/27/19 History nitroglycerin [Nitrostat] 1 dose SUBLINGUAL UD PRN 11/23/18 06/27/19 History omeprazole 20 mg PO DAILY 11/23/18 06/27/19 History ondansetron HCl [Zofran] 8 mg PO Q12 PRN 11/23/18 06/27/19 History sennosides [senna] 8.6 mg PO BID PRN 11/23/18 06/27/19 History trazodone 75 mg PO HS 11/23/18 06/27/19 History escitalopram oxalate 20 mg PO DAILY 06/27/19 06/27/19 History triamcinolone acetonide 1 applic TOPICAL TID 06/27/19 06/27/19 History Past Med/Surg History Medical History Alcoholic cirrhosis of liver without ascites (Chronic) Anxiety (Chronic) Aortic stenosis (Chronic) COPD (chronic obstructive pulmonary disease) (Chronic) Coronary artery disease (Chronic) Depression (Chronic) Diastolic CHF (Chronic) "echo 04/2016 - EF 63%, grade I diastolic dysfunction" Dyslipidemia (Chronic) Essential hypertension (Chronic) History of alcohol abuse (Chronic) History of breast cancer (Chronic) Hypothyroidism (Chronic) Prolonged QT interval SBO (small bowel obstruction) Spinal stenosis (Chronic) Thrombocytopenia (Chronic) Tobacco use (Resolved) Surgical History H/O bilateral mastectomy (Chronic) H/O shoulder surgery (Chronic) H/O ventral hernia repair (Chronic) History of bowel resection (Chronic) Status post coronary artery bypass grafting (Chronic) "x4, 2010 [facility] [place]" On 10/16/15 14:27 Cesar Rodriguez wrote "2010 [facility] [place]" Status post hysterectomy (Chronic) Status post laparotomy (Chronic) "2004 bowel obstruction" Family History Other Alzheimer disease Colorectal cancer Social History Preferred Language: Belarusian Communication Ability: Effective Personal Lines Account Manager Required: No Beliefs That Will Affect Care: None marital status: Single Current Living Situation: Alone Other Information That Helps Us Care for You: No Feels Safe at Home: Yes Safety Concerns: Feels Safe At This Time Smoking Status: Former smoker Second Hand Exposure: No ; Hx Alcohol Use: No Hx Substance Use: No Review of Systems Review of Systems: At least ten systems reviewed and negative except as noted in the HPI. Physical Exam Physical Exam: General Appearance: WD/WN, vitals as above, NAD, sitting up in bed, pleasant, conversing easily Head: normocephalic, atraumatic Eyes: normal inspection, PERRL, conjunctivae normal, anicteric sclerae ENT: external ear and nose normal, oropharynx normal Neck: trachea midline, no thyromegaly normal visual inspection Respiratory: normal respiratory effort, lungs clear to auscultation, no wheeze, rales, rhonchi. Normal insp/exp effort, no accessory muscle use Cardiovascular: regular rate, rhythm, systolic murmur, normal peripheral pulses, no BLE edema. Vessels: no JVD or carotid bruit Chest: normal inspection of chest Abdomen/GI: normal bowel sounds, soft, nontender, no hepatosplenomegaly Extremities/Musculoskelatal: no cyanosis or clubbing, extremities motor strength 5/5 Neurologic: PERRL, EOMI, accommodation nl, no face palsy, no dysarthria CN's II-XI intact bilaterally and moves all extremities Psychiatric: A+Ox3, anxious Skin: no rashes, normal color, warm/dry. + LLE with erythema and excoriation, 1 small dime size open lesion, no drainage Results & Data Vital Signs (Past 12 Hours) Vital Signs Temp Pulse Pulse Resp BP BP Pulse Ox 06/27/19 16:12 68 17 172/94 H 97 06/27/19 15:14 68 20 124/98 96 06/27/19 15:06 68 96 06/27/19 13:49 63 18 93 06/27/19 13:34 97 06/27/19 13:17 36.8 C 74 20 160/80 H 95 Laboratory Results Short CBC 06/27/19 Range/Units 14:11 WBC 3.90 L (4.8-10.8) K/uL Hgb 10.7 L (12.0-16.0) g/dL Hct 31.8 L (37-47) % Plt Count 80 L (130-400) K/uL Platelet Estimate Decreased L (Normal) BMP 06/27/19 14:11 Sodium 141 Potassium 4.3 Chloride 109 H Carbon Dioxide 23 BUN 15 Creatinine 1.06 Glucose 95 Calcium 9.1 Liver Function 06/27/19 Range/Units 14:11 Total Bilirubin 1.3 H (0.2-1) mg/dl AST 34 (15-37) U/L ALT 26 (12-78) U/L Alkaline Phosphatase 79 (45-117) U/L Albumin 3.5 (3.4-5.0) gm/dl Diagnostic Findings CXR: IMPRESSION: No significant change compared to the prior study. No acute process. ECG Rhythm: sinus with SA Findings: + nonspecific-ST abn Change: no significant change Code Status & VTE Plan VTE Prophylaxis Plan VTE Prophylaxis will be ordered: Yes Supervising Physician Co-Signing Physician Notes Attending addendum: The patient was seen and examined in the emergency room She is a 74-year-old female with a PMH of CAD (s/p CABG in 2010), COPD, chronic diastolic heart failure, alcoholic cirrhosis, chronic thrombocytopenia, history of CVA, prolonged QTC and other medical problems listed in H&P who presents with dizziness, shortness of breath and chest pain. Complaints to have minimal shortness of breath at rest and dizziness when ambulant Her chest pain has been there for some time and that is not related to activities. On examination No apparent distress at rest Hemodynamically stable with blood pressure on the upper side at 159/89 Chest-decreased breath sounds but no wheezing and/or crackles Heart-S1-S2 with a 2/6 systolic murmur over the aortic area Abdomen-benign Extremities-trace edema bilaterally, multiple minor skin breaks the left leg without any significant infection INVESTMENT BANKER-alert, awake and oriented x3. Generally weak but no focal sensory and motor deficit appreciated Admission labs, imaging studies and EKG reviewed Has non specific symptomatology without any significant abnormalities on examination and/or in laboratory testing We will give a small amount of IV fluid and serial cardiac enzymes to rule out possibilities of ACS We will get PT and OT evaluation Agree with assessment and plan as outlined above by SHERMAN Johnston Dr (1) Aortic stenosis Cardiac valve disease etiology: etiology unspecified Qualified Code(s): I35.0 - Nonrheumatic aortic (valve) stenosis
[2019-06-27 18:13] LABS: Influenza A virus by PCR Neg for Influ A (Neg); Influenza B virus by PCR Neg for Influ B (Neg)
[2019-06-27] MEDS ORDERED: SODIUM CHLORIDE 0.9% 1000ML 1,000 ML IV SCH (18:48)
[2019-06-27] MEDS ORDERED: FUROSEMIDE 20 MG TAB PO PRN (18:48)
[2019-06-27] MEDS ORDERED: SENNA 8.6 MG TAB PO PRN (18:48)
[2019-06-27] MEDS ORDERED: POLYETHYLENE (MIRALAX) 17 GM PACK PO PRN (18:48)
[2019-06-27] MEDS ORDERED: NITROGLYCERIN SL 0.4 MG/TAB TAB SL PRN (18:48)
[2019-06-27] MEDS ORDERED: ONDANSETRON 8 MG TABLET PO PRN (18:48)
[2019-06-27] MEDS ORDERED: ACETAMINOPHEN 325 MG TAB PO PRN (18:48)
[2019-06-27] MEDS ORDERED: ALBUTEROL 0.083% NEBU SOLN 3 ML VIAL INH PRN (18:48)
[2019-06-27] MEDS ORDERED: BISACODYL 5 MG TABEC PO PRN (19:10)
--- NOTE | 2019-06-27 19:29 | Emergency Department Note ---
Entered by Pooja Morales acting as a scribe for History of Present Illness General Chief complaint: Shortness of Breath/Dyspnea Stated complaint: SOB, ABNORMAL LABS, ALMOST PASSED OUT, FELL, SHOUL Time Seen by Provider: 06/27/19 13:27 Source: patient History of Present Illness Provider complaint: Shortness of Breath/ Dyspnea Onset (ago): week(s) 2 Location: chest Maximum Pain Intensity: 6 Relieved By: + none Exacerbated By: + none Associated symptoms: + chest pain and + other (Dizziness); no cough The patient is a 74 year old female who presents to the Emergency Room with complaints of shortness of breath that began 2 weeks ago. The patient states that she went to her doctor yesterday and had blood work done. She was told that she has low platelets. She does have a history of low platelets from liver disease due to cirrhosis but states that this was lower than usual. The patient states her symptoms are not relieved nor exacerbated by anything specific. The patient reports experiencing intermittent chest tightness that is new and has been happening for the last couple of weeks. She does have a history of quadruple bypass. She is not currently having any chest discomfort. Additionally, the patient reports experiencing dizziness which she describes as lightheadedness and resulted in her falling up against a wall today. She did not fall to the ground or injure herself. The patient denies experiencing any cold symptoms such as a cough. The patient mentioned that she has a history of COPD but denies being on steroids or oxygen for her symptoms. She does state that she had cellulitis to her left leg and was previously on antibiotics but was taken off. She did have it recently wrapped by her doctor who did not feel she needed antibiotics. Home Medications Home Medications Medication Instructions Recorded Confirmed Type Combivent Respimat 1 puff INHALATION QID 11/23/18 06/27/19 History albuterol sulfate 2.5 mg INHALATION Q4 PRN 11/23/18 06/27/19 History aspirin 81 mg PO DAILY 11/23/18 06/27/19 History bisacodyl 5 mg PO HS PRN 11/23/18 06/27/19 History cyanocobalamin (vitamin B-12) 1,000 mcg IM MONTHLY 11/23/18 06/27/19 History diclofenac sodium 50 mg PO BID 11/23/18 06/27/19 History fluticasone propion-salmeterol 1 inh INHALATION BID 11/23/18 06/27/19 History [Advair Diskus] fluticasone propionate 1 spray INTRANASAL DAILY 11/23/18 06/27/19 History folic acid 1 mg PO DAILY 11/23/18 06/27/19 History furosemide 20 mg PO DAILY PRN 11/23/18 06/27/19 History gabapentin 300 mg PO TID 11/23/18 06/27/19 History lactulose 30 ml PO BID 11/23/18 06/27/19 History levocetirizine 5 mg PO PM 11/23/18 06/27/19 History levothyroxine 75 mcg PO DAILY 11/23/18 06/27/19 History losartan 50 mg PO DAILY 11/23/18 06/27/19 History metoprolol succinate 50 mg PO DAILY 11/23/18 06/27/19 History montelukast 10 mg PO DAILY 11/23/18 06/27/19 History multivitamin 1 tab PO DAILY 11/23/18 06/27/19 History nitroglycerin [Nitrostat] 1 dose SUBLINGUAL UD PRN 11/23/18 06/27/19 History omeprazole 20 mg PO DAILY 11/23/18 06/27/19 History ondansetron HCl [Zofran] 8 mg PO Q12 PRN 11/23/18 06/27/19 History sennosides [senna] 8.6 mg PO BID PRN 11/23/18 06/27/19 History trazodone 75 mg PO HS 11/23/18 06/27/19 History escitalopram oxalate 20 mg PO DAILY 06/27/19 06/27/19 History triamcinolone acetonide 1 applic TOPICAL TID 06/27/19 06/27/19 History Allergies Allergy/AdvReac Type Severity Reaction Status Date / Time No Known Allergies Allergy Verified 06/27/19 14:03 Past Med/Surg History Medical History Alcoholic cirrhosis of liver without ascites (Chronic) Anxiety (Chronic) Aortic stenosis (Chronic) COPD (chronic obstructive pulmonary disease) (Chronic) Coronary artery disease (Chronic) Depression (Chronic) Diastolic CHF (Chronic) "echo 04/2016 - EF 63%, grade I diastolic dysfunction" Dyslipidemia (Chronic) Essential hypertension (Chronic) History of alcohol abuse (Chronic) History of breast cancer (Chronic) Hypothyroidism (Chronic) Prolonged QT interval SBO (small bowel obstruction) Spinal stenosis (Chronic) Thrombocytopenia (Chronic) Tobacco use (Resolved) Surgical History H/O bilateral mastectomy (Chronic) H/O shoulder surgery (Chronic) H/O ventral hernia repair (Chronic) History of bowel resection (Chronic) Status post coronary artery bypass [place] (Chronic) "[place] [facility] On 10/16/15 14:27 Cesar Rodriguez wrote "[place] [facility] [place] Status post hysterectomy (Chronic) Status post laparotomy (Chronic) "2004 bowel obstruction" Family History Other Alzheimer disease Colorectal cancer Social History Preferred Language: Macedonian Communication Ability: Effective Vibrator Equipment Tester Required: No Beliefs That Will Affect Care: None marital status: Single Current Living Situation: Alone Other Information That Helps Us Care for You: No Feels Safe at Home: Yes Safety Concerns: Feels Safe At This Time Smoking Status: Former smoker Second Hand Exposure: No ; Hx Alcohol Use: No Hx Substance Use: No Review of Systems See HPI for pertinent positives & negatives. and A total of 10 systems reviewed and were otherwise negative Physical Exam Vital Signs Vital Signs - 24 hr 06/27/19 13:17 06/27/19 13:34 06/27/19 13:49 Temperature 36.8 C Temperature Source Oral Pulse Rate - Lying Pulse Rate - Sitting Pulse Rate - Standing Pulse Rate 74 Pulse Rate [Right Finger] 63 Pulse Rhythm Pulse Rhythm [Right Finger] Respiratory Rate 20 18 Respiratory Effort / Characteristics Non-Labored Spontaneous Respiratory Depth Blood Pressure - Lying Blood Pressure - Sitting Blood Pressure- Standing Blood Pressure 160/80 H Blood Pressure [Right Arm] Blood Pressure Mean 106 Blood Pressure Mean [Right Arm] Blood Pressure Position [Right Arm] Pulse Oximetry 95 97 93 Oxygen Delivery Method Room Air Room Air Room Air Sepsis Recent Fever Within 48 Hours No Sepsis New/Unexplained Change in Mental Status No Sepsis Action Taken by Nursing No Action Required 06/27/19 14:24 06/27/19 15:06 06/27/19 15:14 Temperature Temperature Source Pulse Rate - Lying 69 Pulse Rate - Sitting 66 Pulse Rate - Standing 78 Pulse Rate 68 Pulse Rate [Right Finger] 68 Pulse Rhythm Regular Pulse Rhythm [Right Finger] Respiratory Rate 20 Respiratory Effort / Characteristics Non-Labored Spontaneous Respiratory Depth Normal Blood Pressure - Lying 137/70 Blood Pressure - Sitting 160/83 H Blood Pressure- Standing 149/94 H Blood Pressure Blood Pressure [Right Arm] 124/98 Blood Pressure Mean Blood Pressure Mean [Right Arm] 106 Blood Pressure Position [Right Arm] Lying Pulse Oximetry 96 96 Oxygen Delivery Method Room Air Room Air Sepsis Recent Fever Within 48 Hours Sepsis New/Unexplained Change in Mental Status Sepsis Action Taken by Nursing 06/27/19 16:12 Temperature Temperature Source Pulse Rate - Lying Pulse Rate - Sitting Pulse Rate - Standing Pulse Rate Pulse Rate [Right Finger] 68 Pulse Rhythm Pulse Rhythm [Right Finger] Regular Respiratory Rate 17 Respiratory Effort / Characteristics Respiratory Depth Blood Pressure - Lying Blood Pressure - Sitting Blood Pressure- Standing Blood Pressure Blood Pressure [Right Arm] 172/94 H Blood Pressure Mean Blood Pressure Mean [Right Arm] 120 Blood Pressure Position [Right Arm] Pulse Oximetry 97 Oxygen Delivery Method Room Air Sepsis Recent Fever Within 48 Hours Sepsis New/Unexplained Change in Mental Status Sepsis Action Taken by Nursing Constitutional: Vital signs reviewed. Eyes: Pupils are equal round reactive to light. Conjunctiva are noninjected. ENT: Pharynx is clear without erythema or exudate. Mucous membranes are moist. Neck supple without meningeal signs. Respiratory: Expiratory wheezing bilaterally. Cardiovascular: Regular rate and rhythm. No rubs or gallops. GI: Soft, nondistended and nontender. Bowel sounds are present. Musculoskeletal: No peripheral edema. No lower extremity tenderness. Left leg is wrapped in a dressing. Integumentary: No cyanosis. Neurological: The patient is awake and alert. No focal deficits. Psychiatric: Normal affect. Course Course 1329: Past medical records reviewed. The patient was evaluated in room A03. A complete history and physical exam was performed. 1457: I reevaluated and discussed test results with the patient. She still has slight wheezing. 1504: I spoke with Radha Nicholson PA-C about the patient's case and Dr. Sharma will accept the patient for further evaluation. Administered Medications Acetaminophen (Tylenol) 500 mg PO Q6H PRN PRN Reason: Pain or Fever Stop: 07/27/19 16:44 Last Admin: 06/27/19 17:24 Dose: 500 mg Documented by: [id number] Discontinued Medications Albuterol (Duoneb) 3 ml INH NOW STA Stop: 06/27/19 13:38 Last Admin: 06/27/19 13:49 Dose: 3 ml Documented by: [id number] Methylprednisolone (Solumedrol) 60 mg IV NOW STA Stop: 06/27/19 13:38 Last Admin: 06/27/19 14:23 Dose: 60 mg Documented by: [id number] Medical Decision Making Differential Diagnosis Differential diagnosis includes: COPD exacerbation, Pneumonia, Anemia, Unstable angina, Dehydration, as well as others were considered. Medical Records Attestation: I reviewed the patient's medical records. Admitted in November for chest pain. Had an echo and troponin x4 which showed no ischemia. Home Medications Current Medication List: was personally reviewed by me Laboratory Data Attestation: I reviewed the patient's lab results. Result diagrams: 06/27/19 14:11 06/27/19 14:11 Lab Results 06/27/19 06/27/19 06/27/19 Range/Units 14:11 14:11 14:11 WBC 3.90 L (4.8-10.8) K/uL RBC 3.26 L (4.2-5.4) M/uL Hgb 10.7 L (12.0-16.0) g/dL Hct 31.8 L (37-47) % MCV 97.5 (80-100) fL MCH 32.8 (25-34) pg MCHC 33.6 (32-36) g/dL RDW Std Deviation 56.4 H (36.4-46.3) fL RDW Coeff of Zelda 15.9 H (11.5-14.5) % Plt Count 80 L (130-400) K/uL MPV 10.5 H (7.4-10.4) fL Immature Gran % (Auto) 0.0 % Neut % (Auto) 55.9 % Lymph % (Auto) 25.9 % [place] % (Auto) 10.3 % Eos % (Auto) 7.4 % Baso % (Auto) 0.5 % Immature Gran # (Auto) 0.00 (0.00-0.02) K/uL Neut # (Auto) 2.18 (1.4-6.5) K/uL Lymph # (Auto) 1.01 L (1.2-3.4) K/uL [place] # (Auto) 0.40 (0.11-0.59) K/uL Eos # (Auto) 0.29 (0-0.5) K/uL Baso # (Auto) 0.02 (0-0.2) K/uL Platelet Estimate Decreased L (Normal) PT 12.3 H (9.0-12.0) Seconds INR 1.2 H (0.9-1.1) APTT 28.0 (21.0-31.0) Seconds PTT Ratio 1.0 Sodium 141 (136-145) mmol/L Potassium 4.3 (3.5-5.1) mmol/L Chloride 109 H (98-107) mmol/L Carbon Dioxide 23 (21-32) mmol/L Anion Gap 9.0 (3-11) BUN 15 (7-18) mg/dl Creatinine 1.06 (0.6-1.2) mg/dl Est Cr Clr Drug Dosing 52.0 ml/min Est GFR ( Amer) 60.3 Est GFR (Non-Af Amer) 52.0 BUN/Creatinine Ratio 14.3 (10-20) Glucose 95 (70-99) mg/dl Calcium 9.1 (8.5-10.1) mg/dl Total Bilirubin 1.3 H (0.2-1) mg/dl AST 34 (15-37) U/L ALT 26 (12-78) U/L Alkaline Phosphatase 79 (45-117) U/L POC Troponin I (0-0.045) ng/ml Total Protein 6.6 (6.4-8.2) gm/dl Albumin 3.5 (3.4-5.0) gm/dl Globulin 3.1 (2.5-4.0) gm/dl Albumin/Globulin Ratio 1.1 (0.9-2) 06/27/19 Range/Units 14:18 WBC (4.8-10.8) K/uL RBC (4.2-5.4) M/uL Hgb (12.0-16.0) g/dL Hct (37-47) % MCV (80-100) fL MCH (25-34) pg MCHC (32-36) g/dL RDW Std Deviation (36.4-46.3) fL RDW Coeff of Zelda (11.5-14.5) % Plt Count (130-400) K/uL MPV (7.4-10.4) fL Immature Gran % (Auto) % Neut % (Auto) % Lymph % (Auto) % [place] % (Auto) % Eos % (Auto) % Baso % (Auto) % Immature Gran # (Auto) (0.00-0.02) K/uL Neut # (Auto) (1.4-6.5) K/uL Lymph # (Auto) (1.2-3.4) K/uL [place] # (Auto) (0.11-0.59) K/uL Eos # (Auto) (0-0.5) K/uL Baso # (Auto) (0-0.2) K/uL Platelet Estimate (Normal) PT (9.0-12.0) Seconds INR (0.9-1.1) APTT (21.0-31.0) Seconds PTT Ratio Sodium (136-145) mmol/L Potassium (3.5-5.1) mmol/L Chloride (98-107) mmol/L Carbon Dioxide (21-32) mmol/L Anion Gap (3-11) BUN (7-18) mg/dl Creatinine (0.6-1.2) mg/dl Est Cr Clr Drug Dosing ml/min Est GFR ( Amer) Est GFR (Non-Af Amer) BUN/Creatinine Ratio (10-20) Glucose (70-99) mg/dl Calcium (8.5-10.1) mg/dl Total Bilirubin (0.2-1) mg/dl AST (15-37) U/L ALT (12-78) U/L Alkaline Phosphatase (45-117) U/L POC Troponin I < 0.03 (0-0.045) ng/ml Total Protein (6.4-8.2) gm/dl Albumin (3.4-5.0) gm/dl Globulin (2.5-4.0) gm/dl Albumin/Globulin Ratio (0.9-2) Imaging Data Radiologist's Impression: Radiology results as stated below per my review and the radiologist's interpretation: XR chest 1V portable HISTORY: Dyspnea COMPARISON: Chest 11/23/2018. FINDINGS: There are low lung volumes. Poststernotomy changes. The heart remains mildly enlarged. A few linear densities at the left lung base favor scarring or subsegmental atelectasis. This is similar to the prior study. Otherwise, the lungs are clear. No new focal lung consolidations to suggest pneumonia. No evidence for pulmonary edema. IMPRESSION: No significant change compared to the prior study. No acute process. Electronically signed by: Abdoul Desir M.D. 06/27/2019 2:02 PM ECG Data Attestation: I personally reviewed and interpreted this ECG as follows: Indication: + SOB/dyspnea Rate (beats per minute): 73 Rhythm: + sinus rhythm ECG ST segments: + Normal ST segments ECG Findings: + Other (QRS 94 ms); no PVCs Blood Pressure Blood Pressure Findings: Elevated blood pressure Blood Pressure Disposition: further management by hospitalist MIRYAM Lanza I did evaluate the patient as noted above. The patient is presenting with increased shortness of breath and chest discomfort intermittently for the past 2 weeks. On exam she has diffuse wheezing. IV access was established. The patient was placed on a continuous director of cardiac cath lab. I did treat her with IV Solu-Medrol. She was also given a DuoNeb. I did order and personally review the patient's 12-lead EKG as described above. Her twelve-lead EKG does not demonstrate any acute ischemic changes. I did order and personally reviewed the images of the patient's chest x-ray as described above. Chest x-ray is negative for pneumonia. I did order a urine analysis. I did order and review the patient's blood work as noted in the electronic medical record. She does have pancytopenia. Her platelet count is 80 which is up from what she said it was yesterday at 50. Electrolytes are unremarkable. Troponin is negative. Rapid flu testing is negative. I did reassess the patient. She still has wheezing on exam. I did discuss the test results with the patient. She will be hospitalized for repeat cardiac biomarkers and further care. I did discuss the case with the hospitalist and human services case manager. Impression & Plan Acute chest pain, COPD exacerbation, Near syncope, Pancytopenia Discharge Plan Visit Data *Final* Discharge Date/Time: 06/27/19 17:15 Chief Complaint: Shortness of Breath/Dyspnea Stated Complaint: SOB, ABNORMAL LABS, ALMOST PASSED OUT, FELL, SHOUL ED Provider: James Goldstein Discharge Problem: Acute chest pain, COPD exacerbation, Near syncope, Pancytopenia Patient Disposition: Home - Self-Care Discharge Instructions Interventions: ED Discharge Assessment Last Done: 06/27/19 17:15 The scribe's documentation has been prepared under my direction and personally reviewed by me in its entirety. I confirm that the note above accurately reflects all work, treatment, procedures, and medical decision making performed by me.
[2019-06-27] MEDS ORDERED: TRAMADOL HCL 50 MG TABLET PO PRN (20:18)
[2019-06-27] MEDS: FLUTICASONE/SALMETEROL 250/50 (ADVAIR) 14 PUFF/1 INHALER INH SCH (20:41)
[2019-06-27] MEDS: IPRATROPIUM BROMIDE/ALBUTEROL respimat INH INH SCH (20:42)
[2019-06-27] MEDS: LACTULOSE SYRUP 20 GM/30 ML UDC PO SCH (20:42)
[2019-06-27] MEDS: TRIAMCINOLONE ACET 0.1% OINT 15 GM TUBE TOP SCH (20:43)
[2019-06-27] MEDS: GABAPENTIN 300 MG CAP PO SCH (20:44)
[2019-06-27] MEDS ORDERED: TRAZODONE HCL 50 MG TAB PO SCH (21:00)
[2019-06-27] MEDS ORDERED: ALBUT/IPRATROP 3MG/0.5MG NEB 3 ML VIAL NEB PRN (21:08)
--- NOTE | 2019-06-27 21:36 | XRay Report ---
XR shoulder LT min 2V routine HISTORY: 74 years-old Female fell into wall acute left shoulder pain status post fall COMPARISON: Chest radiograph of same day TECHNIQUE: 2 views of the left shoulder FINDINGS: Moderate AC joint and moderate glenohumeral osteoarthritis. No acute fracture, dislocation or opaque foreign body. Subcortical cystic changes of the humeral head. Cardiomegaly. Prior median sternotomy. IMPRESSION: No acute fracture or dislocation. The above report was generated using voice recognition software. It may contain grammatical, syntax o r spelling errors. Electronically signed by: Gerardo Woods M.D. 06/27/2019 9:35 PM
[2019-06-27 21:57] LABS: Lyme Ab IgG w/WB Rflx Negative (Negative); Lyme Ab IgM w/WB Rflx Negative (Negative)
[2019-06-27] MEDS ORDERED: DICLOFENAC SODIUM 25 MG TABDR PO STA (23:28)
[2019-06-28 02:19] LABS: Hematocrit (blood only) 31.1 % (37-47); Hemoglobin 10.6 g/dL (12.0-16.0); Mean Corpuscular Hemoglobin 32.9 pg (25-34); Mean Corpuscular Hgb Conc 34.1 g/dL (32-36); Mean Corpuscular Volume 96.6 fL (80-100); RDW Coefficient of Variation 15.4 % (11.5-14.5); RDW Standard Deviation 54.4 fL (36.4-46.3); Red Blood Count 3.22 M/uL (4.2-5.4); White Blood Count 2.77 K/uL (4.8-10.8)
[2019-06-28 02:22] LABS: Mean Platelet Volume 10.8 fL (7.4-10.4); Platelet Count 81 K/uL (130-400)
[2019-06-28 02:40] LABS: BUN Creatinine Ratio 11.4 (10-20); Blood Urea Nitrogen 14 mg/dl (7-18); Carbon Dioxide 25 mmol/L (21-32); Chloride 107 mmol/L (98-107); Creatinine Clr Calc Pharmacy 44.1 ml/min; Est GFR (African American) 49.4; Est GFR (Non-African American) 42.6; Glucose 163 mg/dl (70-99); Potassium 4.5 mmol/L (3.5-5.1); Sodium 140 mmol/L (136-145)
[2019-06-28 02:44] LABS: Troponin I < 0.015 ng/ml (0-0.045)
[2019-06-28] MEDS ORDERED: LEVOTHYROXINE SODIUM 75 MCG TABLET PO SCH (06:30)
[2019-06-28] MEDS ORDERED: PNEUMOCOCCAL POLYSACCHARIDES 25 MCG/0.5 ML VIAL/SYR IM ONE (08:00)
[2019-06-28] MEDS ORDERED: PNEUMOCOCCAL ADMINISTRATION CHARGE ONE (08:00)
[2019-06-28] MEDS: TRIAMCINOLONE ACET 0.1% OINT 15 GM TUBE TOP SCH ×2 (08:02→13:16)
[2019-06-28] MEDS: LACTULOSE SYRUP 20 GM/30 ML UDC PO SCH (08:02)
[2019-06-28] MEDS: FLUTICASONE/SALMETEROL 250/50 (ADVAIR) 14 PUFF/1 INHALER INH SCH (08:02)
[2019-06-28] MEDS: GABAPENTIN 300 MG CAP PO SCH ×2 (08:03→13:16)
[2019-06-28] MEDS: IPRATROPIUM BROMIDE/ALBUTEROL respimat INH INH SCH ×2 (08:05→13:16)
[2019-06-28] MEDS ORDERED: SODIUM CHLORIDE 0.9% 1000ML 1,000 ML IV SCH (08:45)
[2019-06-28] MEDS ORDERED: FOLIC ACID 1 MG TAB PO SCH (09:00)
[2019-06-28] MEDS ORDERED: SODIUM CHLORIDE 0.9% 500 ML IV SCH (09:00)
[2019-06-28] MEDS ORDERED: METOPROLOL SUCC 50MG EXT REL TAB PO SCH (09:00)
[2019-06-28] MEDS ORDERED: PANTOprazole 40 MG TAB PO SCH (09:00)
[2019-06-28] MEDS ORDERED: FLUTICASONE PROPIONATE NA SPR 16 GM BTL NAE SCH (09:00)
[2019-06-28] MEDS ORDERED: MULTIVITAMIN TAB PO SCH (09:00)
[2019-06-28] MEDS ORDERED: ESCITALOPRAM OXALATE 20 MG TAB PO SCH (09:00)
[2019-06-28] MEDS ORDERED: MONTELUKAST SODIUM 10 MG TABLET PO SCH (09:00)
[2019-06-28] MEDS ORDERED: ASPIRIN 81 MG ECTAB PO SCH (09:00)
[2019-06-28] MEDS ORDERED: LOSARTAN POTASSIUM 50 MG TAB PO SCH (09:00)
--- NOTE | 2019-06-28 09:49 | History & Physical Report ---
Date of Service June 28, 2019 Assessment & Plan (1) Acute chest pain: This is a 74-year-old female with a PMH of CAD (s/p CABG in 2010), COPD, chronic diastolic heart failure, alcoholic cirrhosis, chronic thrombocytopenia, history of CVA, prolonged QTC and other medical problems listed below who presents with chest pain since last night. -History of CAD with CABG in 2010. Admitted in November 2018 for atypical chest pain, did not want to pursue dobutamine stress test -Chest pain is left sided, occurs at rest, currently chest pain free -EKG without ischemic change, initial troponin normal, CXR without acute cardiopulmonary abnormality -Trend troponin, monitor on telemetry -Continue baby aspirin. Statin intolerant (2) Near syncope: The setting of poor PO intake for the past few days -Orthostatic vitals ordered -Fall precautions, PT/OT evaluation -Gentle fluids x 1 L (3) Aortic stenosis: Echo from November 2018 with preserved EF of 60-65%. Mild LVH, grade 2 diastolic dysfunction, mild to moderate aortic stenosis -Follows with cardiology (4) Diastolic CHF: Appears clinically dry on exam -Giving 1 L gentle fluids -Monitor volume status closely (5) COPD (chronic obstructive pulmonary disease): Given 60mg IV solumedrol in ER, breathing treatment -Normal lung exam -Continue home inhalers, Duonebs PRN for SOB/wheezing (6) Alcoholic cirrhosis of liver without ascites: Compensated -Continue lactulose twice daily, Lasix PRN (7) Thrombocytopenia: Plt count 80 (lower end of baseline) -Monitor daily, SCDs for VTE ppx (8) Chronic stasis dermatitis of left lower extremity: No evidence of cellulitis at this time -Continue triamcinolone ointment started by PCP (9) Essential hypertension: Continue losartan, Toprol (10) Hypothyroidism: Continue levothyroxine (11) Anxiety: Continue SSRI DVT Ppx: SCDs Code status: FULL PCP: Reinaldo Walls Dispo: Observation PCU. Discharge planning ordered. Patient seen in collaboration with Dr. Sharma. Please see addendum. History of Present Illness Primary Care Provider: Destiny Walls DO Allergies Allergy/AdvReac Type Severity Reaction Status Date / Time No Known Allergies Allergy Verified 06/27/19 14:03 Home Medications Home Medications Medication Instructions Recorded Confirmed Type Combivent Respimat 1 puff INHALATION QID 11/23/18 06/27/19 History albuterol sulfate 2.5 mg INHALATION Q4 PRN 11/23/18 06/27/19 History aspirin 81 mg PO DAILY 11/23/18 06/27/19 History bisacodyl 5 mg PO HS PRN 11/23/18 06/27/19 History cyanocobalamin (vitamin B-12) 1,000 mcg IM MONTHLY 11/23/18 06/27/19 History diclofenac sodium 50 mg PO BID 11/23/18 06/27/19 History fluticasone propion-salmeterol 1 inh INHALATION BID 11/23/18 06/27/19 History [Advair Diskus] fluticasone propionate 1 spray INTRANASAL DAILY 11/23/18 06/27/19 History folic acid 1 mg PO DAILY 11/23/18 06/27/19 History furosemide 20 mg PO DAILY PRN 11/23/18 06/27/19 History gabapentin 300 mg PO TID 11/23/18 06/27/19 History lactulose 30 ml PO BID 11/23/18 06/27/19 History levocetirizine 5 mg PO PM 11/23/18 06/27/19 History levothyroxine 75 mcg PO DAILY 11/23/18 06/27/19 History losartan 50 mg PO DAILY 11/23/18 06/27/19 History metoprolol succinate 50 mg PO DAILY 11/23/18 06/27/19 History montelukast 10 mg PO DAILY 11/23/18 06/27/19 History multivitamin 1 tab PO DAILY 11/23/18 06/27/19 History nitroglycerin [Nitrostat] 1 dose SUBLINGUAL UD PRN 11/23/18 06/27/19 History omeprazole 20 mg PO DAILY 11/23/18 06/27/19 History ondansetron HCl [Zofran] 8 mg PO Q12 PRN 11/23/18 06/27/19 History sennosides [senna] 8.6 mg PO BID PRN 11/23/18 06/27/19 History trazodone 75 mg PO HS 11/23/18 06/27/19 History escitalopram oxalate 20 mg PO DAILY 06/27/19 06/27/19 History triamcinolone acetonide 1 applic TOPICAL TID 06/27/19 06/27/19 History Past Med/Surg History Medical History Alcoholic cirrhosis of liver without ascites (Chronic) Anxiety (Chronic) Aortic stenosis (Chronic) COPD (chronic obstructive pulmonary disease) (Chronic) Coronary artery disease (Chronic) Depression (Chronic) Diastolic CHF (Chronic) "echo 04/2016 - EF 63%, grade I diastolic dysfunction" Dyslipidemia (Chronic) Essential hypertension (Chronic) History of alcohol abuse (Chronic) History of breast cancer (Chronic) Hypothyroidism (Chronic) Prolonged QT interval SBO (small bowel obstruction) Spinal stenosis (Chronic) Thrombocytopenia (Chronic) Tobacco use (Resolved) Surgical History H/O bilateral mastectomy (Chronic) H/O shoulder surgery (Chronic) H/O ventral hernia repair (Chronic) History of bowel resection (Chronic) Status post coronary artery bypass [place] (Chronic) [place] [facility] [place] On 10/16/15 14:27 Cesar Aparicio Michael wrote "2010 [facility] [place] Status post hysterectomy (Chronic) Status post laparotomy (Chronic) "2004 bowel obstruction" Family History Other Alzheimer disease Colorectal cancer Social History Preferred Language: Barbadian Communication Ability: Effective Magazine Feeder Required: No Beliefs That Will Affect Care: None marital status: Single Current Living Situation: Alone Other Information That Helps Us Care for You: No Feels Safe at Home: Yes Safety Concerns: Feels Safe At This Time Smoking Status: Former smoker Second Hand Exposure: No ; Hx Alcohol Use: No Hx Substance Use: No Results & Data Vital Signs (Past 12 Hours) Vital Signs Temp Pulse Pulse Resp BP Pulse Ox 06/28/19 07:19 36.9 C 68 18 153/83 H 94 06/28/19 04:06 36.8 C 63 18 153/71 H 95 06/28/19 00:00 61 06/27/19 23:36 36.8 C 70 20 167/81 H 93 Code Status & VTE Plan VTE Prophylaxis Plan VTE Prophylaxis will be ordered: Yes (1) Aortic stenosis Cardiac valve disease etiology: etiology unspecified Qualified Code(s): I35.0 - Nonrheumatic aortic (valve) stenosis
--- NOTE | 2019-06-28 10:10 | Hospitalist Progress Note ---
Date of Service June 28, 2019 Assessment & Plan (1) Acute chest pain: -Hospital day 2 -Presented with atypical chest pain -History of CAD with CABG in 2010. Admitted in November 2018 for atypical chest pain, did not want to pursue dobutamine stress test -EKG without acute ST changes, troponin negative x3 -Continue beta-vanna, aspirin; intolerant to statins -Likely discharge today with outpatient follow-up (2) Abnormal renal function: -Creatinine 1.2 this morning -will give some IVF, recheck BMP this afternoon (3) Near syncope: -Likely due to mild hypovolemia from poor p.o. intake -Orthostatic vitals negative -Receiving IVF (4) Aortic stenosis: -Echo 11/2018 mild to moderate aortic stenosis -Follows with cardiology (5) Diastolic CHF: -Appeared clinically dry on exam on admission -Receiving IVF (6) COPD (chronic obstructive pulmonary disease): -No signs of acute exacerbation -Continue home inhalers, Duonebs PRN for SOB/wheezing (7) Alcoholic cirrhosis of liver without ascites: -Compensated -Continue lactulose twice daily, Lasix PRN (8) Thrombocytopenia: -Platelets 81K (lower end of baseline) -Monitor daily, SCDs for VTE ppx (9) Chronic stasis dermatitis of left lower extremity: -No evidence of cellulitis at this time -Continue triamcinolone ointment started by PCP (10) Essential hypertension: -BP controlled, continue losartan, Toprol (11) Hypothyroidism: -continue levothyroxine (12) Anxiety: -Continue SSRI (13) DVT prophylaxis: -SCDs due to thrombocytopenia Supervising Physician Co-Signing Physician Notes I saw this patient with the Nurse Practitioner, I participated in the history, physical, review of systems, and physical exam. I reviewed the medications with the patient and the Nurse Practitioner and helped reconcile the medications. I helped take a detailed family and social history as well. I formulated the assessment and plan personally with the Nurse Practitioner went over it with the patient. ROS-No Headache, No Visual Changes, No Nausea, No Vomiting, No Fever, No Chills, No Neck Pain or Stiffness, No Chest Pain, No Palpitations, No SOB, No PEREZ, No Cough, No Sputum, No Wheezing, No Abdominal Pain, No Diarrhea, No Hematemesis, No Hemoptysis, No Unexpected Weight Loss, No Flank pain, No Melena, No Hematochezia, No Frequency, No Urgency, No Burning, No Hematuria, No Rashes, No Diaphoresis. Appetite is Normal Physical Exam Gen-AAO x 3, NAD, Afebrile Head-NCAT, EOMI, PERRLA, Anicteric Sclera, No Posterior Pharyngeal Erythema Neck-Supple, No JVD, No Thyromegaly, No Masses, No LAD, No Bruits Lungs-Clear to Auscultation Bilaterally, No Rales, No Rhonchi, No Wheezing, No Crepitus Chest-No S4, +S1, +S2, No S3, No Murmurs, No Rubs, No Gallops, No Ectopy Abdomen-Soft, Bowel Sounds Present, Non Tender, Non Distended, No Hepatomegaly, No Splenomegaly, No Palpable Masses, No Rebound, No Rigidity, No Guarding Musculoskeletal-Full Range of Motion Bilaterally, No CVAT Extremities-No Cyanosis, No Clubbing, No Edema Nuero-Cranial Nerves II-XII grossly intact, Motor WNL, DTRs WNL, Strength WNL, Non Focal Psych-Normal Mood Subjective Patient seen and examined. Resting in bed, eating breakfast. Reports feeling improved this morning, offers no complaints. Denies further episodes of chest pain and shortness of breath. No abdominal pain or nausea. Physical Exam Constitutional: no acute distress Resting in bed Respiratory: normal respiratory effort, lungs clear to auscultation Cardiovascular: Rate/Rhythm: regular rate and regular rhythm Heart Sounds: + murmur (Grade 3/6 systolic) Vessels: normal peripheral pulses Extremities: no edema Gastrointestinal (Abdomen): normal bowel sounds, soft, nontender, no hepatosplenomegaly Psychiatric: Orientation: alert and oriented x 3 Results & Data Vital Signs (Past 12 Hours) Vital Signs Temp Pulse Pulse Resp BP Pulse Ox 06/28/19 07:19 36.9 C 68 18 153/83 H 94 06/28/19 04:06 36.8 C 63 18 153/71 H 95 06/28/19 00:00 61 06/27/19 23:36 36.8 C 70 20 167/81 H 93 Laboratory Results Short CBC 06/27/19 06/28/19 Range/Units 14:11 02:09 WBC 3.90 L 2.77 L (4.8-10.8) K/uL Hgb 10.7 L 10.6 L (12.0-16.0) g/dL Hct 31.8 L 31.1 L (37-47) % Plt Count 80 L 81 L (130-400) K/uL BMP 06/27/19 06/28/19 14:11 02:09 Sodium 141 140 Potassium 4.3 4.5 Chloride 109 H 107 Carbon Dioxide 23 25 BUN 15 14 Creatinine 1.06 1.25 H Glucose 95 163 H Calcium 9.1 9.0 Cardiac Enzymes 06/27/19 06/28/19 Range/Units 20:29 02:09 Troponin I < 0.015 < 0.015 (0-0.045) ng/ml Liver Function 06/27/19 Range/Units 14:11 Total Bilirubin 1.3 H (0.2-1) mg/dl AST 34 (15-37) U/L ALT 26 (12-78) U/L Alkaline Phosphatase 79 (45-117) U/L Albumin 3.5 (3.4-5.0) gm/dl (1) Aortic stenosis Cardiac valve disease etiology: etiology unspecified Qualified Code(s): I35.0 - Nonrheumatic aortic (valve) stenosis
[2019-06-28 14:36] LABS: BUN Creatinine Ratio 15.8 (10-20); Calcium 8.8 mg/dl (8.5-10.1); Creatinine Clr Calc Pharmacy 53.9 ml/min; Est GFR (African American) 63.2; Est GFR (Non-African American) 54.5
--- NOTE | 2019-06-28 15:30 | Discharge Summary ---
Date of Service June 28, 2019 Admission HPI Per Admitting Provider This is a 74-year-old female with a PMH of CAD (s/p CABG in 2010), COPD, chronic diastolic heart failure, alcoholic cirrhosis, chronic thrombocytopenia, history of CVA, prolonged QTC and other medical problems listed below who presents with chest pain since last night. Patient states she was resting when she developed left-sided nonradiating chest pain. Also notes she has been more dyspneic than baseline for the past week. Denies any diaphoresis, nausea or vomiting. Is currently chest pain-free. Also notes feeling dizzy, with malaise and body aches for the past week. This morning, patient was ambulating and lost her balance, falling into a wall. Denies hitting her head or any loss of consciousness. Does have history of atypical chest pain and was last admitted for similar symptoms in November 2018. During that admission, EKG and troponin were without abnormality. Was unable to tolerate exercise stress test so dobutamine stress test was scheduled as an outpatient, however patient states that she decided against having test once discharged. Follows inverter and clipper Dr. Walls. Currently denies fever, chills, lightheadedness, dizziness, visual changes, chest pain, palpitations, shortness of breath, vomiting, abdominal pain, dysuria, diarrhea constipation. Endorses chronic nausea secondary to alcoholic cirrhosis. Was also seen in clinic last week for left lower extremity cellulitis and prescribed Keflex, of which he took 2 days and then stopped due to increased nausea. Was seen again in [facility] clinic yesterday and prescribed Aristocort ointment for dermatitis, which she is not yet started. Admission Exam Per Admitting Provider General Appearance: WD/WN, vitals as above, NAD, sitting up in bed, pleasant, conversing easily Head: normocephalic, atraumatic Eyes: normal inspection, PERRL, conjunctivae normal, anicteric sclerae ENT: external ear and nose normal, oropharynx normal Neck: trachea midline, no thyromegaly normal visual inspection Respiratory: normal respiratory effort, lungs clear to auscultation, no wheeze, rales, rhonchi. Normal insp/exp effort, no accessory muscle use Cardiovascular: regular rate, rhythm, systolic murmur, normal peripheral pulses, no BLE edema. Vessels: no JVD or carotid bruit Chest: normal inspection of chest Abdomen/GI: normal bowel sounds, soft, nontender, no hepatosplenomegaly Extremities/Musculoskelatal: no cyanosis or clubbing, extremities motor strength 5/5 Neurologic: PERRL, EOMI, accommodation nl, no face palsy, no dysarthria CN's II-XI intact bilaterally and moves all extremities Psychiatric: A+Ox3, anxious Skin: no rashes, normal color, warm/dry. + LLE with erythema and excoriation, 1 small dime size open lesion, no drainage Principal Diagnosis (1) Acute chest pain: (2) Near syncope: (3) Aortic stenosis: (4) Diastolic CHF: (5) COPD (chronic obstructive pulmonary disease): (6) Alcoholic cirrhosis of liver without ascites: (7) Thrombocytopenia: (8) Chronic stasis dermatitis of left lower extremity: (9) Essential hypertension: (10) Hypothyroidism: (11) Anxiety: Discharge Exam Physical Exam Gen-AAO x 3, NAD, Afebrile Head-NCAT, EOMI, PERRLA, Anicteric Sclera, No Posterior Pharyngeal Erythema Neck-Supple, No JVD, No Thyromegaly, No Masses, No LAD, No Bruits Lungs-Clear to Auscultation Bilaterally, No Rales, No Rhonchi, No Wheezing, No Crepitus Chest-No S4, +S1, +S2, No S3, No Murmurs, No Rubs, No Gallops, No Ectopy Abdomen-Soft, Bowel Sounds Present, Non Tender, Non Distended, No Hepatomegaly, No Splenomegaly, No Palpable Masses, No Rebound, No Rigidity, No Guarding Musculoskeletal-Full Range of Motion Bilaterally, No CVAT Extremities-No Cyanosis, No Clubbing, No Edema Nuero-Cranial Nerves II-XII grossly intact, Motor WNL, DTRs WNL, Strength WNL, Non Focal Psych-Normal Mood Discharge Data Allergies Allergy/AdvReac Type Severity Reaction Status Date / Time No Known Allergies Allergy Verified 06/27/19 14:03 Consultations 06/27/19 15:04 ED Decision to Admit Stat 06/27/19 18:48 Consult Case Management - Discharge Planning Routine Current Diagnoses Thrombocytopenia, unspecified (06/27/19) Hypothyroidism, unspecified (06/27/19) Anxiety disorder, unspecified (06/27/19) Essential (primary) hypertension (06/27/19) Nonrheumatic aortic (valve) stenosis (06/27/19) Unspecified diastolic (congestive) heart failure (06/27/19) Venous insufficiency (chronic) (peripheral) (06/27/19) Chronic obstructive pulmonary disease, unspecified (06/27/19) Alcoholic cirrhosis of liver without ascites (06/27/19) Disorder of kidney and ureter, unspecified (06/27/19) Chest pain, unspecified (06/27/19) Syncope and collapse (06/27/19) Encounter for prophylactic measures, unspecified (06/27/19) Allergies No Known Allergies Allergy (Verified 06/27/19 14:03) Height/Weight/Isolation Height 5 ft 4 in Weight 91.8 kg Isolation Type Contact Precautions Chemistry 06/27/19 06/28/19 06/28/19 14:11 02:09 13:50 Sodium 141 140 138 Potassium 4.3 4.5 Chloride 109 H 107 109 H Carbon Dioxide 23 25 23 Anion Gap 9.0 8.0 6.0 BUN 15 14 16 Creatinine 1.06 1.25 H 1.02 Glucose 95 163 H 102 H 06/28/19 15:06 Sodium Potassium 4.0 Chloride Carbon Dioxide Anion Gap BUN Creatinine Glucose Hospital Course (1) Acute chest pain: -Hospital day 2 -Presented with atypical chest pain -History of CAD with CABG in 2010. Admitted in November 2018 for atypical chest pain, did not want to pursue dobutamine stress test -EKG without acute ST changes, troponin negative x3 -Continue beta-vanna, aspirin; intolerant to statins -discharge today with outpatient follow-up (2) Abnormal renal function: -Creatinine 1.2 this morning -IVF, Cr now normal (3) Near syncope: -Likely due to mild hypovolemia from poor p.o. intake -Orthostatic vitals negative -Received IVF (4) Aortic stenosis: -Echo 11/2018 mild to moderate aortic stenosis -Follows with cardiology (5) Diastolic CHF: -Appeared clinically dry on exam on admission -Received IVF (6) COPD (chronic obstructive pulmonary disease): -No signs of acute exacerbation -Continue home inhalers, Duonebs PRN for SOB/wheezing (7) Alcoholic cirrhosis of liver without ascites: -Compensated -Continue lactulose twice daily, Lasix PRN (8) Thrombocytopenia: -Platelets 81K (lower end of baseline) -Monitor daily, SCDs for VTE ppx (9) Chronic stasis dermatitis of left lower extremity: -No evidence of cellulitis at this time -Continue triamcinolone ointment started by PCP (10) Essential hypertension: -BP controlled, continue losartan, Toprol (11) Hypothyroidism: -continue levothyroxine (12) Anxiety: -Continue SSRI (13) DVT prophylaxis: -SCDs due to thrombocytopenia Total Time Total Time Spent Total Time Spent (In Minutes): 45 mins Total Time Includes: Examination of the Patient, Discharge Planning, Medication Reconciliation and Communication With Other Providers Discharge Plan Discharge Items Patient Disposition: Home - Self-Care Reason For Visit: CHEST PAIN,BODY ACHES,MALAISE Discharge Diagnosis: (1) Acute chest pain: (2) Near syncope: (3) Aortic stenosis: (4) Diastolic CHF: (5) COPD (chronic obstructive pulmonary disease): (6) Alcoholic cirrhosis of liver without ascites: (7) Thrombocytopenia: (8) Chronic stasis dermatitis of left lower extremity: (9) Essential hypertension: (10) Hypothyroidism: (11) Anxiety: Condition on Discharge: Good Activity: Resume your previous activity Lifting: Gradually increase as tolerated Bathing: No limitations Sexual Activity: When tolerated Exercise/Sports: Gradually increase as tolerated Driving/Machine Use: No limitations Weightbearing: Full weightbearing Non-emergency contact: Primary Care Provider Call non-emergency contact if: you have any medication questions Follow-up/Referrals: Destiny Walls DO [Primary Care Provider] - Vikas Dalton MD [Physician] - 07/03/19 11:00 am Diet: Heart Healthy Addtl Attending Provider Instructions: Follow up with Dr Dalton as directed, Dr Walls is booked Pending Studies at Discharge: No Stand-Alone Forms: [employer], Smoking Cessation Medications and DC Order Prescriptions: Continued fluticasone propion-salmeterol [Advair Diskus] 250-50 mcg/dose Blister With Device 1 inh INHALATION BID RF: 0 sennosides [senna] 8.6 mg Tablet 8.6 mg PO BID PRN (Reason: Constipation) RF: 0 metoprolol succinate 50 mg tablet extended release 24 hr 50 mg PO DAILY RF: 0 aspirin 81 mg Tablet,Delayed Release (Dr/Ec) 81 mg PO DAILY RF: 0 levothyroxine 75 mcg Tablet 75 mcg PO DAILY RF: 0 trazodone 150 mg tablet 75 mg PO HS RF: 0 nitroglycerin [Nitrostat] 0.4 mg Tablet, Sublingual 1 dose sublingual UD PRN (Reason: Chest Pain) RF: 0 omeprazole 20 mg Capsule,Delayed Release(Dr/Ec) 20 mg PO DAILY RF: 0 montelukast 10 mg Tablet 10 mg PO DAILY RF: 0 bisacodyl 5 mg Tablet 5 mg PO HS PRN (Reason: Constipation) RF: 0 Combivent Respimat 20-100 mcg/actuation Mist 1 puff INHALATION QID RF: 0 folic acid 1 mg Tablet 1 mg PO DAILY RF: 0 fluticasone propionate 50 mcg/actuation Shell,Suspension 1 spray INTRANASAL DAILY RF: 0 multivitamin Tablet 1 tab PO DAILY RF: 0 losartan 50 mg Tablet 50 mg PO DAILY RF: 0 albuterol sulfate 2.5 mg /3 mL (0.083 %) Solution For Nebulization 2.5 mg INHALATION Q4 PRN (Reason: Shortness Of Breath) RF: 0 ondansetron HCl [Zofran] 8 mg Tablet 8 mg PO Q12 PRN (Reason: Nausea) RF: 0 cyanocobalamin (vitamin B-12) 1,000 mcg/mL Solution 1,000 mcg IM MONTHLY RF: 0 gabapentin 300 mg Capsule 300 mg PO TID RF: 0 diclofenac sodium 50 mg Tablet,Delayed Release (Dr/Ec) 50 mg PO BID RF: 0 furosemide 20 mg Tablet 20 mg PO DAILY PRN (Reason: Fluid Retention) RF: 0 lactulose 10 gram/15 mL Solution 30 ml PO BID RF: 0 levocetirizine 5 mg Tablet 5 mg PO PM RF: 0 escitalopram oxalate 20 mg Tablet 20 mg PO DAILY RF: 0 triamcinolone acetonide 0.1 % Ointment 1 applic TOPICAL TID RF: 0 Discharge Orders: Discharge Order (Routine); Ordered 06/28/19 Ordered By: Mitchel Conway Admission Data Admit Date/Time: 06/27/19 16:36 Attending Provider: Mitchel Conway Admit Provider: Radha Sharma Primary Care Provider: Destiny Walls Other Providers: Radha Sharma
== END 2019-06-28 16:42 | disposition home or self-care (01) ==
LOC: 2S 13:14 → ED 13:14 → SUATTDRO 16:36 → 2S 17:15

== ENCOUNTER 2020-03-20 01:17 | Inpatient (IN) ==
[2020-03-20] MEDS ORDERED: ACETAMINOPHEN 1,000 MG/100 ML VIAL IV STA (01:36)
[2020-03-20] MEDS ORDERED: cefTRIAXone SODIUM 2,000 MG/70 ML BAG IV STA (01:36)
--- NOTE | 2020-03-20 01:42 | Emergency Department Note ---
History of Present Illness General Chief complaint: Swelling/Edema to Extremity Stated complaint: BACK PAIN,SWELLING TO LEGS,HARD TIME BREATHING History of Present Illness Maximum Pain Intensity: 10 This 75-year-old presents to the ER complaining of left lower leg pain and swelling and redness Location: Left leg Quality: Achy Severity: Moderate Duration: Week and a half Timing: Week and half ago Context: Symptoms got worse and patient came in Modifying factors: better with rest; worse with activity Patient states this leg normally is a little more swollen than the other leg but is worse this past week. Patient denies chest pain, dyspnea, fevers, flulike illness. Home Medications Home Medications Medication Instructions Recorded Confirmed Type albuterol sulfate 2.5 mg INHALATION Q4 PRN 11/23/18 03/20/20 History aspirin 81 mg PO DAILY 11/23/18 03/20/20 History cyanocobalamin (vitamin B-12) 1,000 mcg IM MONTHLY 11/23/18 03/20/20 History folic acid 1 mg PO DAILY 11/23/18 03/20/20 History furosemide 20 mg PO DAILY PRN 11/23/18 03/20/20 History gabapentin 300 mg PO TID 11/23/18 03/20/20 History lactulose 30 ml PO BID 11/23/18 03/20/20 History levocetirizine 5 mg PO PM 11/23/18 03/20/20 History levothyroxine 75 mcg PO DAILY 11/23/18 03/20/20 History losartan 50 mg PO DAILY 11/23/18 03/20/20 History metoprolol succinate 50 mg PO DAILY 11/23/18 03/20/20 History montelukast 10 mg PO DAILY 11/23/18 03/20/20 History multivitamin 1 tab PO DAILY 11/23/18 03/20/20 History nitroglycerin [Nitrostat] 1 dose SUBLINGUAL UD PRN 11/23/18 03/20/20 History omeprazole 20 mg PO DAILY 11/23/18 03/20/20 History sennosides [senna] 8.6 mg PO BID PRN 11/23/18 03/20/20 History escitalopram oxalate 20 mg PO DAILY 06/27/19 03/20/20 History triamcinolone acetonide 1 applic TOPICAL DIRECTED PRN 06/27/19 03/20/20 History Vitron-C 1 tab PO DAILY 08/12/19 03/20/20 History amlodipine 5 mg PO DAILY 08/12/19 03/20/20 History bupropion HCl [Wellbutrin XL] 150 mg PO QAM 08/12/19 03/20/20 History trazodone 50 mg PO HS 08/12/19 03/20/20 History albuterol sulfate [ProAir HFA] 2 puff INHALATION Q4 PRN 03/11/20 03/20/20 History bisacodyl [Dulcolax (bisacodyl)] 5 mg PO DAILY PRN 03/11/20 03/20/20 History diclofenac sodium 50 mg PO BID 03/11/20 03/20/20 History fluticasone propion-salmeterol 1 inh INHALATION BID 03/11/20 03/20/20 History [Advair Diskus] fluticasone propionate [Flonase 2 spray INTRANASAL DAILY 03/11/20 03/20/20 History Allergy Relief] ondansetron HCl [Zofran] 8 mg PO Q12 PRN 03/11/20 03/20/20 History tiotropium bromide [Spiriva with 1 cap INHALATION DAILY 03/11/20 03/20/20 History HandiHaler] Allergies Allergy/AdvReac Type Severity Reaction Status Date / Time [id number] Reductase AdvReac Cough Verified 03/20/20 01:44 Inhibitor Past Med/Surg History Medical History Alcoholic cirrhosis of liver without ascites (Chronic) Anxiety (Chronic) Aortic stenosis (Chronic) COPD (chronic obstructive pulmonary disease) (Chronic) Coronary artery disease (Chronic) Depression (Chronic) Dyslipidemia (Chronic) Essential hypertension (Chronic) History of alcohol abuse (Chronic) History of breast cancer (Chronic) Hypothyroidism (Chronic) Prolonged QT interval SBO (small bowel obstruction) hx of multiple Spinal stenosis (Chronic) Thrombocytopenia (Chronic) Surgical History H/O bilateral mastectomy (Chronic) H/O shoulder surgery (Chronic) H/O ventral hernia repair (Chronic) History of bowel resection (Chronic) S/P CABG x 4 Status post hysterectomy (Chronic) Status post laparotomy (Chronic) "2004 bowel obstruction" Family History Father Alzheimer disease Mother Stomach cancer Social History Smoking Status: Never smoker Second Hand Exposure: No; Hx Alcohol Use: Yes Alcohol Intake Frequency Comment: 2 drinks 3 times per week; heavier use in the past Hx Substance Use: No Preferred Language: Persian Communication Ability: Effective Radio Electrician Required: No Beliefs That Will Affect Care: None marital status: Single Current Living Situation: Alone Feels Safe at Home: Yes Review of Systems A total of 10 systems reviewed and were otherwise negative Physical Exam Vital Signs Vital Signs - 24 hr 03/20/20 01:20 03/20/20 02:48 Temperature 37.1 C Temperature Source Oral Pulse Rate 75 Pulse Rate [Finger] 83 Respiratory Rate 20 22 Respiratory Effort / Characteristics Non-Labored Spontaneous Non-Labored Spontaneous Respiratory Depth Normal Normal Blood Pressure 132/51 L Blood Pressure [Right Arm] 101/45 L Blood Pressure Mean 78 Blood Pressure Mean [Right Arm] 63 Pulse Oximetry 96 95 Oxygen Delivery Method Room Air Room Air Sepsis Recent Fever Within 48 Hours No Sepsis New/Unexplained Change in Mental Status No Sepsis Action Taken by Nursing No Action Required VITALS: Vitals are noted on the nurse's note and reviewed by myself. Vital signs stable. GENERAL: Pleasant elderly female, in no acute distress, nondiaphoretic, well- developed well-nourished. SKIN: Capillary reflex less than 2 seconds. HEENT: Normocephalic. PERRLA. EOMI. Nares patent. Mucous membranes moist. Neck is supple without nuchal rigidity. HEART: Regular rate and rhythm LUNGS: Clear to auscultation bilaterally without wheezes, rales or rhonchi. No retractions or accessory muscle use. ABDOMEN: Positive bowel sounds x 4. Normal tympanic percussion. Soft, nontender, without masses or organomegaly. Brennan sign negative. No guarding or rebound tenderness. MUSCULOSKELETAL: No gross musculoskeletal defects. Left lower leg erythematous and edematous concerning for infection. NEURO: Patient was alert and oriented to person place and time. Normal sensation to light and sharp touch. No focal neurological deficits. Course Administered Medications Discontinued Medications Acetaminophen (Ofirmev) 1,000 mg in 100 mls @ 400 mls/hr IV NOW STA Stop: 03/20/20 01:50 Last Infusion: 03/20/20 02:34 Dose: 0 mls/hr Documented by: [id number] Admin: 03/20/20 02:01 Dose: 400 mls/hr Documented by: [id number] Ceftriaxone Sodium (Rocephin) 2,000 mg in 70 mls @ 140 mls/hr IV NOW STA Stop: 03/20/20 02:05 Last Infusion: 03/20/20 02:48 Dose: 0 mls/hr Documented by: [id number] Admin: 03/20/20 02:13 Dose: 140 mls/hr Documented by: [id number] Medical Decision Making Medical Records Attestation: I reviewed the patient's medical records. Home Medications Current Medication List: was personally reviewed by me Laboratory Data Attestation: I reviewed the patient's lab results. Result diagrams: 03/20/20 02:00 03/20/20 02:00 Lab Results 03/20/20 03/20/20 Range/Units 02:00 02:00 WBC 10.83 H (4.8-10.8) K/uL RBC 3.55 L (4.2-5.4) M/uL Hgb 11.6 L (12.0-16.0) g/dL Hct 35.1 L (37-47) % MCV 98.9 (80-100) fL MCH 32.7 (25-34) pg MCHC 33.0 (32-36) g/dL RDW Std Deviation 54.5 H (36.4-46.3) fL RDW Coeff of Zelda 15.1 H (11.5-14.5) % Plt Count 121 L (130-400) K/uL MPV 11.1 H (7.4-10.4) fL Immature Gran % (Auto) 0.3 % Neut % (Auto) 81.6 % Lymph % (Auto) 9.3 % Cocke % (Auto) 7.7 % Eos % (Auto) 0.9 % Baso % (Auto) 0.2 % Neut # (Auto) 8.84 H (1.4-6.5) K/uL Lymph # (Auto) 1.01 L (1.2-3.4) K/uL Cocke # (Auto) 0.83 H (0.11-0.59) K/uL Eos # (Auto) 0.10 (0-0.5) K/uL Baso # (Auto) 0.02 (0-0.2) K/uL Immature Gran # (Auto) 0.03 H (0.00-0.02) K/uL Sodium 138 (136-145) mmol/L Potassium 3.8 (3.5-5.1) mmol/L Chloride 103 (98-107) mmol/L Carbon Dioxide 27 (21-32) mmol/L Anion Gap 8.0 (3-11) BUN 14 (7-18) mg/dl Creatinine 1.04 (0.6-1.2) mg/dl Est Cr Clr Drug Dosing Not Reportable Est GFR ( Amer) 61.3 Est GFR (Non-Af Amer) 52.9 BUN/Creatinine Ratio 13.5 (10-20) Glucose 89 (70-99) mg/dl Calcium 8.5 (8.5-10.1) mg/dl Total Bilirubin 1.4 H (0.2-1) mg/dl AST 43 H (15-37) U/L ALT 38 (12-78) U/L Alkaline Phosphatase 97 (45-117) U/L Total Protein 7.0 (6.4-8.2) gm/dl Albumin 3.5 (3.4-5.0) gm/dl Globulin 3.5 (2.5-4.0) gm/dl Albumin/Globulin Ratio 1.0 (0.9-2) Specimen Hemolysis Imaging Data Attestation: I personally reviewed and interpreted this imaging study as follows: Blood Pressure Blood Pressure Findings: Normal blood pressure MDM Narrative Prior records reviewed and summarized as above. Triage Nursing notes reviewed. Additional history obtained from family. The patient's history was concerning for swelling and redness of the skin. Differential diagnosis: Etiologies such as cellulitis, abscess, MRSA infection, DVT, necrotizing fasciitis, dermatitis, drug eruption, as well as others were entertained.. Physical examination: The physical examination was consistent with cellulitis ER treatment provided: Rocephin, Tylenol On reassessment the patient felt better. Diagnostics interpreted by me: The labs revealed mild leukocytosis Imaging studies: US VENOUS LEFT LOWER EXTREMITY: No evidence of DVT in the left lower extremity. Radiologist: Leonel Heller MD Consultation: A consultation was placed with Dr Henderson, hospitalist. The case was discussed and diagnostics were reviewed. The patient was evaluated in the ER for further treatment. This appears to be isolated cellulitis. This is quite extensive. She was given IV antibiotics. Medicine was consulted. She will be evaluated for possible admission. By the evaluation outlined above emergent etiologies such as abscess, necrotizing fasciitis, DVT, as well as others were deemed relatively unlikely. The pt informed about the findings as listed above. All questions were answered and pleased with the treatment. The chart was completed utilizing [employer] voice recognition software. G rammatical errors, random word insertions, pronoun errors, and incomplete sentences are an occassional consequence of this system due to software limitations, ambient noise, and hardware issues. Any formal questions or concerns about the content, text, or information contained within the body of th is dictation should be directly addressed to the physician addictions counselor assistant for clarification. Impression & Plan Cellulitis of left leg Discharge Plan Visit Data Chief Complaint: Swelling/Edema to Extremity Stated Complaint: BACK PAIN,SWELLING TO LEGS,HARD TIME BREATHING ED Provider: Maine Martinez ED Midlevel Provider: Karo Gandhi Discharge Problem: Cellulitis of left leg Patient Disposition: Being Evaluated by Hospitalist Condition: Fair Forms Stand Alone Forms: [employer] Prescriptions Prescriptions: No Action sennosides [senna] 8.6 mg Tablet 8.6 mg PO BID PRN (Reason: Constipation) RF: 0 metoprolol succinate 50 mg tablet extended release 24 hr 50 mg PO DAILY RF: 0 aspirin 81 mg Tablet,Delayed Release (Dr/Ec) 81 mg PO DAILY RF: 0 levothyroxine 75 mcg Tablet 75 mcg PO DAILY RF: 0 nitroglycerin [Nitrostat] 0.4 mg Tablet, Sublingual 1 dose sublingual UD PRN (Reason: Chest Pain) RF: 0 omeprazole 20 mg Capsule,Delayed Release(Dr/Ec) 20 mg PO DAILY RF: 0 montelukast 10 mg Tablet 10 mg PO DAILY RF: 0 folic acid 1 mg Tablet 1 mg PO DAILY RF: 0 multivitamin Tablet 1 tab PO DAILY RF: 0 losartan 50 mg Tablet 50 mg PO DAILY RF: 0 albuterol sulfate 2.5 mg /3 mL (0.083 %) Solution For Nebulization 2.5 mg INHALATION Q4 PRN (Reason: Shortness Of Breath) RF: 0 cyanocobalamin (vitamin B-12) 1,000 mcg/mL Solution 1,000 mcg IM MONTHLY RF: 0 gabapentin 300 mg Capsule 300 mg PO TID RF: 0 furosemide 20 mg Tablet 20 mg PO DAILY PRN (Reason: Fluid Retention) RF: 0 lactulose 10 gram/15 mL Solution 30 ml PO BID RF: 0 levocetirizine 5 mg Tablet 5 mg PO PM RF: 0 escitalopram oxalate 20 mg Tablet 20 mg PO DAILY RF: 0 triamcinolone acetonide 0.1 % Ointment 1 applic TOPICAL DIRECTED PRN (Reason: Skin Irritation) RF: 0 trazodone 50 mg tablet 50 mg PO HS RF: 0 bupropion HCl [Wellbutrin XL] 150 mg Tablet Extended Release 24 Hr 150 mg PO QAM RF: 0 amlodipine 5 mg tablet 5 mg PO DAILY RF: 0 Vitron-C 65 mg iron- 125 mg Tablet,Delayed Release (Dr/Ec) 1 tab PO DAILY RF: 0 fluticasone propion-salmeterol [Advair Diskus] 250-50 mcg/dose blister with device 1 inh INHALATION BID RF: 0 ondansetron HCl [Zofran] 8 mg tablet 8 mg PO Q12 PRN (Reason: Nausea) RF: 0 bisacodyl [Dulcolax (bisacodyl)] 5 mg Tablet,Delayed Release (Dr/Ec) 5 mg PO DAILY PRN (Reason: Constipation) RF: 0 diclofenac sodium 50 mg tablet,delayed release (DR/EC) 50 mg PO BID RF: 0 albuterol sulfate [ProAir HFA] 90 mcg/actuation HFA aerosol inhaler 2 puff INHALATION Q4 PRN (Reason: Shortness Of Breath Or Wheezing) RF: 0 fluticasone propionate [Flonase Allergy Relief] 50 mcg/actuation Osteen,Suspension 2 spray INTRANASAL DAILY RF: 0 Spiriva with HandiHaler 18 mcg capsule, w/inhalation device 1 cap INHALATION DAILY RF: 0 Referrals Referrals: Destiny Walls DO [Primary Care Provider] -
[2020-03-20 02:13] LABS: Basophils # (auto) 0.02 K/uL (0-0.2); Basophils % (auto) 0.2 %; Eosinophils % (auto) 0.9 %; Hematocrit (blood only) 35.1 % (37-47); Hemoglobin 11.6 g/dL (12.0-16.0); Immature Granulocytes # (auto) 0.03 K/uL (0.00-0.02); Immature Granulocytes % (auto) 0.3 %; Lymphocytes # (auto) 1.01 K/uL (1.2-3.4); Lymphocytes % (auto) 9.3 %; Mean Corpuscular Hemoglobin 32.7 pg (25-34); Mean Corpuscular Volume 98.9 fL (80-100); Mean Platelet Volume 11.1 fL (7.4-10.4); Monocytes # (auto) 0.83 K/uL (0.11-0.59); Monocytes % (auto) 7.7 %; Neutrophils # (auto) 8.84 K/uL (1.4-6.5); Neutrophils % (auto) 81.6 %; Platelet Count 121 K/uL (130-400); RDW Coefficient of Variation 15.1 % (11.5-14.5); RDW Standard Deviation 54.5 fL (36.4-46.3); Red Blood Count 3.55 M/uL (4.2-5.4); White Blood Count 10.83 K/uL (4.8-10.8)
[2020-03-20 02:36] LABS: Alanine Aminotransferase 38 U/L (12-78); Albumin Level 3.5 gm/dl (3.4-5.0); Aspartate Aminotransferase 43 U/L (15-37); BUN Creatinine Ratio 13.5 (10-20); Blood Urea Nitrogen 14 mg/dl (7-18); Calcium 8.5 mg/dl (8.5-10.1); Carbon Dioxide 27 mmol/L (21-32); Chloride 103 mmol/L (98-107); Est GFR (African American) 61.3; Est GFR (Non-African American) 52.9; Glucose 89 mg/dl (70-99); Potassium 3.8 mmol/L (3.5-5.1); Sodium 138 mmol/L (136-145)
[2020-03-20 02:38] LABS: Alkaline Phosphatase 97 U/L (45-117); Bilirubin,Total 1.4 mg/dl (0.2-1); Globulin 3.5 gm/dl (2.5-4.0)
[2020-03-20] MEDS ORDERED: KETOROLAC TROMETHAMINE 15 MG/ML VIAL IV STA (02:50)
[2020-03-20] MEDS ORDERED: ONDANSETRON INJ 2 MG/ML 2 ML VIAL IV PRN (05:20)
[2020-03-20] MEDS ORDERED: ALBUTEROL 0.083% NEBU SOLN 3 ML VIAL INH PRN (05:20)
[2020-03-20] MEDS ORDERED: VANCOMYCIN HCL 1,000 MG in SODIUM CHLORIDE 0.9% 250 ML IV SCH (05:20)
[2020-03-20] MEDS ORDERED: NITROGLYCERIN SL 0.4 MG/TAB TAB SL PRN (05:20)
[2020-03-20] MEDS ORDERED: bisacodyL 5 MG TABEC PO PRN (05:20)
[2020-03-20] MEDS ORDERED: VANCOMYCIN CONSULT ACTIVE PRN (05:20)
[2020-03-20] MEDS ORDERED: TRIAMCINOLONE ACET 0.1% OINT 15 GM TUBE TOP PRN (05:20)
[2020-03-20] MEDS ORDERED: SENNA 8.6 MG TAB PO PRN (05:20)
[2020-03-20] MEDS ORDERED: PIPERACILL/TAZOBAC CONSULT ACTIVE PRN (05:20)
--- NOTE | 2020-03-20 05:28 | History and Physical Report ---
DATE OF ADMISSION: 03/20/2020 CHIEF COMPLAINT: Left lower extremity cellulitis. 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 The patient lives alone, walks with a cane and daughter lives close by. Comes because of worsening swelling and pain in the left lower extremity. The patient has some swelling in the lower extremity, but the last 2 weeks the left lower extremity started to become red and more swollen. It progressively got worse in the last couple of days. Last few days she had severe pain and also she notes more erythematous changes below the left knee and today she was not able to walk or put weight on the leg, having severe pain, and that is the reason she came to the ER. Denies any fever, chills. No other complaints. Hemodynamically stable. Has some mild headache, no blurred vision, no runny nose, has some sore throat. She has a chronic cough from her COPD. No chest pain. She is always short of breath on exertion. She could not walk much because of the history of COPD. Has some nausea, no abdominal pain. Moves bowels 1-2 times a day, takes lactulose. No blood in the stools or black stools. Normal bladder movements. Appetite has gone down in the last few days. Has chronic back pain and leg pain from her spinal stenosis. ALLERGIES: CODEINE, STATINS. PAST MEDICAL HISTORY: As mentioned above. PAST SURGICAL HISTORY: Excision of the breast lesion on the right side, CABG, , colonoscopy, EGDs, implantation of mesh with incisional hernia repair, incision of eye muscle repair, lumbar spinal injection, right simple mastectomy, left simple mastectomy, reduction of the bowel obstruction, removal of right IJ venous A-port, removal of turbinate bones, repair of recurrent incisional hernia, left shoulder surgery, bilateral skin rearrangement, total hysterectomy. MEDICATIONS: The patient is on Constulose 30 mL p.o. b.i.d., Proventil nebulization every 4 hours p.r.n., Wellbutrin XL 150 mg p.o. daily, omeprazole 20 mg p.o. daily, Lasix 20 mg p.o. daily, diclofenac sodium 50 mg p.o. b.i.d., Lexapro 20 mg p.o. daily, albuterol sulfate 2 puffs every 4 hours p.r.n., Spiriva HandiHaler 18 mcg inhalation daily, amlodipine 5 mg p.o. daily, losartan 50 mg p.o. daily, Neurontin 300 mg p.o. t.i.d., Zofran 8 mg p.o. b.i.d. p.r.n., Toprol-XL 50 mg p.o. daily, levocetirizine 5 mg p.o. daily, trazodone 50 mg p.o. at bedtime, levothyroxine 75 mcg p.o. daily, nitroglycerin 0.4 mg sublingual p.r.n., Advair Diskus 250/50 mcg one inhalation b.i.d., multivitamins with minerals 1 tablet daily, Flonase 2 sprays into each nostril daily, Singulair 10 mg p.o. daily, bisacodyl 5 mg p.o. daily p.r.n., senna 1 tablet p.o. b.i.d., aspirin 81 mg p.o. daily, folic acid 1 mg p.o. daily. FAMILY HISTORY: Significant for sister has alcoholism, mother had stomach, colon cancer and at age of 80; father, Alzheimer's, at age of 60; cousin has ovarian cancer. SOCIAL HISTORY: Lives alone. Former smoker, quit in 2001, smoked 1 pack a day for 40 years. Used to drink alcohol before. Currently drinks about 3 beers in a week. No drug use. REVIEW OF SYSTEMS: As per HPI. Rest of review of systems negative. PHYSICAL EXAMINATION: GENERAL: The patient is of moderate build, not in acute distress. VITAL SIGNS: Temperature 37.1, pulse 79, respiratory rate 24, blood pressure 102/47, oxygen 91% on room air. HEENT: Pupils equal, round, and reactive to light. NECK: No JVD, no neck masses. CARDIOVASCULAR: S1, S2 heard, regular rate and rhythm, no murmur, no gallop. RESPIRATORY SYSTEM: Normal AP diameter. No accessory muscle use. No wheezing, no crackles. ABDOMEN: Soft, bowel sounds present, nontender. No distention. CENTRAL NERVOUS SYSTEM: Cranial nerves II-XII grossly intact. Nonfocal. EXTREMITIES: Left lower extremity is erythematous, warm on palpation and swollen, more pronounced in the left popliteal fossa. LABORATORY DATA: WBC 10.8, hemoglobin 11.6, hematocrit 35.1, platelets 121. Sodium 138, potassium 3.8, chloride 103, bicarbonate 27, BUN 14, creatinine 1.04, serum glucose 89, calcium 8.5, total bilirubin 1.4, AST 43, ALT 38, alkaline phosphatase 97. IMAGING DATA: Venous Doppler, left lower extremity Doppler preliminary report, no evidence of DVT. ASSESSMENT AND PLAN: This is a 75-year-old female who presents with left lower extremity cellulitis. 1. Left lower extremity cellulitis. The patient is having increased swelling and erythema and pain since last 2 weeks, but worse in the last 2 days. No fever, no chills, but has some headache and nausea. No DVT on the preliminary report of the Dopplers. We will follow the final report. Empirically start on Zosyn and vancomycin. Follow the response. Follow the cultures. Monitor in the medical floor. 2. History of alcoholic liver cirrhosis without ascites, portal hypertension, esophageal varices without bleeding, gastroesophageal reflux disease without esophagitis. Continue home lactulose, Lasix, omeprazole. 3. History of chronic diastolic congestive heart failure, mild aortic stenosis, on Lasix daily and losartan and Toprol-XL. We will monitor for any volume overload. 4. Alcoholism. The patient states she currently drinks only 3 beers a week. Will monitor for any withdrawals. 5. History of thrombocytopenia, platelets 121. Follow the repeat labs. 6. Hypertension, on amlodipine, losartan, Toprol-XL. We will monitor the blood pressure. 7. Hyperlipidemia, on Synthroid. 8. Chronic obstructive pulmonary disease, will continue home inhalers and nebs, currently stable. 9. Depression, on bupropion, Lexapro. 10. Deep vein thrombosis prophylaxis. Will place on heparin subQ and monitor for platelets. 11. Disposition: Admit to observation in medical floor. PT and OT prior to discharge. Social service to help with discharge planning. Code status, full code as per my discussion with the patient. MTDD
[2020-03-20] MEDS ORDERED: ALBUTEROL HFA 8 GM INHALER INH PRN (05:31)
[2020-03-20] MEDS ORDERED: PATIENT'S HEIGHT AND/OR WEIGHT NEEDED SCH (05:45)
[2020-03-20] MEDS ORDERED: PIPERACILLIN/TAZOBACTAM 4.5 GM in DEXTROSE 5% 100 ML IV SCH ×2 (06:00→12:00)
[2020-03-20] MEDS ORDERED: VANCOMYCIN HCL 2,250 MG in SODIUM CHLORIDE 0.9% 500 ML IV SCH (06:00)
[2020-03-20] MEDS: ACETAMINOPHEN 325 MG TAB PO PRN ×3 (06:01→20:09)
[2020-03-20] MEDS: LEVOTHYROXINE SODIUM 75 MCG TABLET PO SCH (06:02)
--- NOTE | 2020-03-20 06:43 | Ultrasound Report ---
US venous doppler LE LT HISTORY: 75 years-old Female swelling acute pain and swelling of the left lower extremity COMPARISON: Doppler study 08/12/2019 TECHNIQUE: Multiple real-time sonographic images of the left lower extremity deep venous structures w ere obtained assessing grayscale appearance, color and spectral flow FINDINGS: Study is limited secondary to lack of patient cooperation. Subcutaneous edema limits evaluation of th e calf vessels. There is normal flow, compressibility, phasicity and augmentation of the deep venous structures. IMPRESSION: No sonographic evidence of deep venous thrombosis. ACT 112: Negative or not required by law. The above report was generated using voice recognition software. It may contain grammatical, syntax o r spelling errors. Electronically signed by: Gerardo Woods M.D. 03/20/2020 6:41 AM
[2020-03-20 07:31] LABS: Basophils # (auto) 0.02 K/uL (0-0.2); Basophils % (auto) 0.2 %; Eosinophils # (auto) 0.14 K/uL (0-0.5); Eosinophils % (auto) 1.6 %; Hemoglobin 10.2 g/dL (12.0-16.0); Immature Granulocytes # (auto) 0.02 K/uL (0.00-0.02); Immature Granulocytes % (auto) 0.2 %; Lymphocytes # (auto) 0.92 K/uL (1.2-3.4); Lymphocytes % (auto) 10.3 %; Mean Corpuscular Hemoglobin 32.1 pg (25-34); Mean Corpuscular Hgb Conc 32.9 g/dL (32-36); Mean Corpuscular Volume 97.5 fL (80-100); Mean Platelet Volume 11.4 fL (7.4-10.4); Monocytes % (auto) 6.7 %; Neutrophils # (auto) 7.25 K/uL (1.4-6.5); Platelet Count 100 K/uL (130-400); RDW Standard Deviation 53.4 fL (36.4-46.3); Red Blood Count 3.18 M/uL (4.2-5.4); White Blood Count 8.95 K/uL (4.8-10.8)
[2020-03-20 07:56] LABS: BUN Creatinine Ratio 13.6 (10-20); Calcium 8.4 mg/dl (8.5-10.1); Creatinine Clr Calc Pharmacy 50.4 ml/min; Est GFR (African American) 64.3; Est GFR (Non-African American) 55.5; Magnesium 1.7 mg/dl (1.8-2.4); Potassium 3.3 mmol/L (3.5-5.1)
[2020-03-20] MEDS ORDERED: POTASSIUM CHLORIDE 20 MEQ TABCR PO STA (08:13)
[2020-03-20] MEDS ORDERED: NON-FORMULARY MEDICATION (Iron,Carbonyl-Vitamin C [Vitron-C] 1 TAB) PO SCH (09:00)
[2020-03-20] MEDS: FUROSEMIDE 20 MG TAB PO SCH (09:16)
[2020-03-20] MEDS: ASPIRIN 81 MG ECTAB PO SCH (09:17)
[2020-03-20] MEDS: AMLODIPINE BESYLATE 5 MG TAB PO SCH (09:17)
[2020-03-20] MEDS: METOPROLOL SUCC 50MG EXT REL TAB PO SCH (09:17)
[2020-03-20] MEDS: PANTOprazole 40 MG TAB PO SCH (09:17)
[2020-03-20] MEDS: LOSARTAN POTASSIUM 50 MG TAB PO SCH (09:18)
[2020-03-20] MEDS: MULTIVITAMIN TAB PO SCH (09:18)
[2020-03-20] MEDS: BuPROPion XL 150 MG TABCR PO SCH (09:18)
[2020-03-20] MEDS: FOLIC ACID 1 MG TAB PO SCH (09:18)
[2020-03-20] MEDS: ESCITALOPRAM OXALATE 20 MG TAB PO SCH (09:18)
[2020-03-20] MEDS: MONTELUKAST SODIUM 10 MG TABLET PO SCH (09:18)
[2020-03-20] MEDS: HEPARIN SOD 5,000 UNIT/0.5 ML VIAL SQ SCH ×2 (09:19→20:10)
[2020-03-20] MEDS: GABAPENTIN 300 MG CAP PO SCH ×3 (09:19→20:09)
[2020-03-20] MEDS: FLUTICASONE PROPIONATE NA SPR 16 GM BTL SCH (09:20)
[2020-03-20] MEDS: FLUTICASONE/VILANTEROL 100/25MCG 14 PUFFS/INHALER INH SCH (09:21)
[2020-03-20] MEDS: LACTULOSE SYRUP 20 GM/30 ML UDC PO SCH ×2 (09:21→20:09)
[2020-03-20] MEDS: UMECLIDINIUM BROMIDE 62.5MCG/BLISTER 7 PUFFS/INHALER INH SCH (09:24)
[2020-03-20] MEDS: CEFAZOLIN 2000MG 2,000 MG/15 ML SYR IV SCH ×2 (12:40→20:10)
[2020-03-20] MEDS: HYDROmorphone INJ 0.5 MG/0.5 ML SYR IV PRN (16:03)
[2020-03-20] MEDS: TRAZODONE HCL 50 MG TAB PO SCH (20:09)
[2020-03-21] MEDS: HYDROmorphone INJ 0.5 MG/0.5 ML SYR IV PRN ×3 (00:35→19:10)
[2020-03-21] MEDS: CEFAZOLIN 2000MG 2,000 MG/15 ML SYR IV SCH ×3 (04:48→21:35)
[2020-03-21] MEDS: LEVOTHYROXINE SODIUM 75 MCG TABLET PO SCH (06:21)
[2020-03-21] MEDS: MULTIVITAMIN TAB PO SCH (08:55)
[2020-03-21] MEDS: FUROSEMIDE 20 MG TAB PO SCH (08:55)
[2020-03-21] MEDS: HEPARIN SOD 5,000 UNIT/0.5 ML VIAL SQ SCH ×2 (08:55→20:52)
[2020-03-21] MEDS: AMLODIPINE BESYLATE 5 MG TAB PO SCH (08:56)
[2020-03-21] MEDS: METOPROLOL SUCC 50MG EXT REL TAB PO SCH (08:56)
[2020-03-21] MEDS: MONTELUKAST SODIUM 10 MG TABLET PO SCH (08:56)
[2020-03-21] MEDS: PANTOprazole 40 MG TAB PO SCH (08:56)
[2020-03-21] MEDS: LACTULOSE SYRUP 20 GM/30 ML UDC PO SCH ×2 (08:56→20:52)
[2020-03-21] MEDS: ASPIRIN 81 MG ECTAB PO SCH (08:57)
[2020-03-21] MEDS: LOSARTAN POTASSIUM 50 MG TAB PO SCH (08:57)
[2020-03-21] MEDS: ESCITALOPRAM OXALATE 20 MG TAB PO SCH (08:57)
[2020-03-21] MEDS: GABAPENTIN 300 MG CAP PO SCH ×3 (08:57→20:52)
[2020-03-21] MEDS: BuPROPion XL 150 MG TABCR PO SCH (08:57)
[2020-03-21] MEDS: FOLIC ACID 1 MG TAB PO SCH (08:57)
[2020-03-21] MEDS: UMECLIDINIUM BROMIDE 62.5MCG/BLISTER 7 PUFFS/INHALER INH SCH (08:58)
[2020-03-21] MEDS: FLUTICASONE PROPIONATE NA SPR 16 GM BTL SCH (08:59)
[2020-03-21] MEDS: FLUTICASONE/VILANTEROL 100/25MCG 14 PUFFS/INHALER INH SCH (08:59)
[2020-03-21] MEDS: CETIRIZINE HCL 10 MG TABLET PO SCH (09:00)
--- NOTE | 2020-03-21 13:39 | Hospitalist Progress Note ---
Date of Service March 21, 2020 Assessment & Plan (1) Cellulitis of left leg: Has chronic stasis dermatitis of left lower extremity Admitted with increasing swelling, redness and pain involving left lower extremity No evidence of any open wound and/or drainage No evidence of deep venous thrombosis Has been on intravenous Ancef Blood cultures have been negative so far No signs and/or symptoms of worsening infection Advised to keep the left lower extremity elevated while lying and or sleeping (2) Chronic stasis dermatitis of left lower extremity: As above Will get arterial Doppler to evaluate left lower extremity circulation (3) Alcoholic cirrhosis of liver without ascites: History of alcohol abuse with cirrhosis, esophageal varices and without ascites No acute symptoms (4) COPD (chronic obstructive pulmonary disease): Does not have any exacerbation We will continue her usual medications (5) Thrombocytopenia: Platelet count remains slightly more than 100 (6) Aortic stenosis: Has CAD with aortic stenosis No cardiac symptoms (7) Depression: We will continue current medications (8) Essential hypertension: Blood pressure is on the lower side We will monitor DVT prophylaxis Subcu heparin Admission and Anticipated Discharge Date Admission Date: March 20, 2020 Subjective The patient was seen and examined in medical telemetry unit She has been complaining of pain and swelling with redness in the left lower extremity Denies any fever and/or chills, no abdominal pain nausea no vomiting and no chest pain or shortness of breath Has been feeling any better since admission Review of Systems Review of Systems: All systems reviewed and are unremarkable except as noted below Constitutional: + fatigue and + weakness Musculoskeletal: Left lower extremity pain and swelling Physical Exam Physical Exam: Sitting at the edge of the bed without any acute distress Constitutional: well developed, well nourished, + ill appearing and + obese; no acute distress Eyes: PERRL, conjunctivae normal, anicteric sclerae ENMT: external ear and nose normal, oropharynx normal Neck: trachea midline, no thyromegaly Respiratory: normal respiratory effort; no respiratory distress Auscultation: lungs clear to auscultation bilaterally Cardiovascular: Rate/Rhythm: regular rate and regular rhythm Heart Sounds: no murmur Gastrointestinal (Abdomen): Inspection/Auscultation: abdomen normal to inspection and normal bowel sounds; abdomen not distended Percussion/Palpation: abdomen soft; abdomen nontender Musculoskeletal: Left lower extremity is swelled with increased redness and warmth Skin: Chronic skin changes with dusky discoloration of the left lower extremity Neurologic: moves all extremities; no focal motor deficits Alert, awake and oriented x3 Results & Data Results & Data ([facility]) Vital Signs (Past 12 Hours) Vital Signs Temp Pulse Resp BP Pulse Ox 03/21/20 07:29 37.3 C 71 16 96/61 L 91 Medications Administered Current Inpatient Medications Acetaminophen (Tylenol) 650 mg PO Q4H PRN PRN Reason: pain/fever Stop: 04/19/20 05:19 Last Admin: 03/20/20 20:09 Dose: 650 mg Documented by: Albuterol (Ventolin Hfa) 2 puffs INH Q4 PRN PRN Reason: Shortness Of Breath Or Wheezing Stop: 04/19/20 05:30 Albuterol (Ventolin 0.083% 2.5mg/3ml) 2.5 mg INH Q4 PRN PRN Reason: Shortness Of Breath Stop: 04/19/20 05:19 Amlodipine Besylate (Norvasc) 5 mg PO DAILY [facility] Stop: 04/19/20 08:59 Last Admin: 03/21/20 08:56 Dose: 5 mg Documented by: Aspirin (Ecotrin Ectab) 81 mg PO DAILY [facility] Stop: 04/19/20 08:59 Last Admin: 03/21/20 08:57 Dose: 81 mg Documented by: Bisacodyl (Dulcolax) 5 mg PO DAILY PRN PRN Reason: Constipation Stop: 04/19/20 05:19 Bupropion HCl (Wellbutrin-Xl) 150 mg PO QAM [facility] Stop: 04/19/20 08:59 Last Admin: 03/21/20 08:57 Dose: 150 mg Documented by: Cetirizine HCl (Zyrtec) 10 mg PO QAM [facility] Stop: 04/20/20 08:59 Last Admin: 03/21/20 09:00 Dose: 10 mg Documented by: Escitalopram Oxalate (Lexapro Tab) 20 mg PO DAILY [facility] Stop: 04/19/20 08:59 Last Admin: 03/21/20 08:57 Dose: 20 mg Documented by: Fluticasone Propionate (Flonase) 2 sprays NA DAILY [facility] Stop: 04/19/20 08:59 Last Admin: 03/21/20 08:59 Dose: 2 sprays Documented by: Fluticasone/Vilanterol (Breo Ellipta 100/25 Mcg Inh) 1 puffs INH DAILY [facility] Stop: 04/19/20 08:59 Last Admin: 03/21/20 08:59 Dose: 1 puffs Documented by: Folic Acid (Folvite) 1 mg PO DAILY [facility] Stop: 04/19/20 08:59 Last Admin: 03/21/20 08:57 Dose: 1 mg Documented by: Furosemide (Lasix) 20 mg PO DAILY [facility] Stop: 04/19/20 08:59 Last Admin: 03/21/20 08:55 Dose: 20 mg Documented by: Gabapentin (Neurontin) 300 mg PO TID [facility] Stop: 04/19/20 08:59 Last Admin: 03/21/20 08:57 Dose: 300 mg Documented by: Heparin Sodium (Porcine) (Heparin Sodium (Porcine)) 5,000 units SQ Q12 [facility] Stop: 04/19/20 08:59 Last Admin: 03/21/20 08:55 Dose: 5,000 units Documented by: Hydromorphone HCl (Dilaudid) 0.5 mg IV Q4H PRN PRN Reason: Pain Stop: 04/03/20 03:40 Last Admin: 03/21/20 11:50 Dose: 0.5 mg Documented by: Cefazolin Sodium (Ancef 2000mg) 2,000 mg in 15 mls @ 3.75 mls/min IV Q8H [facility]; Protocol Stop: 03/27/20 11:59 Last Admin: 03/21/20 04:48 Dose: 3.75 mls/min Documented by: Lactulose (Chronulac) 20 gm PO BID [facility] Stop: 04/19/20 08:59 Last Admin: 03/21/20 08:56 Dose: 20 gm Documented by: Levothyroxine Sodium (Synthroid) 75 mcg PO DAILYBB [facility] Stop: 04/19/20 06:29 Last Admin: 03/21/20 06:21 Dose: 75 mcg Documented by: Losartan Potassium (Cozaar) 50 mg PO DAILY [facility] Stop: 04/19/20 08:59 Last Admin: 03/21/20 08:57 Dose: 50 mg Documented by: Metoprolol Succinate (Toprol Xl) 50 mg PO DAILY [facility] Stop: 04/19/20 08:59 Last Admin: 03/21/20 08:56 Dose: Not Given Documented by: Montelukast Sodium (Singulair) 10 mg PO DAILY [facility] Stop: 04/19/20 08:59 Last Admin: 03/21/20 08:56 Dose: 10 mg Documented by: Multivitamins (Multivitamin Tab) 1 tab PO DAILY [facility] Stop: 04/19/20 08:59 Last Admin: 03/21/20 08:55 Dose: 1 tab Documented by: Nitroglycerin (Nitrostat) 0.4 mg SL UD PRN PRN Reason: Chest Pain Stop: 04/19/20 05:19 Ondansetron HCl (Zofran) 4 mg IV Q6H PRN PRN Reason: Nausea Stop: 04/19/20 05:19 Last Admin: 03/20/20 16:03 Dose: 4 mg Documented by: Pantoprazole Sodium (Protonix) 40 mg PO DAILY [facility] Stop: 04/19/20 08:59 Last Admin: 03/21/20 08:56 Dose: 40 mg Documented by: Sennosides (Senokot) 8.6 mg PO BID PRN PRN Reason: Constipation Stop: 04/19/20 05:19 Trazodone HCl (Desyrel) 50 mg PO HS [facility] Stop: 04/19/20 20:59 Last Admin: 03/20/20 20:09 Dose: 50 mg Documented by: Triamcinolone Acetonide (Kenalog 0.1%) 1 appln TOP DAILY PRN PRN Reason: Skin Irritation Stop: 04/19/20 05:19 Umeclidinium [place] (Incruse Ellipta) 1 puffs INH DAILY [facility] Stop: 04/19/20 08:59 Last Admin: 03/21/20 08:58 Dose: 1 puffs Documented by: (1) Aortic stenosis Cardiac valve disease etiology: etiology unspecified Qualified Code(s): I35.0 - Nonrheumatic aortic (valve) stenosis
[2020-03-21] MEDS: TRAZODONE HCL 50 MG TAB PO SCH (20:52)
[2020-03-22] MEDS: HYDROmorphone INJ 0.5 MG/0.5 ML SYR IV PRN ×3 (00:23→23:36)
[2020-03-22] MEDS: CEFAZOLIN 2000MG 2,000 MG/15 ML SYR IV SCH ×3 (04:47→19:49)
[2020-03-22] MEDS: LEVOTHYROXINE SODIUM 75 MCG TABLET PO SCH (06:22)
[2020-03-22] MEDS: METOPROLOL SUCC 50MG EXT REL TAB PO SCH (08:39)
[2020-03-22] MEDS: PANTOprazole 40 MG TAB PO SCH (08:39)
[2020-03-22] MEDS: AMLODIPINE BESYLATE 5 MG TAB PO SCH (08:39)
[2020-03-22] MEDS: MONTELUKAST SODIUM 10 MG TABLET PO SCH (08:39)
[2020-03-22] MEDS: LOSARTAN POTASSIUM 50 MG TAB PO SCH (08:39)
[2020-03-22] MEDS: BuPROPion XL 150 MG TABCR PO SCH (08:39)
[2020-03-22] MEDS: FLUTICASONE/VILANTEROL 100/25MCG 14 PUFFS/INHALER INH SCH (08:39)
[2020-03-22] MEDS: LACTULOSE SYRUP 20 GM/30 ML UDC PO SCH ×2 (08:39→19:51)
[2020-03-22] MEDS: FOLIC ACID 1 MG TAB PO SCH (08:39)
[2020-03-22] MEDS: CETIRIZINE HCL 10 MG TABLET PO SCH (08:39)
[2020-03-22] MEDS: ASPIRIN 81 MG ECTAB PO SCH (08:39)
[2020-03-22] MEDS: FLUTICASONE PROPIONATE NA SPR 16 GM BTL SCH (08:39)
[2020-03-22] MEDS: GABAPENTIN 300 MG CAP PO SCH ×3 (08:39→19:56)
[2020-03-22] MEDS: HEPARIN SOD 5,000 UNIT/0.5 ML VIAL SQ SCH ×2 (08:40→19:56)
[2020-03-22] MEDS: UMECLIDINIUM BROMIDE 62.5MCG/BLISTER 7 PUFFS/INHALER INH SCH (08:40)
[2020-03-22] MEDS: MULTIVITAMIN TAB PO SCH (08:40)
[2020-03-22] MEDS: FUROSEMIDE 20 MG TAB PO SCH (08:40)
[2020-03-22] MEDS: ESCITALOPRAM OXALATE 20 MG TAB PO SCH (08:42)
[2020-03-22 09:23] LABS: BUN Creatinine Ratio 12.6 (10-20); Calcium 8.8 mg/dl (8.5-10.1); Creatinine Clr Calc Pharmacy 40.4 ml/min; Est GFR (African American) 49.1; Est GFR (Non-African American) 42.3
--- NOTE | 2020-03-22 14:12 | Hospitalist Progress Note ---
Date of Service March 22, 2020 Assessment & Plan (1) Cellulitis of left leg: Has chronic stasis dermatitis of left lower extremity Admitted with increasing swelling, redness and pain involving left lower extremity No evidence of any open wound and/or drainage No evidence of deep venous thrombosis Has been on intravenous Ancef Blood cultures have been No signs and/or symptoms of worsening infection Advised to keep the left lower extremity elevated while lying and or sleeping Clinically a lot better today-we will continue current antibiotic and likely discharge on Tuesday (2) Chronic stasis dermatitis of left lower extremity: As above Will get arterial Doppler to evaluate left lower extremity circulation Peripheral pulses seems to be palpable but weak (3) Alcoholic cirrhosis of liver without ascites: History of alcohol abuse with cirrhosis, esophageal varices and without ascites No acute symptoms (4) COPD (chronic obstructive pulmonary disease): Does not have any exacerbation We will continue her usual medications (5) Thrombocytopenia: Platelet count remains slightly more than 100 (6) Aortic stenosis: Has CAD with aortic stenosis No cardiac symptoms (7) Depression: We will continue current medications (8) Essential hypertension: Blood pressure is on the lower side We will monitor DVT prophylaxis Subcu heparin Admission and Anticipated Discharge Date Admission Date: March 21, 2020 Subjective The patient was seen and examined in medical telemetry unit She has been complaining of pain and swelling with redness in the left lower extremity Denies any fever and/or chills, no abdominal pain nausea no vomiting and no chest pain or shortness of breath Has been feeling any better since admission 03/22/2020 The patient was seen and examined in medical floor She has been feeling a lot better and her left lower extremity is less swelled Denies any fever and/or chills Review of Systems Review of Systems: All systems reviewed and are unremarkable except as noted below Constitutional: + fatigue and + weakness Musculoskeletal: Left lower extremity pain and swelling Physical Exam Physical Exam: Sitting at the edge of the bed without any acute distress Constitutional: well developed, well nourished, + ill appearing and + obese; no acute distress Eyes: PERRL, conjunctivae normal, anicteric sclerae ENMT: external ear and nose normal, oropharynx normal Neck: trachea midline, no thyromegaly Respiratory: normal respiratory effort; no respiratory distress Auscultation: lungs clear to auscultation bilaterally Cardiovascular: Rate/Rhythm: regular rate and regular rhythm Heart Sounds: no murmur Gastrointestinal (Abdomen): Inspection/Auscultation: abdomen normal to inspection and normal bowel sounds; abdomen not distended Percussion/Palpation: abdomen soft; abdomen nontender Musculoskeletal: Left lower extremity swelling is improved, redness and tenderness are better too Neurologic: moves all extremities; no focal motor deficits Results & Data Results & Data ([facility]) Vital Signs (Past 12 Hours) Vital Signs Temp Pulse Resp BP Pulse Ox 03/22/20 07:56 36.8 C 78 18 112/66 90 Laboratory Results BMP 03/22/20 08:35 Sodium 135 L Potassium 4.0 Chloride 105 Carbon Dioxide 24 BUN 16 Creatinine 1.25 H Glucose 141 H Calcium 8.8 Medications Administered Current Inpatient Medications Acetaminophen (Tylenol) 650 mg PO Q4H PRN PRN Reason: pain/fever Stop: 04/19/20 05:19 Last Admin: 03/20/20 20:09 Dose: 650 mg Documented by: Albuterol (Ventolin Hfa) 2 puffs INH Q4 PRN PRN Reason: Shortness Of Breath Or Wheezing Stop: 04/19/20 05:30 Albuterol (Ventolin 0.083% 2.5mg/3ml) 2.5 mg INH Q4 PRN PRN Reason: Shortness Of Breath Stop: 04/19/20 05:19 Amlodipine Besylate (Norvasc) 5 mg PO DAILY [facility] Stop: 04/19/20 08:59 Last Admin: 03/22/20 08:39 Dose: 5 mg Documented by: Aspirin (Ecotrin Ectab) 81 mg PO DAILY [facility] Stop: 04/19/20 08:59 Last Admin: 03/22/20 08:39 Dose: 81 mg Documented by: Bisacodyl (Dulcolax) 5 mg PO DAILY PRN PRN Reason: Constipation Stop: 04/19/20 05:19 Bupropion HCl (Wellbutrin-Xl) 150 mg PO QAM [facility] Stop: 04/19/20 08:59 Last Admin: 03/22/20 08:39 Dose: 150 mg Documented by: Cetirizine HCl (Zyrtec) 10 mg PO QAM [facility] Stop: 04/20/20 08:59 Last Admin: 03/22/20 08:39 Dose: 10 mg Documented by: Escitalopram Oxalate (Lexapro Tab) 20 mg PO DAILY [facility] Stop: 04/19/20 08:59 Last Admin: 03/22/20 08:42 Dose: 20 mg Documented by: Fluticasone Propionate (Flonase) 2 sprays NA DAILY [facility] Stop: 04/19/20 08:59 Last Admin: 03/22/20 08:39 Dose: 2 sprays Documented by: Fluticasone/Vilanterol (Breo Ellipta 100/25 Mcg Inh) 1 puffs INH DAILY [facility] Stop: 04/19/20 08:59 Last Admin: 03/22/20 08:39 Dose: 1 puffs Documented by: Folic Acid (Folvite) 1 mg PO DAILY [facility] Stop: 04/19/20 08:59 Last Admin: 03/22/20 08:39 Dose: 1 mg Documented by: Furosemide (Lasix) 20 mg PO DAILY [facility] Stop: 04/19/20 08:59 Last Admin: 03/22/20 08:40 Dose: 20 mg Documented by: Gabapentin (Neurontin) 300 mg PO TID [facility] Stop: 04/19/20 08:59 Last Admin: 03/22/20 08:39 Dose: 300 mg Documented by: Heparin Sodium (Porcine) (Heparin Sodium (Porcine)) 5,000 units SQ Q12 [facility] Stop: 04/19/20 08:59 Last Admin: 03/22/20 08:40 Dose: 5,000 units Documented by: Hydromorphone HCl (Dilaudid) 0.5 mg IV Q4H PRN PRN Reason: Pain Stop: 04/03/20 03:40 Last Admin: 03/22/20 00:23 Dose: 0.5 mg Documented by: Cefazolin Sodium (Ancef 2000mg) 2,000 mg in 15 mls @ 3.75 mls/min IV Q8H [facility]; Protocol Stop: 03/27/20 11:59 Last Admin: 03/22/20 11:36 Dose: 3.75 mls/min Documented by: Lactulose (Chronulac) 20 gm PO BID [facility] Stop: 04/19/20 08:59 Last Admin: 03/22/20 08:39 Dose: 20 gm Documented by: Levothyroxine Sodium (Synthroid) 75 mcg PO DAILYBB [facility] Stop: 04/19/20 06:29 Last Admin: 03/22/20 06:22 Dose: 75 mcg Documented by: Losartan Potassium (Cozaar) 50 mg PO DAILY [facility] Stop: 04/19/20 08:59 Last Admin: 03/22/20 08:39 Dose: 50 mg Documented by: Metoprolol Succinate (Toprol Xl) 50 mg PO DAILY [facility] Stop: 04/19/20 08:59 Last Admin: 03/22/20 08:39 Dose: 50 mg Documented by: Montelukast Sodium (Singulair) 10 mg PO DAILY [facility] Stop: 04/19/20 08:59 Last Admin: 03/22/20 08:39 Dose: 10 mg Documented by: Multivitamins (Multivitamin Tab) 1 tab PO DAILY [facility] Stop: 04/19/20 08:59 Last Admin: 03/22/20 08:40 Dose: 1 tab Documented by: Nitroglycerin (Nitrostat) 0.4 mg SL UD PRN PRN Reason: Chest Pain Stop: 04/19/20 05:19 Ondansetron HCl (Zofran) 4 mg IV Q6H PRN PRN Reason: Nausea Stop: 04/19/20 05:19 Last Admin: 03/20/20 16:03 Dose: 4 mg Documented by: Pantoprazole Sodium (Protonix) 40 mg PO DAILY [facility] Stop: 04/19/20 08:59 Last Admin: 03/22/20 08:39 Dose: 40 mg Documented by: Sennosides (Senokot) 8.6 mg PO BID PRN PRN Reason: Constipation Stop: 04/19/20 05:19 Trazodone HCl (Desyrel) 50 mg PO HS [facility] Stop: 04/19/20 20:59 Last Admin: 03/21/20 20:52 Dose: 50 mg Documented by: Triamcinolone Acetonide (Kenalog 0.1%) 1 appln TOP DAILY PRN PRN Reason: Skin Irritation Stop: 04/19/20 05:19 Umeclidinium [place] (Incruse Ellipta) 1 puffs INH DAILY [facility] Stop: 04/19/20 08:59 Last Admin: 03/22/20 08:40 Dose: 1 puffs Documented by: (1) Aortic stenosis Cardiac valve disease etiology: etiology unspecified Qualified Code(s): I35.0 - Nonrheumatic aortic (valve) stenosis
[2020-03-22] MEDS: TRAZODONE HCL 50 MG TAB PO SCH (19:56)
[2020-03-23] MEDS: CEFAZOLIN 2000MG 2,000 MG/15 ML SYR IV SCH ×3 (04:47→19:53)
[2020-03-23] MEDS: HYDROmorphone INJ 0.5 MG/0.5 ML SYR IV PRN ×2 (04:47→11:39)
[2020-03-23] MEDS: LEVOTHYROXINE SODIUM 75 MCG TABLET PO SCH (06:28)
[2020-03-23] MEDS: UMECLIDINIUM BROMIDE 62.5MCG/BLISTER 7 PUFFS/INHALER INH SCH (07:46)
[2020-03-23] MEDS: FLUTICASONE/VILANTEROL 100/25MCG 14 PUFFS/INHALER INH SCH (07:46)
[2020-03-23] MEDS: PANTOprazole 40 MG TAB PO SCH (07:47)
[2020-03-23] MEDS: CETIRIZINE HCL 10 MG TABLET PO SCH (07:47)
[2020-03-23] MEDS: FLUTICASONE PROPIONATE NA SPR 16 GM BTL SCH (07:47)
[2020-03-23] MEDS: FUROSEMIDE 20 MG TAB PO SCH (07:47)
[2020-03-23] MEDS: GABAPENTIN 300 MG CAP PO SCH ×3 (07:47→20:00)
[2020-03-23] MEDS: MONTELUKAST SODIUM 10 MG TABLET PO SCH (07:48)
[2020-03-23] MEDS: METOPROLOL SUCC 50MG EXT REL TAB PO SCH (07:48)
[2020-03-23] MEDS: LOSARTAN POTASSIUM 50 MG TAB PO SCH (07:48)
[2020-03-23] MEDS: ESCITALOPRAM OXALATE 20 MG TAB PO SCH (07:48)
[2020-03-23] MEDS: ASPIRIN 81 MG ECTAB PO SCH (07:48)
[2020-03-23] MEDS: BuPROPion XL 150 MG TABCR PO SCH (07:49)
[2020-03-23] MEDS: LACTULOSE SYRUP 20 GM/30 ML UDC PO SCH ×2 (07:49→20:00)
[2020-03-23] MEDS: MULTIVITAMIN TAB PO SCH (07:49)
[2020-03-23] MEDS: AMLODIPINE BESYLATE 5 MG TAB PO SCH (07:49)
[2020-03-23] MEDS: FOLIC ACID 1 MG TAB PO SCH (07:49)
[2020-03-23] MEDS: HEPARIN SOD 5,000 UNIT/0.5 ML VIAL SQ SCH ×2 (09:55→20:01)
--- NOTE | 2020-03-23 13:08 | Hospitalist Progress Note ---
Date of Service March 23, 2020 Assessment & Plan (1) Cellulitis of left leg: Has chronic stasis dermatitis of left lower extremity Admitted with increasing swelling, redness and pain involving left lower extremity No evidence of any open wound and/or drainage No evidence of deep venous thrombosis Has been on intravenous Ancef Blood cultures have been negative No signs and/or symptoms of worsening infection Advised to keep the left lower extremity elevated while lying and or sleeping Clinically a lot better today-we will continue current antibiotic and likely discharge on Tuesday Clinically a lot better today without any open wounds in left lower extremity Advised to continue with PT and OT Likely home tomorrow on oral Augmentin (2) Chronic stasis dermatitis of left lower extremity: As above Will get arterial Doppler to evaluate left lower extremity circulation Peripheral pulses seems to be palpable but weak (3) Alcoholic cirrhosis of liver without ascites: History of alcohol abuse with cirrhosis, esophageal varices and without ascites No acute symptoms (4) COPD (chronic obstructive pulmonary disease): Does not have any exacerbation We will continue her usual medications Has been asking for nebulized treatment while in the hospital (5) Thrombocytopenia: Platelet count remains slightly more than 100 (6) Aortic stenosis: Has CAD with aortic stenosis No cardiac symptoms (7) Depression: We will continue current medications (8) Essential hypertension: Blood pressure is on the lower side We will monitor DVT prophylaxis Subcu heparin Admission and Anticipated Discharge Date Admission Date: March 21, 2020 Subjective The patient was seen and examined in medical telemetry unit She has been complaining of pain and swelling with redness in the left lower extremity Denies any fever and/or chills, no abdominal pain nausea no vomiting and no chest pain or shortness of breath Has been feeling any better since admission 03/22/2020 The patient was seen and examined in medical floor She has been feeling a lot better and her left lower extremity is less swelled Denies any fever and/or chills 03/23/2020 The patient was seen and examined in the medical floor She has been feeling a lot better today Her left lower extremity is less swelled without any redness but has some tenderness on palpation especially posterior medial part of the left lower thigh Review of Systems Review of Systems: All systems reviewed and are unremarkable except as noted below Constitutional: no fatigue and no weakness Musculoskeletal: Left lower extremity pain and swelling Physical Exam Physical Exam: Sitting at the edge of the bed without any acute distress Constitutional: well developed, well nourished and + obese; no acute distress and not ill appearing Eyes: PERRL, conjunctivae normal, anicteric sclerae ENMT: external ear and nose normal, oropharynx normal Neck: trachea midline, no thyromegaly Respiratory: normal respiratory effort; no respiratory distress Auscultation: lungs clear to auscultation bilaterally Cardiovascular: Rate/Rhythm: regular rate and regular rhythm Heart Sounds: no murmur Gastrointestinal (Abdomen): Inspection/Auscultation: abdomen normal to inspection and normal bowel sounds; abdomen not distended Percussion/Palpation: abdomen soft; abdomen nontender Musculoskeletal: Localized pain in left lower thigh with movement of the left lower extremity Neurologic: moves all extremities; no focal motor deficits Alert, awake and oriented x3 Results & Data Results & Data ([facility]) Vital Signs (Past 12 Hours) Vital Signs Temp Pulse Resp BP Pulse Ox 03/23/20 07:18 36.9 C 74 18 114/72 90 (1) Aortic stenosis Cardiac valve disease etiology: etiology unspecified Qualified Code(s): I35.0 - Nonrheumatic aortic (valve) stenosis
[2020-03-23] MEDS: TRAZODONE HCL 50 MG TAB PO SCH (20:00)
[2020-03-23] MEDS: ACETAMINOPHEN 325 MG TAB PO PRN (22:40)
[2020-03-24] MEDS: HYDROmorphone INJ 0.5 MG/0.5 ML SYR IV PRN ×2 (02:38→11:13)
[2020-03-24] MEDS: CEFAZOLIN 2000MG 2,000 MG/15 ML SYR IV SCH ×2 (03:42→11:18)
[2020-03-24] MEDS: LEVOTHYROXINE SODIUM 75 MCG TABLET PO SCH (06:12)
[2020-03-24 07:01] LABS: Basophils # (auto) 0.04 K/uL (0-0.2); Basophils % (auto) 0.8 %; Eosinophils # (auto) 0.21 K/uL (0-0.5); Eosinophils % (auto) 4.3 %; Hematocrit (blood only) 32.6 % (37-47); Hemoglobin 10.7 g/dL (12.0-16.0); Immature Granulocytes # (auto) 0.02 K/uL (0.00-0.02); Immature Granulocytes % (auto) 0.4 %; Lymphocytes # (auto) 1.43 K/uL (1.2-3.4); Lymphocytes % (auto) 29.6 %; Mean Corpuscular Hemoglobin 32.4 pg (25-34); Mean Corpuscular Hgb Conc 32.8 g/dL (32-36); Mean Corpuscular Volume 98.8 fL (80-100); Mean Platelet Volume 10.9 fL (7.4-10.4); Monocytes # (auto) 0.57 K/uL (0.11-0.59); Monocytes % (auto) 11.8 %; Neutrophils # (auto) 2.56 K/uL (1.4-6.5); Neutrophils % (auto) 53.1 %; Platelet Count 147 K/uL (130-400); RDW Coefficient of Variation 15.3 % (11.5-14.5); RDW Standard Deviation 55.1 fL (36.4-46.3); White Blood Count 4.83 K/uL (4.8-10.8)
[2020-03-24] MEDS: UMECLIDINIUM BROMIDE 62.5MCG/BLISTER 7 PUFFS/INHALER INH SCH (08:46)
[2020-03-24] MEDS: GABAPENTIN 300 MG CAP PO SCH ×2 (08:47→14:05)
[2020-03-24] MEDS: FUROSEMIDE 20 MG TAB PO SCH (08:47)
[2020-03-24] MEDS: PANTOprazole 40 MG TAB PO SCH (08:47)
[2020-03-24] MEDS: MONTELUKAST SODIUM 10 MG TABLET PO SCH (08:47)
[2020-03-24] MEDS: BuPROPion XL 150 MG TABCR PO SCH (08:47)
[2020-03-24] MEDS: MULTIVITAMIN TAB PO SCH (08:47)
[2020-03-24] MEDS: AMLODIPINE BESYLATE 5 MG TAB PO SCH (08:48)
[2020-03-24] MEDS: FOLIC ACID 1 MG TAB PO SCH (08:48)
[2020-03-24] MEDS: ESCITALOPRAM OXALATE 20 MG TAB PO SCH (08:48)
[2020-03-24] MEDS: FLUTICASONE/VILANTEROL 100/25MCG 14 PUFFS/INHALER INH SCH (08:48)
[2020-03-24] MEDS: FLUTICASONE PROPIONATE NA SPR 16 GM BTL SCH (08:48)
[2020-03-24] MEDS: ASPIRIN 81 MG ECTAB PO SCH (08:48)
[2020-03-24] MEDS: HEPARIN SOD 5,000 UNIT/0.5 ML VIAL SQ SCH (08:49)
[2020-03-24] MEDS: LOSARTAN POTASSIUM 50 MG TAB PO SCH (08:49)
[2020-03-24] MEDS: CETIRIZINE HCL 10 MG TABLET PO SCH (08:49)
[2020-03-24] MEDS: METOPROLOL SUCC 50MG EXT REL TAB PO SCH (08:49)
[2020-03-24] MEDS: LACTULOSE SYRUP 20 GM/30 ML UDC PO SCH (08:50)
[2020-03-24] MEDS: ACETAMINOPHEN 325 MG TAB PO PRN (10:48)
--- NOTE | 2020-03-24 11:47 | Hospitalist Progress Note ---
Date of Service March 24, 2020 Assessment & Plan (1) Cellulitis of left leg: Has chronic stasis dermatitis of left lower extremity Admitted with increasing swelling, redness and pain involving left lower extremity No evidence of any open wound and/or drainage No evidence of deep venous thrombosis Has been on intravenous Ancef Blood cultures have been negative No signs and/or symptoms of worsening infection Advised to keep the left lower extremity elevated while lying and or sleeping Clinically a lot better today-we will continue current antibiotic and likely discharge on Tuesday Clinically a lot better today without any open wounds in left lower extremity PT and OT recommended home She has been ambulating without any difficulty We will start oral Augmentin and will be continued for a total of 14 days (2) Chronic stasis dermatitis of left lower extremity: As above Will get arterial Doppler to evaluate left lower extremity circulation Peripheral pulses seems to be palpable but weak Advised to keep the legs elevated while in bed to decrease the swelling (3) Alcoholic cirrhosis of liver without ascites: History of alcohol abuse with cirrhosis, esophageal varices and without ascites No acute symptoms (4) COPD (chronic obstructive pulmonary disease): Does not have any exacerbation We will continue her usual medications Has been asking for nebulized treatment while in the hospital (5) Thrombocytopenia: Platelet count remains slightly more than 100 (6) Aortic stenosis: Has CAD with aortic stenosis No cardiac symptoms (7) Depression: We will continue current medications (8) Essential hypertension: Blood pressure is on the lower side We will monitor DVT prophylaxis Subcu heparin Admission and Anticipated Discharge Date Admission Date: March 21, 2020 Subjective The patient was seen and examined in medical telemetry unit She has been complaining of pain and swelling with redness in the left lower extremity Denies any fever and/or chills, no abdominal pain nausea no vomiting and no chest pain or shortness of breath Has been feeling any better since admission 03/22/2020 The patient was seen and examined in medical floor She has been feeling a lot better and her left lower extremity is less swelled Denies any fever and/or chills 03/23/2020 The patient was seen and examined in the medical floor She has been feeling a lot better today Her left lower extremity is less swelled without any redness but has some tenderness on palpation especially posterior medial part of the left lower thigh 03/24/2020 The patient was seen and examined in medical floor She has been feeling a lot better and she underwent PT and OT evaluation Her left lower extremity is much improved with decreasing swelling, redness and tenderness She denies any other symptoms Review of Systems Review of Systems: All systems reviewed and are unremarkable except as noted below Musculoskeletal: Left lower extremity pain and swelling-improved a lot Physical Exam Physical Exam: Sitting at the edge of the bed without any acute distress Constitutional: well developed, well nourished and + obese; no acute distress and not ill appearing Eyes: PERRL, conjunctivae normal, anicteric sclerae ENMT: external ear and nose normal, oropharynx normal Neck: trachea midline, no thyromegaly Respiratory: normal respiratory effort; no respiratory distress Auscultation: lungs clear to auscultation bilaterally Cardiovascular: Rate/Rhythm: regular rate and regular rhythm Heart Sounds: no murmur Extremities: + edema (Trace edema bilaterally. More on the left than the right) Gastrointestinal (Abdomen): Inspection/Auscultation: abdomen normal to inspection, + abdomen distended and normal bowel sounds Percussion/Palpation: abdomen soft; abdomen nontender Musculoskeletal: Chronic ischemic changes involving left lower extremity. Swelling, redness and tenderness have improved a lot Neurologic: moves all extremities; no focal motor deficits Alert, awake and oriented x3 Results & Data Results & Data ([facility]) Vital Signs (Past 12 Hours) Vital Signs Temp Pulse Resp BP Pulse Ox 03/24/20 07:04 37.0 C 67 20 111/72 93 03/23/20 23:49 37.7 C H 75 20 119/76 92 (1) Aortic stenosis Cardiac valve disease etiology: etiology unspecified Qualified Code(s): I35.0 - Nonrheumatic aortic (valve) stenosis
[2020-03-24] MEDS ORDERED: AMOXICILLIN/CLAVULANATE 875 MG TAB PO SCH (17:00)
--- NOTE | 2020-03-25 07:31 | Discharge Summary ---
Date of Service March 25, 2020 Admission HPI Per Admitting Provider DICTATED BY: Dean Henderson MD DATE OF ADMISSION: 03/20/2020 CHIEF COMPLAINT: Left lower extremity cellulitis. 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 The patient lives alone, walks with a cane and daughter lives close by. Comes because of worsening swelling and pain in the left lower extremity. The patient has some swelling in the lower extremity, but the last 2 weeks the left lower extremity started to become red and more swollen. It progressively got worse in the last couple of days. Last few days she had severe pain and also she notes more erythematous changes below the left knee and today she was not able to walk or put weight on the leg, having severe pain, and that is the reason she came to the ER. Denies any fever, chills. No other complaints. Hemodynamically stable. Has some mild headache, no blurred vision, no runny nose, has some sore throat. She has a chronic cough from her COPD. No chest pain. She is always short of breath on exertion. She could not walk much because of the history of COPD. Has some nausea, no abdominal pain. Moves bowels 1-2 times a day, takes lactulose. No blood in the stools or black stools. Normal bladder movements. Appetite has gone down in the last few days. Has chronic back pain and leg pain from her spinal stenosis. Admission Exam Per Admitting Provider GENERAL: The patient is of moderate build, not in acute distress. VITAL SIGNS: Temperature 37.1, pulse 79, respiratory rate 24, blood pressure 102/47, oxygen 91% on room air. HEENT: Pupils equal, round, and reactive to light. NECK: No JVD, no neck masses. CARDIOVASCULAR: S1, S2 heard, regular rate and rhythm, no murmur, no gallop. RESPIRATORY SYSTEM: Normal AP diameter. No accessory muscle use. No wheezing, no crackles. ABDOMEN: Soft, bowel sounds present, nontender. No distention. CENTRAL NERVOUS SYSTEM: Cranial nerves II-XII grossly intact. Nonfocal. EXTREMITIES: Left lower extremity is erythematous, warm on palpation and swollen, more pronounced in the left popliteal fossa. Principal Diagnosis Recurrent left leg cellulitis, chronic stasis dermatitis of left leg, cirrhosis without ascites, COPD, hypertension Discharge Exam Constitutional well developed, well nourished and + obese; no acute distress and not ill appearing Eyes PERRL, conjunctivae normal, anicteric sclerae ENMT external ear and nose normal, oropharynx normal Neck trachea midline, no thyromegaly Respiratory normal respiratory effort; no respiratory distress Auscultation: lungs clear to auscultation bilaterally Cardiovascular Rate/Rhythm: regular rate and regular rhythm Heart Sounds: no murmur Extremities: + edema (Trace edema bilaterally. More on the left than the right) Gastrointestinal (Abdomen) Inspection/Auscultation: abdomen normal to inspection, + abdomen distended and normal bowel sounds Percussion/Palpation: abdomen soft; abdomen nontender Neurologic moves all extremities; no focal motor deficits Discharge Data Allergies Allergy/AdvReac Type Severity Reaction Status Date / Time Fnbzuct-Hps-Jfi Reductase AdvReac Cough Verified 03/20/20 01:44 Inhibitor Consultations 03/20/20 02:48 ED Decision to Admit Stat 03/20/20 05:20 Consult Case Management - Discharge Planning Routine Ordered Studies 03/20/20 01:36 US venous doppler [facility] Ur[facility] Hospital Course (1) Cellulitis of left leg: Has chronic stasis dermatitis of left lower extremity Admitted with increasing swelling, redness and pain involving left lower extremity No evidence of any open wound and/or drainage No evidence of deep venous thrombosis Has been on intravenous Ancef Blood cultures have been negative No signs and/or symptoms of worsening infection Advised to keep the left lower extremity elevated while lying and or sleeping Clinically a lot better today-we will continue current antibiotic and likely discharge on Tuesday Clinically a lot better today without any open wounds in left lower extremity PT and OT recommended home She has been ambulating without any difficulty We will start oral Augmentin and will be continued for a total of 14 days (2) Chronic stasis dermatitis of left lower extremity: As above Will get arterial Doppler to evaluate left lower extremity circulation Peripheral pulses seems to be palpable but weak Advised to keep the legs elevated while in bed to decrease the swelling (3) Alcoholic cirrhosis of liver without ascites: History of alcohol abuse with cirrhosis, esophageal varices and without ascites No acute symptoms (4) COPD (chronic obstructive pulmonary disease): Does not have any exacerbation We will continue her usual medications Has been asking for nebulized treatment while in the hospital (5) Thrombocytopenia: Platelet count remains slightly more than 100 (6) Aortic stenosis: Has CAD with aortic stenosis No cardiac symptoms (7) Depression: We will continue current medications (8) Essential hypertension: Blood pressure is on the lower side We will monitor DVT prophylaxis Subcu heparin Total Time Total Time Spent Total Time Spent (In Minutes): 35 minutes Total Time Includes: Examination of the Patient, Discharge Planning, Medication Reconciliation and Communication With Other Providers Discharge Plan Discharge Items Patient Disposition: Home - Self-Care Reason For Visit: SWELLING AND PAIN OF LEFT LOWER EXTREMITY Discharge Diagnosis: Recurrent left leg cellulitis, chronic stasis dermatitis of left leg, cirrhosis without ascites, COPD, hypertension Condition on Discharge: Fair Activity: Resume your previous activity Non-emergency contact: Primary Care Provider Call non-emergency contact if: you have any medication questions and your symptoms worsen Follow-up/Referrals: Destiny Walls DO [Primary Care Provider] - 03/27/20 11:00 am (03/27/2020 11:00 AM Provider Jon Camara MD [facility] ) Diet: Heart Healthy and Low Sodium (2gm) Addtl Attending Provider Instructions: Please take precaution to avoid falls Keep your legs elevated while sleeping and staying in bed Please finish the course of antibiotic Pending Studies at Discharge: No Stand-Alone Forms: My [facility], Smoking Cessation Medications and DC Order Prescriptions: New amoxicillin-pot clavulanate [Augmentin] 875-125 mg Tablet 1 tab PO BIDM 7 Days Qty: 14 RF: 0 Lactinex 1 million cell tablet,chewable 1 tab PO BID Qty: 30 RF: 0 Continued sennosides [senna] 8.6 mg Tablet 8.6 mg PO BID PRN (Reason: Constipation) RF: 0 metoprolol succinate 50 mg tablet extended release 24 hr 50 mg PO DAILY RF: 0 aspirin 81 mg Tablet,Delayed Release (Dr/Ec) 81 mg PO DAILY RF: 0 levothyroxine 75 mcg Tablet 75 mcg PO DAILY RF: 0 nitroglycerin [Nitrostat] 0.4 mg Tablet, Sublingual 1 dose sublingual UD PRN (Reason: Chest Pain) RF: 0 omeprazole 20 mg Capsule,Delayed Release(Dr/Ec) 20 mg PO DAILY RF: 0 montelukast 10 mg Tablet 10 mg PO DAILY RF: 0 folic acid 1 mg Tablet 1 mg PO DAILY RF: 0 multivitamin Tablet 1 tab PO DAILY RF: 0 losartan 50 mg Tablet 50 mg PO DAILY RF: 0 albuterol sulfate 2.5 mg /3 mL (0.083 %) Solution For Nebulization 2.5 mg INHALATION Q4 PRN (Reason: Shortness Of Breath) RF: 0 cyanocobalamin (vitamin B-12) 1,000 mcg/mL Solution 1,000 mcg IM MONTHLY RF: 0 gabapentin 300 mg Capsule 300 mg PO TID RF: 0 furosemide 20 mg Tablet 20 mg PO DAILY RF: 0 lactulose 10 gram/15 mL Solution 30 ml PO BID RF: 0 levocetirizine 5 mg Tablet 5 mg PO PM RF: 0 escitalopram oxalate 20 mg Tablet 20 mg PO DAILY RF: 0 triamcinolone acetonide 0.1 % Ointment 1 applic TOPICAL DIRECTED PRN (Reason: Skin Irritation) RF: 0 trazodone 50 mg tablet 50 mg PO HS RF: 0 bupropion HCl [Wellbutrin XL] 150 mg Tablet Extended Release 24 Hr 150 mg PO QAM RF: 0 amlodipine 5 mg tablet 5 mg PO DAILY RF: 0 Vitron-C 65 mg iron- 125 mg Tablet,Delayed Release (Dr/Ec) 1 tab PO DAILY RF: 0 fluticasone propion-salmeterol [Advair Diskus] 250-50 mcg/dose blister with device 1 inh INHALATION BID RF: 0 ondansetron HCl [Zofran] 8 mg tablet 8 mg PO Q12 PRN (Reason: Nausea) RF: 0 bisacodyl [Dulcolax (bisacodyl)] 5 mg Tablet,Delayed Release (Dr/Ec) 5 mg PO DAILY PRN (Reason: Constipation) RF: 0 diclofenac sodium 50 mg tablet,delayed release (DR/EC) 50 mg PO BID RF: 0 albuterol sulfate [ProAir HFA] 90 mcg/actuation HFA aerosol inhaler 2 puff INHALATION Q4 PRN (Reason: Shortness Of Breath Or Wheezing) RF: 0 fluticasone propionate [Flonase Allergy Relief] 50 mcg/actuation [place],Suspension 2 spray INTRANASAL DAILY RF: 0 Spiriva with HandiHaler 18 mcg capsule, w/inhalation device 1 cap INHALATION DAILY RF: 0 Discharge Orders: Discharge Order (Routine); Ordered 03/24/20 Ordered By: Radha Sharma Admission Data Admit Date/Time: 03/21/20 14:25 Attending Provider: Radha Sharma Admit Provider: Dean Henderson Primary Care Provider: Destiny Walls Other Providers: Dean Henderson ; Cesar Rodriguez ; [place] Other Interventions: Discharge Summary Assessment (RN) Last Done: 03/24/20 14:06 DC Date/Time DO NOT enter until pt leaves facility: 03/24/20 15:17
== END 2020-03-24 15:17 | disposition home health service (06) | DRG 603 ==
LOC: 2N 01:17 → ED 01:17 → SUATTDRO 03:41 → 2N 04:54

== ENCOUNTER 2020-04-14 10:45 | Inpatient (IN) ==
[2020-04-14] MEDS ORDERED: HYDROmorphone INJ 0.5 MG/0.5 ML SYR IV STA ×2 (11:23→13:19)
[2020-04-14] MEDS ORDERED: ONDANSETRON INJ 2 MG/ML 2 ML VIAL IV STA ×2 (11:23→13:19)
[2020-04-14] MEDS ORDERED: SODIUM CHLORIDE 0.9% 1000ML 1,000 ML IV SCH (11:30)
[2020-04-14] MEDS ORDERED: SODIUM CHLORIDE 0.9% 500 ML IV SCH (11:30)
[2020-04-14 11:49] LABS: Basophils # (auto) 0.01 K/uL (0-0.2); Basophils % (auto) 0.1 %; Eosinophils # (auto) 0.11 K/uL (0-0.5); Hematocrit (blood only) 39.2 % (37-47); Hemoglobin 12.9 g/dL (12.0-16.0); Immature Granulocytes # (auto) 0.03 K/uL (0.00-0.02); Immature Granulocytes % (auto) 0.3 %; Lymphocytes # (auto) 0.38 K/uL (1.2-3.4); Lymphocytes % (auto) 3.3 %; Mean Corpuscular Hemoglobin 31.7 pg (25-34); Mean Corpuscular Hgb Conc 32.9 g/dL (32-36); Mean Corpuscular Volume 96.3 fL (80-100); Mean Platelet Volume 11.5 fL (7.4-10.4); Monocytes # (auto) 1.25 K/uL (0.11-0.59); Monocytes % (auto) 10.9 %; Neutrophils # (auto) 9.66 K/uL (1.4-6.5); Neutrophils % (auto) 84.4 %; Platelet Count 144 K/uL (130-400); RDW Standard Deviation 52.5 fL (36.4-46.3); Red Blood Count 4.07 M/uL (4.2-5.4); White Blood Count 11.44 K/uL (4.8-10.8)
[2020-04-14 12:22] LABS: Albumin Level 3.8 gm/dl (3.4-5.0); BUN Creatinine Ratio 14.8 (10-20); Calcium 9.6 mg/dl (8.5-10.1); Creatinine Clr Calc Pharmacy 50.7 ml/min; Est GFR (African American) 58.6; Est GFR (Non-African American) 50.5; Potassium 4.1 mmol/L (3.5-5.1)
[2020-04-14 12:26] LABS: Bilirubin,Total 1.8 mg/dl (0.2-1); Globulin 3.9 gm/dl (2.5-4.0); Total Protein 7.7 gm/dl (6.4-8.2)
[2020-04-14] MEDS ORDERED: IOVERSOL 100ml IV ONE (12:28)
--- NOTE | 2020-04-14 12:44 | CT Scan Report ---
CT OF THE ABDOMEN AND PELVIS WITH CONTRAST CLINICAL HISTORY: Small bowel obstruction. COMPARISON STUDY: CT of the abdomen and pelvis August 12, 2019. KUB August 13, 2019. TECHNIQUE: Following IV administration of 94 mL of Optiray-320, axial images of the abdomen and pelvi s were obtained from the lung bases to the proximal femurs. Images were reviewed in the axial, sagitt al, and coronal planes. IV contrast was administered without complication. Automated exposure contro l was utilized for the study. A dose lowering technique was utilized adhering to the principles of A HO. CT DOSE: 1022.11 mGy.cm FINDINGS: A trace left pleural effusion with pleural thickening is unchanged. There are pleural calci fications. This is chronic. No pneumatosis, free air or portal venous gas is present. The liver is ci rrhotic. No hepatic lesions are identified. Sensitivity for detection of hypervascular lesions is dim inished on this exam. There are gallstones within the gallbladder without evidence for acute cholecys titis. Moderate splenomegaly is unchanged. Large varices, including large gastric varices are again n oted. No ascites is identified. Note is made of multiple loops of fluid-filled mildly dilated small b owel with decompressed distal small bowel. A small bowel anastomosis within the lower abdomen is note d. Small bowel feces sign is noted. Transition point is difficult to visualize but likely at or near the anastomosis. Similar findings were shown on CT of August 12, 2019. There is colonic diverticulo sis without evidence for acute diverticulitis. No suspicious osseous lesions are noted. Major vascula ture is patent. The main, left and right portal veins are patent. There is no biliary or pancreatic d uctal dilatation. IMPRESSION: 1. Findings consistent with a moderate grade small bowel obstruction with transition point likely wit hin the lower abdomen, either at or near a small bowel anastomosis. Similar findings shown on CT of D ecember 2018. 2. Cirrhosis with manifestations of portal hypertension including extensive varices formation with la rge gastric varices and splenomegaly. ACT 112: Negative or not required by law. Electronically signed by: Bret Javed M.D. 04/14/2020 12:43 PM
--- NOTE | 2020-04-14 13:15 | Emergency Department Note ---
History of Present Illness General Chief complaint: Abdominal Pain Stated complaint: Nausea and Vomiting Source: patient and RN notes reviewed Mode of arrival: EMS Limitations: no limitations History of Present Illness Provider complaint: Abd pain Maximum Pain Intensity: 7 This pt is a 75 yo female who presents to the ED with c/o generalized abd pain, vomiting that began early this morning at 0200 Pain is greatest in the upper abd. Pt states she has vomited ~ 30 times, but denies blood in emesis. There has been no diarrhea. Last BM was 2 days ago. Pt has h/o 3 SBO and had a colon resection years ago at the [facility] in [place]. She denies fevers, SOB, cough, CP. She does admit to h/o aortic stenosis but denies blood thinners. Home Medications Home Medications Medication Instructions Recorded Confirmed Type albuterol sulfate 2.5 mg INHALATION Q4 PRN 11/23/18 04/14/20 History aspirin 81 mg PO DAILY 11/23/18 04/14/20 History cyanocobalamin (vitamin B-12) 1,000 mcg IM MONTHLY 11/23/18 04/14/20 History folic acid 1 mg PO DAILY 11/23/18 04/14/20 History furosemide 20 mg PO DAILY 11/23/18 04/14/20 History gabapentin 300 mg PO TID 11/23/18 04/14/20 History lactulose 30 ml PO BID 11/23/18 04/14/20 History levocetirizine 5 mg PO PM 11/23/18 04/14/20 History levothyroxine 75 mcg PO DAILY 11/23/18 04/14/20 History losartan 50 mg PO DAILY 11/23/18 04/14/20 History metoprolol succinate 50 mg PO DAILY 11/23/18 04/14/20 History montelukast 10 mg PO DAILY 11/23/18 04/14/20 History multivitamin 1 tab PO DAILY 11/23/18 04/14/20 History nitroglycerin [Nitrostat] 1 dose SUBLINGUAL UD PRN 11/23/18 04/14/20 History omeprazole 20 mg PO DAILY 11/23/18 04/14/20 History sennosides [senna] 8.6 mg PO BID PRN 11/23/18 04/14/20 History escitalopram oxalate 20 mg PO DAILY 06/27/19 04/14/20 History triamcinolone acetonide 1 applic TOPICAL DIRECTED PRN 06/27/19 04/14/20 History Vitron-C 1 tab PO DAILY 08/12/19 04/14/20 History amlodipine 2.5 mg PO DAILY 08/12/19 04/14/20 History bupropion HCl [Wellbutrin XL] 150 mg PO QAM 08/12/19 04/14/20 History trazodone 50 mg PO HS 08/12/19 04/14/20 History Spiriva with HandiHaler 1 cap INHALATION DAILY 03/11/20 04/14/20 History albuterol sulfate [ProAir HFA] 2 puff INHALATION Q4 PRN 03/11/20 04/14/20 His tory bisacodyl [Dulcolax (bisacodyl)] 5 mg PO DAILY PRN 03/11/20 04/14/20 History diclofenac sodium 50 mg PO BID 03/11/20 04/14/20 History fluticasone propion-salmeterol 1 inh INHALATION BID 03/11/20 04/14/20 History [Advair Diskus] fluticasone propionate [Flonase 2 spray INTRANASAL DAILY 03/11/20 04/14/20 History Allergy Relief] ondansetron HCl [Zofran] 8 mg PO Q12 PRN 03/11/20 04/14/20 History Lactobacillus acidoph-L.bulgar 1 tab PO BID #30 tab 03/24/20 04/14/20 Rx [Lactinex] Allergies Allergy/AdvReac Type Severity Reaction Status Date / Time Ehatuxb-Zwm-Bgf Reductase AdvReac Cough Verified 04/14/20 11:24 Inhibitor Past Med/Surg History Medical History Alcoholic cirrhosis of liver without ascites Anxiety Aortic stenosis COPD (chronic obstructive pulmonary disease) Coronary artery disease Depression Dyslipidemia Essential hypertension History of alcohol abuse History of breast cancer Hypothyroidism Prolonged QT interval SBO (small bowel obstruction) hx of multiple Spinal stenosis Thrombocytopenia Surgical History H/O bilateral mastectomy H/O shoulder surgery H/O ventral hernia repair History of bowel resection S/P CABG x 4 Status post hysterectomy Status post laparotomy "2005 bowel obstruction" Family History Father Alzheimer disease Mother Stomach cancer Social History Smoking Status: Former smoker Second Hand Exposure: No; Hx Alcohol Use: Yes Alcohol type: hard liquor Alcohol Intake Frequency Comment: 2 drinks 3 times per week; heavier use in the past Hx Substance Use: No Preferred Language: Yoruba Communication Ability: Effective Fire Alarm Dispatcher Required: No Beliefs That Will Affect Care: None marital status: Single Current Living Situation: Alone Feels Safe at Home: Yes Safety Concerns: Feels Safe At This Time Review of Systems See HPI for pertinent positives & negatives. and A total of 10 systems reviewed and were otherwise negative Physical Exam Vital Signs Vital Signs - 24 hr 04/14/20 11:23 04/14/20 11:31 04/14/20 12:01 Pulse Rate 75 77 Pulse Rate from SpO2 Sensor 76 79 Respiratory Rate 22 22 Blood Pressure 185/100 H 130/78 Blood Pressure Mean 103 99 Pulse Oximetry 94 97 98 Oxygen Delivery Method Room Air 04/14/20 13:00 04/14/20 13:31 04/14/20 14:01 Pulse Rate 77 78 81 Pulse Rate from SpO2 Sensor 77 80 80 Respiratory Rate 19 19 17 Blood Pressure 153/77 H 136/68 125/96 Blood Pressure Mean 82 76 101 Pulse Oximetry 95 92 96 Oxygen Delivery Method Vital signs reviewed. General: Generally well appearing 75 yo female, in some discomfort. HEENT: No scleral icterus, dry MM, edentulous Cardiovascular: Regular rate and rhythm, systolic ejection murmur. Pulmonary: Clear to auscultation bilaterally, normal work of breathing. Abdomen: Soft, obese, generalized tenderness, +tympany, + distended Musculoskeletal: Atraumatic, minimal peripheral edema. Neurologic: Patient awake alert and oriented x 3 Skin: Warm, dry, no rash Course Administered Medications Acetaminophen (Acetaminophen 1000 Mg/100 Ml Iv) 1,000 mg IV Q8H PRN PRN Reason: Pain Stop: 04/18/20 09:14 Last Admin: 04/15/20 09:12 Dose: 1,000 mg Documented by: [id number] Amlodipine Besylate (Amlodipine Besylate 5 Mg Tab) 2.5 mg PO DAILY [facility] Stop: 05/15/20 08:59 Last Admin: 04/15/20 07:33 Dose: 2.5 mg Documented by: [id number] Aspirin (Aspirin 81 Mg Ectab) 81 mg PO DAILY [facility] Stop: 05/15/20 08:59 Last Admin: 04/15/20 07:33 Dose: 81 mg Documented by: [id number] Bupropion HCl (Bupropion Xl 150 Mg Tabcr) 150 mg PO QAM JUAN Stop: 05/14/20 17:59 Last Admin: 04/15/20 07:33 Dose: 150 mg Documented by: [id number] Admin: 04/14/20 21:01 Dose: 150 mg Documented by: [id number] Escitalopram Oxalate (Escitalopram Oxalate 20 Mg Tab) 20 mg PO DAILY [facility] Stop: 05/14/20 17:59 Last Admin: 04/15/20 07:32 Dose: 20 mg Documented by: [id number] Admin: 04/14/20 21:00 Dose: 20 mg Documented by: [id number] Fluticasone Propionate (Fluticasone Propionate Na Spr 16 Gm Btl) 2 sprays TATE DAILY [facility] Stop: 05/15/20 08:59 Last Admin: 04/15/20 07:34 Dose: 2 sprays Documented by: [id number] Fluticasone/Vilanterol (Fluticasone/Vilanterol 100/25mcg 14 Puffs/Inhaler) 1 puffs INH DAILY [facility]; Protocol Stop: 05/15/20 08:59 Last Admin: 04/15/20 07:34 Dose: 1 puffs Documented by: [id number] Furosemide (Furosemide 20 Mg Tab) 20 mg PO DAILY [facility] Stop: 05/15/20 08:59 Last Admin: 04/15/20 07:33 Dose: 20 mg Documented by: [id number] Hydromorphone HCl (Hydromorphone Inj 0.5 Mg/0.5 Ml Syr) 0.5 mg IV Q4H PRN PRN Reason: Pain Stop: 04/28/20 18:14 Last Admin: 04/15/20 02:32 Dose: 0.5 mg Documented by: [id number] Admin: 04/14/20 18:35 Dose: 0.5 mg Documented by: [id number] Potassium Chloride 20 meq/ (Dextrose/Sodium Chloride) 1,010 mls @ 100 mls/hr IV .Q10H6M [facility] Stop: 04/15/20 14:26 Last Admin: 04/15/20 04:31 Dose: 100 mls/hr Documented by: [id number] Infusion: 04/15/20 04:31 Dose: 100 mls/hr Documented by: [id number] Admin: 04/14/20 18:34 Dose: 100 mls/hr Documented by: [id number] Promethazine HCl 6.25 mg/ (Sodium Chloride) 50.25 mls @ 201 mls/hr IV Q6H PRN PRN Reason: Nausea And Vomiting Stop: 05/14/20 18:14 Last Infusion: 04/15/20 09:00 Dose: 0 mls/hr Documented by: [id number] Admin: 04/15/20 08:26 Dose: 201 mls/hr Documented by: [id number] Levothyroxine Sodium 37.5 mcg/ (Syringe) 1.875 mls @ 2 mls/min IV DAILY@0900 [facility] Stop: 05/15/20 08:59 Last Admin: 04/15/20 09:01 Dose: 2 mls/min Documented by: [id number] Lactulose (Lactulose Syrup 30 Gm/45 Ml Udp) 30 gm PO BID [facility] Stop: 05/14/20 20:59 Last Admin: 04/15/20 07:32 Dose: 30 gm Documented by: [id number] Admin: 04/14/20 21:00 Dose: 30 gm Documented by: [id number] Losartan Potassium (Losartan Potassium 50 Mg Tab) 50 mg PO DAILY [facility] Stop: 05/15/20 08:59 Last Admin: 04/15/20 07:34 Dose: 50 mg Documented by: [id number] Metoprolol Succinate (Metoprolol Succ 50mg Ext Rel Tab) 50 mg PO DAILY [facility] Stop: 05/14/20 17:59 Last Admin: 04/15/20 07:33 Dose: 50 mg Documented by: [id number] Admin: 04/14/20 21:01 Dose: 50 mg Documented by: [id number] Oxymetazoline HCl (Oxymetazoline 0.05% 30 Ml Btl) 2 sprays NA BID PRN PRN Reason: epistaxis Stop: 04/17/20 14:47 Last Admin: 04/14/20 15:08 Dose: 2 sprays Documented by: [id number] Pantoprazole Sodium (Pantoprazole 40 Mg Tab) 40 mg PO DAILY [facility]; Protocol Stop: 05/15/20 08:59 Last Admin: 04/15/20 07:34 Dose: 40 mg Documented by: [id number] Umeclidinium [place] (Umeclidinium [place] 62.5mcg/Blister 7 Puffs/Inhaler) 1 puffs INH DAILY [facility]; Protocol Stop: 05/15/20 08:59 Last Admin: 04/15/20 07:35 Dose: 1 puffs Documented by: [id number] Discontinued Medications Hydromorphone HCl (Hydromorphone Inj 0.5 Mg/0.5 Ml Syr) 0.5 mg IV NOW STA Stop: 04/14/20 11:24 Last Admin: 04/14/20 11:45 Dose: 0.5 mg Documented by: [id number] Hydromorphone HCl (Hydromorphone Inj 0.5 Mg/0.5 Ml Syr) 0.5 mg IV NOW STA Stop: 04/14/20 13:20 Last Admin: 04/14/20 14:04 Dose: 0.5 mg Documented by: [id number] Sodium Chloride (Nss) 500 mls @ 999 mls/hr IV .Q31M [facility] Stop: 04/14/20 12:00 Last Infusion: 04/14/20 12:06 Dose: 0 mls/hr Documented by: [id number] Admin: 04/14/20 11:35 Dose: 999 mls/hr Documented by: [id number] Sodium Chloride (Nss 1000ml) 1,000 mls @ 125 mls/hr IV .Q8H [facility] Stop: 05/14/20 11:29 Last Infusion: 04/14/20 18:08 Dose: 0 mls/hr Documented by: [id number] Infusion: 04/14/20 16:49 Dose: 0 mls/hr Documented by: [id number] Admin: 04/14/20 11:51 Dose: 125 mls/hr Documented by: [id number] Ioversol (Ioversol 100ml) 94 ml IV ONCE ONE Stop: 04/14/20 12:29 Last Admin: 04/14/20 12:29 Dose: 94 ml Documented by: [id number] Ondansetron HCl (Ondansetron Inj 2 Mg/Ml 2 Ml Vial) 4 mg IV NOW STA Stop: 04/14/20 11:24 Last Admin: 04/14/20 11:40 Dose: 4 mg Documented by: [id number] Ondansetron HCl (Ondansetron Inj 2 Mg/Ml 2 Ml Vial) 4 mg IV NOW STA Stop: 04/14/20 13:20 Last Admin: 04/14/20 14:00 Dose: 4 mg Documented by: [id number] Medical Decision Making Differential Diagnosis Differential diagnosis: Etiologies such as gastroenteritis, food borne illness, infections, appendicitis, diverticulitis, inflammatory bowel disease, obstruction, GI bleed, biliary pathology, cardiac process, intracranial process, as well as others were entertained. Medical Records Attestation: I reviewed the patient's medical records. Home Medications Current Medication List: was personally reviewed by me Laboratory Data Attestation: I reviewed the patient's lab results. Result diagrams: 04/15/20 07:35 04/15/20 07:35 Lab Results 04/14/20 04/14/20 Range/Units 11:39 11:39 WBC 11.44 H (4.8-10.8) K/uL RBC 4.07 L (4.2-5.4) M/uL Hgb 12.9 (12.0-16.0) g/dL Hct 39.2 (37-47) % MCV 96.3 (80-100) fL MCH 31.7 (25-34) pg MCHC 32.9 (32-36) g/dL RDW Std Deviation 52.5 H (36.4-46.3) fL RDW Coeff of Zelda 15.0 H (11.5-14.5) % Plt Count 144 (130-400) K/uL MPV 11.5 H (7.4-10.4) fL Immature Gran % (Auto) 0.3 % Neut % (Auto) 84.4 % Lymph % (Auto) 3.3 % [place] % (Auto) 10.9 % Eos % (Auto) 1.0 % Baso % (Auto) 0.1 % Neut # (Auto) 9.66 H (1.4-6.5) K/uL Lymph # (Auto) 0.38 L (1.2-3.4) K/uL [place] # (Auto) 1.25 H (0.11-0.59) K/uL Eos # (Auto) 0.11 (0-0.5) K/uL Baso # (Auto) 0.01 (0-0.2) K/uL Immature Gran # (Auto) 0.03 H (0.00-0.02) K/uL Sodium 138 (136-145) mmol/L Potassium 4.1 (3.5-5.1) mmol/L Chloride 103 (98-107) mmol/L Carbon Dioxide 27 (21-32) mmol/L Anion Gap 7.0 (3-11) BUN 16 (7-18) mg/dl Creatinine 1.08 (0.6-1.2) mg/dl Est Cr Clr Drug Dosing 50.7 ml/min Est GFR ( Amer) 58.6 Est GFR (Non-Af Amer) 50.5 BUN/Creatinine Ratio 14.8 (10-20) Glucose 156 H (70-99) mg/dl Calcium 9.6 (8.5-10.1) mg/dl Total Bilirubin 1.8 H (0.2-1) mg/dl AST 50 H (15-37) U/L ALT 44 (12-78) U/L Alkaline Phosphatase 99 (45-117) U/L Total Protein 7.7 (6.4-8.2) gm/dl Albumin 3.8 (3.4-5.0) gm/dl Globulin 3.9 (2.5-4.0) gm/dl Albumin/Globulin Ratio 1.0 (0.9-2) Lipase 133 (73-393) U/L Imaging Data Radiologist's Impression: CT OF THE ABDOMEN AND PELVIS WITH CONTRAST CLINICAL HISTORY: Small bowel obstruction. COMPARISON STUDY: CT of the abdomen and pelvis August 12, 2019. KUB August 13, 2019. TECHNIQUE: Following IV administration of 94 mL of Optiray-320, axial images of the abdomen and pelvis were obtained from the lung bases to the proximal femurs. Images were reviewed in the axial, sagittal, and coronal planes. IV contrast was administered without complication. Automated exposure control was utilized for the study. A dose lowering technique was utilized adhering to the principles of ALARA. CT DOSE: 1022.11 mGy.cm FINDINGS: A trace left pleural effusion with pleural thickening is unchanged. There are pleural calcifications. This is chronic. No pneumatosis, free air or portal venous gas is present. The liver is cirrhotic. No hepatic lesions are identified. Sensitivity for detection of hypervascular lesions is diminished on this exam. There are gallstones within the gallbladder without evidence for acute cholecystitis. Moderate splenomegaly is unchanged. Large varices, including large gastric varices are again noted. No ascites is identified. Note is made of multiple loops of fluid-filled mildly dilated small bowel with decompressed distal small bowel. A small bowel anastomosis within the lower abdomen is noted. Small bowel feces sign is noted. Transition point is difficult to visualize but likely at or near the anastomosis. Similar findings were shown on CT of August 12, 2019. There is colonic diverticulosis without evidence for acute diverticulitis. No suspicious osseous lesions are noted. Major vasculature is patent. The main, left and right portal veins are patent. There is no biliary or pancreatic ductal dilatation. IMPRESSION: 1. Findings consistent with a moderate grade small bowel obstruction with transition point likely within the lower abdomen, either at or near a small bowel anastomosis. Similar findings shown on CT of August 12, 2019. 2. Cirrhosis with manifestations of portal hypertension including extensive varices formation with large gastric varices and splenomegaly. ACT 112: Negative or not required by law. Electronically signed by: Bret Javed M.D. 04/14/2020 12:43 PM Dictated: 04/14/20 1231 Transcribed: 04/14/20 1231 ECG Data Attestation: I personally reviewed and interpreted this ECG as follows: Indication: + abdominal pain and + nausea Rate (beats per minute): 74 Rhythm: + normal sinus ECG Intervals/blocks: + Prolonged QT (477) ECG ST segments: + Nonspecific ST abnormalities ECG Findings: + Other (no ectopy, TWI anterior) Blood Pressure Blood Pressure Findings: Elevated blood pressure Blood Pressure Disposition: elevated BP felt to be situational MDM Narrative This pt was evaluated and appeared to be in no distress. IV access was obtained and lab work was drawn. An order for cardiac monitoring was placed and the pt is noted to be in a NSR at 75 bpm. Pt was hydrated with NSS, given IV dilaudid and zofran. CT imaging was performed and is significant for a SBO and cirrhosis with varicosities. Pt was given additional pain and nausea meds, an NGT was placed to low intermittent suction. Consult with medicine and general surgery was placed. Pt will be evaluated for admission and further management. She is aware of the plan and agrees. Impression & Plan SBO (small bowel obstruction), Cirrhosis Discharge Plan Visit Data Chief Complaint: Abdominal Pain Stated Complaint: Nausea and Vomiting ED Provider: Tasia Dominguez Discharge Problem: SBO (small bowel obstruction), Cirrhosis Patient Disposition: Admitted As Inpatient Discharge Instructions Interventions: ED Discharge Assessment Last Done: 04/14/20 17:06 Discharge Problem: Cirrhosis Qualifiers: Hepatic cirrhosis type: alcoholic cirrhosis Ascites presence: without ascites Qualified Code(s): K70.30 - Alcoholic cirrhosis of liver without ascites
[2020-04-14] MEDS ORDERED: OXYMETAZOLINE 0.05% 30 ML BTL PRN ×2 (14:48→17:34)
--- NOTE | 2020-04-14 14:55 | History & Physical Report ---
Date of Service April 14, 2020 Assessment & Plan (1) Partial small bowel obstruction: This is a 75yo F with a PMH of multiple small bowel obstructions in the past, alcohol cirrhosis, CAD, COPD, thrombocytopenia and other medical problems listed below who presents with abdominal pain over the past week and vomiting beginning yesterday and was found to have partial small bowel obstruction. -Diffuse abdominal pain, nausea and vomiting for the past few days. CT abdomen pelvis consistent with moderate grade small bowel obstruction with transition point likely within the lower abdomen, either at or near a small bowel anastomosis -Evaluated by general surgery with NGT placed. Monitor output. Conservative mgmt for now - would be very high risk surgical candidate due to h/o aortic stenosis as well as cirrhosis with large varices is identified in the CT scan. Plan to avoid surgical intervention if possible -Continue gentle IV fluids, pain control, antiemetics (2) Alcoholic cirrhosis of liver without ascites: Compensated. Continue lactuose (3) History of alcohol abuse: Endorses a few drinks weekly - last drink was last evening. At risk protocol with IV ativan (4) Cellulitis of left leg: Recently admitted for LLE cellulitis and discharged on 10-day course of Augmentin. Cellulitis mostly resolved-continue to monitor (5) Essential hypertension: Normotensive. Give missed dose of metoprolol now. Resume amlodipine and losartan tomorrow (6) COPD (chronic obstructive pulmonary disease): Continue Spiriva, Advair, albuterol PRN. Duonebs PRN (7) Anxiety: Continue SSRI (8) Depression: Continue SSRI, wellbutrin (9) Thrombocytopenia: Platelets stable at 144 (10) Prolonged QT interval: Given zofran x 2 in ED but will discontinue due to h/o prolonged QT interval. Phenergan PRN instead (11) Hypothyroidism: IV levothyroxine ordered for now DVT Ppx: SCDs for now Code status: FULL PCP: Reinaldo Walls Dispo: Admitted to [facility]. Plan to return home once medically stable. Patient seen in collaboration with Dr. Villalba. Please see addendum. History of Present Illness Chief Complaint: N/V, abd pain Primary Care Provider: Destiny Walls, DO This is a 75yo F with a PMH of multiple small bowel obstructions in the past, alcohol cirrhosis, CAD, COPD, thrombocytopenia and other medical problems listed below who presents with abdominal pain over the past week and vomiting beginning yesterday. Describes abdominal pain as diffuse and aching with radiation towards her back. Developed nausea and vomiting yesterday and endorses multiple episodes. Denies hematemesis. Has been having small bowel movements up until 2 days ago. Was able to pass flatus yesterday but not today. Did not take any morning medications, including lactulose. History of multiple small bowel obstructions in the past, one requiring surgical release in 2004 with resection. Patient recently admitted for lower extremity cellulitis which seems to have resolved after outpatient course of Augmentin. Currently feeling well after being given Zofran and Dilaudid in ED. NG tube ordered. Denies any fever, chills, lightheadedness, visual changes, chest pain, palpitations, wheezing, dysuria or diarrhea. Allergies Allergy/AdvReac Type Severity Reaction Status Date / Time Nnooatb-Gky-Ybs Reductase AdvReac Cough Verified 04/14/20 11:24 Inhibitor Home Medications Home Medications Medication Instructions Recorded Confirmed Type albuterol sulfate 2.5 mg INHALATION Q4 PRN 11/23/18 04/14/20 History aspirin 81 mg PO DAILY 11/23/18 04/14/20 History cyanocobalamin (vitamin B-12) 1,000 mcg IM MONTHLY 11/23/18 04/14/20 History folic acid 1 mg PO DAILY 11/23/18 04/14/20 History furosemide 20 mg PO DAILY 11/23/18 04/14/20 History gabapentin 300 mg PO TID 11/23/18 04/14/20 History lactulose 30 ml PO BID 11/23/18 04/14/20 History levocetirizine 5 mg PO PM 11/23/18 04/14/20 History levothyroxine 75 mcg PO DAILY 11/23/18 04/14/20 History losartan 50 mg PO DAILY 11/23/18 04/14/20 History metoprolol succinate 50 mg PO DAILY 11/23/18 04/14/20 History montelukast 10 mg PO DAILY 11/23/18 04/14/20 History multivitamin 1 tab PO DAILY 11/23/18 04/14/20 History nitroglycerin [Nitrostat] 1 dose SUBLINGUAL UD PRN 11/23/18 04/14/20 History omeprazole 20 mg PO DAILY 11/23/18 04/14/20 History sennosides [senna] 8.6 mg PO BID PRN 11/23/18 04/14/20 History escitalopram oxalate 20 mg PO DAILY 06/27/19 04/14/20 History triamcinolone acetonide 1 applic TOPICAL DIRECTED PRN 06/27/19 04/14/20 History Vitron-C 1 tab PO DAILY 08/12/19 04/14/20 History amlodipine 2.5 mg PO DAILY 08/12/19 04/14/20 History bupropion HCl [Wellbutrin XL] 150 mg PO QAM 08/12/19 04/14/20 History trazodone 50 mg PO HS 08/12/19 04/14/20 History Spiriva with HandiHaler 1 cap INHALATION DAILY 03/11/20 04/14/20 History albuterol sulfate [ProAir HFA] 2 puff INHALATION Q4 PRN 03/11/20 04/14/20 History bisacodyl [Dulcolax (bisacodyl)] 5 mg PO DAILY PRN 03/11/20 04/14/20 History diclofenac sodium 50 mg PO BID 03/11/20 04/14/20 History fluticasone propion-salmeterol 1 inh INHALATION BID 03/11/20 04/14/20 History [Advair Diskus] fluticasone propionate [Flonase 2 spray INTRANASAL DAILY 03/11/20 04/14/20 History Allergy Relief] ondansetron HCl [Zofran] 8 mg PO Q12 PRN 03/11/20 04/14/20 History Lactobacillus acidoph-L.bulgar 1 tab PO BID #30 tab 03/24/20 04/14/20 Rx [Lactinex] Past Med/Surg History Medical History Alcoholic cirrhosis of liver without ascites Anxiety Aortic stenosis COPD (chronic obstructive pulmonary disease) Coronary artery disease Depression Dyslipidemia Essential hypertension History of alcohol abuse History of breast cancer Hypothyroidism Prolonged QT interval SBO (small bowel obstruction) hx of multiple Spinal stenosis Thrombocytopenia Surgical History H/O bilateral mastectomy H/O shoulder surgery H/O ventral hernia repair History of bowel resection S/P CABG x 4 Status post hysterectomy Status post laparotomy "2004 bowel obstruction" Family History Father Alzheimer disease Mother Stomach cancer Social History Smoking Status: Former smoker Second Hand Exposure: No; Hx Alcohol Use: Yes Alcohol type: hard liquor Alcohol Intake Frequency Comment: 2 drinks 3 times per week; heavier use in the past Hx Substance Use: No Preferred Language: Telugu Communication Ability: Effective Junior Underwriter Required: No Beliefs That Will Affect Care: None marital status: Single Current Living Situation: Alone Feels Safe at Home: Yes Safety Concerns: Feels Safe At This Time Review of Systems Review of Systems: At least ten systems reviewed and negative except as noted in the HPI. Physical Exam Physical Exam: General Appearance: WD/WN, vitals as above, NAD, sitting up in bed, pleasant, conversing easily Head: normocephalic, atraumatic Eyes: normal inspection, PERRL, conjunctivae normal, anicteric sclerae ENT: external ear and nose normal, oropharynx normal Neck: normal visual inspection, trachea midline, no thyromegaly Respiratory: normal respiratory effort, lungs clear to auscultation, no wheeze, rales, rhonchi. No accessory muscle use Cardiovascular: regular rate, rhythm, +systolic murmur, normal peripheral pulse s, no BLE edema. Vessels: no JVD Chest: normal inspection of chest Abdomen/GI: normal bowel sounds, soft but mildly distended, diffuse TTP (L>R) b ut no guarding, no hepatosplenomegaly Extremities/Musculoskeletal: no cyanosis or clubbing, extremities motor strength 5/5. LLE with some erythema. No edema or warmth Neurologic: PERRL, EOMI, accommodation nl, CN's II-XI intact bilaterally and moves all extremities Psychiatric: A+Ox3, euthymic affect Skin: no rashes, normal color, warm/dry Results & Data Results & Data ([facility]) Vital Signs (Past 12 Hours) Vital Signs Temp Pulse Resp BP Pulse Ox 04/14/20 14:01 81 17 125/96 96 04/14/20 13:31 78 19 136/68 92 04/14/20 13:00 77 19 153/77 H 95 04/14/20 12:01 77 22 130/78 98 04/14/20 11:31 75 22 185/100 H 97 04/14/20 11:23 94 04/14/20 10:50 36.8 C 82 20 125/74 94 Laboratory Results Short CBC 04/14/20 04/14/20 Range/Units 11:39 11:39 WBC 11.44 H (4.8-10.8) K/uL RBC 4.07 L (4.2-5.4) M/uL Hgb 12.9 (12.0-16.0) g/dL Hct 39.2 (37-47) % MCV 96.3 (80-100) fL MCH 31.7 (25-34) pg MCHC 32.9 (32-36) g/dL RDW Std Deviation 52.5 H (36.4-46.3) fL RDW Coeff of Zelda 15.0 H (11.5-14.5) % Plt Count 144 (130-400) K/uL MPV 11.5 H (7.4-10.4) fL Immature Gran % (Auto) 0.3 % Neut % (Auto) 84.4 % Lymph % (Auto) 3.3 % [place] % (Auto) 10.9 % Eos % (Auto) 1.0 % Baso % (Auto) 0.1 % Neut # (Auto) 9.66 H (1.4-6.5) K/uL Lymph # (Auto) 0.38 L (1.2-3.4) K/uL [place] # (Auto) 1.25 H (0.11-0.59) K/uL Eos # (Auto) 0.11 (0-0.5) K/uL Baso # (Auto) 0.01 (0-0.2) K/uL Immature Gran # (Auto) 0.03 H (0.00-0.02) K/uL Sodium 138 (136-145) mmol/L Potassium 4.1 (3.5-5.1) mmol/L Chloride 103 (98-107) mmol/L Carbon Dioxide 27 (21-32) mmol/L Anion Gap 7.0 (3-11) BUN 16 (7-18) mg/dl Creatinine 1.08 (0.6-1.2) mg/dl Est Cr Clr Drug Dosing 50.7 ml/min Est GFR ( Amer) 58.6 Est GFR (Non-Af Amer) 50.5 BUN/Creatinine Ratio 14.8 (10-20) Glucose 156 H (70-99) mg/dl Calcium 9.6 (8.5-10.1) mg/dl Total Bilirubin 1.8 H (0.2-1) mg/dl AST 50 H (15-37) U/L ALT 44 (12-78) U/L Alkaline Phosphatase 99 (45-117) U/L Total Protein 7.7 (6.4-8.2) gm/dl Albumin 3.8 (3.4-5.0) gm/dl Globulin 3.9 (2.5-4.0) gm/dl Albumin/Globulin Ratio 1.0 (0.9-2) Lipase 133 (73-393) U/L BMP 04/14/20 11:39 Sodium 138 Potassium 4.1 Chloride 103 Carbon Dioxide 27 BUN 16 Creatinine 1.08 Glucose 156 H Calcium 9.6 Liver Function 04/14/20 Range/Units 11:39 Total Bilirubin 1.8 H (0.2-1) mg/dl AST 50 H (15-37) U/L ALT 44 (12-78) U/L Alkaline Phosphatase 99 (45-117) U/L Albumin 3.8 (3.4-5.0) gm/dl Diagnostic Findings CT abd/pelvis: IMPRESSION: 1. Findings consistent with a moderate grade small bowel obstruction with transition point likely within the lower abdomen, either at or near a small bowel anastomosis. Similar findings shown on CT of August 12, 2019. 2. Cirrhosis with manifestations of portal hypertension including extensive varices formation with large gastric varices and splenomegaly. Code Status & VTE Plan VTE Prophylaxis Plan VTE Prophylaxis will be ordered: Yes Supervising Physician Co-Signing Physician Notes Attending Addendum: care coordinated with JANELLE Jimenez please refer to her notes for full details, I agree with her notes patient seen and examined, records reviewed by myself as well on exam, patient seen sitting up in bed, not in distress, alert, oriented x3, answers questions appropriately NG tube in place, draining at least 700 cc of bilious fluid Patient is comfortable Reports mild abdominal discomfort, improving with analgesics No active nausea at the time of my exam No fevers or chills Denies headache, chest pain, shortness of breath no other symptoms VS noted and reviewed oriented x 3, not in distress, speaks in sentences with no effort nor accessory muscle use Positive NG tube in place, with bilious output Positive mild epistaxis from the left nostril Exam: Essentially normal normal rate, regular rhythm, no murmurs clear breath sounds bilaterally non distended, hypoactive bowel sounds, soft, nontender no bipedal edema, erythema, warmth no neuro deficits WBC 11.4 Hg 12.9 Potassium 4.1 Crea 1.08 Glucose 156 Total bili 1.[address] abdomen pelvis: 1. Findings consistent with a moderate grade small bowel obstruction with transition point likely within the lower abdomen, either at or near a small bowel anastomosis. Similar findings shown on CT of August 12, 2019. 2. Cirrhosis with manifestations of portal hypertension including extensive varices formation with large gastric varices and splenomegaly. ASSESSMENT AND PLAN 75-year-old female with history of small bowel resection, multiple episodes of s mall bowel obstruction, COPD, liver cirrhosis, hypertension, aortic stenosis presenting with abdominal pain since yesterday. Small bowel obstruction, moderate grade History of multiple episodes of small bowel obstruction History of small bowel resection and other intra-abdominal surgeries --Positive vomiting, NG tube placed --General surgery consulted, conservative approach recommended at this point --D5 NSS with potassium, n.p.o. status except meds, PRN analgesics and antiemetic Liver cirrhosis --Compensated --Continue lactulose Alcoholism --Alcohol withdrawal protocol COPD --No exacerbation Hypertension --Continue usual medications Aortic stenosis other diagnoses and plan of care as per JANELLE Jimenez's notes Moose Villalba MD
--- NOTE | 2020-04-14 15:02 | Surgery Consultation ---
Date of Consultation April 14, 2020 Assessment & Plan (1) Partial small bowel obstruction: This patient has a partial most likely small bowel obstruction. She has had some in the past that resolved spontaneously. I agree with placing an NG tube and treating conservatively at first. She would be at a very high risk regarding surgical intervention. She has aortic stenosis as well as cirrhosis with large varices is identified in the CT scan. She is also had mesh placed on 2 occasions for her ventral hernia. Would like to avoid surgical intervention if possible. History of Present Illness Reason for Consultation: Abdominal pain, small bowel obstruction Requesting Physician: Tasia Dominguez MD History of Present Illness This is a 75-year-old female who presented to the emergency room with a complaint of abdominal pain with nausea and vomiting. She had had some mild abdominal discomfort over the last week or so. It was described as a dull ache with occasional crampy component. It was throughout her abdomen with no side predominating. Then last night she developed vomiting. She has had multiple e pisodes. Initially it was for food and then liquid. She had no hematemesis. She had a bowel movement last evening. She had been passing flatus yesterday but has not passed any flatus yet today. Abdominal discomfort decreased after her vomiting. She stated that her abdomen was bloated until after she vomited. She has had previous small bowel obstructions in the past. She had surgery for 1 about 4 years ago but the remainder have resolved spontaneously. She has had multiple previous abdominal procedures. She has a history of cirrhosis due to alcohol intake. Allergies Allergy/AdvReac Type Severity Reaction Status Date / Time Snyjfri-Yqw-Mbm Reductase AdvReac Cough Verified 04/14/20 11:24 Inhibitor Home Medications Home Medications Medication Instructions Recorded Confirmed Type albuterol sulfate 2.5 mg INHALATION Q4 PRN 11/23/18 04/14/20 History aspirin 81 mg PO DAILY 11/23/18 04/14/20 History cyanocobalamin (vitamin B-12) 1,000 mcg IM MONTHLY 11/23/18 04/14/20 History folic acid 1 mg PO DAILY 11/23/18 04/14/20 History furosemide 20 mg PO DAILY 11/23/18 04/14/20 History gabapentin 300 mg PO TID 11/23/18 04/14/20 History lactulose 30 ml PO BID 11/23/18 04/14/20 History levocetirizine 5 mg PO PM 11/23/18 04/14/20 History levothyroxine 75 mcg PO DAILY 11/23/18 04/14/20 History losartan 50 mg PO DAILY 11/23/18 04/14/20 History metoprolol succinate 50 mg PO DAILY 11/23/18 04/14/20 History montelukast 10 mg PO DAILY 11/23/18 04/14/20 History multivitamin 1 tab PO DAILY 11/23/18 04/14/20 History nitroglycerin [Nitrostat] 1 dose SUBLINGUAL UD PRN 11/23/18 04/14/20 History omeprazole 20 mg PO DAILY 11/23/18 04/14/20 History sennosides [senna] 8.6 mg PO BID PRN 11/23/18 04/14/20 History escitalopram oxalate 20 mg PO DAILY 06/27/19 04/14/20 History triamcinolone acetonide 1 applic TOPICAL DIRECTED PRN 06/27/19 04/14/20 History Vitron-C 1 tab PO DAILY 08/12/19 04/14/20 History amlodipine 2.5 mg PO DAILY 08/12/19 04/14/20 History bupropion HCl [Wellbutrin XL] 150 mg PO QAM 08/12/19 04/14/20 History trazodone 50 mg PO HS 08/12/19 04/14/20 History Spiriva with HandiHaler 1 cap INHALATION DAILY 03/11/20 04/14/20 History albuterol sulfate [ProAir HFA] 2 puff INHALATION Q4 PRN 03/11/20 04/14/20 History bisacodyl [Dulcolax (bisacodyl)] 5 mg PO DAILY PRN 03/11/20 04/14/20 History diclofenac sodium 50 mg PO BID 03/11/20 04/14/20 History fluticasone propion-salmeterol 1 inh INHALATION BID 03/11/20 04/14/20 History [Advair Diskus] fluticasone propionate [Flonase 2 spray INTRANASAL DAILY 03/11/20 04/14/20 History Allergy Relief] ondansetron HCl [Zofran] 8 mg PO Q12 PRN 03/11/20 04/14/20 History Lactobacillus acidoph-L.bulgar 1 tab PO BID #30 tab 03/24/20 04/14/20 Rx [Lactinex] Patient History Medical History (Updated 03/26/20 @ 00:03 by Fercho Menard) Alcoholic cirrhosis of liver without ascites Anxiety Aortic stenosis COPD (chronic obstructive pulmonary disease) Coronary artery disease Depression Dyslipidemia Essential hypertension History of alcohol abuse History of breast cancer Hypothyroidism Prolonged QT interval SBO (small bowel obstruction) hx of multiple Spinal stenosis Thrombocytopenia Surgical History H/O bilateral mastectomy H/O shoulder surgery H/O ventral hernia repair History of bowel resection S/P CABG x 4 Status post hysterectomy Status post laparotomy "2004 bowel obstruction" Family History Father Alzheimer disease Mother Stomach cancer Social History Smoking Status: Former smoker Second Hand Exposure: No; Hx Alcohol Use: Yes Alcohol type: hard liquor Alcohol Intake Frequency Comment: 2 drinks 3 times per week; heavier use in the past Hx Substance Use: No Preferred Language: Mexican Communication Ability: Effective Global Account Manager Required: No Beliefs That Will Affect Care: None marital status: Single Current Living Situation: Alone Feels Safe at Home: Yes Physical Exam Constitutional: no acute distress Neck: trachea midline Respiratory: normal respiratory effort, lungs clear to auscultation Cardiovascular: Rate/Rhythm: regular rate and regular rhythm Gastrointestinal (Abdomen): Inspection/Auscultation: + abdomen distended (Mild) and normal bowel sounds Percussion/Palpation: + abdomen tender (Diffusely throughout but mild) and abdomen soft Lymphatic: no cervical lymphadenopathy Results & Data ([facility]) Vital Signs (Past 12 Hours) Vital Signs Temp Pulse Resp BP Pulse Ox 04/14/20 14:01 81 17 125/96 96 04/14/20 13:31 78 19 136/68 92 04/14/20 13:00 77 19 153/77 H 95 04/14/20 12:01 77 22 130/78 98 04/14/20 11:31 75 22 185/100 H 97 04/14/20 11:23 94 04/14/20 10:50 36.8 C 82 20 125/74 94 Laboratory Results 04/14/20 04/14/20 Range/Units 11:39 11:39 WBC 11.44 H (4.8-10.8) K/uL RBC 4.07 L (4.2-5.4) M/uL Hgb 12.9 (12.0-16.0) g/dL Hct 39.2 (37-47) % MCV 96.3 (80-100) fL MCH 31.7 (25-34) pg MCHC 32.9 (32-36) g/dL RDW Std Deviation 52.5 H (36.4-46.3) fL RDW Coeff of Zelda 15.0 H (11.5-14.5) % Plt Count 144 (130-400) K/uL MPV 11.5 H (7.4-10.4) fL Immature Gran % (Auto) 0.3 % Neut % (Auto) 84.4 % Lymph % (Auto) 3.3 % [place] % (Auto) 10.9 % Eos % (Auto) 1.0 % Baso % (Auto) 0.1 % Neut # (Auto) 9.66 H (1.4-6.5) K/uL Lymph # (Auto) 0.38 L (1.2-3.4) K/uL [place] # (Auto) 1.25 H (0.11-0.59) K/uL Eos # (Auto) 0.11 (0-0.5) K/uL Baso # (Auto) 0.01 (0-0.2) K/uL Immature Gran # (Auto) 0.03 H (0.00-0.02) K/uL Sodium 138 (136-145) mmol/L Potassium 4.1 (3.5-5.1) mmol/L Chloride 103 (98-107) mmol/L Carbon Dioxide 27 (21-32) mmol/L Anion Gap 7.0 (3-11) BUN 16 (7-18) mg/dl Creatinine 1.08 (0.6-1.2) mg/dl Est Cr Clr Drug Dosing 50.7 ml/min Est GFR ( Amer) 58.6 Est GFR (Non-Af Amer) 50.5 BUN/Creatinine Ratio 14.8 (10-20) Glucose 156 H (70-99) mg/dl Calcium 9.6 (8.5-10.1) mg/dl Total Bilirubin 1.8 H (0.2-1) mg/dl AST 50 H (15-37) U/L ALT 44 (12-78) U/L Alkaline Phosphatase 99 (45-117) U/L Total Protein 7.7 (6.4-8.2) gm/dl Albumin 3.8 (3.4-5.0) gm/dl Globulin 3.9 (2.5-4.0) gm/dl Albumin/Globulin Ratio 1.0 (0.9-2) Lipase 133 (73-393) U/L Diagnostic Findings CT OF THE ABDOMEN AND PELVIS WITH CONTRAST CLINICAL HISTORY: Small bowel obstruction. COMPARISON STUDY: CT of the abdomen and pelvis August 12, 2019. KUB August 13, 2019. TECHNIQUE: Following IV administration of 94 mL of Optiray-320, axial images of the abdomen and pelvis were obtained from the lung bases to the proximal femurs. Images were reviewed in the axial, sagittal, and coronal planes. IV contrast was administered without complication. Automated exposure control was utilized for the study. A dose lowering technique was utilized adhering to the princ iplantonietta of TIA. CT DOSE: 1022.11 mGy.cm FINDINGS: A trace left pleural effusion with pleural thickening is unchanged. There are pleural calcifications. This is chronic. No pneumatosis, free air or portal venous gas is present. The liver is cirrhotic. No hepatic lesions are identified. Sensitivity for detection of hypervascular lesions is diminished on this exam. There are gallstones within the gallbladder without evidence for acute cholecystitis. Moderate splenomegaly is unchanged. Large varices, including large gastric varices are again noted. No ascites is identified. Note is made of multiple loops of fluid-filled mildly dilated small bowel with decompressed distal small bowel. A small bowel anastomosis within the lower abdomen is noted. Small bowel feces sign is noted. Transition point is difficult to visualize but likely at or near the anastomosis. Similar findings were shown on CT of August 12, 2019. There is colonic diverticulosis without evidence for acute diverticulitis. No suspicious osseous lesions are noted. Major vasculature is patent. The main, left and right portal veins are patent. There is no biliary or pancreatic ductal dilatation. IMPRESSION: 1. Findings consistent with a moderate grade small bowel obstruction with transition point likely within the lower abdomen, either at or near a small bowel anastomosis. Similar findings shown on CT of August 12, 2019. 2. Cirrhosis with manifestations of portal hypertension including extensive varices formation with large gastric varices and splenomegaly.
[2020-04-14] MEDS ORDERED: ALBUTEROL 0.083% NEBU SOLN 3 ML VIAL INH PRN (18:00)
[2020-04-14] MEDS ORDERED: LORazepam 1 MG/2 ML VIAL IV PRN (18:00)
[2020-04-14] MEDS ORDERED: PROMETHAZINE HCL 6.25 MG in SODIUM CHLORIDE 0.9% 50 ML IV PRN (18:15)
[2020-04-14] MEDS: POTASSIUM CHLORIDE 20 MEQ in D5W AND 1/2NSS 1,000 ML IV SCH (18:34)
[2020-04-14] MEDS: HYDROmorphone INJ 0.5 MG/0.5 ML SYR IV PRN (18:35)
[2020-04-14 20:50] LABS: Appearance Urine Clear (Clear); Bacteria Urine Automated Negative (Negative); Bilirubin Urine Negative (Negative); Blood Urine Negative (Negative); Color Urine Dark Yellow; Epithelial Cell Urine Auto 0-5 /lpf (0-5); Glucose Urine UA Negative (Negative); Ketones Urine Negative (Negative); Leukocyte Esterase Urine 1+ (Negative); Nitrite Urine Negative (Negative); RBC Urine Automated 0-4 /hpf (0-4); Specific Gravity Urine > 1.045 (1.000-1.030); Urobilinogen Urine Negative (Negative); pH Urine 7.5 (4.5-7.5)
[2020-04-14] MEDS: ESCITALOPRAM OXALATE 20 MG TAB PO SCH (21:00)
[2020-04-14] MEDS: LACTULOSE SYRUP 30 GM/45 ML UDP PO SCH (21:00)
[2020-04-14 21:01] LABS: Protein Urine Negative (Negative); Sulfosalicylic Acid Urine Negative (Negative)
[2020-04-14] MEDS: BuPROPion XL 150 MG TABCR PO SCH (21:01)
[2020-04-14] MEDS: METOPROLOL SUCC 50MG EXT REL TAB PO SCH (21:01)
[2020-04-15] MEDS: HYDROmorphone INJ 0.5 MG/0.5 ML SYR IV PRN ×2 (02:32→22:17)
[2020-04-15] MEDS: POTASSIUM CHLORIDE 20 MEQ in D5W AND 1/2NSS 1,000 ML IV SCH (04:31)
[2020-04-15] MEDS: ESCITALOPRAM OXALATE 20 MG TAB PO SCH (07:32)
[2020-04-15] MEDS: LACTULOSE SYRUP 30 GM/45 ML UDP PO SCH ×2 (07:32→20:42)
[2020-04-15] MEDS: FUROSEMIDE 20 MG TAB PO SCH (07:33)
[2020-04-15] MEDS: BuPROPion XL 150 MG TABCR PO SCH (07:33)
[2020-04-15] MEDS: METOPROLOL SUCC 50MG EXT REL TAB PO SCH (07:33)
[2020-04-15] MEDS: AMLODIPINE BESYLATE 5 MG TAB PO SCH (07:33)
[2020-04-15] MEDS: ASPIRIN 81 MG ECTAB PO SCH (07:33)
[2020-04-15] MEDS: FLUTICASONE/VILANTEROL 100/25MCG 14 PUFFS/INHALER INH SCH (07:34)
[2020-04-15] MEDS: FLUTICASONE PROPIONATE NA SPR 16 GM BTL NAE SCH (07:34)
[2020-04-15] MEDS: PANTOprazole 40 MG TAB PO SCH (07:34)
[2020-04-15] MEDS: LOSARTAN POTASSIUM 50 MG TAB PO SCH (07:34)
[2020-04-15] MEDS: UMECLIDINIUM BROMIDE 62.5MCG/BLISTER 7 PUFFS/INHALER INH SCH (07:35)
[2020-04-15 08:08] LABS: Hematocrit (blood only) 33.3 % (37-47); Hemoglobin 11.1 g/dL (12.0-16.0); Mean Corpuscular Hemoglobin 31.3 pg (25-34); Mean Corpuscular Hgb Conc 33.3 g/dL (32-36); Mean Corpuscular Volume 93.8 fL (80-100); Mean Platelet Volume 11.2 fL (7.4-10.4); Platelet Count 116 K/uL (130-400); RDW Coefficient of Variation 14.9 % (11.5-14.5); Red Blood Count 3.55 M/uL (4.2-5.4); White Blood Count 8.02 K/uL (4.8-10.8)
[2020-04-15 08:43] LABS: Albumin Level 3.3 gm/dl (3.4-5.0); BUN Creatinine Ratio 18.5 (10-20); Calcium 8.9 mg/dl (8.5-10.1); Creatinine Clr Calc Pharmacy 64.8 ml/min; Est GFR (African American) 78.2; Est GFR (Non-African American) 67.5
[2020-04-15 08:48] LABS: Bilirubin,Total 1.3 mg/dl (0.2-1); Globulin 3.3 gm/dl (2.5-4.0); Total Protein 6.6 gm/dl (6.4-8.2)
[2020-04-15] MEDS ORDERED: LEVOTHYROXINE SODIUM 37.5 MCG in SYRINGE 0 ML IV SCH (09:00)
[2020-04-15] MEDS: ACETAMINOPHEN 1000 MG/100 ML IV IV PRN ×2 (09:12→17:42)
--- NOTE | 2020-04-15 10:01 | XRay Report ---
XR chest 1V portable CLINICAL HISTORY: r/o pneumonia COMPARISON STUDY: Chest radiograph March 11, 2020. FINDINGS: There are median sternotomy wires, mediastinal surgical clips and a nasogastric tube. The t ip of the nasogastric tube is within the stomach. Cardiomegaly is noted. There is no evidence for pul monary edema. A small left pleural effusion is unchanged. Hazy left basilar opacity is unchanged. Thi s favors atelectasis. There is no pneumothorax. IMPRESSION: No acute findings. No change in appearance of the chest. Small left pleural effusion whi ch is likely chronic with associated atelectasis. ACT 112: Negative or not required by law. Electronically signed by: Bret Javed M.D. 04/15/2020 10:00 AM
--- NOTE | 2020-04-15 10:01 | XRay Report ---
KUB HISTORY: Status post placement of an enteric tube NGT placement confirmation COMPARISON: CT abdomen and pelvis 04/14/2020 FINDINGS: Status post placement of an enteric tube, distal tip terminating in the expected location o f the gastric fundus. Air-filled prominent and mildly dilated loops of small bowel are again noted th roughout the abdomen with decreased distention from comparison. Air is also noted within the large edvin wel. No renal calculi. No ureteral calculi. No pneumoperitoneum or pneumatosis. Lumbar levoscoliosis with advanced multilevel degenerative changes.. IMPRESSION: 1. Status post placement of an enteric tube, distal tip terminating in the expected location of the g astric fundus. 2. Mildly decreased small bowel distention. ACT 112: Negative or not required by law. The above report was generated using voice recognition software. It may contain grammatical, syntax o r spelling errors. Electronically signed by: Gerardo Woods M.D. 04/15/2020 9:59 AM
[2020-04-15] MEDS ORDERED: bisacodyL 10 MG SUPP PR STA (12:52)
--- NOTE | 2020-04-15 13:10 | Surgery Progress Note ---
Date of Service April 15, 2020 Assessment & Plan (1) Partial small bowel obstruction: This patient has a partial most likely small bowel obstruction. She has had some in the past that resolved spontaneously. She would be at a very high risk regarding surgical intervention. She has aortic stenosis as well as cirrhosis with large varices is identified in the CT scan. She is also had mesh placed on 2 occasions for her ventral hernia. 04/15/2020: febrile, tmax 39.1, no leukocytosis NGT with minimal output today, passing flatus Plan: Will clamp NGT Dulcolax suppository now Continue NPO for now encourage ambulation and OOB as much as possible Dr. Noonan has seen and examined pt, agrees with above. Admission and Anticipated Discharge Date Admission Date: April 14, 2020 Supervising Physician Co-Signing Physician Notes Homeless patient agree with the above note. She has begun to pass flatus. She has not had a bowel movement as yet. I would try a suppository to try to stimulate distal bowel function. Would clamp her NG tube and unclamp only for nausea. Subjective feeling better today no nausea passing some gas, no bowel movement yet no abdominal pain Physical Exam Constitutional: WD/WN, vitals as above no acute distress sitting up in chair at bedside Respiratory: normal respiratory effort; no respiratory distress Gastrointestinal (Abdomen): Inspection/Auscultation: abdomen not distended Percussion/Palpation: abdomen soft; abdomen nontender, no guarding and abdomen not rigid Skin: no rashes, warm and dry Psychiatric: Orientation: alert and oriented x 3 Results & Data ([facility]) Vital Signs (Past 12 Hours) Vital Signs Temp Pulse Pulse Resp BP Pulse Ox 04/15/20 13:05 38.2 C H 73 17 101/60 91 04/15/20 08:46 39.1 C H 04/15/20 07:39 38.4 C H 82 20 146/71 H 93 04/15/20 02:50 63 04/15/20 02:34 37.4 C 77 20 127/76 93 Laboratory Results 04/15/20 04/15/20 04/14/20 Range/Units 07:35 07:35 20:25 WBC 8.02 (4.8-10.8) K/uL RBC 3.55 L (4.2-5.4) M/uL Hgb 11.1 L (12.0-16.0) g/dL Hct 33.3 L (37-47) % MCV 93.8 (80-100) fL MCH 31.3 (25-34) pg MCHC 33.3 (32-36) g/dL RDW Std Deviation 51.0 H (36.4-46.3) fL RDW Coeff of Zelda 14.9 H (11.5-14.5) % Plt Count 116 L (130-400) K/uL MPV 11.2 H (7.4-10.4) fL Sodium 137 (136-145) mmol/L Potassium 4.0 (3.5-5.1) mmol/L Chloride 106 (98-107) mmol/L Carbon Dioxide 22 (21-32) mmol/L Anion Gap 9.0 (3-11) BUN 16 (7-18) mg/dl Creatinine 0.85 (0.6-1.2) mg/dl Est Cr Clr Drug Dosing 64.8 ml/min Est GFR ( Amer) 78.2 Est GFR (Non-Af Amer) 67.5 BUN/Creatinine Ratio 18.5 (10-20) Glucose 116 H (70-99) mg/dl Calcium 8.9 (8.5-10.1) mg/dl Total Bilirubin 1.3 H (0.2-1) mg/dl AST 43 H (15-37) U/L ALT 35 (12-78) U/L Alkaline Phosphatase 76 (45-117) U/L Total Protein 6.6 (6.4-8.2) gm/dl Albumin 3.3 L (3.4-5.0) gm/dl Globulin 3.3 (2.5-4.0) gm/dl Albumin/Globulin Ratio 1.0 (0.9-2) Folate (>5.38) ng/ml Urine Color Dark Yellow Urine Appearance Clear (Clear) Urine pH 7.5 (4.5-7.5) Ur Specific [place] > 1.045 H (1.000-1.030) Urine Protein Negative (Negative) Urine Glucose (UA) Negative (Negative) Urine Ketones Negative (Negative) Urine Blood Negative (Negative) Urine Nitrite Negative (Negative) Urine Bilirubin Negative (Negative) Urine Urobilinogen Negative (Negative) Ur Leukocyte Esterase 1+ H (Negative) Urine WBC (Auto) 10-30 H (0-5) /hpf Urine RBC (Auto) 0-4 (0-4) /hpf U Hyaline Cast (Auto) 1-5 (0-5) /lpf U Epithel Cells (Auto) 0-5 (0-5) /lpf Urine Bacteria (Auto) Negative (Negative) 04/14/20 Range/Units 17:52 WBC (4.8-10.8) K/uL RBC (4.2-5.4) M/uL Hgb (12.0-16.0) g/dL Hct (37-47) % MCV (80-100) fL MCH (25-34) pg MCHC (32-36) g/dL RDW Std Deviation (36.4-46.3) fL RDW Coeff of Zelda (11.5-14.5) % Plt Count (130-400) K/uL MPV (7.4-10.4) fL Sodium (136-145) mmol/L Potassium (3.5-5.1) mmol/L Chloride (98-107) mmol/L Carbon Dioxide (21-32) mmol/L Anion Gap (3-11) BUN (7-18) mg/dl Creatinine (0.6-1.2) mg/dl Est Cr Clr Drug Dosing ml/min Est GFR ( Amer) Est GFR (Non-Af Amer) BUN/Creatinine Ratio (10-20) Glucose (70-99) mg/dl Calcium (8.5-10.1) mg/dl Total Bilirubin (0.2-1) mg/dl AST (15-37) U/L ALT (12-78) U/L Alkaline Phosphatase (45-117) U/L Total Protein (6.4-8.2) gm/dl Albumin (3.4-5.0) gm/dl Globulin (2.5-4.0) gm/dl Albumin/Globulin Ratio (0.9-2) Folate > 24.00 (>5.38) ng/ml Urine Color Urine Appearance (Clear) Urine pH (4.5-7.5) Ur Specific [place] (1.000-1.030) Urine Protein (Negative) Urine Glucose (UA) (Negative) Urine Ketones (Negative) Urine Blood (Negative) Urine Nitrite (Negative) Urine Bilirubin (Negative) Urine Urobilinogen (Negative) Ur Leukocyte Esterase (Negative) Urine WBC (Auto) (0-5) /hpf Urine RBC (Auto) (0-4) /hpf U Hyaline Cast (Auto) (0-5) /lpf U Epithel Cells (Auto) (0-5) /lpf Urine Bacteria (Auto) (Negative)
--- NOTE | 2020-04-15 15:46 | Hospitalist Progress Note ---
Date of Service April 15, 2020 Assessment & Plan (1) Partial small bowel obstruction: This is a 75yo F with a PMH of multiple small bowel obstructions in the past, alcohol cirrhosis, CAD, COPD, thrombocytopenia and other medical problems listed below who presents with abdominal pain over the past week and vomiting beginning yesterday and was found to have partial small bowel obstruction. -History of multiple abdominal surgery with history of recurrent SBO -Diffuse abdominal pain, nausea and vomiting for the past few days. CT abdomen pelvis consistent with moderate grade small bowel obstruction with transition point likely within the lower abdomen, either at or near a small bowel anastomosis -Evaluated by general surgery with NGT placed. Monitor output. Conservative mgmt for now - would be very high risk surgical candidate due to h/o aortic stenosis as well as cirrhosis with large varices is identified in the CT scan. Plan to avoid surgical intervention if possible -Continue gentle IV fluids, pain control, antiemetics -Pulled out NG tube this morning and that was reintroduced Fever this morning Went up to 39 C No signs of infection and the chest x-ray did not show any infiltration The temperature went down later on Will not start any antibiotic as of now (2) Alcoholic cirrhosis of liver without ascites: Compensated. Continue lactuose (3) History of alcohol abuse: Endorses a few drinks weekly - last drink was last evening. At risk protocol with IV ativan No signs of withdrawal (4) Cellulitis of left leg: Recently admitted for LLE cellulitis and discharged on 10-day course of Augmentin. Cellulitis mostly resolved-continue to monitor (5) Essential hypertension: Normotensive. Give missed dose of metoprolol now. Resume amlodipine and losartan tomorrow Blood pressure is controlled (6) COPD (chronic obstructive pulmonary disease): Continue Spiriva, Advair, albuterol PRN. Duonebs PRN (7) Anxiety: Continue SSRI (8) Depression: Continue SSRI, wellbutrin (9) Thrombocytopenia: Platelets stable at 144 (10) Prolonged QT interval: Given zofran x 2 in ED but will discontinue due to h/o prolonged QT interval. Phenergan PRN instead (11) Hypothyroidism: IV levothyroxine ordered for now DVT Ppx: SCDs for now Code status: FULL PCP: Reinaldo Walls Dispo: Admitted to [facility]. Plan to return home once medically stable. Patient seen in collaboration with Dr. Villalba. Please see addendum. Admission and Anticipated Discharge Date Admission Date: April 14, 2020 Subjective 04/15/2020 The patient is seen and examined in medical telemetry unit She has history of multiple surgeries in the abdomen with recurrent SBO and was admitted yesterday with another attack of SBO Complains to abdominal discomfort with occasional pain without any nausea and/or vomiting Noted to have fever this morning but that has been subsiding now Review of Systems Review of Systems: All systems reviewed and are unremarkable except as noted below Gastrointestinal: + abdominal pain; no bloating, no nausea and no vomiting Musculoskeletal: No acute arthritis involving any joint Physical Exam Physical Exam: Lying in bed with some discomfort Constitutional: well developed, well nourished, + acute distress (Minimal distress due to abdominal discomfort) and + ill appearing Eyes: PERRL, conjunctivae normal, anicteric sclerae ENMT: external ear and nose normal, oropharynx normal Neck: trachea midline, no thyromegaly Respiratory: normal respiratory effort; no respiratory distress Auscultation: lungs clear to auscultation bilaterally Cardiovascular: Rate/Rhythm: regular rate and regular rhythm Heart Sounds: no murmur Gastrointestinal (Abdomen): Inspection/Auscultation: + abdomen distended and normal bowel sounds Percussion/Palpation: + abdomen tender (Mildly tender) and abdomen soft; no guarding Musculoskeletal: No acute arthritis involving any joints Results & Data Results & Data ([facility]) Vital Signs (Past 12 Hours) Vital Signs Temp Pulse Resp BP Pulse Ox 04/15/20 13:22 37.9 C H 04/15/20 13:05 38.2 C H 73 17 101/60 91 04/15/20 08:46 39.1 C H 04/15/20 07:39 38.4 C H 82 20 146/71 H 93 Laboratory Results Short CBC 04/15/20 Range/Units 07:35 WBC 8.02 (4.8-10.8) K/uL Hgb 11.1 L (12.0-16.0) g/dL Hct 33.3 L (37-47) % Plt Count 116 L (130-400) K/uL BMP 04/15/20 07:35 Sodium 137 Potassium 4.0 Chloride 106 Carbon Dioxide 22 BUN 16 Creatinine 0.85 Glucose 116 H Calcium 8.9 Liver Function 04/15/20 Range/Units 07:35 Total Bilirubin 1.3 H (0.2-1) mg/dl AST 43 H (15-37) U/L ALT 35 (12-78) U/L Alkaline Phosphatase 76 (45-117) U/L Albumin 3.3 L (3.4-5.0) gm/dl Urine 04/14/20 Range/Units 20:25 Urine Color Dark Yellow Urine Appearance Clear (Clear) Urine pH 7.5 (4.5-7.5) Ur Specific [place] > 1.045 H (1.000-1.030) Urine Protein Negative (Negative) Urine Glucose (UA) Negative (Negative) Medications Administered Current Inpatient Medications Acetaminophen (Acetaminophen 1000 Mg/100 Ml Iv) 1,000 mg IV Q8H PRN PRN Reason: Pain Stop: 04/18/20 09:14 Last Admin: 04/15/20 09:12 Dose: 1,000 mg Documented by: Albuterol (Albuterol 0.083% Nebu Soln 3 Ml Vial) 2.5 mg INH Q4R PRN PRN Reason: Shortness Of Breath Stop: 05/14/20 17:59 Albuterol (Albuterol Hfa 8 Gm Inhaler) 2 puffs INH Q4R PRN PRN Reason: Shortness Of Breath Or Wheezing Stop: 05/14/20 17:59 Amlodipine Besylate (Amlodipine Besylate 5 Mg Tab) 2.5 mg PO DAILY [facility] Stop: 05/15/20 08:59 Last Admin: 04/15/20 07:33 Dose: 2.5 mg Documented by: Aspirin (Aspirin 81 Mg Ectab) 81 mg PO DAILY [facility] Stop: 05/15/20 08:59 Last Admin: 04/15/20 07:33 Dose: 81 mg Documented by: Bupropion HCl (Bupropion Xl 150 Mg Tabcr) 150 mg PO QAM JUAN Stop: 05/14/20 17:59 Last Admin: 04/15/20 07:33 Dose: 150 mg Documented by: Escitalopram Oxalate (Escitalopram Oxalate 20 Mg Tab) 20 mg PO DAILY [facility] Stop: 05/14/20 17:59 Last Admin: 04/15/20 07:32 Dose: 20 mg Documented by: Fluticasone Propionate (Fluticasone Propionate Na Spr 16 Gm Btl) 2 sprays TATE DAILY [facility] Stop: 05/15/20 08:59 Last Admin: 04/15/20 07:34 Dose: 2 sprays Documented by: Fluticasone/Vilanterol (Fluticasone/Vilanterol 100/25mcg 14 Puffs/Inhaler) 1 puffs INH DAILY [facility]; Protocol Stop: 05/15/20 08:59 Last Admin: 04/15/20 07:34 Dose: 1 puffs Documented by: Furosemide (Furosemide 20 Mg Tab) 20 mg PO DAILY [facility] Stop: 05/15/20 08:59 Last Admin: 04/15/20 07:33 Dose: 20 mg Documented by: Hydromorphone HCl (Hydromorphone Inj 0.5 Mg/0.5 Ml Syr) 0.5 mg IV Q4H PRN PRN Reason: Pain Stop: 04/28/20 18:14 Last Admin: 04/15/20 02:32 Dose: 0.5 mg Documented by: Lorazepam (Ativan) 1 mg in 2 mls @ 2 mls/min IV ONE PRN; Protocol PRN Reason: EtoH Withdrawal AWSS 6-10 Stop: 05/14/20 17:59 Promethazine HCl 6.25 mg/ (Sodium Chloride) 50.25 mls @ 201 mls/hr IV Q6H PRN PRN Reason: Nausea And Vomiting Stop: 05/14/20 18:14 Last Infusion: 04/15/20 09:00 Dose: Infused Documented by: Levothyroxine Sodium 37.5 mcg/ (Syringe) 1.875 mls @ 2 mls/min IV Q72H [facility]; Protocol Stop: 05/15/20 08:59 Lactulose (Lactulose Syrup 30 Gm/45 Ml Udp) 30 gm PO BID [facility] Stop: 05/14/20 20:59 Last Admin: 04/15/20 07:32 Dose: 30 gm Documented by: Losartan Potassium (Losartan Potassium 50 Mg Tab) 50 mg PO DAILY [facility] Stop: 05/15/20 08:59 Last Admin: 04/15/20 07:34 Dose: 50 mg Documented by: Metoprolol Succinate (Metoprolol Succ 50mg Ext Rel Tab) 50 mg PO DAILY [facility] Stop: 05/14/20 17:59 Last Admin: 04/15/20 07:33 Dose: 50 mg Documented by: Oxymetazoline HCl (Oxymetazoline 0.05% 30 Ml Btl) 2 sprays NA BID PRN PRN Reason: epistaxis Stop: 04/17/20 14:47 Last Admin: 04/14/20 15:08 Dose: 2 sprays Documented by: Pantoprazole Sodium (Pantoprazole 40 Mg Tab) 40 mg PO DAILY [facility]; Protocol Stop: 05/15/20 08:59 Last Admin: 04/15/20 07:34 Dose: 40 mg Documented by: Umeclidinium [place] (Umeclidinium [place] 62.5mcg/Blister 7 Puffs/Inhaler) 1 puffs INH DAILY [facility]; Protocol Stop: 05/15/20 08:59 Last Admin: 04/15/20 07:35 Dose: 1 puffs Documented by:
[2020-04-15] MEDS: ALBUTEROL HFA 8 GM INHALER INH PRN ×2 (16:42→20:43)
[2020-04-15] MEDS ORDERED: PIPERACILL/TAZOBAC CONSULT ACTIVE PRN (18:56)
[2020-04-15] MEDS ORDERED: PIPERACILLIN/TAZOBACTAM 3.375 GM in DEXTROSE 5% 100 ML IV ONE (19:15)
[2020-04-15] MEDS ORDERED: ALBUT/IPRATROP 3MG/0.5MG NEB 3 ML VIAL NEB STA (21:13)
--- NOTE | 2020-04-15 21:40 | Electrocardiogram Report ---
Test Reason : Blood Pressure : / mmHG Vent. Rate : 074 BPM Atrial Rate : 074 BPM P-R Int : 194 ms QRS Dur : 082 ms QT Int : 430 ms P-R-T Axes : 064 014 057 degrees QTc Int : 477 ms Poor data quality, interpretation may be adversely affected Normal sinus rhythm Nonspecific ST abnormality Abnormal ECG When compared with ECG of 11-MAR-2020 16:17, No significant change was found Confirmed by Tello Juan ([id number]) on 04/15/2020 9:40:28 PM Referred By: Confirmed By:Tello Juan
[2020-04-16] MEDS: ACETAMINOPHEN 1000 MG/100 ML IV IV PRN ×2 (01:42→15:42)
[2020-04-16] MEDS: PIPERACILLIN/TAZOBACTAM 3.375 GM in DEXTROSE 5% 100 ML IV SCH ×3 (01:59→18:57)
[2020-04-16 07:19] LABS: Hemoglobin 10.7 g/dL (12.0-16.0); Mean Corpuscular Hemoglobin 31.6 pg (25-34); Mean Corpuscular Hgb Conc 33.4 g/dL (32-36); Mean Corpuscular Volume 94.4 fL (80-100); RDW Standard Deviation 51.2 fL (36.4-46.3); Red Blood Count 3.39 M/uL (4.2-5.4); White Blood Count 4.99 K/uL (4.8-10.8)
[2020-04-16] MEDS: UMECLIDINIUM BROMIDE 62.5MCG/BLISTER 7 PUFFS/INHALER INH SCH (07:20)
[2020-04-16] MEDS: FLUTICASONE/VILANTEROL 100/25MCG 14 PUFFS/INHALER INH SCH (07:21)
[2020-04-16] MEDS: FLUTICASONE PROPIONATE NA SPR 16 GM BTL NAE SCH (07:21)
[2020-04-16] MEDS: METOPROLOL SUCC 50MG EXT REL TAB PO SCH (07:22)
[2020-04-16] MEDS: PANTOprazole 40 MG TAB PO SCH (07:22)
[2020-04-16] MEDS: ESCITALOPRAM OXALATE 20 MG TAB PO SCH (07:25)
[2020-04-16] MEDS: LOSARTAN POTASSIUM 50 MG TAB PO SCH (07:25)
[2020-04-16] MEDS: AMLODIPINE BESYLATE 5 MG TAB PO SCH (07:25)
[2020-04-16] MEDS: ASPIRIN 81 MG ECTAB PO SCH (07:25)
[2020-04-16] MEDS: FUROSEMIDE 20 MG TAB PO SCH (07:26)
[2020-04-16] MEDS: BuPROPion XL 150 MG TABCR PO SCH (07:26)
[2020-04-16] MEDS: LACTULOSE SYRUP 30 GM/45 ML UDP PO SCH ×2 (07:26→21:11)
[2020-04-16 07:54] LABS: BUN Creatinine Ratio 15.2 (10-20); Calcium 8.6 mg/dl (8.5-10.1); Creatinine Clr Calc Pharmacy 56.7 ml/min; Est GFR (African American) 66.7; Est GFR (Non-African American) 57.5; Potassium 3.7 mmol/L (3.5-5.1)
[2020-04-16 07:58] LABS: Basophils # (auto) 0.02 K/uL (0-0.2); Basophils % (auto) 0.4 %; Eosinophils # (auto) 0.08 K/uL (0-0.5); Eosinophils % (auto) 1.6 %; Immature Granulocytes # (auto) 0.02 K/uL (0.00-0.02); Immature Granulocytes % (auto) 0.4 %; Lymphocytes # (auto) 0.68 K/uL (1.2-3.4); Lymphocytes % (auto) 13.6 %; Neutrophils # (auto) 3.49 K/uL (1.4-6.5); Platelet Count 79 K/uL (130-400); Platelet Estimate Decreased (Normal)
[2020-04-16] MEDS: ALBUT/IPRATROP 3MG/0.5MG NEB 3 ML VIAL NEB PRN (08:56)
--- NOTE | 2020-04-16 10:39 | Surgery Progress Note ---
Date of Service April 16, 2020 Assessment & Plan (1) SBO (small bowel obstruction): SBO resolved DC NG tube Begin clear liquids Admission and Anticipated Discharge Date Admission Date: April 14, 2020 Subjective Patient feels well today. Denies nausea and vomiting Has had multiple bowel movements and is passing flatus. Physical Exam Gastrointestinal (Abdomen): Inspection/Auscultation: normal bowel sounds; abdomen not distended Percussion/Palpation: abdomen soft; abdomen nontender Results & Data ([facility]) Vital Signs (Past 12 Hours) Vital Signs Temp Pulse Resp BP BP Pulse Ox 04/16/20 08:56 74 20 96 04/16/20 07:24 37.9 C H 127/74 93 04/16/20 06:40 37.4 C 04/16/20 05:10 37.9 C H 04/16/20 03:49 37.9 C H 72 20 130/75 93 04/15/20 22:59 37.8 C H 73 20 101/58 L 92
--- NOTE | 2020-04-16 11:31 | Hospitalist Progress Note ---
Date of Service April 16, 2020 Assessment & Plan (1) Partial small bowel obstruction: This is a 75yo F with a PMH of multiple small bowel obstructions in the past, alcohol cirrhosis, CAD, COPD, thrombocytopenia and other medical problems listed below who presents with abdominal pain over the past week and vomiting beginning yesterday and was found to have partial small bowel obstruction. -History of multiple abdominal surgery with history of recurrent SBO -Diffuse abdominal pain, nausea and vomiting for the past few days. CT abdomen pelvis consistent with moderate grade small bowel obstruction with transition point likely within the lower abdomen, either at or near a small bowel anastomosis -Evaluated by general surgery with NGT placed. Monitor output. Conservative mgmt for now - would be very high risk surgical candidate due to h/o aortic stenosis as well as cirrhosis with large varices is identified in the CT scan. Plan to avoid surgical intervention if possible -Continue gentle IV fluids, pain control, antiemetics -Pulled out NG tube this morning and that was reintroduced -Clinically a lot better today -We will discontinue NG tube and start clears orally -Likely discharge tomorrow Fever this morning Went up to 39 C No signs of infection and the chest x-ray did not show any infiltration The temperature went down later on Likely has cellulitis involving the right leg is most likely cause for the compression Continue dose Zosyn for now and transition to oral Augmentin on discharge (2) Alcoholic cirrhosis of liver without ascites: Compensated. Continue lactuose (3) History of alcohol abuse: Endorses a few drinks weekly - last drink was last evening. At risk protocol with IV ativan No signs of withdrawal (4) Cellulitis of left leg: Recently admitted for LLE cellulitis and discharged on 10-day course of Augmentin. Cellulitis mostly resolved-continue to monitor (5) Essential hypertension: Normotensive. Give missed dose of metoprolol now. Resume amlodipine and losartan tomorrow Blood pressure is controlled (6) COPD (chronic obstructive pulmonary disease): Continue Spiriva, Advair, albuterol PRN. Duonebs PRN (7) Anxiety: Continue SSRI (8) Depression: Continue SSRI, wellbutrin (9) Thrombocytopenia: Platelets stable at 144 (10) Prolonged QT interval: Given zofran x 2 in ED but will discontinue due to h/o prolonged QT interval. Phenergan PRN instead (11) Hypothyroidism: IV levothyroxine ordered for now DVT Ppx: SCDs for now Code status: FULL PCP: Reinaldo Walls Dispo: Admitted to [facility]. Plan to return home once medically stable. Likely discharge tomorrow Admission and Anticipated Discharge Date Admission Date: April 14, 2020 Subjective 04/15/2020 The patient is seen and examined in medical telemetry unit She has history of multiple surgeries in the abdomen with recurrent SBO and was admitted yesterday with another attack of SBO Complains to abdominal discomfort with occasional pain without any nausea and/or vomiting Noted to have fever this morning but that has been subsiding now 04/16/2020 Patient was seen and examined in medical telemetry unit She denies any abdominal pain, nausea and or vomiting Her bowel has been moving No more fever and her white count has been normal Review of Systems Review of Systems: All systems reviewed and are unremarkable except as noted below Gastrointestinal: no abdominal pain, no bloating, no nausea and no vomiting Musculoskeletal: No acute arthritis involving any joint Physical Exam 2 Physical Exam: Sitting on a chair without any acute distress Constitutional: well developed and well nourished; no acute distress (Minimal distress due to abdominal discomfort) and not ill appearing Eyes: PERRL, conjunctivae normal, anicteric sclerae ENMT: external ear and nose normal, oropharynx normal Neck: trachea midline, no thyromegaly Respiratory: normal respiratory effort; no respiratory distress Auscultation: lungs clear to auscultation bilaterally Cardiovascular: Rate/Rhythm: regular rate and regular rhythm Heart Sounds: no murmur Gastrointestinal (Abdomen): Inspection/Auscultation: normal bowel sounds; abdomen not distended Percussion/Palpation: abdomen soft; abdomen nontender (Mildly tender) and no guarding Musculoskeletal: No acute arthritis involving any joints Results & Data Results & Data ([facility]) Vital Signs (Past 12 Hours) Vital Signs Temp Pulse Resp BP BP Pulse Ox 04/16/20 08:56 74 20 96 04/16/20 07:24 37.9 C H 127/74 93 04/16/20 06:40 37.4 C 04/16/20 05:10 37.9 C H 04/16/20 03:49 37.9 C H 72 20 130/75 93 Laboratory Results Short CBC 04/16/20 Range/Units 06:42 WBC 4.99 (4.8-10.8) K/uL Hgb 10.7 L (12.0-16.0) g/dL Hct 32.0 L (37-47) % Plt Count 79 L (130-400) K/uL BMP 04/16/20 06:42 Sodium 137 Potassium 3.7 Chloride 105 Carbon Dioxide 23 BUN 15 Creatinine 0.97 Glucose 90 Calcium 8.6 Medications Administered Current Inpatient Medications Acetaminophen (Acetaminophen 1000 Mg/100 Ml Iv) 1,000 mg IV Q8H PRN PRN Reason: Pain Stop: 04/18/20 09:14 Last Admin: 04/16/20 01:42 Dose: 1,000 mg Documented by: Albuterol (Albut/Ipratrop 3mg/0.5mg Neb 3 Ml Vial) 3 ml NEB Q2H PRN PRN Reason: Wheezing Stop: 05/15/20 21:15 Last Admin: 04/16/20 08:56 Dose: 3 ml Documented by: Amlodipine Besylate (Amlodipine Besylate 5 Mg Tab) 2.5 mg PO DAILY [facility] Stop: 05/15/20 08:59 Last Admin: 04/16/20 07:25 Dose: 2.5 mg Documented by: Aspirin (Aspirin 81 Mg Ectab) 81 mg PO DAILY [facility] Stop: 05/15/20 08:59 Last Admin: 04/16/20 07:25 Dose: 81 mg Documented by: Bupropion HCl (Bupropion Xl 150 Mg Tabcr) 150 mg PO QAM [facility] Stop: 05/14/20 17:59 Last Admin: 04/16/20 07:26 Dose: 150 mg Documented by: Escitalopram Oxalate (Escitalopram Oxalate 20 Mg Tab) 20 mg PO DAILY [facility] Stop: 05/14/20 17:59 Last Admin: 04/16/20 07:25 Dose: 20 mg Documented by: Fluticasone Propionate (Fluticasone Propionate Na Spr 16 Gm Btl) 2 sprays TATE DAILY [facility] Stop: 05/15/20 08:59 Last Admin: 04/16/20 07:21 Dose: 2 sprays Documented by: Fluticasone/Vilanterol (Fluticasone/Vilanterol 100/25mcg 14 Puffs/Inhaler) 1 puffs INH DAILY [facility]; Protocol Stop: 05/15/20 08:59 Last Admin: 04/16/20 07:21 Dose: 1 puffs Documented by: Furosemide (Furosemide 20 Mg Tab) 20 mg PO DAILY [facility] Stop: 05/15/20 08:59 Last Admin: 04/16/20 07:26 Dose: 20 mg Documented by: Hydromorphone HCl (Hydromorphone Inj 0.5 Mg/0.5 Ml Syr) 0.5 mg IV Q4H PRN PRN Reason: Pain Stop: 04/28/20 18:14 Last Admin: 04/15/20 22:17 Dose: 0.5 mg Documented by: Lorazepam (Ativan) 1 mg in 2 mls @ 2 mls/min IV ONE PRN; Protocol PRN Reason: EtoH Withdrawal AWSS 6-10 Stop: 05/14/20 17:59 Promethazine HCl 6.25 mg/ (Sodium Chloride) 50.25 mls @ 201 mls/hr IV Q6H PRN PRN Reason: Nausea And Vomiting Stop: 05/14/20 18:14 Last Infusion: 04/15/20 09:00 Dose: Infused Documented by: Levothyroxine Sodium 37.5 mcg/ (Syringe) 1.875 mls @ 2 mls/min IV Q72H [facility]; Protocol Stop: 05/15/20 08:59 Piperacillin Sod/Tazobactam (Sod 3.375 gm/ Dextrose) 115 mls @ 28.75 mls/hr IV Q8H [facility]; Protocol Stop: 04/25/20 17:59 Last Admin: 04/16/20 10:30 Dose: 28.8 mls/hr Documented by: Lactulose (Lactulose Syrup 30 Gm/45 Ml Udp) 30 gm PO BID [facility] Stop: 05/14/20 20:59 Last Admin: 04/16/20 07:26 Dose: 30 gm Documented by: Losartan Potassium (Losartan Potassium 50 Mg Tab) 50 mg PO DAILY [facility] Stop: 05/15/20 08:59 Last Admin: 04/16/20 07:25 Dose: 50 mg Documented by: Metoprolol Succinate (Metoprolol Succ 50mg Ext Rel Tab) 50 mg PO DAILY [facility] Stop: 05/14/20 17:59 Last Admin: 04/16/20 07:22 Dose: 50 mg Documented by: Miscellaneous Information (Piperacill/Tazobac Consult Active) 1 ea N/A UD PRN PRN Reason: Consult Stop: 04/25/20 18:55 Oxymetazoline HCl (Oxymetazoline 0.05% 30 Ml Btl) 2 sprays NA BID PRN PRN Reason: epistaxis Stop: 04/17/20 14:47 Last Admin: 04/14/20 15:08 Dose: 2 sprays Documented by: Pantoprazole Sodium (Pantoprazole 40 Mg Tab) 40 mg PO DAILY [facility]; Protocol Stop: 05/15/20 08:59 Last Admin: 04/16/20 07:22 Dose: 40 mg Documented by: Umeclidinium [place] (Umeclidinium [place] 62.5mcg/Blister 7 Puffs/Inhaler) 1 puffs INH DAILY [facility]; Protocol Stop: 05/15/20 08:59 Last Admin: 04/16/20 07:20 Dose: 1 puffs Documented by:
[2020-04-16 20:46] LABS: BUN Creatinine Ratio 13.7 (10-20); Calcium 8.3 mg/dl (8.5-10.1); Creatinine Clr Calc Pharmacy 61.1 ml/min; Magnesium 1.8 mg/dl (1.8-2.4); Potassium 3.2 mmol/L (3.5-5.1)
[2020-04-17] MEDS: PIPERACILLIN/TAZOBACTAM 3.375 GM in DEXTROSE 5% 100 ML IV SCH ×2 (01:41→10:12)
[2020-04-17] MEDS: METOPROLOL SUCC 50MG EXT REL TAB PO SCH (07:48)
[2020-04-17] MEDS: FLUTICASONE PROPIONATE NA SPR 16 GM BTL NAE SCH (07:48)
[2020-04-17] MEDS: ESCITALOPRAM OXALATE 20 MG TAB PO SCH (07:49)
[2020-04-17] MEDS: AMLODIPINE BESYLATE 5 MG TAB PO SCH (07:49)
[2020-04-17] MEDS: FUROSEMIDE 20 MG TAB PO SCH (07:49)
[2020-04-17] MEDS: ASPIRIN 81 MG ECTAB PO SCH (07:49)
[2020-04-17] MEDS: LOSARTAN POTASSIUM 50 MG TAB PO SCH (07:49)
[2020-04-17] MEDS: LACTULOSE SYRUP 30 GM/45 ML UDP PO SCH (07:50)
[2020-04-17] MEDS: BuPROPion XL 150 MG TABCR PO SCH (07:50)
[2020-04-17] MEDS: FLUTICASONE/VILANTEROL 100/25MCG 14 PUFFS/INHALER INH SCH (07:50)
[2020-04-17] MEDS: UMECLIDINIUM BROMIDE 62.5MCG/BLISTER 7 PUFFS/INHALER INH SCH (07:50)
[2020-04-17] MEDS: PANTOprazole 40 MG TAB PO SCH (09:07)
--- NOTE | 2020-04-17 11:34 | Hospitalist Progress Note ---
Date of Service April 17, 2020 Assessment & Plan (1) Partial small bowel obstruction: This is a 75yo F with a PMH of multiple small bowel obstructions in the past, alcohol cirrhosis, CAD, COPD, thrombocytopenia and other medical problems listed below who presents with abdominal pain over the past week and vomiting beginning yesterday and was found to have partial small bowel obstruction. -History of multiple abdominal surgery with history of recurrent SBO -Diffuse abdominal pain, nausea and vomiting for the past few days. CT abdomen pelvis consistent with moderate grade small bowel obstruction with transition point likely within the lower abdomen, either at or near a small bowel anastomosis -Evaluated by general surgery with NGT placed. Monitor output. Conservative mgmt for now - would be very high risk surgical candidate due to h/o aortic stenosis as well as cirrhosis with large varices is identified in the CT scan. Plan to avoid surgical intervention if possible -Continue gentle IV fluids, pain control, antiemetics -Pulled out NG tube this morning and that was reintroduced -Clinically a lot better today -Tolerating clears and will advance diet as tolerated -We will get PT and OT evaluation and likely to be discharged this afternoon Urinary tract infection Fever this morning of 04/15/2020 Went up to 39 C No signs of infection and the chest x-ray did not show any infiltration The temperature went down later on Likely has cellulitis involving the right leg is most likely cause for the compression Will change Zosyn to Keflex on discharge (2) Alcoholic cirrhosis of liver without ascites: Compensated. Continue lactuose (3) History of alcohol abuse: Endorses a few drinks weekly - last drink was last evening. At risk protocol with IV ativan No signs of withdrawal (4) Cellulitis of left leg: Recently admitted for LLE cellulitis and discharged on 10-day course of Augmentin. Cellulitis mostly resolved-continue to monitor Chronic ischemic changes of the legs worse on the right than the left Evidence of cellulitis (5) Essential hypertension: Normotensive. Give missed dose of metoprolol now. Resume amlodipine and losartan tomorrow Blood pressure is controlled (6) COPD (chronic obstructive pulmonary disease): Continue Spiriva, Advair, albuterol PRN. Duonebs PRN (7) Anxiety: Continue SSRI (8) Depression: Continue SSRI, wellbutrin (9) Thrombocytopenia: Platelets stable at 144 (10) Prolonged QT interval: Given zofran x 2 in ED but will discontinue due to h/o prolonged QT interval. Phenergan PRN instead (11) Hypothyroidism: IV levothyroxine ordered for now DVT Ppx: SCDs for now Code status: FULL PCP: Reinaldo Walls Dispo: Admitted to [facility]. Plan to return home once medically stable. Discharge this afternoon following PT and OT evaluation Admission and Anticipated Discharge Date Admission Date: April 14, 2020 Subjective 04/15/2020 The patient is seen and examined in medical telemetry unit She has history of multiple surgeries in the abdomen with recurrent SBO and was admitted yesterday with another attack of SBO Complains to abdominal discomfort with occasional pain without any nausea and/or vomiting Noted to have fever this morning but that has been subsiding now 04/16/2020 Patient was seen and examined in medical telemetry unit She denies any abdominal pain, nausea and or vomiting Her bowel has been moving No more fever and her white count has been normal 04/17/2020 The patient was seen and examined in medical telemetry unit She denies any complaints today and she has been having bowel movements No more fever and no chills Denies any urinary symptoms Review of Systems Review of Systems: All systems reviewed and are unremarkable except as noted below Musculoskeletal: No acute arthritis involving any joint Physical Exam Physical Exam: Sitting on a chair without any acute distress Constitutional: well developed and well nourished; no acute distress (Minimal distress due to abdominal discomfort) and not ill appearing Eyes: PERRL, conjunctivae normal, anicteric sclerae ENMT: external ear and nose normal, oropharynx normal Neck: trachea midline, no thyromegaly Respiratory: normal respiratory effort; no respiratory distress Auscultation: lungs clear to auscultation bilaterally Cardiovascular: Rate/Rhythm: regular rate and regular rhythm Heart Sounds: + murmur (2/6 ejection systolic murmur over precordium) Gastrointestinal (Abdomen): Inspection/Auscultation: normal bowel sounds; abdomen not distended Percussion/Palpation: abdomen soft; abdomen nontender (Mildly tender) and no guarding Musculoskeletal: No acute arthritis involving any joints Skin: no rashes Neurologic: moves all extremities; no focal motor deficits Lymphatic: no cervical or axillary lymphadenopathy Results & Data Results & Data ([facility]) Vital Signs (Past 12 Hours) Vital Signs Temp Pulse Resp BP BP Pulse Ox 04/17/20 07:09 37.4 C 82 18 145/78 H 92 04/17/20 03:30 37.5 C 78 20 143/82 H 94 Laboratory Results BMP 04/16/20 20:15 Sodium 136 Potassium 3.2 L Chloride 105 Carbon Dioxide 23 BUN 12 Creatinine 0.90 Glucose 91 Calcium 8.3 L Medications Administered Current Inpatient Medications Acetaminophen (Acetaminophen 1000 Mg/100 Ml Iv) 1,000 mg IV Q8H PRN PRN Reason: Pain Stop: 04/18/20 09:14 Last Admin: 04/16/20 15:42 Dose: 1,000 mg Documented by: Albuterol (Albut/Ipratrop 3mg/0.5mg Neb 3 Ml Vial) 3 ml NEB Q2H PRN PRN Reason: Wheezing Stop: 05/15/20 21:15 Last Admin: 04/16/20 08:56 Dose: 3 ml Documented by: Amlodipine Besylate (Amlodipine Besylate 5 Mg Tab) 2.5 mg PO DAILY JUAN Stop: 05/15/20 08:59 Last Admin: 04/17/20 07:49 Dose: 2.5 mg Documented by: Aspirin (Aspirin 81 Mg Ectab) 81 mg PO DAILY JUAN Stop: 05/15/20 08:59 Last Admin: 04/17/20 07:49 Dose: 81 mg Documented by: Bupropion HCl (Bupropion Xl 150 Mg Tabcr) 150 mg PO QAM JUAN Stop: 05/14/20 17:59 Last Admin: 04/17/20 07:50 Dose: 150 mg Documented by: Escitalopram Oxalate (Escitalopram Oxalate 20 Mg Tab) 20 mg PO DAILY JUAN Stop: 05/14/20 17:59 Last Admin: 04/17/20 07:49 Dose: 20 mg Documented by: Fluticasone Propionate (Fluticasone Propionate Na Spr 16 Gm Btl) 2 sprays TATE DAILY JUAN Stop: 05/15/20 08:59 Last Admin: 04/17/20 07:48 Dose: 2 sprays Documented by: Fluticasone/Vilanterol (Fluticasone/Vilanterol 100/25mcg 14 Puffs/Inhaler) 1 puffs INH DAILY [facility]; Protocol Stop: 05/15/20 08:59 Last Admin: 04/17/20 07:50 Dose: 1 puffs Documented by: Furosemide (Furosemide 20 Mg Tab) 20 mg PO DAILY [facility] Stop: 05/15/20 08:59 Last Admin: 04/17/20 07:49 Dose: 20 mg Documented by: Hydromorphone HCl (Hydromorphone Inj 0.5 Mg/0.5 Ml Syr) 0.5 mg IV Q4H PRN PRN Reason: Pain Stop: 04/28/20 18:14 Last Admin: 04/15/20 22:17 Dose: 0.5 mg Documented by: Lorazepam (Ativan) 1 mg in 2 mls @ 2 mls/min IV ONE PRN; Protocol PRN Reason: EtoH Withdrawal AWSS 6-10 Stop: 05/14/20 17:59 Promethazine HCl 6.25 mg/ (Sodium Chloride) 50.25 mls @ 201 mls/hr IV Q6H PRN PRN Reason: Nausea And Vomiting Stop: 05/14/20 18:14 Last Infusion: 04/15/20 09:00 Dose: Infused Documented by: Levothyroxine Sodium 37.5 mcg/ (Syringe) 1.875 mls @ 2 mls/min IV Q72H JUAN; Protocol Stop: 05/15/20 08:59 Piperacillin Sod/Tazobactam (Sod 3.375 gm/ Dextrose) 115 mls @ 28.75 mls/hr IV Q8H JAUN; Protocol Stop: 04/25/20 17:59 Last Admin: 04/17/20 10:12 Dose: 28.8 mls/hr Documented by: Lactulose (Lactulose Syrup 30 Gm/45 Ml Udp) 30 gm PO BID JUAN Stop: 05/14/20 20:59 Last Admin: 04/17/20 07:50 Dose: Not Given Documented by: Losartan Potassium (Losartan Potassium 50 Mg Tab) 50 mg PO DAILY JUAN Stop: 05/15/20 08:59 Last Admin: 04/17/20 07:49 Dose: 50 mg Documented by: Metoprolol Succinate (Metoprolol Succ 50mg Ext Rel Tab) 50 mg PO DAILY JUAN Stop: 05/14/20 17:59 Last Admin: 04/17/20 07:48 Dose: 50 mg Documented by: Miscellaneous Information (Piperacill/Tazobac Consult Active) 1 ea N/A UD PRN PRN Reason: Consult Stop: 04/25/20 18:55 Oxymetazoline HCl (Oxymetazoline 0.05% 30 Ml Btl) 2 sprays NA BID PRN PRN Reason: epistaxis Stop: 04/17/20 14:47 Last Admin: 04/14/20 15:08 Dose: 2 sprays Documented by: Pantoprazole Sodium (Pantoprazole 40 Mg Tab) 40 mg PO DAILY JUAN; Protocol Stop: 05/15/20 08:59 Last Admin: 04/17/20 09:07 Dose: 40 mg Documented by: Umeclidinium Keo (Umeclidinium Keo 62.5mcg/Blister 7 Puffs/Inhaler) 1 puffs INH DAILY JUAN; Protocol Stop: 05/15/20 08:59 Last Admin: 04/17/20 07:50 Dose: 1 puffs Documented by:
[2020-04-17] MEDS: ALBUT/IPRATROP 3MG/0.5MG NEB 3 ML VIAL NEB PRN (13:52)
--- NOTE | 2020-04-18 07:33 | Discharge Summary ---
Date of Service April 18, 2020 Admission HPI Per Admitting Provider This is a 75yo F with a PMH of multiple small bowel obstructions in the past, alcohol cirrhosis, CAD, COPD, thrombocytopenia and other medical problems listed below who presents with abdominal pain over the past week and vomiting beginning yesterday. Describes abdominal pain as diffuse and aching with radiation towards her back. Developed nausea and vomiting yesterday and endorses multiple episodes. Denies hematemesis. Has been having small bowel movements up until 2 days ago. Was able to pass flatus yesterday but not today. Did not take any morning medications, including lactulose. History of multiple small bowel obstructions in the past, one requiring surgical release in 2004 with resection. Patient recently admitted for lower extremity cellulitis which seems to have resolved after outpatient course of Augmentin. Currently feeling well after being given Zofran and Dilaudid in ED. NG tube ordered. Denies any fever, chills, lightheadedness, visual changes, chest pain, palpitations, wheezing, dysuria or diarrhea. Admission Exam Per Admitting Provider Physical Exam: General Appearance: WD/WN, vitals as above, NAD, sitting up in bed, pleasant, conversing easily Head: normocephalic, atraumatic Eyes: normal inspection, PERRL, conjunctivae normal, anicteric sclerae ENT: external ear and nose normal, oropharynx normal Neck: normal visual inspection, trachea midline, no thyromegaly Respiratory: normal respiratory effort, lungs clear to auscultation, no wheeze, rales, rhonchi. No accessory muscle use Cardiovascular: regular rate, rhythm, +systolic murmur, normal peripheral pulses, no BLE edema. Vessels: no JVD Chest: normal inspection of chest Abdomen/GI: normal bowel sounds, soft but mildly distended, diffuse TTP (L>R) but no guarding, no hepatosplenomegaly Extremities/Musculoskeletal: no cyanosis or clubbing, extremities motor strength 5/5. LLE with some erythema. No edema or warmth Neurologic: PERRL, EOMI, accommodation nl, CN's II-XI intact bilaterally and moves all extremities Psychiatric: A+Ox3, euthymic affect Skin: no rashes, normal color, warm/dry Principal Diagnosis Partial small bowel obstruction-resolved with conservative management, UTI Discharge Exam Constitutional well developed and well nourished; no acute distress (Minimal distress due to abdominal discomfort) and not ill appearing Eyes PERRL, conjunctivae normal, anicteric sclerae ENMT external ear and nose normal, oropharynx normal Neck trachea midline, no thyromegaly Respiratory normal respiratory effort; no respiratory distress Auscultation: lungs clear to auscultation bilaterally Cardiovascular Rate/Rhythm: regular rate and regular rhythm Heart Sounds: + murmur (2/6 ejection systolic murmur over precordium) Gastrointestinal (Abdomen) Inspection/Auscultation: normal bowel sounds; abdomen not distended Percussion/Palpation: abdomen soft; abdomen nontender (Mildly tender) and no guarding Skin no rashes Neurologic moves all extremities; no focal motor deficits Lymphatic no cervical or axillary lymphadenopathy Discharge Data Allergies Allergy/AdvReac Type Severity Reaction Status Date / Time Obsyydr-Yir-Ntb Reductase AdvReac Cough Verified 04/14/20 11:24 Inhibitor Consultations 04/14/20 13:26 ED Decision to Admit Stat 04/14/20 13:27 Consult General Surgery Stat 04/14/20 17:34 Consult General Surgery Routine Ordered Studies 04/14/20 11:23 CT abd pelvis IV con only Stat Hospital Course (1) Partial small bowel obstruction: This is a 75yo F with a PMH of multiple small bowel obstructions in the past, alcohol cirrhosis, CAD, COPD, thrombocytopenia and other medical problems listed below who presents with abdominal pain over the past week and vomiting beginning yesterday and was found to have partial small bowel obstruction. -History of multiple abdominal surgery with history of recurrent SBO -Diffuse abdominal pain, nausea and vomiting for the past few days. CT abdomen pelvis consistent with moderate grade small bowel obstruction with transition point likely within the lower abdomen, either at or near a small bowel anastomosis -Evaluated by general surgery with NGT placed. Monitor output. Conservative mgmt for now - would be very high risk surgical candidate due to h/o aortic stenosis as well as cirrhosis with large varices is identified in the CT scan. Plan to avoid surgical intervention if possible -Continue gentle IV fluids, pain control, antiemetics -Pulled out NG tube this morning and that was reintroduced -Clinically a lot better today -Tolerating clears and will advance diet as tolerated -We will get PT and OT evaluation and likely to be discharged this afternoon Urinary tract infection Fever this morning of 04/15/2020 Went up to 39 C No signs of infection and the chest x-ray did not show any infiltration The temperature went down later on Likely has cellulitis involving the right leg is most likely cause for the compression Will change Zosyn to Keflex on discharge (2) Alcoholic cirrhosis of liver without ascites: Compensated. Continue lactuose (3) History of alcohol abuse: Endorses a few drinks weekly - last drink was last evening. At risk protocol with IV ativan No signs of withdrawal (4) Cellulitis of left leg: Recently admitted for LLE cellulitis and discharged on 10-day course of Augmentin. Cellulitis mostly resolved-continue to monitor Chronic ischemic changes of the legs worse on the right than the left Evidence of cellulitis (5) Essential hypertension: Normotensive. Give missed dose of metoprolol now. Resume amlodipine and losartan tomorrow Blood pressure is controlled (6) COPD (chronic obstructive pulmonary disease): Continue Spiriva, Advair, albuterol PRN. Duonebs PRN (7) Anxiety: Continue SSRI (8) Depression: Continue SSRI, wellbutrin (9) Thrombocytopenia: Platelets stable at 144 (10) Prolonged QT interval: Given zofran x 2 in ED but will discontinue due to h/o prolonged QT interval. Phenergan PRN instead (11) Hypothyroidism: IV levothyroxine ordered for now DVT Ppx: SCDs for now Code status: FULL PCP: Reinaldo Walls Dispo: Admitted to [facility]. Plan to return home once medically stable. Discharge this afternoon following PT and OT evaluation Total Time Total Time Spent Total Time Spent (In Minutes): 35 minutes Total Time Includes: Examination of the Patient, Discharge Planning, Medication Reconciliation and Communication With Other Providers Discharge Plan Discharge Items Patient Disposition: Home - Self-Care Reason For Visit: RECURRENT SBO Discharge Diagnosis: Partial small bowel obstruction-resolved with conservative management, UTI Condition on Discharge: Good Activity: Resume your previous activity Non-emergency contact: Primary Care Provider Call non-emergency contact if: you have any medication questions and your symptoms worsen Follow-up/Referrals: Destiny Walls DO [Primary Care Provider] - 04/23/20 11:10 am (Date & Time 04/23/2020 11:10 AM Provider Destiny Walls DO [facility] ) Diet: Regular Addtl Attending Provider Instructions: Please take precaution to avoid falls To drink more fluid as advised Pending Studies at Discharge: No Stand-Alone Forms: [facility], Smoking Cessation Medications and DC Order Prescriptions: New cephalexin [Keflex] 500 mg capsule 500 mg PO TID Qty: 15 RF: 0 Continued sennosides [senna] 8.6 mg Tablet 8.6 mg PO BID PRN (Reason: Constipation) RF: 0 metoprolol succinate 50 mg tablet extended release 24 hr 50 mg PO DAILY RF: 0 aspirin 81 mg Tablet,Delayed Release (Dr/Ec) 81 mg PO DAILY RF: 0 levothyroxine 75 mcg Tablet 75 mcg PO DAILY RF: 0 nitroglycerin [Nitrostat] 0.4 mg Tablet, Sublingual 1 dose sublingual UD PRN (Reason: Chest Pain) RF: 0 omeprazole 20 mg Capsule,Delayed Release(Dr/Ec) 20 mg PO DAILY RF: 0 montelukast 10 mg Tablet 10 mg PO DAILY RF: 0 folic acid 1 mg Tablet 1 mg PO DAILY RF: 0 multivitamin Tablet 1 tab PO DAILY RF: 0 losartan 50 mg Tablet 50 mg PO DAILY RF: 0 albuterol sulfate 2.5 mg /3 mL (0.083 %) Solution For Nebulization 2.5 mg INHALATION Q4 PRN (Reason: Shortness Of Breath) RF: 0 cyanocobalamin (vitamin B-12) 1,000 mcg/mL Solution 1,000 mcg IM MONTHLY RF: 0 gabapentin 300 mg Capsule 300 mg PO TID RF: 0 furosemide 20 mg Tablet 20 mg PO DAILY RF: 0 lactulose 10 gram/15 mL Solution 30 ml PO BID RF: 0 levocetirizine 5 mg Tablet 5 mg PO PM RF: 0 escitalopram oxalate 20 mg Tablet 20 mg PO DAILY RF: 0 triamcinolone acetonide 0.1 % Ointment 1 applic TOPICAL DIRECTED PRN (Reason: Skin Irritation) RF: 0 trazodone 50 mg tablet 50 mg PO HS RF: 0 bupropion HCl [Wellbutrin XL] 150 mg Tablet Extended Release 24 Hr 150 mg PO QAM RF: 0 amlodipine 5 mg tablet 2.5 mg PO DAILY RF: 0 Vitron-C 65 mg iron- 125 mg Tablet,Delayed Release (Dr/Ec) 1 tab PO DAILY RF: 0 fluticasone propion-salmeterol [Advair Diskus] 250-50 mcg/dose blister with device 1 inh INHALATION BID RF: 0 ondansetron HCl [Zofran] 8 mg tablet 8 mg PO Q12 PRN (Reason: Nausea) RF: 0 bisacodyl [Dulcolax (bisacodyl)] 5 mg Tablet,Delayed Release (Dr/Ec) 5 mg PO DAILY PRN (Reason: Constipation) RF: 0 diclofenac sodium 50 mg tablet,delayed release (DR/EC) 50 mg PO BID RF: 0 albuterol sulfate [ProAir HFA] 90 mcg/actuation HFA aerosol inhaler 2 puff INHALATION Q4 PRN (Reason: Shortness Of Breath Or Wheezing) RF: 0 fluticasone propionate [Flonase Allergy Relief] 50 mcg/actuation [place],Suspension 2 spray INTRANASAL DAILY RF: 0 Spiriva with HandiHaler 18 mcg capsule, w/inhalation device 1 cap INHALATION DAILY RF: 0 Lactinex 1 million cell tablet,chewable 1 tab PO BID Qty: 30 RF: 0 Discharge Orders: Discharge Order (Routine); Ordered 04/17/20 Ordered By: Radha Sharma Admission Data Admit Date/Time: 04/14/20 14:22 Attending Provider: Radha Sharma Admit Provider: Moose Villalba Primary Care Provider: Destiny Walls Other Providers: Vikas Noonan ; Moose Villalba ; [place] Other Interventions: Discharge Summary Assessment (RN) Last Done: 04/17/20 16:18
[2020-04-18] MEDS ORDERED: LEVOTHYROXINE SODIUM 37.5 MCG in SYRINGE 0 ML IV SCH (09:00)
== END 2020-04-17 18:17 | disposition home or self-care (01) | DRG 389 ==
LOC: ED 10:45 → 2N 14:22 → SUATTDRO 14:22 → 2N 17:06